=== PATIENT | female | born 1940 | race Caucasian/White ===

== ENCOUNTER 2020-03-26 11:13 | Inpatient (IN) | payer MEDICARE, OTHER, SELFPAY ==
[2020-03-26] VITALS (18 sets, daily range): BP systolic 107–151; BP diastolic 54–101; PULSE 67–175; RESP 14–22; TEMP 36.6–37.1; O2SAT 95–100; BMI 34.5; BMI 32.8; BMI 32.9
--- NOTE | 2020-03-26 11:20 | EKG12_ITS ---
Test Reason : Blood Pressure : / mmHG Vent. Rate : 074 BPM Atrial Rate : 074 BPM P-R Int : 140 ms QRS Dur : 088 ms QT Int : 374 ms P-R-T Axes : 056 021 059 degrees QTc Int : 415 ms Normal sinus rhythm Nonspecific ST and T wave abnormality Abnormal ECG When compared with ECG of 26-MAR-2020 11:29, MANUAL COMPARISON REQUIRED, DATA IS UNCONFIRMED Confirmed by PETRA CHENG, ALLI ([id number]), fashion editor MIRIAM VUONG ([id number]) on 03/27/2020 11:10:26 AM Referred By: HENRI Confirmed By:ALLI LAMBERT MD
--- NOTE | 2020-03-26 11:21 | ED.DCSUM_ITS ---
History of Present Illness Chief Complaint: Chest Pain Informant: Patient, EMS Onset: Today - 1 hr ago or so Timing: Intermittent, Lasts - 10-15 min Quality: Pressure, Tightness Location: Substernal Current Severity: Gone Maximum Severity: Moderate Worsened By: Nothing. Not Worsened By: Breathing Relieved By: Nothing Associated Symptoms: Diaphoresis, Dyspnea, Lightheadedness - now, but not w/ CP. Negative for: Nausea, Vomiting, Cough, Fever, Palpitations Narrative: Patient was at a grocery store and fell. She has no idea why she fell, she does not recall feeling near syncopal, weak, and does not recall tripping on anything. EMS was called for the fall. Upon evaluating her, they determined that she had an episode of chest pressure prior to getting to the store, and she was tachycardic. They obtained an EKG which shows rapid A. fib which the patient does not have a known history of, she did not feel tachycardic/palpitations. Right now she feels better just a little lightheaded. Patient did not injure herself with the fall. Past Medical History - Allergies and Home Meds Allergies/Adverse Reactions: Allergies No Known Allergies Allergy (Verified 03/26/20 11:14) Primary Care Physician: Jn Robertson MD [Primary Care Provider] - Smoking Status: Never smoker Review of Systems General: Reports: Malaise, Sweats. Denies: Chills, Fever Eyes: Denies: Visual changes - bilaterally, Diplopia ENT: Denies: Rhinorrhea, Sore throat Cardiovascular: Reports: Chest pain. Denies: Palpitations, Heart racing Respiratory: Reports: Dyspnea - Mild, resolved. Denies: Cough, Dyspnea on exertion Gastrointestinal: Denies: Abdominal pain, Nausea, Vomiting, Diarrhea, Melena, Hematochezia Genitourinary: Denies: Dysuria, Hematuria, Frequency Musculoskeletal: Denies: Myalgias, Back pain, Extremity Pain Skin: Denies: Rash, Wounds Neurological: Denies: Headache, Weakness, Numbness Physical Exam Inital Vital Signs reviewed: Yes General: Well nourished, Well developed, No Acute Distress Head: Normocephalic, Atraumatic Eyes: Perrl, EOMI ENT: Moist mucous membranes, No rhinorrhea Neck: Supple, Nontender, No JVD Cardiovascular: No murmurs, Normal S1, Normal S2, Irregular. Negative for: Tachycardia Respiratory: No distress, CTA bilaterally, Chest nontender Abdomen: Soft, Nontender, Nondistended, Normal bowel sounds Back: Nontender, Normal Inspection Extremities: Nontender, Edema - Trace bilateral lower extremity pretibial nonpitting. Negative for: Calf Tenderness Skin: Normal color, No rash, No Trauma Neurological: Alert, Oriented x3, Cranial nerves II-XII grossly intact, Normal Strength, Normal Sensation Psychological: Normal affect, Normal Mood Diagnostic/Tx/Re-eval Chest X-Ray - ED: 1 View, Read by ED Physician, No Acute Disease Laboratory Tests 03/26/20 03/26/20 03/26/20 Range/Units 11:30 11:30 11:30 WBC 10.3 (4.4-11.0) K/mm3 RBC 4.33 (4.2-5.4) M/mm3 Hgb 12.5 (12.0-15.0) g/dL Hct 40.3 (37-47) % MCV 93.1 (81-99) fL MCH 28.9 (27.0-32.0) pg MCHC 31.0 L (32-36) g/dL RDW Std Deviation 48.0 H (35.1-43.9) fl RDW Coeff of Tiffani 14.1 (11.6-14.6) % Plt Count 247 (150-450) K/mm3 MPV 11.0 (6.2-12.0) fl Immature Gran % (Auto) 0.400 (0.0-0.9) % Neut % (Auto) 66.6 (47-70) % Lymph % (Auto) 23.5 (19-41) % [place] % (Auto) 6.2 (0-10) % Eos % (Auto) 2.7 (0-5) % Baso % (Auto) 0.6 (0-1) % Absolute Neuts (auto) 6.9 (2.0-7.7) X10^3/uL Absolute Lymphs (auto) 2.43 (0.83-4.51) X10^3/uL Nucleated RBC % 0 (0-5) % APTT 28.3 (24.1-36.2) Seconds Sodium 142 (136-145) mmol/L Potassium 4.5 (3.5-5.1) mmol/L Chloride 110 H (98-107) mmol/L Carbon Dioxide 23.0 (21.0-32.0) mmol/L Anion Gap 9 (5-15) BUN 34 H (7-18) mg/dL Creatinine 0.94 (0.55-1.02) mg/dL Estim Creat Clear Calc 37.75 ml/min Est GFR (MDRD) Af Amer 74 (>60) mL/min Est GFR (MDRD) Non-Af 61 (>60) mL/min BUN/Creatinine Ratio 36.2 H (10-20) RATIO Glucose 137 H (74-106) mg/dL Calcium 9.1 (8.5-10.1) mg/dL Troponin I < 0.015 (<0.045) ng/mL - Rhythm Strip Rhythm Strip: A-fib Rate: 190 Ectopy: None - EKG Initial EKG Interpretation: No Acute Injury Pattern, Atrial Fibrillation, S-T Depression - diffusely, withouty ST elevation/recip chgs - Medical Decision Making After Cardizem, the patient is asymptomatic however electrically, she is tachy cardic in the 160s with occasional ventricular ectopy. Therefore plan is to start her on a Cardizem drip. Her blood pressure currently is 108 systolic, and will will admit her to the hospital for further treatment, evaluation, and monitoring. Critical care time (excluding procedures): 30-74 minutes - 35 minutes including time spent discussing with patient, child development consultant, range of motion, performing direct patient care to bedside reevaluation's, documentation. ED Disposition - Plan for ED Patient: Disposition: Acute Care Hospital [facility] Diagnosis: Chest pain, Atrial fibrillation with rapid ventricular response Referrals: Jn Robertson MD [Primary Care Provider] -
--- NOTE | 2020-03-26 11:32 | RAD_ITS ---
STUDY: X-RAY CHEST REASON FOR EXAM: Female, 79 years old. PT WITH CHEST PAIN, DIAPHORETIC PRIOR TO GOING INTO GROCERY STORE. PT FELL BACKWARDS ONTO BUTTOCKS. REPORTS DIZZINESS. TECHNIQUE: Single AP portable view of the chest. COMPARISON: None. FINDINGS: EKG electrodes are seen. The lungs are clear and expanded. There is no demonstrated pleural abnormality. Normal size heart. Normal mediastinum and dimas. Normal visualized pulmonary arteries. There is atherosclerotic tortuosity of the aortic arch and descending thoracic aorta. There are diffuse degenerative changes of the visualized thoracic spine. There is degenerative osteoarthritis of the bilateral shoulders. There is no demonstrated abnormality of the visualized soft tissue structures of the upper abdomen. RAD/Chest 1 View (Portable) IMPRESSION: No acute abnormality is seen. Degenerative changes of both shoulder joints. Electronically Signed: Salvador Trevino, at 12:22 EST , Service support ,
[2020-03-26] MEDS: 0.9% Normal Saline 1,000 ML 150 ML IV (11:35)
[2020-03-26] MEDS: Aspirin 81 MG TAB.CHEW 324 MG PO (11:35)
[2020-03-26 11:39] LABS: Absolute Lymphocyte Count 2.43 X10^3/uL (0.83-4.51); Absolute Neutrophil Count 6.9 X10^3/uL (2.0-7.7); Basophil# 0.06 X10^3/uL; Basophil% 0.6 % (0-1); Eosinophil# 0.28 X10^3/uL; Eosinophils% 2.7 % (0-5); Hematocrit 40.3 % (37-47); Hemoglobin 12.5 g/dL (12.0-15.0); Lymphocyte # 2.43 X10^3/ul (4.0); Lymphocyte % 23.5 % (19-41); Mean Corpuscular Hgb 28.9 pg (27.0-32.0); Mean Corpuscular Volume 93.1 fL (81-99); Monocyte# 0.64 X10^3/uL; Monocyte% 6.2 % (0-10); NRBC Flagged by Analyzer 0 % (0-5); Neutrophil # 6.89 X10^3/uL (2.7-7.7); Neutrophil % 66.6 % (47-70); Platelet Count 247 K/mm3 (150-450); RBC Distribution Width CV 14.1 % (11.6-14.6); Red Blood Count 4.33 M/mm3 (4.2-5.4); White Blood Count 10.3 K/mm3 (4.4-11.0)
[2020-03-26] MEDS: dilTIAZem 25 MG/5 ML Vial 20 MG IV BOLUS (11:39)
[2020-03-26 11:48] LABS: Partial Thromboplast Time 28.3 Seconds (24.1-36.2)
[2020-03-26 11:56] LABS: Anion Gap 9 (5-15); BUN 34 mg/dL (7-18); BUN/Creat Ratio 36.2 RATIO (10-20); Calcium,Total 9.1 mg/dL (8.5-10.1); Chloride 110 mmol/L (98-107); Creatinine, Serum 0.94 mg/dL (0.55-1.02); EST Glomerular Filtration Rate 61 mL/min (>60); Est Glom Filt Rate - Afr Amer 74 mL/min (>60); Estimated Creatinine Clearance 37.75 ml/min; Glucose 137 mg/dL (74-106); Potassium 4.5 mmol/L (3.5-5.1); Sodium Level 142 mmol/L (136-145)
[2020-03-26] MEDS: dilTIAZem 25 MG/5 ML Vial 15 MG IV BOLUS (13:29)
--- NOTE | 2020-03-26 14:56 | PCM.HP.STD ---
Problem List (1) Chest pain Status: Acute (2) Atrial fibrillation with rapid ventricular response Status: Acute History of Present Illness Date of Admission: 03/26/20 Chief Complaint: Chest pressure, shortness of breath. The patient is a 79 year old F who presents the emergency room due to chest pressure and shortness of breath. Patient states she was running errands today and felt like she could not catch her breath. She thought this may be related to wearing her mask. While driving to an additional errand, she developed chest pressure and states she did not feel right. She denies pain radiation. Denies nausea, diaphoresis. She has a history of hypertension. Otherwise denies cardiac history. She has a past medical history of hypertension, asthma, arthritis, GERD, gout. Past Medical History Allergies No Known Allergies Allergy (Verified 03/26/20 11:14) Home Medications: Ambulatory Orders Medication Instructions Recorded Acetaminophen [Tylenol Extra 500 mg PO Q6H PRN PRN 03/26/20 Strength] Albuterol Inhaler [Ventolin Hfa 1 - 2 puff INHALATION Q6H PRN PRN 03/26/20 (SP)] Allopurinol [Zyloprim] 100 mg PO DAILYCM 03/26/20 Antiarthritic Combination No.2 900 mg PO BID 03/26/20 [Glucosamine-Chondroitin] Celecoxib [Celebrex] 200 mg PO BID 03/26/20 Fluticasone 0.05% [Flonase Nasal 1 spray NASAL PRN PRN 03/26/20 [place]] Fluticasone/Salmeterol [Advair 1 ea IH BID 03/26/20 250-50 Diskus] Ketotifen Fumarate [Zaditor] 1 drop EACH EYE PRN PRN 03/26/20 Lisinopril [Zestril] 10 mg PO DAILY 03/26/20 Loratadine [Claritin] 10 mg PO DAILY PRN 03/26/20 Multivit-Min/Iron/Folic/Lutein 1 ea PO QODAY 03/26/20 [Multivitamin Women 50 Plus Tab] Omeprazole [Prilosec] 20 mg PO QODAY 03/26/20 Surgical History: no surgical history Psychiatric History: No pertinent psych hx NET SOFTWARE ARCHITECT History: No pertinent NET SOFTWARE ARCHITECT history Lives: Spouse/ Significant Other Smoking Status: Never smoker Tobacco Use: Non-smoker Alcohol: None Drugs: None - *Family History Maternal History Items: - - Mini strokes. Denies maternal cardiac history. Paternal History Items: - - Rheumatoid arthritis. Denies paternal cardiac history. Review of Systems Constitutional: Denies: Chills, Fever, Weight Change HEENT: Denies: Head Aches, Sinus Congestion, Sinus Drainage Cardiovascular: Reports: Chest Pressure. Denies: Edema, Light Headedness, Palpitations, Syncope Respiratory: Reports: Shortness of Breath. Denies: Cough, Shortness of breath at rest, Sputum production Gastrointestinal: Denies: Abdominal Pain, Nausea, Vomiting Genitourinary: Denies: Dysuria Musculoskeletal: Denies: Joint Pain, Joint Tenderness Skin: Denies: Rash, Wounds Neurological: Denies: Numbness, Tingling, Focal weakness Psychiatric: Denies: Anxiety, Depression, Homicidal Ideations, Suicidal Ideations Hematologic/ Lymphatic: Denies: Easy Bruising, Easy Bleeding VTE Information - Inpt Only VTE Present on Admission: No VTE Mechan Device Prophylaxis: None VTE Pharm Prophylaxis ordered?: Yes Patient Problems: Active and Suspected Problems Chest pain (Acute) Atrial fibrillation with rapid ventricular response (Acute) - Physical Exam Vitals/I&O's: Vital Signs Temp Pulse Resp BP Pulse Ox 98.0 F 74 16 150/83 H 100 03/26/20 14:45 03/26/20 14:45 03/26/20 14:45 03/26/20 14:45 03/26/20 14:45 Oxygen Flow Rate (L/min) 2 Oxygen Delivery Method Room Air Weight: 179 lb 14.355 oz Body Mass Index (BMI) 32.8 Intake and Output for Last 24 Hours 03/24/20 03/25/20 03/26/20 23:59 23:59 23:59 Intake Total 1012.58 / 1012.58 Balance 1012.58 / 1012.58 General: Alert, Oriented x3, Cooperative HEENT: Atraumatic, PERRLA, EOMI, Normocephalic Neck: Supple, No JVD, Negative Carotid Bruits Lungs: Clear to auscultation, Normal air movement Cardiovascular: Regular rate, No murmurs, - - Previously atrial fibrillation, converted to sinus rhythm Abdomen: Bowel Sounds Present, Soft, Non Tender Extremities: No clubbing, No cyanosis, No edema, Capillary Refill Less than 3 Seconds Skin: No rashes, No breakdown Musculoskeletal: No Tenderness to Palpation of Joints or Extremities Neurological: Cranial nerves II-XII grossly intact, Neuro grossly intact Psych/Mental Status: Normal Affect, Appropriate Laboratory Results 03/26/20 11:30: WBC 10.3, RBC 4.33, Hgb 12.5, Hct 40.3, MCV 93.1, MCH 28.9, MCHC 31.0 L, RDW Std Deviation 48.0 H, RDW Coeff of Tiffani 14.1, Plt Count 247, MPV 11.0, Immature Gran % (Auto) 0.400, Neut % (Auto) 66.6, Lymph % (Auto) 23.5, [place] % (Auto) 6.2, Eos % (Auto) 2.7, Baso % (Auto) 0.6, Absolute Neuts (auto) 6.9, Absolute Lymphs (auto) 2.43, Nucleated RBC % 0 03/26/20 11:30: APTT 28.3 03/26/20 11:30: Sodium 142, Potassium 4.5, Chloride 110 H, Carbon Dioxide 23.0, Anion Gap 9, BUN 34 H, Creatinine 0.94, Estim Creat Clear Calc 37.75, Est GFR (MDRD) Af Amer 74, Est GFR (MDRD) Non-Af 61, BUN/Creatinine Ratio 36.2 H, Glucose 137 H, Calcium 9.1, Troponin I < 0.015 Current Medications Acetaminophen (Acetaminophen 325 Mg Tablet) 650 mg PO Q6H PRN PRN PRN Reason: Pain Score 1-10/Temp > 100.7 F Enoxaparin Sodium (Enoxaparin 40 Mg/0.4 Ml Syringe) 40 mg SC DAILY REYNA Diltiazem HCl 125 mg/ Dextrose 125 mls @ 5 mls/hr IV .Q25H REYNA; Protocol Last Titration: 03/26/20 14:45 Dose: 5 mg/hr, 5 mls/hr Documented by: Lisinopril (Lisinopril 10 Mg Tablet) 10 mg PO DAILY REYNA Morphine Sulfate (Morphine 2 Mg/Ml Syringe) 2 mg IV Q3H PRN PRN PRN Reason: Pain Score 6-10 Ondansetron HCl (Ondansetron 4 Mg/2 Ml Vial) 4 mg IV Q8H PRN PRN PRN Reason: NAUSEA/VOMITING Pantoprazole Sodium (Pantoprazole Sodium 20 Mg Tablet) 20 mg PO DAILY REYNA Sodium Chloride (0.9% Saline Lock 10 Ml Syringe) 10 - 40 ml IV UD PRN PRN Reason: SALINE FLUSH Assessment/Plan All Active Problems Chest pain (Acute) Atrial fibrillation with rapid ventricular response (Acute) 1. New onset atrial fibrillation-IV Cardizem initiated in ER. Converted to sinus rhythm. Plan for transition to oral Cardizem. Trend enzymes. Check TSH, mag. Obtain echocardiogram. Monitor telemetry overnight. 2. Chest pressure-suspect related to #1. Symptoms resolved with conversion to sinus rhythm. Trend enzymes. 3. Hypertension-stable, continue lisinopril regimen. 4. GERD-continue Prilosec. 5. Gout-on allopurinol. DVT prophylaxis-Lovenox subcu This patient was seen by VERA Holcomb under the supervision of Dr. Aleman.
--- NOTE | 2020-03-26 15:47 | EKG12_ITS ---
Test Reason : CP Blood Pressure : / mmHG Vent. Rate : 189 BPM Atrial Rate : 182 BPM P-R Int : 000 ms QRS Dur : 080 ms QT Int : 244 ms P-R-T Axes : 000 032 221 degrees QTc Int : 432 ms Atrial fibrillation with rapid ventricular response Nonspecific ST abnormality Abnormal ECG Confirmed by RAF CHENG, CHESTER ([id number]), editorial writer MIRIAM VUONG ([id number]) on 03/28/2020 8:55:56 AM Referred By: DESIREE Confirmed By:CHESTER CARBONE MD
--- NOTE | 2020-03-26 15:48 | CON.PCM_ITS ---
Reason for Consult Date of Consultation: 03/26/20 Reason for Consultation: Palpitations and chest discomfort History of Present Illness: The patient is a 79 year old F with a previous medical history significant for hypertension who presented to the emergency room today after experiencing palpitations and chest discomfort which occurred while she was participating in activities of daily living. She said that it recurred and was persistent and therefore she got concerned and presented to the emergency room. In the emergency room an EKG was done on arrival which demonstrated atrial fibrillation with a rapid ventricular response rate of 189 bpm. She was given intravenous diltiazem and transferred to the telemetry unit. Cardiology was called for further evaluation and management. Shortly after she arrived on the telemetry floor the chest discomfort dissipated and she appeared to have converted back to sinus rhythm. She denies any prior chest discomfort no shortness of breath no paroxysmal nocturnal dyspnea or pedal edema no neck arm or jaw discomfort to suggest angina previously. She has not had any Covid contacts no long travel and no leg or calf discomfort. She has previously been compliant with her medications. [] Past Medical History Allergies/Adverse Reactions: Allergies No Known Allergies Allergy (Verified 03/26/20 11:14) Home Medications: Ambulatory Orders Medication Instructions Recorded Acetaminophen [Tylenol Extra 500 mg PO Q6H PRN PRN 03/26/20 Strength] Albuterol Inhaler [Ventolin Hfa 1 - 2 puff INHALATION Q6H PRN PRN 03/26/20 (SP)] Allopurinol [Zyloprim] 100 mg PO DAILYCM 03/26/20 Antiarthritic Combination No.2 900 mg PO BID 03/26/20 [Glucosamine-Chondroitin] Celecoxib [Celebrex] 200 mg PO BID 03/26/20 Fluticasone 0.05% [Flonase Nasal 1 spray NASAL PRN PRN 03/26/20 [place]] Fluticasone/Salmeterol [Advair 1 ea IH BID 03/26/20 250-50 Diskus] Ketotifen Fumarate [Zaditor] 1 drop EACH EYE PRN PRN 03/26/20 Lisinopril [Zestril] 10 mg PO DAILY 03/26/20 Loratadine [Claritin] 10 mg PO DAILY PRN 03/26/20 Multivit-Min/Iron/Folic/Lutein 1 ea PO QODAY 03/26/20 [Multivitamin Women 50 Plus Tab] Omeprazole [Prilosec] 20 mg PO QODAY 03/26/20 Surgical History: no surgical history Psychiatric History: No pertinent psych hx SENIOR PROGRAMMER History: No pertinent 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 Denies maternal cardiac history. Paternal History Items: - - Rheumatoid arthritis. Denies paternal cardiac history. Lives: Spouse/ Significant Other Smoking Status: Never smoker Tobacco Use: Non-smoker Alcohol: None Drugs: None Review of Systems - Review of Systems General: Denies: Fever, Night Sweats, Fatigue HEENT: Denies: Vision Change Cardiovascular: Reports: Chest Discomfort, Palpitations. Denies: Shortness of Breath, Orthopnea, PND, Peripheral Edema, Lightheadedness, Dizziness, Near Syncope, Syncope Respiratory: Denies: Cough, Sputum Production, Hemoptysis Gastrointestinal: Denies: Hematemesis, Hematochezia, Melena Genitourinary: Denies: Dysuria, Hematuria Skin: Denies: Rash Neurological: Denies: Dizziness Psychiatric: Denies: Anxiety Endocrine: Denies: Heat Intolerance Subjectve: Pleasant lady in no distress Objective: Vital Signs Temp Pulse Resp BP Pulse Ox 98.1 F 78 14 141/88 H 99 03/26/20 15:00 03/26/20 15:00 03/26/20 15:00 03/26/20 15:00 03/26/20 15:00 Oxygen Flow Rate (L/min) 2 Oxygen Delivery Method Room Air Weight: 179 lb 14.355 oz Body Mass Index (BMI) 32.8 Intake and Output for Last 24 Hours 03/24/20 03/25/20 03/26/20 23:59 23:59 23:59 Intake Total 1012.58 / 1012.58 Balance 1012.58 / 1012.58 General: Awake, Alert, Oriented x 3 HEENT: PERRL, EOMI, Sclera Non Icteric Neck: Supple, Good ROM, No Lymph Node Enlargement Lungs: Clear to auscultation Cardiovascular: Regular Rhythm, Normal S1, Normal S2, No Murmurs, No Rubs, No Gallops Vascular: No Carotid Bruits, Normal Femoral Pulses, Normal Radial Pulses, Normal Dorsalis Pedal Pulse, Normal Posterior Tibial Pulses Abdomen: Bowel Sounds Present, Soft, Non Tender, No HSM, No Organomegaly Extremities: No Cyanosis, No Clubbing, No edema Musculoskeletal: No Erythema Skin: No Rashes Lymphatic: No Lymph Node Enlargement Neurological: No Focal Motor or Sensory Deficit Psych/Mental Status: Appropriate 03/26/20 11:30: WBC 10.3, RBC 4.33, Hgb 12.5, Hct 40.3, MCV 93.1, MCH 28.9, MCHC 31.0 L, Plt Count 247, MPV 11.0, Immature Gran % (Auto) 0.400, Neut % (Auto) 66.6, Lymph % (Auto) 23.5, [place] % (Auto) 6.2, Eos % (Auto) 2.7, Baso % (Auto) 0.6, Absolute Neuts (auto) 6.9, Nucleated RBC % 0 03/26/20 11:30: APTT 28.3 03/26/20 11:30: Sodium 142, Potassium 4.5, Chloride 110 H, Carbon Dioxide 23.0, Anion Gap 9, BUN 34 H, Creatinine 0.94, Est GFR (MDRD) Af Amer 74, Est GFR (MDRD) Non-Af 61, BUN/Creatinine Ratio 36.2 H, Glucose 137 H, Calcium 9.1, Troponin I < 0.015 Rhythm: EKG: Initial EKG demonstrated atrial fibrillation with rapid ventricular response rate of [address] and T wave changes noted inferolaterally.; Follow-up EKG after conversion to sinus rhythm demonstrates normal sinus rhythm with no acute changes ECHO: Pending Stress Test: Cardiac Cath: PCI: CT Surgery: Holter monitor: EPS: PPM: CXR: Chest CT Scan: Assessment/Plan 1. Atrial fibrillation with rapid ventricular response rate * It appears that this is the first episode of atrial fibrillation. She has spontaneously converted to sinus rhythm. Her echocardiogram performed today demonstrated borderline ejection fraction estimated to be approximately 50%. No segmental wall motion abnormalities noted and no significant valvular abnormalities present. * Will recommend at this time starting a beta-mulu with metoprolol 25 mg twice a day * Discontinue intravenous diltiazem * Obtain a D-dimer level to exclude pulmonary embolism * Continue troponin cycling * Will observe till a.m. and if patient is maintaining sinus rhythm then will discharge for outpatient follow-up. * With this 1 episode of atrial fibrillation I do not think that I would necessarily committed to anticoagulation. * 2. Hypertension * The above is suboptimally controlled. We will continue the lisinopril * Add the beta-mulu * * 3. Abnormal cardiac enzymes. * She does have evidence of abnormal cardiac enzymes as well as EKG changes when she was tachycardic. The above may all be demand ischemia. However if there is what appears to be a rise and fall then I may suggest that we evaluate her coronary anatomy to exclude coronary ischemia or obstructive coronary disease especially at her age. * Thank you for allowing me to participate in the care of your patient. Please don't hesitate to call if any issues arise.
[2020-03-26 16:27] LABS: Magnesium 2.2 mg/dL (1.6-2.6); Thyroid Stim Hormone (TSH) 2.49 uIU/mL (0.358-3.74)
[2020-03-26] MEDS: 0.9% Saline Lock 10 ML Syringe IV ×2 (17:06→19:56)
[2020-03-26] MEDS: Metoprolol Tartrate 25 MG Tablet PO (17:12)
[2020-03-26] MEDS: Enoxaparin 40 MG/0.4 ML Syringe SC (17:13)
--- NOTE | 2020-03-26 17:44 | CT_ITS ---
STUDY: CTA CHEST REASON FOR EXAM: Female, 79 years old. Chest pain. Question PE. RADIATION DOSAGE (If Supplied By Facility): CTDIvol = ( 14.83 ) mGy, DLP = ( 525.30 ) mGycm TECHNIQUE: The examination was performed with the intravenous administration of IV 75mL Isovue-370. Post-processing of the angiographic images was performed, with multiplanar reformation and 3D reconstruction. Individualized dose optimization techniques were used for this CT. COMPARISON: Contrast, 03/26/2020. FINDINGS: Normal enhancement of the main pulmonary artery and right and left pulmonary arteries. Normal enhancement of the bilateral peripheral pulmonary arteries. There is no demonstrated pulmonary embolism. Normal thoracic aorta and visualized great vessels. There is no demonstrated aortic dissection. Normal heart and pericardium. Normal mediastinum. Normal hilar regions. Normal visualized trachea and bronchi. The lungs are well expanded. Normal pulmonary parenchyma. Normal pleura. Normal chest wall structures. There are marked degenerative changes of the bilateral shoulders. There are degenerative changes of thoracic spine. Normal visualized upper abdomen. CT/CTA Chest W/WO Contrast IMPRESSION: 1. Normal CTA chest examination, without a demonstrated pulmonary embolism or arterial dissection. 2. Degenerative changes of the thoracic spine and bilateral shoulders. Electronically Signed: Nick Roach DO at 19:31 EST Tel [phone], Service support ,
[2020-03-26] MEDS: Acetaminophen 325 MG Tablet 650 MG PO (19:56)
[2020-03-26] MEDS: 0.9% Normal Saline 1,000 ML 75 ML IV (22:05)
[2020-03-27] VITALS (12 sets, daily range): BP systolic 140–155; BP diastolic 68–80; PULSE 54–80; RESP 14–18; TEMP 36.6–37.2; O2SAT 94–98
--- NOTE | 2020-03-27 05:00 | EKG12_ITS ---
Test Reason : AM EKG Blood Pressure : / mmHG Vent. Rate : 060 BPM Atrial Rate : 060 BPM P-R Int : 140 ms QRS Dur : 092 ms QT Int : 404 ms P-R-T Axes : 048 020 049 degrees QTc Int : 404 ms Normal sinus rhythm Normal ECG Confirmed by RAF CHENG, CHESTER ([id number]), book or script editor MIRIAM VUONG ([id number]) on 03/28/2020 9:04:45 AM Referred By: DR ÁLVAREZ Confirmed By:CHESTER CARBONE MD
[2020-03-27] MEDS: Pantoprazole Sodium 20 MG Tablet PO (05:47)
[2020-03-27] MEDS: Lisinopril 10 MG Tablet PO (05:47)
[2020-03-27] MEDS: Aspirin 81 MG TAB.CHEW PO (05:47)
[2020-03-27] MEDS: Metoprolol Tartrate 25 MG Tablet PO (05:47)
[2020-03-27] MEDS: 0.9% Saline Lock 10 ML Syringe IV (05:48)
[2020-03-27] MEDS: 0.9% Normal Saline 1,000 ML 75 ML IV (07:02)
--- NOTE | 2020-03-27 08:21 | PN.CARD_ITS ---
Subjectve: Patient seen and evaluated. Underwent cardiac catheterization today Objective: Vital Signs Temp Pulse Resp BP Pulse Ox 97.8 F 62 18 141/75 H 96 03/27/20 05:46 03/27/20 07:17 03/27/20 05:46 03/27/20 05:46 03/27/20 05:46 Oxygen Flow Rate (L/min) 2 Oxygen Delivery Method Room Air Weight: 179 lb 14.355 oz Body Mass Index (BMI) 32.8 Intake and Output for Last 24 Hours 03/25/20 03/26/20 03/27/20 23:59 23:59 23:59 Intake Total 1012.58 / 1012.58 671.25 / 671.25 Balance 1012.58 / 1012.58 671.25 / 671.25 General: Awake, Alert, Oriented x 3 HEENT: PERRL, EOMI, Sclera Non Icteric Neck: Supple, Good ROM, No Lymph Node Enlargement Lungs: Clear to auscultation Cardiovascular: Regular Rhythm, Normal S1, Normal S2, No Murmurs, No Rubs, No Gallops 03/26/20 11:30: WBC 10.3, RBC 4.33, Hgb 12.5, Hct 40.3, MCV 93.1, MCH 28.9, MCHC 31.0 L, Plt Count 247, MPV 11.0, Immature Gran % (Auto) 0.400, Neut % (Auto) 66.6, Lymph % (Auto) 23.5, [place] % (Auto) 6.2, Eos % (Auto) 2.7, Baso % (Auto) 0.6, Absolute Neuts (auto) 6.9, Nucleated RBC % 0 03/26/20 11:30: APTT 28.3 03/26/20 11:30: Sodium 142, Potassium 4.5, Chloride 110 H, Carbon Dioxide 23.0, Anion Gap 9, BUN 34 H, Creatinine 0.94, Est GFR (MDRD) Af Amer 74, Est GFR (MDRD) Non-Af 61, BUN/Creatinine Ratio 36.2 H, Glucose 137 H, Calcium 9.1, Troponin I < 0.015 03/26/20 11:30: D-Dimer Quant (PE/DVT) 1.80 H* 03/26/20 15:10: Troponin I 0.331 H 03/26/20 15:10: Magnesium 2.2 03/26/20 18:00: Troponin I 0.644 H* Rhythm: EKG: ECHO: Stress Test: Cardiac Cath: PCI: CT Surgery: Holter monitor: EPS: PPM: CXR: Chest CT Scan: Medical Necessity - Tobacco Use Smoking Status: Never smoker Tobacco Use: Non-smoker Assessment/Plan 1. Atrial fibrillation with rapid ventricular response rate * It appears that this is the first episode of atrial fibrillation. She has spontaneously converted to sinus rhythm. Her echocardiogram performed today demonstrated borderline ejection fraction estimated to be approximately 50%. No segmental wall motion abnormalities noted and no significant valvular abnormalities present. * Will recommend at this time starting a beta-mulu with metoprolol 25 mg twice a day * * With this 1 episode of atrial fibrillation I do not think that I would necessarily committed to anticoagulation. * 2. Hypertension * The above is suboptimally controlled. We will continue the lisinopril * Add the beta-mulu * * 3. Abnormal cardiac enzymes. * She did have abnormal cardiac enzymes and underwent a cardiac catheterization today which demonstrated no obstructive coronary disease. There was mild disease noted in the circumflex artery only. We will continue with medical therapy. Patient can be discharged for outpatient follow-up. * Thank you for allowing me to participate in the care of your patient. Please don't hesitate to call if any issues arise.
--- NOTE | 2020-03-27 08:30 | CL.D_ITS ---
Patient Name: HONEY FERNANDES Study Date: 03/27/2020 Performing: Rodrick Stanford MD Ht: 61.81 inches 157 cm : 1940 Wt: 180.78 lbs 82 kg Age: 79 Gender: female BSA: 1.83 PROCEDURE(S) PERFORMED KB76-ALS/COR/LV CLINICAL PROFILE AND INDICATIONS Indications: Suspected CAD Heart Failure: None Stress/Imaging Stress/Image Study Performed: No CAD Presentations: Non-STEMI. Symptom onset Date/Time: 03/26/2020 Time Not Available CONCLUSIONS Mild to minimal coronary artery disease and mild left ventricular systolic dysfunction. RECOMMENDATIONS Medical therapy DESCRIPTION OF PROCEDURE The patient arrived to the procedure lab. The risks and benefits of the procedure as well as a full d escription of our services here and current unavailability of surgical backup were fully explained to the patient and/or their significant other prior to the catheterization. The Timeout was completed, verifying the correct patient and procedure. The patient's procedural site was prepped and draped in the usual fashion. Local anesthetic was given subcutaneously to right radial region with Lidocaine 2% . Using a modified Seldinger technique, arterial access was obtained via the right radial artery, a 6 Fr sheath was inserted. Left Coronary Artery selective angiography was performed in multiple views u sing a 5 Fr. 4.0 [place] catheter. Right Coronary Artery selective angiography was then performed in mu ltiple views using a 5 Fr. 4.0 [place] catheter. Left Ventriculography was performed in CAMPOS projection using a 5 Fr. [place] catheter. LV to AO pullback pressures were then recorded.The arterial sheath was pulled and a TR Band was applied for hemostasis CORONARY ANGIOGRAPHY DOMINANCE: Co- Dominant LEFT HEART ASSESSMENT Left Ventricular Ejection Fraction: by LV Gram 50 % Normal LV wall motion Normal Left Ventricular systolic function LEFT MAIN: Angiographically normal LEFT ANTERIOR DESCENDING ARTERY: No significant disease noted CIRCUMFLEX ARTERY: MID CIRC: Mild luminal irregularities less than 30% RAMUS: No significant disease noted RIGHT CORONARY ARTERY: No significant disease noted COMPLICATIONS No Complications PROCEDURE MEDICATIONS Versed 1 mg IV Fentanyl 50 mcg IV Oxygen: 2 L/min via nasal cannula Heparin diluted in 23cc Heparinized saline. Patient given 10cc IA of this solution. 03/27/2020 08:09 :19 Verapamil 2.5mg, Ntg 100mcgs, 2000 units of Heparin diluted in 23cc Heparinized saline. Patient give n 10cc IA of this solution. 03/27/2020 08:09:19 SUMMARY OF HEMODYNAMIC DATA Time AIR REST ECG 07:59:18 AO 112/53 (77) SA 08:11:14 LV 130/12, 14 08:17:11 LV 131/12, 14 08:17:18 LV 126/15, 16 08:17:58 LV 122/14, 16 08:18:04 LVp 124/12, 22 08:18:09 AOp 133/61 (91) 08:18:14 Signed By Rodrick Stanford MD On 03/27/2020 8:29:29 AM Rodrick Stanford MD
--- NOTE | 2020-03-27 11:20 | PCM.DC ---
- Discharge Diagnoses Current Active Problems: Current Active and Chronic Problems (Last Updated 03/26/20 @ 18:01 by Usha Fabian) Chest pain (Acute) Atrial fibrillation with rapid ventricular response (Acute 03/26/20) You will use the following diet at home:: Cardiac Discharge Activity: Return to Normal Activity Call your doctor if you observe: Shortness of breath, Dizziness, Fainting spells, Chest pain, Increased palpitations (irregular heartbeat) Allergies/Adverse Reactions: Allergies No Known Allergies Allergy (Verified 03/26/20 11:14) Medications to take at Discharge Acetaminophen [Tylenol] 500 mg PO Q6H PRN PRN 03/26/20 Albuterol Inhaler [Ventolin Hfa] 1 - 2 puff INHALATION Q6H PRN PRN 03/26/20 Allopurinol [Zyloprim] 100 mg PO DAILYCM 03/26/20 Antiarthritic Combination No.2 [Glucosamine-Chondroitin] 900 mg PO BID 03/26/20 Celecoxib [Celebrex] 200 mg PO BID 03/26/20 Fluticasone 0.05% [Flonase Nasal [place]] 1 spray NASAL PRN PRN 03/26/20 Fluticasone/Salmeterol [Advair 250-50 Diskus] 1 ea IH BID 03/26/20 Ketotifen Fumarate [Zaditor] 1 drop EACH EYE PRN PRN 03/26/20 Lisinopril [Zestril] 10 mg PO DAILY 03/26/20 Loratadine [Claritin] 10 mg PO DAILY PRN 03/26/20 Multivit-Min/Iron/Folic/Lutein [Multivitamin Women 50 Plus Tab] 1 ea PO QODAY 03/26/20 Omeprazole [Prilosec] 20 mg PO QODAY 03/26/20 Aspirin [Aspirin, Baby] 81 mg PO DAILY@0800 #60 tab.chew 03/27/20 Metoprolol Tartrate [Lopressor (beta mulu)] 25 mg PO BID #120 tab 03/27/20 The following prescriptions were given: Aspirin [Aspirin, Baby] 81 mg PO DAILY@0800 #60 tab.chew Transmission Status: Pending to [facility] Metoprolol Tartrate [Lopressor (beta mulu)] 25 mg PO BID #120 tab Transmission Status: Pending to [facility] Primary Care Physician: Jn Robertson MD [Primary Care Provider] - Please follow up with your Primary Care Physician in: 1 Week Test Results: Test results from this visit will be discussed in further detail at your follow-up appointment, if applicable. Please Follow Up With: Rodrick Stanford MD When: Follow up with MILITARY TECHNOLOGY MANAGER or PA in 2-4 Weeks Proposed Discharge Date: 03/27/20
--- NOTE | 2020-03-27 11:24 | DS.PCM_ITS ---
Discharge Date and Diagnosis - Problem List Patient Problems: Active and Suspected Problems (Last Updated 03/26/20 @ 18:01 by Usha Fabian) Chest pain (Acute) Atrial fibrillation with rapid ventricular response (Acute 03/26/20) Date of Admission: 03/26/20 Date of Discharge: 03/27/20 - Primary Discharge Diagnosis Acute Problems: Active Problems (Last Updated 03/26/20 @ 18:01 by Usha Fabian) 1. New onset atrial fibrillation 2. Abnormal cardiac enzymes 3. Hypertension 4. GERD 5. Gout Hospital Course and Treatment Imaging Results: Diagnostic Data Chest X-Ray 03/26/20 11:32 IMPRESSION: No acute abnormality is seen. Degenerative changes of both shoulder joints. Electronically Signed: Salvador Trevino, at 12:22 EST , Service support , Chest CTA 03/26/20 17:44 IMPRESSION: 1. Normal CTA chest examination, without a demonstrated pulmonary embolism or arterial dissection. 2. Degenerative changes of the thoracic spine and bilateral shoulders. Electronically Signed: Nick Roach DO at 19:31 EST Tel [phone], Service support , Dr. Stanford- Cardiology Operations: None Procedures: 2-D Echocardiogram, Cardiac catheterization Summary of Care Provided: The patient is a 79 year old F admitted 03/26/2020 due to chest pressure and shortness of breath. 1. New onset atrial fibrillation-IV Cardizem initiated in ER. Converted to sinus rhythm. TSH, mag normal. Continue metoprolol 25 mg twice daily. Patient has remained in sinus rhythm. Cardiology consulted. Given single episode of A. fib, no anticoagulation at this time. Follow-up with cardiology in 2 to 4 weeks. 2. Abnormal cardiac enzymes-demand ischemia related to #1. Patient underwent heart cath which demonstrated mild to minimal CAD. Echocardiogram demonstrates an EF of 50%, mild mitral valve insufficiency, pulmonary artery systolic pressure 34 mmHg. Continue aspirin, metoprolol at discharge. 3. Hypertension-stable, continue lisinopril regimen. 4. GERD-continue Prilosec. 5. Gout-on allopurinol. General: Alert, Oriented x3, Cooperative HEENT: Atraumatic, PERRLA, EOMI, Normocephalic Neck: Supple, No JVD, Negative Carotid Bruits Lungs: Clear to auscultation, Normal air movement Cardiovascular: Regular rate, No murmurs, - - Previously atrial fibrillation, converted to sinus rhythm Abdomen: Bowel Sounds Present, Soft, Non Tender Extremities: No clubbing, No cyanosis, No edema, Capillary Refill Less than 3 Seconds Skin: No rashes, No breakdown Musculoskeletal: No Tenderness to Palpation of Joints or Extremities Neurological: Cranial nerves II-XII grossly intact, Neuro grossly intact Psych/Mental Status: Normal Affect, Appropriate Patient seen and examined prior to discharge. Physical assessment as noted above. Patient is stable for discharge with follow up recommendations as noted above. This patient was seen by VERA Holcomb under the supervision of Dr. Aleman. Patient Problems: Active and Suspected Problems (Last Updated 03/26/20 @ 18:01 by Usha Fabian) Chest pain (Acute) Atrial fibrillation with rapid ventricular response (Acute 03/26/20) - Physical Exam Vitals/I&O's: Vital Signs Temp Pulse Resp BP Pulse Ox 98.9 F 61 17 145/70 H 94 03/27/20 10:45 03/27/20 10:45 03/27/20 10:45 03/27/20 10:45 03/27/20 10:45 Oxygen Flow Rate (L/min) 95 Oxygen Delivery Method Room Air Weight: 179 lb 14.355 oz Body Mass Index (BMI) 32.8 Intake and Output for Last 24 Hours 03/25/20 03/26/20 03/27/20 23:59 23:59 23:59 Intake Total 1012.58 / 1012.58 671.25 / 671.25 Balance 1012.58 / 1012.58 671.25 / 671.25 Laboratory Results 03/26/20 11:30: WBC 10.3, RBC 4.33, Hgb 12.5, Hct 40.3, MCV 93.1, MCH 28.9, MCHC 31.0 L, RDW Std Deviation 48.0 H, RDW Coeff of [place] 14.1, Plt Count 247, MPV 11.0, Immature Gran % (Auto) 0.400, Neut % (Auto) 66.6, Lymph % (Auto) 23.5, [place] % (Auto) 6.2, Eos % (Auto) 2.7, Baso % (Auto) 0.6, Absolute Neuts (auto) 6.9, Absolute Lymphs (auto) 2.43, Nucleated RBC % 0 03/26/20 11:30: APTT 28.3 03/26/20 11:30: Sodium 142, Potassium 4.5, Chloride 110 H, Carbon Dioxide 23.0, Anion Gap 9, BUN 34 H, Creatinine 0.94, Estim Creat Clear Calc 37.75, Est GFR (MDRD) Af Amer 74, Est GFR (MDRD) Non-Af 61, BUN/Creatinine Ratio 36.2 H, Glucose 137 H, Calcium 9.1, Troponin I < 0.015 03/26/20 11:30: D-Dimer Quant (PE/DVT) 1.80 H* 03/26/20 15:10: Troponin I 0.331 H 03/26/20 15:10: Magnesium 2.2, TSH 2.49 03/26/20 18:00: Troponin I 0.644 H* Current Medications Acetaminophen (Acetaminophen 325 Mg Tablet) 650 mg PO Q6H PRN PRN PRN Reason: Pain Score 1-10/Temp > 100.7 F Last Admin: 03/26/20 19:56 Dose: 650 mg Documented by: Aspirin (Aspirin 81 Mg Tab.Chew) 81 mg PO DAILY@0800 [facility] Last Admin: 03/27/20 05:47 Dose: 81 mg Documented by: Enoxaparin Sodium (Enoxaparin 40 Mg/0.4 Ml Syringe) 40 mg SC DAILY [facility] Last Admin: 03/27/20 00:03 Dose: Not Given Documented by: Sodium Chloride () 1,000 mls @ 75 mls/hr IV .[id number] [facility] Last Admin: 03/27/20 07:02 Dose: 75 mls/hr Documented by: Sodium Chloride () 1,000 mls @ 0 mls/hr IV .Q0M [facility] Lisinopril (Lisinopril 10 Mg Tablet) 10 mg PO DAILY [facility] Last Admin: 03/27/20 05:47 Dose: 10 mg Documented by: Metoprolol Tartrate (Metoprolol Tartrate 25 Mg Tablet) 25 mg PO BID [facility] Last Admin: 03/27/20 05:47 Dose: 25 mg Documented by: Morphine Sulfate (Morphine 2 Mg/Ml Syringe) 2 mg IV Q3H PRN PRN PRN Reason: Pain Score 6-10 Ondansetron HCl (Ondansetron 4 Mg/2 Ml Vial) 4 mg IV Q8H PRN PRN PRN Reason: NAUSEA/VOMITING Pantoprazole Sodium (Pantoprazole Sodium 20 Mg Tablet) 20 mg PO DAILY [facility] Last Admin: 03/27/20 05:47 Dose: 20 mg Documented by: Sodium Chloride (0.9% Saline Lock 10 Ml Syringe) 10 - 40 ml IV UD PRN PRN Reason: SALINE FLUSH Last Admin: 03/27/20 05:48 Dose: 10 ml Documented by: Discharge Diet: Low fat/ Low Cholesterol Discharge Activity: Return to Normal Activity Call your doctor if you observe: Shortness of breath, Dizziness, Fainting spells, Chest pain, Increased palpitations (irregular heartbeat) Home Medications: Medications to take at Discharge Acetaminophen [Tylenol] 500 mg PO Q6H PRN PRN 03/26/20 Albuterol Inhaler [Ventolin Hfa] 1 - 2 puff INHALATION Q6H PRN PRN 03/26/20 Allopurinol [Zyloprim] 100 mg PO DAILYCM 03/26/20 Antiarthritic Combination No.2 [Glucosamine-Chondroitin] 900 mg PO BID 03/26/20 Celecoxib [Celebrex] 200 mg PO BID 03/26/20 Fluticasone 0.05% [Flonase Nasal [place]] 1 spray NASAL PRN PRN 03/26/20 Fluticasone/Salmeterol [Advair 250-50 Diskus] 1 ea IH BID 03/26/20 Ketotifen Fumarate [Zaditor] 1 drop EACH EYE PRN PRN 03/26/20 Lisinopril [Zestril] 10 mg PO DAILY 03/26/20 Loratadine [Claritin] 10 mg PO DAILY PRN 03/26/20 Multivit-Min/Iron/Folic/Lutein [Multivitamin Women 50 Plus Tab] 1 ea PO QODAY 03/26/20 Omeprazole [Prilosec] 20 mg PO QODAY 03/26/20 Aspirin [Aspirin, Baby] 81 mg PO DAILY@0800 #60 tab.chew 03/27/20 Metoprolol Tartrate [Lopressor (beta mulu)] 25 mg PO BID #120 tab 03/27/20 Following Prescriptions Were Given to Patient: Aspirin [Aspirin, Baby] 81 mg PO DAILY@0800 #60 tab.chew Transmission Status: Pending to [facility] Metoprolol Tartrate [Lopressor (beta mulu)] 25 mg PO BID #120 tab Transmission Status: Pending to [facility] Primary Care Physician: Jn Robertson MD [Primary Care Provider] - Please follow up with your Primary Care Physician in: 1 Week Please Follow Up With: Rodrick Stanford MD When: Follow up with CHEMICAL OPERATOR or PA in 2-4 Weeks Disposition: Home Minutes spent on discharge:: 35 Patient Condition:: Stable Medical Necessity - Tobacco Use Smoking Status: Never smoker Tobacco Use: Non-smoker Meaningful Use Info Meaningful Use Diagnoses (Choose all that apply): None applicable
--- NOTE | 2020-03-27 12:14 | PHA.DC.MC ---
Pharmacy Service has performed discharge medication reconciliation and counseling for this patient. The patient was counseled on the following discharge medications and changes in medications for homegoing were reviewed. 1. METOPROLOL 2. ASPIRIN The Reason for Use, instructions for use, and potential side effects were reviewed for all new medications. The patient's questions regarding all of their medications were answered. The patient was able to verbally demonstrate an understanding of their discharge medications. Home Medications Acetaminophen [Tylenol] 500 mg PO Q6H PRN PRN 03/26/20 Albuterol Inhaler [Ventolin Hfa] 1 - 2 puff INHALATION Q6H PRN PRN 03/26/20 Allopurinol [Zyloprim] 100 mg PO DAILYCM 03/26/20 Antiarthritic Combination No.2 [Glucosamine-Chondroitin] 900 mg PO BID 03/26/20 Celecoxib [Celebrex] 200 mg PO BID 03/26/20 Fluticasone 0.05% [Flonase Nasal [place]] 1 spray NASAL PRN PRN 03/26/20 Fluticasone/Salmeterol [Advair 250-50 Diskus] 1 ea IH BID 03/26/20 Ketotifen Fumarate [Zaditor] 1 drop EACH EYE PRN PRN 03/26/20 Lisinopril [Zestril] 10 mg PO DAILY 03/26/20 Loratadine [Claritin] 10 mg PO DAILY PRN 03/26/20 Multivit-Min/Iron/Folic/Lutein [Multivitamin Women 50 Plus Tab] 1 ea PO QODAY 03/26/20 Omeprazole [Prilosec] 20 mg PO QODAY 03/26/20 Aspirin [Aspirin, Baby] 81 mg PO DAILY@0800 #60 tab.chew 03/27/20 Metoprolol Tartrate [Lopressor (beta mulu)] 25 mg PO BID #120 tab 03/27/20 The patient's discharge medication list was reviewed for discrepancies and discrepancies were resolved.
--- NOTE | 2020-03-27 12:15 | CASEMGMT ---
MARTIN JACKMAN assessment: Face to Face with patient for initial transition planning/care coordination assessment. MARTIN JACKMAN introduced self and role at [facility], pt voices understanding and consents to assessment at this time. Pt is sitting up in chair in no distress at this time. Pt is A/Ox4 at this time and answers all questions appropriately at this time. Care providers, pharmacy, and demographics verified at this time. Presentation: Pt w/ CP, diaphoretic prior to going into grocery store. Pt fell backwards onto buttocks, reports dizziness Admitting dx: CP, Afib RVR PCP: Marcelo Specialists: GODWIN Weaver Preferred Pharmacy: [facility] Insurance: MCR A/B, [employer] Prescription Benefit: [facility] Living Will/HPOA: Pt states has LW/HPOA and is aware that they are not on file at [facility] at this time. Pt states her , Amilcar Galeana, is HPOA. LNOK: Amilcar Galeana, Living Arrangements: Pt states lives with on main level of 2 story home and states no concerns at home at this time. Pt states is independent with ADL's. Transportation: Pt states drives self and states no transportation concerns at this time. DME/HHC: Pt states has ramp, stairlift to basement, higher toilet, grab bars, and shower chair. Pt states no need for any further DME at this time. Pt states no hx of HHC or SNF in the past. Pt states no concerns with going home at time of discharge. Pt states is retired. Pt states does not smoke cigarettes or drink ETOH. Pt states no further concerns/needs at this time. CM to follow for any further discharge planning/needs. Advised pt to ask for CM if any further questions/concerns/needs arise, voices understanding. Pt Goal: Home Plan[place] MARTIN JACKMAN
== END 2020-03-27 14:51 | disposition home or self-care (01) | DRG 287 ==
LOC: ED 12:15 → PCU 15:54
PROVIDERS: Internal Medicine Cardiovascular Disease; Nurse Practitioner Family; Admitting Provider Internal Medicine; Emergency Provider Emergency Medicine; PCP Family Medicine; Visit Provider Internal Medicine
DX: I48.91 Unspecified atrial fibrillation (principal); I24.8 Other forms of acute ischemic heart disease; I25.10 Atherosclerotic heart disease of native coronary artery without angina pectoris; I11.9 Hypertensive heart disease without heart failure; J45.909 Unspecified asthma, uncomplicated; K21.9 Gastro-esophageal reflux disease without esophagitis; M19.90 Unspecified osteoarthritis, unspecified site; M10.9 Gout, unspecified; Z79.1 Long term (current) use of non-steroidal anti-inflammatories (NSAID); Z79.899 Other long term (current) drug therapy; Z82.3 Family history of stroke
CPT/HCPCS: 36415; 71045; 71275; 80048; 83735; 84443; 84484; 85025; 85379; 85730; 93005; 93306; 93458; 99152; 99285; J7030; Q9967; A4216; C1769; C1894

== ENCOUNTER 2020-05-30 15:54 | Inpatient (IN) | payer MEDICARE, OTHER, SELFPAY ==
[2020-04-11 10:46] VITALS: BMI 33.6
[2020-05-30] VITALS (7 sets, daily range): BP systolic 143–165; BP diastolic 69–82; PULSE 79–92; RESP 16–18; TEMP 36.6–37.1; O2SAT 86–97; BMI 36.8; BMI 36.9; BMI 34.6
--- NOTE | 2020-05-30 16:20 | ED.DCSUM_ITS ---
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 She fell onto her left hip mainly. She also sustained a laceration to her left elbow. She has chronic bilateral shoulder pain and states that it is not worse than usual, and can use her arms to do what she usually is able to with them. She states she is having pain in her left groin since the injury while weightbearing, although she is able to only with the assistance of a walker, which she does not always need. She takes a baby aspirin no anticoagulants. She denies injuring anything else including her head. She has had no recent illnesses. - Past Medical History (1) Atrial fibrillation with rapid ventricular response Status: Suspected (2) Essential (primary) hypertension Status: Chronic Past Medical History - Allergies and Home Meds Allergies/Adverse Reactions: Allergies No Known Allergies Allergy (Verified 05/30/20 15:57) Surgical History: no surgical history Lives: Spouse/ Significant Other Smoking Status: Never smoker - Family History Maternal Family History: Family History (Last Updated 03/30/20 @ 17:31 by Usha Fabian) Mother TIA (transient ischemic attack) Family History: Reports: - - Mini strokes. Denies maternal cardiac history. Paternal Family History: Family History (Last Updated 03/30/20 @ 17:31 by Usha Fabian) Mother TIA (transient ischemic attack) Family History: Reports: - - Rheumatoid arthritis. Denies paternal cardiac history. Review of Systems General: Denies: Chills, Fever, Sweats Eyes: Denies: Visual changes - bilaterally, Diplopia ENT: Denies: Rhinorrhea, Sore throat Cardiovascular: Denies: Chest pain, Palpitations Respiratory: Denies: Dyspnea, Cough, Dyspnea on exertion Gastrointestinal: Denies: Abdominal pain, Nausea, Vomiting, Diarrhea, Melena, Hematochezia Genitourinary: Denies: Dysuria, Hematuria, Frequency Musculoskeletal: Reports: Extremity Pain. Denies: Neck pain, Back pain Skin: Denies: Rash, Wounds Neurological: Denies: Headache, Weakness, Numbness Physical Exam Vital Signs/Narrative: Vital Signs Temp Pulse Resp BP Pulse Ox 05/30/20 15:55 98.3 F 82 18 165/82 H 94 Inital Vital Signs reviewed: Yes General: Well nourished, Well developed, - - well-appearing, NAD Head: Normocephalic, Atraumatic Eyes: Perrl, EOMI ENT: No trauma. Negative for: Otorrhea, Nasal trauma Neck: Nontender, Full ROM Cardiovascular: Regular rate, Regular rhythm, No murmurs Respiratory: No distress, CTA bilaterally, Chest nontender Abdomen: Soft, Nontender, Nondistended, Normal bowel sounds Back: Nontender Extremeties: Limited range of motion only with the left hip. With logroll and abduction, she has no significant pain. There is no gross length discrepancy. With trying to flex her thigh forward, she has significant groin pain. There is no tenderness at the pelvis/ASIS or the lateral trochanter. There is no bony tenderness throughout the rest of all 4 extremities otherwise, including the left shoulder proximal humerus, clavicle, AC joint. Able to abduct her shoulder past 90 degrees with a little pain. No deformities. No bony left elbow tenderness. Skin: Normal color, No rash, Trauma - Small skin tear left olecranon, along with underlying 1 cm laceration subcutaneous that appears clean and irregular. No active bleeding. Neurological: Alert, Oriented x3, Cranial nerves II-XII grossly intact, Normal Strength, Normal Sensation Psychological: Normal affect, Normal Mood Diagnostic/Tx/Re-eval Clinical Impression(s) from Imaging Studies Hip/Pelvis X-Ray 05/30/20 16:30 IMPRESSION: Acute impacted left femoral neck fracture with varus angulation of fracture fragments. Electronically Signed: Ector Arevalo MD at 17:06 EST , Service support , Chest X-Ray 05/30/20 16:41 IMPRESSION: ASHD. No acute disease Electronically Signed: Ector Arevalo MD at 17:08 EST , Service support , Laboratory Tests 05/30/20 05/30/20 Range/Units 17:15 17:15 WBC 14.8 H (4.4-11.0) K/mm3 RBC 4.66 (4.2-5.4) M/mm3 Hgb 13.4 (12.0-15.0) g/dL Hct 42.8 (37-47) % MCV 91.8 (81-99) fL MCH 28.8 (27.0-32.0) pg MCHC 31.3 L (32-36) g/dL RDW Std Deviation 46.4 H (35.1-43.9) fl RDW Coeff of Tiffani 13.6 (11.6-14.6) % Plt Count 184 (150-450) K/mm3 MPV 10.7 (6.2-12.0) fl Immature Gran % (Auto) 0.500 (0.0-0.9) % Neut % (Auto) 86.4 H (47-70) % Lymph % (Auto) 7.4 L (19-41) % [place] % (Auto) 5.3 (0-10) % Eos % (Auto) 0.3 (0-5) % Baso % (Auto) 0.1 (0-1) % Absolute Neuts (auto) 12.8 H (2.0-7.7) X10^3/uL Absolute Lymphs (auto) 1.10 (0.83-4.51) X10^3/uL Nucleated RBC % 0 (0-5) % Sodium 142 (136-145) mmol/L Potassium 3.8 (3.5-5.1) mmol/L Chloride 109 H (98-107) mmol/L Carbon Dioxide 27.0 (21.0-32.0) mmol/L Anion Gap 6 (5-15) BUN 33 H (7-18) mg/dL Creatinine 0.79 (0.55-1.02) mg/dL Estim Creat Clear Calc 33.86 ml/min Est GFR (MDRD) Af Amer 90 (>60) mL/min Est GFR (MDRD) Non-Af 74 (>60) mL/min BUN/Creatinine Ratio 41.7 H (10-20) RATIO Glucose 111 H (74-106) mg/dL Calcium 9.1 (8.5-10.1) mg/dL - Rhythm Strip Rhythm Strip: Sinus Rhythm Rate: 73 Ectopy: PVC(s) - EKG Initial EKG Interpretation: Sinus Rhythm, No Acute Injury Pattern - Medical Decision Making Suspected left hip fracture, x-rays confirmed that it is impacted. Preoperative chest x-ray and EKG obtained, along with basic labs, she was given morphine for pain, her laceration was repaired, and I discussed with orthopedics and hospitalist for admission. She is stable. Procedures - Lacerations left elbow Length: 1 cm Depth: Sub Q Shape: Linear Prep: Sterile Conditions, Chlorhexadine Laceration Repair: Lidocaine with epi - 2%, 2cc Irrigated (ml): 30 Number of Sutures/[place]: 2 Suture Information: Ethilon, Simple, Horizontal, Mattress, 4-0 ED Disposition - Plan for ED Patient: Disposition: Acute Care Hospital [facility] Diagnosis: Closed left hip fracture, Laceration of left elbow, Accidental fall
--- NOTE | 2020-05-30 16:30 | RAD_ITS ---
STUDY: X-RAY - PELVIS AND LEFT HIP REASON FOR EXAM: Female, 79 years old. fall, left hip pain TECHNIQUE: 3 views of the pelvis and hip. COMPARISON: None. FINDINGS: There is a non-specific bowel gas pattern. Normal visualized soft tissue structures. Normal bilateral iliac wings, sacroiliac joints and visualized sacrum. Normal bilateral superior and inferior pubic rami. Normal pubic symphysis. Normal bilateral ischial tuberosities. There are degenerative changes of both hip joints. There is an acute impacted fracture of left femoral neck with overlapping and mild varus angulation of fracture fragments. RAD/HIP, UNI W/ Pelvis 2-3 Views IMPRESSION: Acute impacted left femoral neck fracture with varus angulation of fracture fragments. Electronically Signed: Ector Arevalo MD at 17:06 EST , Service support ,
--- NOTE | 2020-05-30 16:41 | RAD_ITS ---
STUDY: X-RAY CHEST REASON FOR EXAM: Female, 79 years old. fall, pain TECHNIQUE: AP portable COMPARISON: 03/26/2020 FINDINGS: The lungs are clear and expanded. There is no demonstrated pleural abnormality. Heart is enlarged. Normal mediastinum and dimas. Normal visualized pulmonary arteries. Tortuous aortic arch and descending thoracic aorta. Dorsal spine and shoulders demonstrate degenerative change. Normal visualized ribs, clavicles. There is no demonstrated abnormality of the visualized soft tissue structures of the upper abdomen. No significant change since prior exam RAD/Chest 1 View (Portable) IMPRESSION: ASHD. No acute disease Electronically Signed: Ector Arevalo MD at 17:08 EST , Service support ,
--- NOTE | 2020-05-30 16:41 | EKG12_ITS ---
Test Reason : FALL Blood Pressure : / mmHG Vent. Rate : 073 BPM Atrial Rate : 073 BPM P-R Int : 136 ms QRS Dur : 086 ms QT Int : 386 ms P-R-T Axes : 047 015 044 degrees QTc Int : 425 ms Sinus rhythm with Premature supraventricular complexes and with occasional Premature ventricular comp lexes Nonspecific ST and T wave abnormality Abnormal ECG Confirmed by SHANTE CHENG, DALIA ([id number]), scientific publications editor YAIR LOZANO ([id number]) on 06/04/2020 11:03:18 AM Referred By: APRIL Confirmed By:KOLE FREY MD
[2020-05-30 17:24] LABS: Absolute Neutrophil Count 12.8 X10^3/uL (2.0-7.7); Basophil# 0.02 X10^3/uL; Basophil% 0.1 % (0-1); Eosinophil# 0.05 X10^3/uL; Eosinophils% 0.3 % (0-5); Hematocrit 42.8 % (37-47); Hemoglobin 13.4 g/dL (12.0-15.0); Lymphocyte % 7.4 % (19-41); Mean Corp Hgb Conc 31.3 g/dL (32-36); Mean Corpuscular Hgb 28.8 pg (27.0-32.0); Mean Corpuscular Volume 91.8 fL (81-99); Mean Platelet Vol. 10.7 fl (6.2-12.0); Monocyte# 0.79 X10^3/uL; Monocyte% 5.3 % (0-10); NRBC Flagged by Analyzer 0 % (0-5); Neutrophil # 12.75 X10^3/uL (2.7-7.7); Neutrophil % 86.4 % (47-70); Platelet Count 184 K/mm3 (150-450); RBC Distribution Width CV 13.6 % (11.6-14.6); RBC Distribution Width SD 46.4 fl (35.1-43.9); Red Blood Count 4.66 M/mm3 (4.2-5.4); White Blood Count 14.8 K/mm3 (4.4-11.0)
--- NOTE | 2020-05-30 17:31 | PCM.HP.STD ---
Problem List (1) Closed left hip fracture Status: Acute Qualifiers: Encounter type: initial encounter Qualified Code(s): S72.002A - Fracture of unspecified part of neck of left femur, initial encounter for closed fracture (2) Laceration of left elbow Status: Acute Qualifiers: Encounter type: initial encounter Qualified Code(s): S51.012A - Laceration without foreign body of left elbow, initial encounter (3) Accidental fall Status: Acute Qualifiers: Encounter type: initial encounter Qualified Code(s): W19.XXXA - Unspecified fall, initial encounter (4) PAF (paroxysmal atrial fibrillation) Status: Chronic (5) Allergic rhinitis Status: Chronic Qualifiers: Allergic rhinitis trigger: unspecified Allergic rhinitis seasonality: unspecified Qualified Code(s): J30.9 - Allergic rhinitis, unspecified (6) Gout Status: Chronic Qualifiers: Gout site: unspecified site Gout etiology: unspecified cause Chronicity: unspecified Qualified Code(s): M10.9 - Gout, unspecified (7) Chronic asthma Status: Chronic Qualifiers: Asthma severity: unspecified severity Asthma persistence: unspecified Asthma complication type: unspecified Qualified Code(s): J45.909 - Unspecified asthma, uncomplicated (8) CKD (chronic kidney disease), stage III Status: Chronic Qualifiers: Chronic kidney disease stage 3 subtype: unspecified whether 3a or 3b Qualified Code(s): N18.30 - Chronic kidney disease, stage 3 unspecified (9) Essential (primary) hypertension Status: Chronic History of Present Illness Date of Admission: 05/30/20 Chief Complaint: Mechanical fall, L hip pain The patient is a 79 y/o F w/ PMHx: Obesity, PAF not anticoagulated, Allergic rhinitis, Gout, GERD, Asthma, CKD stage III who presents to the [facility] ED on 05/30/20 from home with mechanical fall, attempting to turn a recliner onto its feet after attempting make adjustments, unfortunately falling and landed on her left hip, cutting her left elbow in the process with immediate debility, pain noted to be severe 10 out of 10 and external rotation as well as bleeding from the left elbow. Work-up in the ED included T 98.3, heart rate 82, BP 165/82, respiratory rate 18, 94% on room air, CBC with WC 14.8, hemoglobin 13.4, platelet 184 with left shift, BMP with chloride 109, BUN/creatinine 33/0.79, glucose 111, SARS rapid Covid antigen negative, chest x-ray with no acute cardiopulmonary findings, plain film of the left hip and pelvis with an acutely impacted left femoral neck fracture with varus angulation of fracture fragments, EKG with sinus rhythm with PVC with no acute evidence of ischemia. In the ED patient's left elbow laceration was sutured. ED physician did discuss case with orthopedic surgery. Past Medical History Past Medical History (Chronic Problems): Chronic Problems (Last Updated 03/30/20 @ 17:33 by Usha Fabian) PAF (paroxysmal atrial fibrillation) (Chronic) Allergic rhinitis (Chronic) Gout (Chronic) Chronic asthma (Chronic) CKD (chronic kidney disease), stage III (Chronic) Essential (primary) hypertension (Chronic) Medical History: Medical History (Last Updated 03/30/20 @ 17:33 by Usha Fabian) Atrial fibrillation with rapid ventricular response (Suspected) Onset Date: 03/26/20 I48.91 Essential (primary) hypertension (Chronic) I10 Elevated troponin (Resolved) Onset Date: 03/26/20 R77.8 Obesity E66.9 Allergies No Known Allergies Allergy (Verified 05/30/20 15:57) Home Medications: Ambulatory Orders Medication Instructions Recorded Acetaminophen [Tylenol] 500 mg PO Q6H PRN PRN 03/26/20 Albuterol Inhaler [Ventolin Hfa] 1 - 2 puff INHALATION Q6H PRN PRN 03/26/20 Allopurinol [Zyloprim] 100 mg PO DAILYCM 03/26/20 Antiarthritic Combination No.2 900 mg PO BID 03/26/20 [Glucosamine-Chondroitin] Celecoxib [Celebrex] 200 mg PO BID 03/26/20 Fluticasone 0.05% [Flonase Nasal 1 spray NASAL PRN PRN 03/26/20 [place]] Fluticasone/Salmeterol [Advair 1 ea IH BID 03/26/20 250-50 [place]] Ketotifen Fumarate [Zaditor] 1 drp EACH EYE PRN PRN 03/26/20 Lisinopril [Zestril] 10 mg PO DAILY 03/26/20 Loratadine [Claritin] 10 mg PO DAILY PRN 03/26/20 Multivit-Min/Iron/Folic/Lutein 1 ea PO QODAY 03/26/20 [Multivitamin Women 50 Plus Tab] Omeprazole [Prilosec] 20 mg PO QODAY 03/26/20 aspirin 81 mg chewable tablet 81 mg PO DAILY@0800 #90 tab 04/11/20 metoprolol tartrate 25 mg tablet 25 mg PO BID #180 tab 04/11/20 Surgical History: Surgical History (Last Updated 03/30/20 @ 17:30 by Usha Fabian) History of left heart catheterization Onset Date: 03/27/20 Z98.890 Surgical History: no surgical history Psychiatric History: No pertinent psych hx 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 Paternal Family History: Family History (Last Updated 03/30/20 @ 17:31 by Usha Fabian) Mother TIA (transient ischemic attack) History Items: - - Father with history of rheumatoid arthritis. Review of Systems Constitutional: Reports: Malaise, Weakness, Fatigue. Denies: Anorexia, Chills, Fever, Weight Change HEENT: Denies: Head Aches, Sinus Congestion, Sinus Drainage Cardiovascular: Denies: Chest Pain, Palpitations Respiratory: Denies: Cough, Shortness of breath at rest, Sputum production Gastrointestinal: Denies: Abdominal Pain, Nausea, Vomiting Genitourinary: Denies: Dysuria Musculoskeletal: Reports: Arm Pain, Joint Pain, Joint stiffness, Joint swelling, Joint Tenderness, Leg Pain Skin: Denies: Rash, Wounds Neurological: Denies: Numbness, Tingling, Focal weakness Psychiatric: Denies: Anxiety, Depression, Homicidal Ideations, Suicidal Ideations Hematologic/ Lymphatic: Reports: Easy Bruising, Easy Bleeding VTE Information - Inpt Only VTE Present on Admission: No VTE Mechan Device Prophylaxis: SCD's VTE Pharm Prophylaxis ordered?: No Reason prophylaxis not ordered:: Medical Contraindication - Planned am OR. Patient Problems: Active and Suspected Problems (Last Updated 03/30/20 @ 17:33 by Usha Fabian) Closed left hip fracture (Acute) Laceration of left elbow (Acute) Accidental fall (Acute) Atrial fibrillation with rapid ventricular response (Suspected 03/26/20) Subjective: Patient laying in the ED bed, fatigued appearing, no acute distress, pain improved with the ED regimen. Objective: Physical Examination: General: awake, alert, oriented x 3 and cooperative, laying in the ED bed, fatigued, pain improved with the ED regimen. Skin: normal color, turgor, no icterus, cyanosis. HEENT: AT/NC, EOMI, PERRLA, mildly dry MM, no carotid bruits or JVD noted. Lungs: Diminished breath sounds, greater bases, moderate effort, no rales, ronchi or wheezing. Heart: Regular rate and rhythm; no gallop, rub audible. Abdomen: soft, obese, NTTP, ND, normal BS, no HSM. Extremities: no cyanosis or clubbing, mild bilateral ankle edema, externally rotated left lower extremity, peripheral pulses intact. Neurological: patient awake, alert, oriented x 3; cognitive function intact; pupils equally reactive to light and accomodation; cranial nerves II-XII grossly normal, moving all 4 extremities but limiting given fall with left hip fracture, external rotation to left lower extremities noted, peripheral pulses intact, strength accordingly severely globally decreased. Psychiatric: affect appears fatigued otherwise normal, no acute evidence of depressive or anxiety feelings. - Physical Exam Vitals/I&O's: Vital Signs Temp Pulse Resp BP Pulse Ox 98.3 F 82 18 165/82 H 94 05/30/20 15:55 05/30/20 15:55 05/30/20 15:55 05/30/20 15:55 05/30/20 15:55 Oxygen Delivery Method Room Air Weight: 195 lb 5.273 oz Body Mass Index (BMI) 36.8 Laboratory Results 05/30/20 17:15: WBC 14.8 H, RBC 4.66, Hgb 13.4, Hct 42.8, MCV 91.8, MCH 28.8, MCHC 31.3 L, RDW Std Deviation 46.4 H, RDW Coeff of Tiffani 13.6, Plt Count 184, MPV 10.7, Immature Gran % (Auto) 0.500, Neut % (Auto) 86.4 H, Lymph % (Auto) 7.4 L, [place] % (Auto) 5.3, Eos % (Auto) 0.3, Baso % (Auto) 0.1, Absolute Neuts (auto) 12.8 H, Absolute Lymphs (auto) 1.10, Nucleated RBC % 0 05/30/20 17:15: Sodium Pending, Potassium Pending, Chloride Pending, Carbon Dioxide Pending, Anion Gap Pending, BUN Pending, Creatinine Pending, Est GFR (MDRD) Af Amer Pending, Est GFR (MDRD) Non-Af Pending, BUN/Creatinine Ratio Pending, Glucose Pending, Calcium Pending Assessment/Plan All Active Problems (Last Updated 03/30/20 @ 17:33 by Usha Fabian) Closed left hip fracture (Acute) Laceration of left elbow (Acute) Accidental fall (Acute) Chest pain (Acute) Elevated troponin (Resolved 03/26/20) The patient is a 79 y/o F w/ PMHx: Obesity, PAF not anticoagulated, Allergic rhinitis, Gout, GERD, Asthma, CKD stage III who presents to the [facility] ED on 05/30/20 from home with mechanical fall, attempting to turn a recliner onto its feet after attempting make adjustments, unfortunately falling and landed on her left hip, cutting her left elbow in the process with immediate debility, pain noted to be severe 10 out of 10 and external rotation as well as bleeding from the left elbow. 1. General debility, left hip pain s/p mechanical fall w/ left femoral neck fracture, impacted as well as left elbow laceration: Plain film noting impacted left femoral neck fracture with varus angulation of fracture fragments. Orthopedic surgery consulted from ED. Will admit to MS, maintain NPO after midnight, continue gentle IVFs, obtain TSH, Mag level, UA, UCx, witt placement, monitor I/Os, frequent positioning, fall precautions, Pain, anti-emetic regimen. PT/OT following operative intervention. CM consulted for discharge planning. Will need left elbow sutures out in 10 to 14 days and continued routine dressing and skin care. NSQIP scoring appropriate risk for patient age and debility. EKG with sinus rhythm with no acute evidence of ischemia, chest x-ray with no acute cardiopulmonary findings. Given patient active status, very functional and performs all of her own ADLs with current evaluation agree with progression to the OR which was relayed to orthopedic surgeon, Dr. Moy. 2. Hypertension: Continue home regimen including metoprolol, lisinopril with adjustments as needed given elevated BPs in the ED although given acute pain we will continue to closely monitor and only alter once appropriate, PRN hydralazine. 3. PAF: We will continue patient home metoprolol regimen, not anticoagulated. 4. Allergic rhinitis: We will continue patient loratadine and if necessary may have her as needed Flonase. 5. Gout: We will continue patient home allopurinol regimen. 6. Chronic asthma: We will continue patient home Advair regimen with as needed albuterol, encourage head of bed once appropriate, I-S. 7. Chronic Kidney Disease Stage III: Admission BUN/Cr 33/0.79, creatinine clearance 53.86, baseline renal function similar, repeat BMP in AM. 8. DVT prophylaxis: SCDs, defer chemoprophylaxis given planned a.m. OR. 9. CODE status: Patient HCPOA is her and her secondary is her daughter and living will is currently in place. Discussed CODE status at length including difference between FULL code, DNR-CCA and DNR-CC status. Following discussions about the differences in these status, requested Full Code status. Advanced Care Planning Face to Face Time: 16 minutes. Inpatient E&M: 86570 Init Hosp L3 Procedures: [id number] Advncd Care Plan 30 Min
[2020-05-30 17:39] LABS: Anion Gap 6 (5-15); BUN 33 mg/dL (7-18); BUN/Creat Ratio 41.7 RATIO (10-20); Calcium,Total 9.1 mg/dL (8.5-10.1); Chloride 109 mmol/L (98-107); Creatinine, Serum 0.79 mg/dL (0.55-1.02); EST Glomerular Filtration Rate 74 mL/min (>60); Est Glom Filt Rate - Afr Amer 90 mL/min (>60); Estimated Creatinine Clearance 33.86 ml/min; Glucose 111 mg/dL (74-106); Potassium 3.8 mmol/L (3.5-5.1); Sodium Level 142 mmol/L (136-145)
--- NOTE | 2020-05-30 17:45 | NURSING ---
MED SURG WHITE LEFT HIP FX, LEFT ELBOW LAC
[2020-05-30] MEDS: Morphine 2 MG/ML Syringe IV ×2 (17:59→23:35)
--- NOTE | 2020-05-30 18:02 | PCS.PANDOC ---
PANDEMIC DOCUMENTATION INITIATED: Date: 05/30/2020 Time: 1800
[2020-05-30] MEDS: Lidocaine 2% /Epi 1:100 (20ml) 20 ML VIAL INFILT (18:06)
[2020-05-30 19:07] LABS: Magnesium 1.8 mg/dL (1.6-2.6); Thyroid Stim Hormone (TSH) 2.38 uIU/mL (0.358-3.74)
[2020-05-30 19:50] LABS: Bacteria 0 SEEN /hpf (None Seen); Mucous, Urine 0 SEEN /hpf (<or=2+)
[2020-05-30 19:51] LABS: Color, Urine Yellow (Yellow); Glucose, Dipstick Normal (Normal); Ketone-Dipstick Negative (Negative); Leukocyte Esterase-Dipstick 100 /ul (Negative); Nitrite-Dipstick Negative (Negative); Occult Blood-Urine 25 /ul (Negative); Protein-Dipstick Negative (Negative); Urine Bilirubin Dipstick Negative (Negative); Urine Clarity Clear (Clear); Urine Urobilinogen Normal (Normal)
[2020-05-30] MEDS: Budesonide Respules 0.5 MG/2 ML AMPUL.NEB. INHALATION (19:53)
[2020-05-30] MEDS: Albuterol 2.5 MG/3 ML VIAL.NEB. INHALATION (19:53)
[2020-05-30 19:56] LABS: Red Blood Cells-Urine 0-5 SEEN /hpf (0-5); Squamous Epithelial Cells - UA 0-5 SEEN /hpf (5-10); White Blood Cells 0-5 SEEN /hpf (0-5)
[2020-05-30] MEDS: oxyCODONE 5 MG Tablet PO (20:35)
[2020-05-30] MEDS: Metoprolol Tartrate 25 MG Tablet PO (20:36)
[2020-05-30] MEDS: Celecoxib 200 MG Capsule PO (20:36)
[2020-05-30] MEDS: 0.9% Normal Saline 1,000 ML 100 ML IV (23:35)
[2020-05-31] VITALS (20 sets, daily range): BP systolic 123–167; BP diastolic 48–81; PULSE 70–88; RESP 16–20; TEMP 36.6–37.4; O2SAT 93–97; BMI 34.6; BMI 36.9
[2020-05-31] MEDS: Morphine 2 MG/ML Syringe IV ×2 (04:44→11:05)
[2020-05-31] MEDS: Albuterol 2.5 MG/3 ML VIAL.NEB. INHALATION ×2 (06:59→12:31)
[2020-05-31] MEDS: Budesonide Respules 0.5 MG/2 ML AMPUL.NEB. INHALATION (06:59)
[2020-05-31 07:25] LABS: Absolute Lymphocyte Count 0.93 X10^3/uL (0.83-4.51); Absolute Neutrophil Count 9.5 X10^3/uL (2.0-7.7); Basophil# 0.04 X10^3/uL; Basophil% 0.3 % (0-1); Eosinophil# 0.26 X10^3/uL; Eosinophils% 2.3 % (0-5); Hematocrit 38.3 % (37-47); Hemoglobin 11.8 g/dL (12.0-15.0); Lymphocyte # 0.93 X10^3/ul (4.0); Lymphocyte % 8.1 % (19-41); Mean Corp Hgb Conc 30.8 g/dL (32-36); Mean Corpuscular Hgb 28.2 pg (27.0-32.0); Mean Corpuscular Volume 91.4 fL (81-99); Mean Platelet Vol. 10.8 fl (6.2-12.0); Monocyte# 0.64 X10^3/uL; Monocyte% 5.6 % (0-10); NRBC Flagged by Analyzer 0 % (0-5); Neutrophil # 9.51 X10^3/uL (2.7-7.7); Neutrophil % 83.2 % (47-70); Platelet Count 169 K/mm3 (150-450); RBC Distribution Width CV 13.8 % (11.6-14.6); RBC Distribution Width SD 46.5 fl (35.1-43.9); Red Blood Count 4.19 M/mm3 (4.2-5.4); White Blood Count 11.4 K/mm3 (4.4-11.0)
[2020-05-31 07:42] LABS: International Normalized Ratio 1.1; Prothrombin Time (Protime)PT. 14.1 SECONDS (11.7-14.9)
[2020-05-31 07:43] LABS: Partial Thromboplast Time 32.5 Seconds (24.1-36.2)
--- NOTE | 2020-05-31 08:13 | PCM.PN.HOSP ---
Patient Problems: Active and Suspected Problems (Last Updated 03/30/20 @ 17:33 by Usha Fabian) Closed left hip fracture (Acute) Laceration of left elbow (Acute) Accidental fall (Acute) Atrial fibrillation with rapid ventricular response (Suspected 03/26/20) Vitals/I&O's: Vital Signs Temp Pulse Resp BP Pulse Ox 98.2 F 71 17 134/48 H 94 05/31/20 02:50 05/31/20 06:59 05/31/20 06:59 05/31/20 02:50 05/31/20 06:59 Oxygen Flow Rate (L/min) 3 Oxygen Delivery Method Nasal Cannula Weight: 183 lb 6.793 oz Body Mass Index (BMI) 34.6 Intake and Output for Last 24 Hours 05/29/20 05/30/20 05/31/20 23:59 23:59 23:59 Intake Total 300 / 300 Output Total 500 / 500 Balance -200 / -200 Microbiology Past 72 Hours 05/30/20 18:00 Mucosa - Nose SARS-CoV-2 Antigen (Rapid) - Final Laboratory Results 05/30/20 17:15: WBC 14.8 H, RBC 4.66, Hgb 13.4, Hct 42.8, MCV 91.8, MCH 28.8, MCHC 31.3 L, RDW Std Deviation 46.4 H, RDW Coeff of Tiffani 13.6, Plt Count 184, MPV 10.7, Immature Gran % (Auto) 0.500, Neut % (Auto) 86.4 H, Lymph % (Auto) 7.4 L, Steele % (Auto) 5.3, Eos % (Auto) 0.3, Baso % (Auto) 0.1, Absolute Neuts (auto) 12.8 H, Absolute Lymphs (auto) 1.10, Nucleated RBC % 0 05/30/20 17:15: Sodium 142, Potassium 3.8, Chloride 109 H, Carbon Dioxide 27.0, Anion Gap 6, BUN 33 H, Creatinine 0.79, Estim Creat Clear Calc 33.86, Est GFR (MDRD) Af Amer 90, Est GFR (MDRD) Non-Af 74, BUN/Creatinine Ratio 41.7 H, Glucose 111 H, Calcium 9.1 05/30/20 17:15: Magnesium 1.8, TSH 2.38 05/30/20 18:50: Urine Color Yellow, Urine Clarity Clear, Urine pH 6.0, Ur Specific Solon 1.010, Urine Protein Negative, Urine Glucose (UA) Normal, Urine Ketones Negative, Urine Occult Blood 25 H, Urine Nitrite Negative, Urine Bilirubin Negative, Urine Urobilinogen Normal, Ur Leukocyte Esterase 100 H, Urine RBC 0-5 SEEN, Urine WBC 0-5 SEEN, Ur Squamous Epith Cells 0-5 SEEN, Urine Bacteria 0 SEEN, Urine Mucus 0 SEEN 05/31/20 06:19: WBC 11.4 H, RBC 4.19 L, Hgb 11.8 L, Hct 38.3, MCV 91.4, MCH 28.2, MCHC 30.8 L, RDW Std Deviation 46.5 H, RDW Coeff of Tiffani 13.8, Plt Count 169, MPV 10.8, Immature Gran % (Auto) 0.500, Neut % (Auto) 83.2 H, Lymph % (Auto) 8.1 L, Steele % (Auto) 5.6, Eos % (Auto) 2.3, Baso % (Auto) 0.3, Absolute Neuts (auto) 9.5 H, Absolute Lymphs (auto) 0.93, Nucleated RBC % 0 05/31/20 06:19: PT 14.1, INR 1.1, APTT 32.5 05/31/20 06:19: Sodium Pending, Potassium Pending, Chloride Pending, Carbon Dioxide Pending, Anion Gap Pending, BUN Pending, Creatinine Pending, Est GFR (MDRD) Af Amer Pending, Est GFR (MDRD) Non-Af Pending, BUN/Creatinine Ratio Pending, Glucose Pending, Calcium Pending, Total Bilirubin Pending, AST Pending, ALT Pending, Alkaline Phosphatase Pending, Total Protein Pending, Albumin Pending 05/31/20 06:19: Blood Type Pending, Antibody Screen Pending Current Medications Acetaminophen (Acetaminophen 325 Mg Tablet) 650 mg PO Q6H PRN PRN PRN Reason: Pain Score 1-10/Temp > 100.7 F Al Hydroxide/Mg Hydroxide (Mag Hydrox/Al Hydrox/Simeth 30 Ml Udc) 30 ml PO Q6H PRN PRN PRN Reason: Gastric Burning Albuterol Sulfate (Albuterol 2.5 Mg/3 Ml Vial.Neb.) 2.5 mg INHALATION Q2H PRN PRN PRN Reason: Dyspnea, wheezing Albuterol Sulfate (Albuterol 2.5 Mg/3 Ml Vial.Neb.) 2.5 mg INHALATION Q6HWA.[facility] Last Admin: 05/31/20 06:59 Dose: 2.5 mg Documented by: Allopurinol (Allopurinol 100 Mg Tablet) 100 mg PO DAILYCM [facility] Aspirin (Aspirin 81 Mg Tab.Chew) 81 mg PO DAILY@0800 [facility] Budesonide (Budesonide Respules 0.5 Mg/2 Ml Ampul.Neb.) 0.5 mg INHALATION Q12H.[facility] Last Admin: 05/31/20 06:59 Dose: 0.5 mg Documented by: Celecoxib (Celecoxib 200 Mg Capsule) 200 mg PO BID [facility] Last Admin: 05/30/20 20:36 Dose: 200 mg Documented by: Famotidine (Famotidine 20 Mg Tablet) 20 mg PO DAILY [facility] Guaifenesin (Guaifenesin 10 Ml Udc (200mg/10ml)) 20 ml PO Q4H PRN PRN PRN Reason: COUGH Hydralazine HCl (Hydralazine 20 Mg/Ml Vial) 10 mg IV Q4H PRN PRN PRN Reason: SBP > 160 Sodium Chloride () 1,000 mls @ 100 mls/hr IV .Q10H [facility] Last Admin: 05/30/20 23:35 Dose: 100 mls/hr Documented by: Lisinopril (Lisinopril 10 Mg Tablet) 10 mg PO DAILY [facility] Loratadine (Loratadine 10 Mg Tablet) 10 mg PO DAILY PRN PRN Reason: ALLERGIES Magnesium Hydroxide (Magnesium Hydroxide 30 Ml Udc) 30 ml PO DAILY PRN PRN PRN Reason: Constipation Melatonin (Melatonin 3 Mg Tablet) 3 mg PO QHS PRN PRN PRN Reason: INSOMNIA Metoprolol Tartrate (Metoprolol Tartrate 25 Mg Tablet) 25 mg PO BID [facility] Last Admin: 05/30/20 20:36 Dose: 25 mg Documented by: Morphine Sulfate (Morphine 2 Mg/Ml Syringe) 2 mg IV Q3H PRN PRN PRN Reason: Pain Score 6-10 Last Admin: 05/31/20 04:44 Dose: 2 mg Documented by: Nitroglycerin (Nitroglycerin (Inpatient Use) 0.4 Mg Tab.Subl) 0.4 mg SUBLINGUAL Q5M PRN PRN Reason: CARDIAC/CHEST PAIN Ondansetron HCl (Ondansetron 4 Mg/2 Ml Vial) 4 mg IV Q8H PRN PRN PRN Reason: NAUSEA/VOMITING Oxycodone HCl (Oxycodone 5 Mg Tablet) 5 mg PO Q4H PRN PRN PRN Reason: Pain Score 4-5 Last Admin: 05/30/20 20:35 Dose: 5 mg Documented by: Prochlorperazine Edisylate (Prochlorperazine 10 Mg/2 Ml Vial) 5 mg IV Q4H PRN PRN PRN Reason: Breakthrough nausea/vomiting Psyllium Hydrophilic Mucilloid (Psyllium 1 Packet) 1 packet PO DAILY PRN PRN PRN Reason: Constipation Senna/Docusate Sodium (Senna/Docusate Sodium 1 Tablet) 2 tablet PO BID PRN PRN PRN Reason: Constipation Sodium Chloride (0.9% Saline Lock 10 Ml Syringe) 10 - 40 ml IV UD PRN PRN Reason: SALINE FLUSH Throat Lozenges (Benzocaine/Menthol 1 Lozenge) 1 lozenge MUCOUS MEM Q2H PRN PRN PRN Reason: SORE THROAT STROKE Vital Signs/Narrative: Vital Signs Pulse Resp Pulse Ox 05/31/20 06:59 71 17 94 Medical Necessity - Tobacco Use Smoking Status: Never smoker Tobacco Use: Non-smoker Assessment/Plan All Active Problems (Last Updated 03/30/20 @ 17:33 by Usha Fabian) Closed left hip fracture (Acute) Laceration of left elbow (Acute) Accidental fall (Acute) Chest pain (Acute) Elevated troponin (Resolved 03/26/20) The patient is a 79 y/o F with history of obesity, PAF not anticoagulated, Allergic rhinitis, Gout, GERD, Asthma, CKD stage III was admitted on 05/30/20 after a fall on left side while trying to lift a heavy chair. She also had laceration on the left elbow. Chronic bilateral shoulder pain. 1. Left femoral neck fracture with varus angulation: Patient had a painful Ed x-ray which showed acute impacted left femoral neck fracture with varus angulation. Orthopedic surgery has been consulted. Ad[facility] floor. Electrolytes in a suitable limit. TSH 2.38. Blood pressure and heart rate in normal range. NSQIP perioperative risk is appropriate for age and other comorbidities. EKG normal sinus rhythm with no acute evidence of ischemia. Chest x-ray no acute cardiopulmonary findings. 2. Hypertension: Continue home regimen including metoprolol, lisinopril with adjustments as needed given elevated BPs in the ED although given acute pain we will continue to closely monitor and only alter once appropriate, PRN hydralazine. 3. PAF: We will continue patient home metoprolol regimen, not anticoagulated. 4. Allergic rhinitis: We will continue patient loratadine and if necessary may have her as needed Flonase. 5. Gout: We will continue patient home allopurinol regimen. 6. Chronic asthma: We will continue patient home Advair regimen with as needed albuterol, encourage head of bed once appropriate, I-S. 7. Chronic Kidney Disease Stage III: Admission BUN/Cr 33/0.79, creatinine clearance 53.86, baseline renal function similar, repeat BMP in AM. 8. DVT prophylaxis: SCDs, defer chemoprophylaxis given planned a.m. OR. 9. CODE status: Full code Clinical Impression(s) from Imaging Studies Hip/Pelvis X-Ray 05/30/20 16:30 IMPRESSION: Acute impacted left femoral neck fracture with varus angulation of fracture fragments. Chest X-Ray 05/30/20 16:41 IMPRESSION: ASHD. No acute disease Electronically Signed: Ector Arevalo MD at 17:08 EST , Service support ,
[2020-05-31 08:18] LABS: ALB/GLOB Ratio 0.9 RATIO (0.9-2.4); AST(SGOT) 18 U/L (15-37); Alanine Aminotransfer ALT/SGPT 30 U/L (13-56); Albumin, Serum 2.9 g/dL (3.2-5.0); Alkaline Phosphatase 96 U/L (45-117); Anion Gap 5 (5-15); BUN 25 mg/dL (7-18); BUN/Creat Ratio 36.9 RATIO (10-20); Calcium,Total 8.4 mg/dL (8.5-10.1); Chloride 111 mmol/L (98-107); Creatinine, Serum 0.68 mg/dL (0.55-1.02); EST Glomerular Filtration Rate 89 mL/min (>60); Est Glom Filt Rate - Afr Amer 107 mL/min (>60); Estimated Creatinine Clearance 33.86 ml/min; Globulin 3.2 g/dL (2.2-4.2); Glucose 107 mg/dL (74-106); Protein, Total 6.1 g/dL (6.4-8.2); Sodium Level 142 mmol/L (136-145)
[2020-05-31] MEDS: 0.9% Normal Saline 1,000 ML 100 ML IV ×2 (08:37→18:45)
--- NOTE | 2020-05-31 09:10 | PN_ITS ---
<Lissett Lees PRESS MANAGER - Last Filed: 05/31/20 09:28> Patient Problems: Active and Suspected Problems (Last Updated 03/30/20 @ 17:33 by Usha Fabian) Closed left hip fracture (Acute) Laceration of left elbow (Acute) Accidental fall (Acute) Atrial fibrillation with rapid ventricular response (Suspected 03/26/20) Subjective: Patient seen and examined. Pain currently controlled at rest, reports increased pain with movement. Plan for OR today. Denies other symptoms or complaints. Denies chest pain, palpitations, shortness of breath. - Physical Exam Vitals/I&O's: Vital Signs Temp Pulse Resp BP Pulse Ox 99.2 F H 84 16 147/57 H 96 05/31/20 08:24 05/31/20 08:24 05/31/20 08:24 05/31/20 08:24 05/31/20 08:24 Oxygen Flow Rate (L/min) 2 Oxygen Delivery Method Nasal Cannula Weight: 183 lb 6.793 oz Body Mass Index (BMI) 34.6 Intake and Output for Last 24 Hours 05/29/20 05/30/20 05/31/20 23:59 23:59 23:59 Intake Total 1203.33 / 1203.33 Output Total 500 / 500 Balance 703.33 / 703.33 General: Alert, Oriented x3, Cooperative HEENT: Atraumatic, PERRLA, EOMI, Normocephalic Neck: Supple, No JVD, Negative Carotid Bruits Lungs: Clear to auscultation, Normal air movement Cardiovascular: Regular rate, No murmurs Abdomen: Bowel Sounds Present, Soft, Non Tender, Non-Distended Extremities: No clubbing, No cyanosis, No edema, Capillary Refill Less than 3 Seconds Skin: No rashes, No breakdown Musculoskeletal: Tenderness - Left hip Neurological: Cranial nerves II-XII grossly intact, Neuro grossly intact Psych/Mental Status: Normal Affect, Appropriate Microbiology Past 72 Hours 05/30/20 18:00 Mucosa - Nose SARS-CoV-2 Antigen (Rapid) - Final Laboratory Results 05/30/20 17:15: WBC 14.8 H, RBC 4.66, Hgb 13.4, Hct 42.8, MCV 91.8, MCH 28.8, MCHC 31.3 L, RDW Std Deviation 46.4 H, RDW Coeff of Tiffani 13.6, Plt Count 184, MPV 10.7, Immature Gran % (Auto) 0.500, Neut % (Auto) 86.4 H, Lymph % (Auto) 7.4 L, Otoe % (Auto) 5.3, Eos % (Auto) 0.3, Baso % (Auto) 0.1, Absolute Neuts (auto) 12.8 H, Absolute Lymphs (auto) 1.10, Nucleated RBC % 0 05/30/20 17:15: Sodium 142, Potassium 3.8, Chloride 109 H, Carbon Dioxide 27.0, Anion Gap 6, BUN 33 H, Creatinine 0.79, Estim Creat Clear Calc 33.86, Est GFR (MDRD) Af Amer 90, Est GFR (MDRD) Non-Af 74, BUN/Creatinine Ratio 41.7 H, Glucose 111 H, Calcium 9.1 05/30/20 17:15: Magnesium 1.8, TSH 2.38 05/30/20 18:50: Urine Color Yellow, Urine Clarity Clear, Urine pH 6.0, Ur Specific [place] 1.010, Urine Protein Negative, Urine Glucose (UA) Normal, Urine Ketones Negative, Urine Occult Blood 25 H, Urine Nitrite Negative, Urine Bilirubin Negative, Urine Urobilinogen Normal, Ur Leukocyte Esterase 100 H, Urine RBC 0-5 SEEN, Urine WBC 0-5 SEEN, Ur Squamous Epith Cells 0-5 SEEN, Urine Bacteria 0 SEEN, Urine Mucus 0 SEEN 05/31/20 06:19: WBC 11.4 H, RBC 4.19 L, Hgb 11.8 L, Hct 38.3, MCV 91.4, MCH 28.2, MCHC 30.8 L, RDW Std Deviation 46.5 H, RDW Coeff of Tiffani 13.8, Plt Count 169, MPV 10.8, Immature Gran % (Auto) 0.500, Neut % (Auto) 83.2 H, Lymph % (Auto) 8.1 L, Otoe % (Auto) 5.6, Eos % (Auto) 2.3, Baso % (Auto) 0.3, Absolute Neuts (auto) 9.5 H, Absolute Lymphs (auto) 0.93, Nucleated RBC % 0 05/31/20 06:19: PT 14.1, INR 1.1, APTT 32.5 05/31/20 06:19: Sodium 142, Potassium 4.0, Chloride 111 H, Carbon Dioxide 26.0, Anion Gap 5, BUN 25 H, Creatinine 0.68, Estim Creat Clear Calc 33.86, Est GFR (MDRD) Af Amer 107, Est GFR (MDRD) Non-Af 89, BUN/Creatinine Ratio 36.9 H, Glucose 107 H, Calcium 8.4 L, Total Bilirubin 0.90, AST 18, ALT 30, Alkaline Phosphatase 96, Total Protein 6.1 L, Albumin 2.9 L, Globulin 3.2, Albumin/Globulin Ratio 0.9 05/31/20 06:19: Blood Type O POSITIVE, Antibody Screen NEGATIVE Current Medications Acetaminophen (Acetaminophen 325 Mg Tablet) 650 mg PO Q6H PRN PRN PRN Reason: Pain Score 1-10/Temp > 100.7 F Al Hydroxide/Mg Hydroxide (Mag Hydrox/Al Hydrox/Simeth 30 Ml Udc) 30 ml PO Q6H PRN PRN PRN Reason: Gastric Burning Albuterol Sulfate (Albuterol 2.5 Mg/3 Ml Vial.Neb.) 2.5 mg INHALATION Q2H PRN PRN PRN Reason: Dyspnea, wheezing Albuterol Sulfate (Albuterol 2.5 Mg/3 Ml Vial.Neb.) 2.5 mg INHALATION Q6HWA.RT [facility] Last Admin: 05/31/20 06:59 Dose: 2.5 mg Documented by: Allopurinol (Allopurinol 100 Mg Tablet) 100 mg PO DAILYCM [facility] Aspirin (Aspirin 81 Mg Tab.Chew) 81 mg PO DAILY@0800 [facility] Budesonide (Budesonide Respules 0.5 Mg/2 Ml Ampul.Neb.) 0.5 mg INHALATION Q12H.RT [facility] Last Admin: 05/31/20 06:59 Dose: 0.5 mg Documented by: Celecoxib (Celecoxib 200 Mg Capsule) 200 mg PO BID [facility] Last Admin: 05/30/20 20:36 Dose: 200 mg Documented by: Famotidine (Famotidine 20 Mg Tablet) 20 mg PO DAILY [facility] Guaifenesin (Guaifenesin 10 Ml Udc (200mg/10ml)) 20 ml PO Q4H PRN PRN PRN Reason: COUGH Hydralazine HCl (Hydralazine 20 Mg/Ml Vial) 10 mg IV Q4H PRN PRN PRN Reason: SBP > 160 Sodium Chloride () 1,000 mls @ 100 mls/hr IV .Q10H [facility] Last Admin: 05/31/20 08:37 Dose: 100 mls/hr Documented by: Lisinopril (Lisinopril 10 Mg Tablet) 10 mg PO DAILY [facility] Loratadine (Loratadine 10 Mg Tablet) 10 mg PO DAILY PRN PRN Reason: ALLERGIES Magnesium Hydroxide (Magnesium Hydroxide 30 Ml Udc) 30 ml PO DAILY PRN PRN PRN Reason: Constipation Melatonin (Melatonin 3 Mg Tablet) 3 mg PO QHS PRN PRN PRN Reason: INSOMNIA Metoprolol Tartrate (Metoprolol Tartrate 25 Mg Tablet) 25 mg PO BID [facility] Last Admin: 05/30/20 20:36 Dose: 25 mg Documented by: Morphine Sulfate (Morphine 2 Mg/Ml Syringe) 2 mg IV Q3H PRN PRN PRN Reason: Pain Score 6-10 Last Admin: 05/31/20 04:44 Dose: 2 mg Documented by: Nitroglycerin (Nitroglycerin (Inpatient Use) 0.4 Mg Tab.Subl) 0.4 mg SUBLINGUAL Q5M PRN PRN Reason: CARDIAC/CHEST PAIN Ondansetron HCl (Ondansetron 4 Mg/2 Ml Vial) 4 mg IV Q8H PRN PRN PRN Reason: NAUSEA/VOMITING Oxycodone HCl (Oxycodone 5 Mg Tablet) 5 mg PO Q4H PRN PRN PRN Reason: Pain Score 4-5 Last Admin: 05/30/20 20:35 Dose: 5 mg Documented by: Prochlorperazine Edisylate (Prochlorperazine 10 Mg/2 Ml Vial) 5 mg IV Q4H PRN PRN PRN Reason: Breakthrough nausea/vomiting Psyllium Hydrophilic Mucilloid (Psyllium 1 Packet) 1 packet PO DAILY PRN PRN PRN Reason: Constipation Senna/Docusate Sodium (Senna/Docusate Sodium 1 Tablet) 2 tablet PO BID PRN PRN PRN Reason: Constipation Sodium Chloride (0.9% Saline Lock 10 Ml Syringe) 10 - 40 ml IV UD PRN PRN Reason: SALINE FLUSH Throat Lozenges (Benzocaine/Menthol 1 Lozenge) 1 lozenge MUCOUS MEM Q2H PRN PRN PRN Reason: SORE THROAT Medical Necessity - Tobacco Use Smoking Status: Never smoker Tobacco Use: Non-smoker Assessment/Plan All Active Problems (Last Updated 03/30/20 @ 17:33 by Usha Fabian) Closed left hip fracture (Acute) Laceration of left elbow (Acute) Accidental fall (Acute) Chest pain (Acute) Elevated troponin (Resolved 03/26/20) 1. Acute traumatic left femoral neck fracture secondary to mechanical fall prior to admission, associated debility-orthopedic surgery on consult. As needed pain regimen. PT/OT. Case management consult for discharge planning. 2. Left elbow laceration status post sutures-keep area covered with clean dressing. Remove left elbow sutures in 10 to 14 days. 3. Paroxysmal atrial fibrillation-currently sinus rhythm. Continue metoprolol. 4. Mild CAD-recent heart cath 03/27/2020 demonstrated mild to minimal nonobstructive CAD. On aspirin, metoprolol. 5. Hypertension-stable, continue lisinopril, metoprolol. 6. 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 7. Chronic asthma/allergic rhinitis-continue home inhaler regimen, loratadine. 8. GERD-continue PPI. 9. Gout-on allopurinol. DVT prophylaxis-SCDs, pharmacologic prophylaxis per surgery following OR This patient was seen by VERA Holcomb under the supervision of Dr. Lzoano. <Bruno Lozano - Last Filed: 05/31/20 14:21> Subjective: Seen and examined. Patient complain of pain over left groin with radiation to left knee. She also had a cough. The left elbow when she fell down.Denies head injury or LOC. 1 cm lacerated wound on left elbow was sutured in the ED. No chest pain or shortness of breath. Physical exam. General: Alert, Oriented x3, Cooperative HEENT: Atraumatic, PERRLA, EOMI, Normocephalic Oral: No Gingival or Mucosal Lesions/ Ulcerations Neck: Supple, No JVD, Negative Carotid Bruits Lungs: Air entry diminished in bilateral lung bases. No crepitation/rhonchi Cardiovascular: Regular rate, Regular Rhythm, Normal S1, Normal S2, No murmurs Abdomen: Bowel Sounds Present, Soft, Non Tender, Non-Distended : No renal angle tenderness. No suprapubic tenderness. Extremities: No edema, Capillary Refill Less than 3 Seconds Skin: No rashes, No breakdown Musculoskeletal: Tenderness over left hip joint, chronic edema. No Tenderness to other joints or Extremities Neurological: Cranial nerves II-XII grossly intact, Deep Tendon Reflexes 2+/4 and Symmetrical, Neuro grossly intact Psych/Mental Status: Normal Affect, Appropriate. - Physical Exam Vitals/I&O's: Vital Signs Temp Pulse Resp BP Pulse Ox 99.4 F H 80 16 143/62 H 94 05/31/20 13:14 05/31/20 13:14 05/31/20 13:14 05/31/20 13:14 05/31/20 13:14 Oxygen Flow Rate (L/min) 2 Oxygen Delivery Method Nasal Cannula Weight: 183 lb 6.793 oz Body Mass Index (BMI) 34.6 Intake and Output for Last 24 Hours 05/29/20 05/30/20 05/31/20 23:59 23:59 23:59 Intake Total 1203.33 / 1203.33 Output Total 800 / 800 Balance 403.33 / 403.33 Microbiology Past 72 Hours 05/30/20 18:50 Urine Catheter - Mccall Urine Culture - Preliminary Culture exhibits no growth. 05/30/20 18:00 Mucosa - Nose SARS-CoV-2 Antigen (Rapid) - Final Laboratory Results 05/30/20 17:15: WBC 14.8 H, RBC 4.66, Hgb 13.4, Hct 42.8, MCV 91.8, MCH 28.8, MCHC 31.3 L, RDW Std Deviation 46.4 H, RDW Coeff of Tiffani 13.6, Plt Count 184, MPV 10.7, Immature Gran % (Auto) 0.500, Neut % (Auto) 86.4 H, Lymph % (Auto) 7.4 L, Otoe % (Auto) 5.3, Eos % (Auto) 0.3, Baso % (Auto) 0.1, Absolute Neuts (auto) 12.8 H, Absolute Lymphs (auto) 1.10, Nucleated RBC % 0 05/30/20 17:15: Sodium 142, Potassium 3.8, Chloride 109 H, Carbon Dioxide 27.0, Anion Gap 6, BUN 33 H, Creatinine 0.79, Estim Creat Clear Calc 33.86, Est GFR (MDRD) Af Amer 90, Est GFR (MDRD) Non-Af 74, BUN/Creatinine Ratio 41.7 H, Glucose 111 H, Calcium 9.1 05/30/20 17:15: Magnesium 1.8, TSH 2.38 05/30/20 18:50: Urine Color Yellow, Urine Clarity Clear, Urine pH 6.0, Ur Specific [place] 1.010, Urine Protein Negative, Urine Glucose (UA) Normal, Urine Ketones Negative, Urine Occult Blood 25 H, Urine Nitrite Negative, Urine Bilirubin Negative, Urine Urobilinogen Normal, Ur Leukocyte Esterase 100 H, Urine RBC 0-5 SEEN, Urine WBC 0-5 SEEN, Ur Squamous Epith Cells 0-5 SEEN, Urine Bacteria 0 SEEN, Urine Mucus 0 SEEN 05/31/20 06:19: WBC 11.4 H, RBC 4.19 L, Hgb 11.8 L, Hct 38.3, MCV 91.4, MCH 28.2, MCHC 30.8 L, RDW Std Deviation 46.5 H, RDW Coeff of Tiffani 13.8, Plt Count 169, MPV 10.8, Immature Gran % (Auto) 0.500, Neut % (Auto) 83.2 H, Lymph % (Auto) 8.1 L, [place] % (Auto) 5.6, Eos % (Auto) 2.3, Baso % (Auto) 0.3, Absolute Neuts (auto) 9.5 H, Absolute Lymphs (auto) 0.93, Nucleated RBC % 0 05/31/20 06:19: PT 14.1, INR 1.1, APTT 32.5 05/31/20 06:19: Sodium 142, Potassium 4.0, Chloride 111 H, Carbon Dioxide 26.0, Anion Gap 5, BUN 25 H, Creatinine 0.68, Estim Creat Clear Calc 33.86, Est GFR (MDRD) Af Amer 107, Est GFR (MDRD) Non-Af 89, BUN/Creatinine Ratio 36.9 H, Glucose 107 H, Calcium 8.4 L, Total Bilirubin 0.90, AST 18, ALT 30, Alkaline Phosphatase 96, Total Protein 6.1 L, Albumin 2.9 L, Globulin 3.2, Albumin/Globulin Ratio 0.9 05/31/20 06:19: Blood Type O POSITIVE, Antibody Screen NEGATIVE Current Medications Acetaminophen (Acetaminophen 325 Mg Tablet) 650 mg PO Q6H PRN PRN PRN Reason: Pain Score 1-10/Temp > 100.7 F Al Hydroxide/Mg Hydroxide (Mag Hydrox/Al Hydrox/Simeth 30 Ml Udc) 30 ml PO Q6H PRN PRN PRN Reason: Gastric Burning Albuterol Sulfate (Albuterol 2.5 Mg/3 Ml Vial.Neb.) 2.5 mg INHALATION Q2H PRN PRN PRN Reason: Dyspnea, wheezing Albuterol Sulfate (Albuterol 2.5 Mg/3 Ml Vial.Neb.) 2.5 mg INHALATION Q6HWA.RT [facility] Last Admin: 05/31/20 12:31 Dose: 2.5 mg Documented by: Allopurinol (Allopurinol 100 Mg Tablet) 100 mg PO DAILYCM [facility] Last Admin: 05/31/20 09:46 Dose: Not Given Documented by: Aspirin (Aspirin 81 Mg Tab.Chew) 81 mg PO DAILY@0800 [facility] Last Admin: 05/31/20 09:46 Dose: Not Given Documented by: Budesonide (Budesonide Respules 0.5 Mg/2 Ml Ampul.Neb.) 0.5 mg INHALATION Q12H.RT [facility] Last Admin: 05/31/20 06:59 Dose: 0.5 mg Documented by: Celecoxib (Celecoxib 200 Mg Capsule) 200 mg PO BID [facility] Last Admin: 05/31/20 09:46 Dose: Not Given Documented by: Famotidine (Famotidine 20 Mg Tablet) 20 mg PO DAILY [facility] Last Admin: 05/31/20 09:47 Dose: Not Given Documented by: Guaifenesin (Guaifenesin 10 Ml Udc (200mg/10ml)) 20 ml PO Q4H PRN PRN PRN Reason: COUGH Hydralazine HCl (Hydralazine 20 Mg/Ml Vial) 10 mg IV Q4H PRN PRN PRN Reason: SBP > 160 Sodium Chloride () 1,000 mls @ 100 mls/hr IV .Q10H [facility] Last Admin: 05/31/20 08:37 Dose: 100 mls/hr Documented by: Cefazolin Sodium 2 gm/ Sodium (Chloride) 120 mls @ 240 mls/hr IV SEND TO OR W/PATIENT ONE Stop: 05/31/20 14:29 Lisinopril (Lisinopril 10 Mg Tablet) 10 mg PO DAILY [facility] Last Admin: 05/31/20 09:47 Dose: Not Given Documented by: Loratadine (Loratadine 10 Mg Tablet) 10 mg PO DAILY PRN PRN Reason: ALLERGIES Magnesium Hydroxide (Magnesium Hydroxide 30 Ml Udc) 30 ml PO DAILY PRN PRN PRN Reason: Constipation Melatonin (Melatonin 3 Mg Tablet) 3 mg PO QHS PRN PRN PRN Reason: INSOMNIA Metoprolol Tartrate (Metoprolol Tartrate 25 Mg Tablet) 25 mg PO BID [facility] Last Admin: 05/31/20 09:47 Dose: 25 mg Documented by: Morphine Sulfate (Morphine 2 Mg/Ml Syringe) 2 mg IV Q3H PRN PRN PRN Reason: Pain Score 6-10 Last Admin: 05/31/20 11:05 Dose: 2 mg Documented by: Nitroglycerin (Nitroglycerin (Inpatient Use) 0.4 Mg Tab.Subl) 0.4 mg SUBLINGUAL Q5M PRN PRN Reason: CARDIAC/CHEST PAIN Ondansetron HCl (Ondansetron 4 Mg/2 Ml Vial) 4 mg IV Q8H PRN PRN PRN Reason: NAUSEA/VOMITING Oxycodone HCl (Oxycodone 5 Mg Tablet) 5 mg PO Q4H PRN PRN PRN Reason: Pain Score 4-5 Last Admin: 05/30/20 20:35 Dose: 5 mg Documented by: Prochlorperazine Edisylate (Prochlorperazine 10 Mg/2 Ml Vial) 5 mg IV Q4H PRN PRN PRN Reason: Breakthrough nausea/vomiting Psyllium Hydrophilic Mucilloid (Psyllium 1 Packet) 1 packet PO DAILY PRN PRN PRN Reason: Constipation Senna/Docusate Sodium (Senna/Docusate Sodium 1 Tablet) 2 tablet PO BID PRN PRN PRN Reason: Constipation Sodium Chloride (0.9% Saline Lock 10 Ml Syringe) 10 - 40 ml IV UD PRN PRN Reason: SALINE FLUSH Throat Lozenges (Benzocaine/Menthol 1 Lozenge) 1 lozenge MUCOUS MEM Q2H PRN PRN PRN Reason: SORE THROAT Assessment/Plan This patient was seen in conjunction with PRESS MANAGERLissett. I have independently interviewed and examined the patient and reviewed pertinent history, examination findings, laboratory and plan of management. I have reviewed the note and agree with the documented findings with the few additional points. In brief, patient is admitted for fall with resultant acute traumatic left femoral neck fracture with varus angulation and left elbow lacerated wound which was repaired in ED. Orthopedic surgery is consulted. I have discussed my assessment with PRESS MANAGERLissett and orders have been reviewed. The patient is a 79 y/o F with history of obesity, PAF not anticoagulated, Allergic rhinitis, Gout, GERD, Asthma, CKD stage III was admitted on 05/30/20 after a fall on left side while trying to lift a heavy chair. She also had laceration on the left elbow. Admitted to [facility] floor. Electrolytes in acceptable limit. TSH 2.38. Blood pressure and heart rate in normal range. NSQIP perioperative risk is appropriate for age and other comorbidities. EKG normal sinus rhythm with no acute evidence of ischemia. Chest x-ray no acute cardiopulmonary findings. Mild chronic bilateral shoulder pain Coronary artery disease. Had recent cardiac cath March 2020 showed mild nonobstructive coronary artery disease. On aspirin metoprolol CKD stage III: BUN slightly elevated but improving. Creatinine normal. other comorbidities including proximal A. fib, hypertension, allergic rhinitis, gout, chronic stable asthma Clinical Impression(s) from Imaging Studies Hip/Pelvis X-Ray 05/30/20 16:30 IMPRESSION: Acute impacted left femoral neck fracture with varus angulation of fracture fragments. Chest X-Ray 05/30/20 16:41 IMPRESSION: ASHD. No acute disease Inpatient E&M: 53260 Subs Hosp L2
[2020-05-31] MEDS: Metoprolol Tartrate 25 MG Tablet PO (09:47)
--- NOTE | 2020-05-31 09:50 | CASEMGMT ---
Social Work Assessment Referral Date: 05/31/2020 Date of Assessment: 05/31/2020 Reason for consult: Hip Fracture Informant: SW Personal Status: SW met with pt to complete initial assessment. SW introduced self and role at [facility]. Pt is alert and orientated x3, answers questions appropriately. Living Arrangements: Pt states she lives with her in a two story home with first floor set up. Pt states she has a ramp to enter her home. DME: Cane, Walker, Walk in shower, grab bars, stair lift for basement. Pt currently on oxygen, states normally doesn't wear oxygen at home. ADLS: Pt states she was previously independent, states she still drives. Pt states she did recently hire a housekeeper home. Pt states she does still her own laundry and cooks meals. PCP: Dr. Robertson [facility]acy: [facility] for mail order Advanced Directives: Pt confirms she has both. Substance Abuse Hx: Pt denied Mental Health: Pt denied HHC: Pt denied SNF: Pt denied SW spoke with pt regarding discharge plans. Pt states she prefers to return home at discharge. SW explained that it depends on how pt does with PT/OT and what they recommend. Pt states if it was recommended for SNF she would be agreeable but again states she prefers to return home. SW did provide pt with list of SNF that accept pt's insurance, did educate pt on [facility] and TCU at [facility]. Plan: TBD pending pt's surgery and PT/OT. Pt prefers to return home. Annabella Joy RESEARCH AND DEVELOPMENT MANAGER, BAKERY DECORATOR
--- NOTE | 2020-05-31 15:00 | FEM_PTH ---
PATIENT: HONEY FERNANDES LOC: MS3 U#:[id number] AGE/SX: 79/F ROOM: [facility] [place] RE05/30/[address]: Dr. Bruno Lozano MD : [id number] BED: 1 DIS: 06/03/2020 SPEC #: [id number] RECD: 06/01/20 08:41 STATUS: AMARA REQ #: [id number] JERMAINE: 05/31/20 15:[address]: Luis Moy DEPT: SURGICAL PATHOLOGY RECD BY: Dolly Keith ENTERED: 06/01/20 09:12 SP TYPE: FEM HEAD OTHR DR: MD Dr. Jn Saunders MD Dr. Michael Knapic, DO Dr. Prakash Chand, MD Tissues: Femoral region, NOS Procedures: Decalcification bone/plaque Surgery Specimen Level IV Comments: @ Ordering doctor for DEC edited from to DR.MKNAPI Shelby by MICHOACANO at 06/01/20 0950 @ Ordering doctor for SUV edited from to DR.MKNAPI Shelby by MICHOACANO at 06/01/20 0950 @ Submitting doctor edited from to DR.MKNAPI Shelby by MICHOACANO at 06/01/20 0950 HEADER OPERATION: Left hip hemiarthroplasty, cemented PRE-OP DIAGNOSIS: Closed left hip fracture TISSUE SUBMITTED: Femoral head MICROSCOPIC DIAGNOSIS Femoral head, hemiarthroplasty: Femoral head with focal area of hemorrhage, clinically closed left hip fracture. CARMEILTA:fred 06/06/2020 MICROSCOPIC DESCRIPTION Slides are reviewed. GROSS DESCRIPTION Received is one container designated femoral head. The specimen consists of a femoral head measuring 4.5 x 4.5 x 4 cm. The articular surface shows focal are of erosion. The resection margin is irregular and hemorrhagic. No soft tissue is identified. Network Control Operators Supervisor sections are submitted in two cassettes after decalcification. / CARMELITA:fred 06/01/20 TC:5 CPT: 69994, 93619
[2020-05-31] MEDS: Cefazolin 2 GM in 0.9% Normal Saline 100 ML IV (16:01)
--- NOTE | 2020-05-31 19:15 | RAD_ITS ---
STUDY: X-RAY - PELVIS AND LEFT HIP REASON FOR EXAM: Female, 79 years old. post op left hip TECHNIQUE: 3 views of the pelvis and hip. COMPARISON: Left hip x-ray dated May 30, 2020 at 4:36 PM FINDINGS: Status post surgical resection of the left femoral head and neck. Status post newly placed left acetabular and proximal femoral shaft prosthetic components demonstrating good bony contact and alignment. Expected postoperative gas and swelling seen in the overlying soft tissues. The remaining visualized pelvic bony structures are unremarkable. Severe axial narrowing of the right hip joint noted. RAD/Hip Min 2 Views (Portable) IMPRESSION: Status post total left hip arthroplasty Electronically Signed: Jacob Aguirre MD at 20:23 EST , Service support ,
[2020-06-01] VITALS (14 sets, daily range): BP systolic 98–131; BP diastolic 44–68; PULSE 64–79; RESP 16–18; TEMP 36.2–36.9; O2SAT 88–100; BMI 36.9
[2020-06-01] MEDS: Cefazolin 1 GM/50 ML BAG IV ×2 (00:35→08:45)
[2020-06-01] MEDS: Acetaminophen 500 MG Tablet 1000 MG PO ×3 (06:12→22:30)
[2020-06-01] MEDS: Enoxaparin 40 MG/0.4 ML Syringe SC (06:12)
[2020-06-01 06:43] LABS: Hematocrit 30.9 % (37-47); Hemoglobin 9.5 g/dL (12.0-15.0); Mean Corp Hgb Conc 30.7 g/dL (32-36); Mean Corpuscular Hgb 28.5 pg (27.0-32.0); Mean Corpuscular Volume 92.8 fL (81-99); Mean Platelet Vol. 11.2 fl (6.2-12.0); Platelet Count 140 K/mm3 (150-450); RBC Distribution Width CV 13.7 % (11.6-14.6); RBC Distribution Width SD 46.4 fl (35.1-43.9); Red Blood Count 3.33 M/mm3 (4.2-5.4); White Blood Count 10.5 K/mm3 (4.4-11.0)
[2020-06-01 07:02] LABS: Anion Gap 3 (5-15); BUN 24 mg/dL (7-18); BUN/Creat Ratio 34.3 RATIO (10-20); Chloride 111 mmol/L (98-107); EST Glomerular Filtration Rate 85 mL/min (>60); Est Glom Filt Rate - Afr Amer 103 mL/min (>60); Estimated Creatinine Clearance 33.86 ml/min; Glucose 127 mg/dL (74-106); Potassium 4.5 mmol/L (3.5-5.1); Sodium Level 140 mmol/L (136-145)
[2020-06-01] MEDS: Budesonide Respules 0.5 MG/2 ML AMPUL.NEB. INHALATION ×2 (07:08→20:21)
[2020-06-01] MEDS: Albuterol 2.5 MG/3 ML VIAL.NEB. INHALATION (07:08)
[2020-06-01] MEDS: Allopurinol 100 MG Tablet PO (08:47)
[2020-06-01] MEDS: Aspirin 81 MG TAB.CHEW PO ×2 (08:47→16:13)
[2020-06-01] MEDS: Metoprolol Tartrate 25 MG Tablet PO ×2 (08:48→22:30)
[2020-06-01] MEDS: Famotidine 20 MG Tablet PO (08:48)
[2020-06-01] MEDS: Celecoxib 200 MG Capsule PO (08:48)
[2020-06-01] MEDS: Lisinopril 10 MG Tablet PO (08:50)
[2020-06-01] MEDS: Senna/Docusate Sodium 1 Tablet 2 TABLET PO ×2 (08:52→22:30)
--- NOTE | 2020-06-01 09:49 | CASEMGMT ---
Addendum entered by Annabella Joy 06/01/20 10:23: SHANNEN received call from Malia in [facility] stating [facility] is able pt today. Pt has to be over to [facility] before 11:00am. SW in to speak with pt. Pt confirms she is agreeable to [facility]. Pt's daughter Bettie called and pt gave phone to this worker to update Bettie. SW updated Bettie that pt is going to discharge to [facility] today. Bettie states understanding. Bettie asked for medical update, RN updated. SW spoke with PT/OT requested eval be completed before 11:00am. Plan: [facility] today Original Note: Social WorK Note SW updated that pt is agreeable to [facility] at discharge. Physician states pt is medically ready for discharge today. SW placed a call to Malia with [facility] and provided referral. [facility] to review referral. Plan: [facility] pending acceptance Annabella Joy COSTUME SHOP MANAGER, PHYSICIAN GENERAL PRACTICE
--- NOTE | 2020-06-01 10:29 | DCINST_ITS ---
- Discharge Diagnoses Current Active Problems: Current Active and Chronic Problems (Last Updated 03/30/20 @ 17:33 by Usha Fabian) Closed left hip fracture (Acute) Laceration of left elbow (Acute) Accidental fall (Acute) PAF (paroxysmal atrial fibrillation) (Chronic) Allergic rhinitis (Chronic) Gout (Chronic) Chronic asthma (Chronic) CKD (chronic kidney disease), stage III (Chronic) Essential (primary) hypertension (Chronic) You will use the following diet at home:: Cardiac Discharge Activity: Return to Normal Activity Call your doctor if you observe: Shortness of breath, Dizziness, Fainting spells, Chest pain Additional Instructions: Left elbow sutures will need removed in 10 days. Allergies/Adverse Reactions: Allergies No Known Allergies Allergy (Verified 05/30/20 15:57) Medications to take at Discharge Acetaminophen [Tylenol] 500 mg PO Q6H PRN PRN 03/26/20 Albuterol Inhaler [Ventolin Hfa] 1 - 2 puff INHALATION Q6H PRN PRN 03/26/20 Allopurinol [Zyloprim] 100 mg PO DAILYCM 03/26/20 Antiarthritic Combination No.2 [Glucosamine-Chondroitin] 900 mg PO BID 03/26/20 Celecoxib [Celebrex] 200 mg PO BID 03/26/20 Fluticasone 0.05% [Flonase Nasal [place]] 1 spray NASAL PRN PRN 03/26/20 Fluticasone/Salmeterol [Advair 250-50 Diskus] 1 ea IH BID 03/26/20 Ketotifen Fumarate [Zaditor] 1 drp EACH EYE PRN PRN 03/26/20 Lisinopril [Zestril] 10 mg PO DAILY 03/26/20 Loratadine [Claritin] 10 mg PO DAILY PRN 03/26/20 Multivit-Min/Iron/Folic/Lutein [Multivitamin Women 50 Plus Tab] 1 ea PO QODAY 03/26/20 Omeprazole [Prilosec] 20 mg PO QODAY 03/26/20 aspirin 81 mg chewable tablet 81 mg PO DAILY@0800 #90 tab 04/11/20 metoprolol tartrate 25 mg tablet 25 mg PO BID #180 tab 04/11/20 Enoxaparin [Lovenox] 40 mg SC DAILY@0600 syringe 01/15/21 Oxycodone [Oxyir] 5 mg PO Q4H PRN PRN 7 Days tablet 06/01/20 Primary Care Physician: Jn Robertson MD [Primary Care Provider] - Please follow up with your Primary Care Physician in: 1 Week Test Results: Test results from this visit will be discussed in further detail at your follow- up appointment, if applicable. Please Follow Up With: Luis Moy DO When: 1-2 Weeks Proposed Discharge Date: 06/01/20
--- NOTE | 2020-06-01 10:40 | CASEMGMT ---
Social Work Note Physician updated this worker that ortho hasn't seen pt yet, pt will discharge to [facility] Thursday. SHANNEN placed a call to Malia in [facility] and updated her. Malia states understanding. SW placed a call to pt's daughter Bettie ([phone]) and updated her that plan is now Thursday. Bettie states understanding. RN states she will update pt. Green sheet on chart. Plan: Thursday Annabella Joy [employer], [employer]
[2020-06-01] MEDS: oxyCODONE 5 MG Tablet PO ×2 (10:53→20:34)
--- NOTE | 2020-06-01 11:37 | PN.ORTHO_ITS ---
Patient Problems: Active and Suspected Problems (Last Updated 03/30/20 @ 17:33 by Usha Fabian) Closed left hip fracture (Acute) Laceration of left elbow (Acute) Accidental fall (Acute) Atrial fibrillation with rapid ventricular response (Suspected 03/26/20) Subjective: Patient sitting at bedside with her at her side. Patient states her pain is been very well managed. Patient states her only complaint is she is having difficult time hearing, there has been a problem with her hearing aids. Patient denies chest pain, shortness of breath, calf pain, nausea vomiting. Patient has no other complaints at this time. Objective: Dressing is clean dry intact. Vital signs labs reviewed noted medical record. Negative signs or symptoms of DVT. Patient has good plantar flexion dorsiflexion of the left foot. Patient is in no respiratory distress, speaking in full sentences. Neurovascular patient was otherwise intact. - Physical Exam Vitals/I&O's: Vital Signs Temp Pulse Resp BP Pulse Ox 98.1 F 64 16 115/44 L 97 06/01/20 08:53 06/01/20 08:53 06/01/20 08:53 06/01/20 08:53 06/01/20 10:35 Oxygen Flow Rate (L/min) 2 Oxygen Delivery Method Room Air Weight: 83.2 kg Body Mass Index (BMI) 34.6 Intake and Output for Last 24 Hours 05/30/20 05/31/20 06/01/20 23:59 23:59 23:59 Intake Total 2323.33 / 2323.33 1500 / 1500 Output Total 1050 / 1350 650 / 650 Balance 1273.33 / 973.33 850 / 850 General: Alert, Oriented x3, Cooperative HEENT: PERRLA Oral: Moist Mucosa Neurological: Cranial nerves II-XII grossly intact Psych/Mental Status: Normal Affect, Alert and oriented to time, place, person, mood and affect Microbiology Past 72 Hours 05/30/20 18:50 Urine Catheter - Mccall Urine Culture - Preliminary Culture exhibits no growth. 05/30/20 18:00 Mucosa - Nose SARS-CoV-2 Antigen (Rapid) - Final Laboratory Results 06/01/20 06:13: WBC 10.5, RBC 3.33 L, Hgb 9.5 L, Hct 30.9 L, MCV 92.8, MCH 28.5, MCHC 30.7 L, RDW Std Deviation 46.4 H, RDW Coeff of Tiffani 13.7, Plt Count 140 L, MPV 11.2 06/01/20 06:13: Sodium 140, Potassium 4.5, Chloride 111 H, Carbon Dioxide 26.0, Anion Gap 3 L, BUN 24 H, Creatinine 0.70, Estim Creat Clear Calc 33.86, Est GFR (MDRD) Af Amer 103, Est GFR (MDRD) Non-Af 85, BUN/Creatinine Ratio 34.3 H, Glucose 127 H, Calcium 8.0 L Current Medications Acetaminophen (Acetaminophen 325 Mg Tablet) 650 mg PO Q6H PRN PRN PRN Reason: Pain Score 1-10/Temp > 100.7 F Acetaminophen (Acetaminophen 500 Mg Tablet) 1,000 mg PO Q8 [facility] Last Admin: 06/01/20 06:12 Dose: 1,000 mg Documented by: Al Hydroxide/Mg Hydroxide (Mag Hydrox/Al Hydrox/Simeth 30 Ml Udc) 30 ml PO Q6H PRN PRN PRN Reason: Gastric Burning Albuterol Sulfate (Albuterol 2.5 Mg/3 Ml Vial.Neb.) 2.5 mg INHALATION Q2H PRN PRN PRN Reason: Dyspnea, wheezing Albuterol Sulfate (Albuterol 2.5 Mg/3 Ml Vial.Neb.) 2.5 mg INHALATION Q6HWA.RT [facility] Last Admin: 06/01/20 07:08 Dose: 2.5 mg Documented by: Allopurinol (Allopurinol 100 Mg Tablet) 100 mg PO DAILYCM [facility] Last Admin: 06/01/20 08:47 Dose: 100 mg Documented by: Aspirin (Aspirin 81 Mg Tab.Chew) 81 mg PO DAILY@0800 [facility] Last Admin: 06/01/20 08:47 Dose: 81 mg Documented by: Budesonide (Budesonide Respules 0.5 Mg/2 Ml Ampul.Neb.) 0.5 mg INHALATION Q12H.RT [facility] Last Admin: 06/01/20 07:08 Dose: 0.5 mg Documented by: Celecoxib (Celecoxib 200 Mg Capsule) 200 mg PO BID [facility] Last Admin: 06/01/20 08:48 Dose: 200 mg Documented by: Enoxaparin Sodium (Enoxaparin 40 Mg/0.4 Ml Syringe) 40 mg SC DAILY@0600 [facility] Last Admin: 06/01/20 06:12 Dose: 40 mg Documented by: Famotidine (Famotidine 20 Mg Tablet) 20 mg PO DAILY [facility] Last Admin: 06/01/20 08:48 Dose: 20 mg Documented by: Guaifenesin (Guaifenesin 10 Ml Udc (200mg/10ml)) 20 ml PO Q4H PRN PRN PRN Reason: COUGH Hydralazine HCl (Hydralazine 20 Mg/Ml Vial) 10 mg IV Q4H PRN PRN PRN Reason: SBP > 160 Lisinopril (Lisinopril 10 Mg Tablet) 10 mg PO DAILY [facility] Last Admin: 06/01/20 08:50 Dose: 10 mg Documented by: Loratadine (Loratadine 10 Mg Tablet) 10 mg PO DAILY PRN PRN Reason: ALLERGIES Magnesium Hydroxide (Magnesium Hydroxide 30 Ml Udc) 30 ml PO DAILY PRN PRN PRN Reason: Constipation Melatonin (Melatonin 3 Mg Tablet) 3 mg PO QHS PRN PRN PRN Reason: INSOMNIA Metoprolol Tartrate (Metoprolol Tartrate 25 Mg Tablet) 25 mg PO BID [facility] Last Admin: 06/01/20 08:48 Dose: 25 mg Documented by: Morphine Sulfate (Morphine 2 Mg/Ml Syringe) 2 mg IV Q3H PRN PRN PRN Reason: Pain Score 6-10 Last Admin: 05/31/20 11:05 Dose: 2 mg Documented by: Nitroglycerin (Nitroglycerin (Inpatient Use) 0.4 Mg Tab.Subl) 0.4 mg SUBLINGUAL Q5M PRN PRN Reason: CARDIAC/CHEST PAIN Ondansetron HCl (Ondansetron 4 Mg/2 Ml Vial) 4 mg IV Q8H PRN PRN PRN Reason: NAUSEA Oxycodone HCl (Oxycodone 5 Mg Tablet) 5 mg PO Q4H PRN PRN PRN Reason: Pain Score 4-5 Last Admin: 06/01/20 10:53 Dose: 5 mg Documented by: Prochlorperazine Edisylate (Prochlorperazine 10 Mg/2 Ml Vial) 5 mg IV Q4H PRN PRN PRN Reason: Breakthrough nausea/vomiting Promethazine HCl (Promethazine 25 Mg/Ml Syringe) 12.5 mg IM Q6H PRN PRN; Protocol PRN Reason: NAUSEA/VOMITING Psyllium Hydrophilic Mucilloid (Psyllium 1 Packet) 1 packet PO DAILY PRN PRN PRN Reason: Constipation Senna/Docusate Sodium (Senna/Docusate Sodium 1 Tablet) 2 tablet PO BID PRN PRN PRN Reason: Constipation Senna/Docusate Sodium (Senna/Docusate Sodium 1 Tablet) 2 tablet PO BID [facility] Last Admin: 06/01/20 08:52 Dose: 2 tablet Documented by: Sodium Chloride (0.9% Saline Lock 10 Ml Syringe) 10 - 40 ml IV UD PRN PRN Reason: SALINE FLUSH Throat Lozenges (Benzocaine/Menthol 1 Lozenge) 1 lozenge MUCOUS MEM Q2H PRN PRN PRN Reason: SORE THROAT Medical Necessity - Tobacco Use Smoking Status: Never smoker Tobacco Use: Non-smoker Assessment/Plan All Active Problems (Last Updated 03/30/20 @ 17:33 by Usha Fabian) Closed left hip fracture (Acute) Laceration of left elbow (Acute) Accidental fall (Acute) Chest pain (Acute) Elevated troponin (Resolved 03/26/20) Status post left hip hemiarthroplasty status post fracture. Plan 1. Continue all pain medications as prescribed 2. Continue physical therapy, weight-bear as tolerated with walker. 3. Continue anticoagulation as prescribed by medicine. If not contraindicated patient can be converted to aspirin 81 mg 1 p.o. every 12 hours x30 days for postop DVT prophylaxis 4. Encourage incentive spirometry 5. Discharge to [facility] for floor rehab when cleared by medicine 6. Patient can shower on 06/04/2020. 7. Remove and replace AG dressing on day of discharge to rehab. 8. Dressing is to remain in place until staple removal on 06/13/2020 9. Patient to follow-up with Dr. Moy in 2 weeks, call for appointment.
--- NOTE | 2020-06-01 11:45 | PCM.DC.THR ---
Discharge Diet: No Restrictions Discharge Activity: May Not Drive, May Shower, Use Walker May shower in (days): 3 - only if incision is dry and without drainage. Do NOT soak/submerge in tub/pool/arango/stream/hot tub. May resume sexual activity in: No Restrictions Ice area for (Minutes): 20 - every hour while awake Weight Bearing Status: Weight bearing as tolerated Lifting Restrictions: 20 pounds Elevate: Operative Extremity Call your doctor if your incision/area has: Continuous Slow Oozing, Sudden Increased Bleeding, Increased Pain/ Swelling, Increased Redness, Foul Smelling Discharge Call your doctor if you observe: Fever of 101 or Higher, Inability to urinate, Inability to have a bowel movement, Shortness of breath, Fainting spells, Chest pain, Increased palpitations (irregular heartbeat), Calf discomfort, Uncontrolled pain Change Dressing in (Days):: 0 - Change daily and as needed. Remove Dressing in (days):: 9 Cleanse incision/area with: Soap & Water Allergies/Adverse Reactions: Allergies No Known Allergies Allergy (Verified 05/30/20 15:57) Medications to take at Discharge Acetaminophen [Tylenol] 500 mg PO Q6H PRN PRN 03/26/20 Albuterol Inhaler [Ventolin Hfa] 1 - 2 puff INHALATION Q6H PRN PRN 03/26/20 Allopurinol [Zyloprim] 100 mg PO DAILYCM 03/26/20 Antiarthritic Combination No.2 [Glucosamine-Chondroitin] 900 mg PO BID 03/26/20 Celecoxib [Celebrex] 200 mg PO BID 03/26/20 Fluticasone 0.05% [Flonase Nasal [place]] 1 spray NASAL PRN PRN 03/26/20 Fluticasone/Salmeterol [Advair 250-50 Diskus] 1 ea IH BID 03/26/20 Ketotifen Fumarate [Zaditor] 1 drp EACH EYE PRN PRN 03/26/20 Lisinopril [Zestril] 10 mg PO DAILY 03/26/20 Loratadine [Claritin] 10 mg PO DAILY PRN 03/26/20 Multivit-Min/Iron/Folic/Lutein [Multivitamin Women 50 Plus Tab] 1 ea PO QODAY 03/26/20 Omeprazole [Prilosec] 20 mg PO QODAY 03/26/20 aspirin 81 mg chewable tablet 81 mg PO DAILY@0800 #90 tab 04/11/20 metoprolol tartrate 25 mg tablet 25 mg PO BID #180 tab 04/11/20 Enoxaparin [Lovenox] 40 mg SC DAILY@0600 syringe 06/01/20 Oxycodone [Oxyir] 5 mg PO Q4H PRN PRN 7 Days tab 06/01/20 Primary Care Physician: Jn Robertson MD [Primary Care Provider] - Test Results: Test results from this visit will be discussed in further detail at your follow-up appointment, if applicable. Please Follow Up With: Charlie Kemp PASinghC When: 2 weeks, call for appt [phone]
--- NOTE | 2020-06-01 12:29 | PN_ITS ---
<Lissett Lees CONTRACT WRITER - Last Filed: 06/01/20 12:35> Patient Problems: Active and Suspected Problems (Last Updated 03/30/20 @ 17:33 by Usha Fabian) Closed left hip fracture (Acute) Laceration of left elbow (Acute) Accidental fall (Acute) Atrial fibrillation with rapid ventricular response (Suspected 03/26/20) Subjective: Patient seen and examined. Denies significant pain. States she is moving slow. Agreeable to rehab unit at discharge. - Physical Exam Vitals/I&O's: Vital Signs Temp Pulse Resp BP Pulse Ox 98.1 F 79 16 99/51 L 93 06/01/20 12:24 06/01/20 12:24 06/01/20 12:24 06/01/20 12:24 06/01/20 12:24 Oxygen Flow Rate (L/min) 2 Oxygen Delivery Method Room Air Weight: 183 lb 6.793 oz Body Mass Index (BMI) 34.6 Intake and Output for Last 24 Hours 05/30/20 05/31/20 06/01/20 23:59 23:59 23:59 Intake Total 2323.33 / 2323.33 2250 / 2250 Output Total 1050 / 1350 750 / 750 Balance 1273.33 / 973.33 1500 / 1500 General: Alert, Oriented x3, Cooperative HEENT: Atraumatic, PERRLA, EOMI, Normocephalic Neck: Supple, No JVD, Negative Carotid Bruits Lungs: Clear to auscultation, Normal air movement Cardiovascular: Regular rate, No murmurs Abdomen: Bowel Sounds Present, Soft, Non Tender, Non-Distended Extremities: No clubbing, No cyanosis, No edema, Capillary Refill Less than 3 Seconds Skin: No rashes, No breakdown, - - Postop dressing intact Musculoskeletal: No Tenderness to Palpation of Joints or Extremities Neurological: Cranial nerves II-XII grossly intact, Neuro grossly intact Psych/Mental Status: Normal Affect, Appropriate Microbiology Past 72 Hours 05/30/20 18:50 Urine Catheter - Cmcall Urine Culture - Preliminary Culture exhibits no growth. 05/30/20 18:00 Mucosa - Nose SARS-CoV-2 Antigen (Rapid) - Final Laboratory Results 06/01/20 06:13: WBC 10.5, RBC 3.33 L, Hgb 9.5 L, Hct 30.9 L, MCV 92.8, MCH 28.5, MCHC 30.7 L, RDW Std Deviation 46.4 H, RDW Coeff of Tiffani 13.7, Plt Count 140 L, MPV 11.2 06/01/20 06:13: Sodium 140, Potassium 4.5, Chloride 111 H, Carbon Dioxide 26.0, Anion Gap 3 L, BUN 24 H, Creatinine 0.70, Estim Creat Clear Calc 33.86, Est GFR (MDRD) Af Amer 103, Est GFR (MDRD) Non-Af 85, BUN/Creatinine Ratio 34.3 H, Glucose 127 H, Calcium 8.0 L Current Medications Acetaminophen (Acetaminophen 325 Mg Tablet) 650 mg PO Q6H PRN PRN PRN Reason: Pain Score 1-10/Temp > 100.7 F Acetaminophen (Acetaminophen 500 Mg Tablet) 1,000 mg PO Q8 [facility] Last Admin: 06/01/20 06:12 Dose: 1,000 mg Documented by: Al Hydroxide/Mg Hydroxide (Mag Hydrox/Al Hydrox/Simeth 30 Ml Udc) 30 ml PO Q6H PRN PRN PRN Reason: Gastric Burning Albuterol Sulfate (Albuterol 2.5 Mg/3 Ml Vial.Neb.) 2.5 mg INHALATION Q2H PRN PRN PRN Reason: Dyspnea, wheezing Albuterol Sulfate (Albuterol 2.5 Mg/3 Ml Vial.Neb.) 2.5 mg INHALATION Q6HWA.RT [facility] Last Admin: 06/01/20 07:08 Dose: 2.5 mg Documented by: Allopurinol (Allopurinol 100 Mg Tablet) 100 mg PO DAILYCM [facility] Last Admin: 06/01/20 08:47 Dose: 100 mg Documented by: Aspirin (Aspirin 81 Mg Tab.Chew) 81 mg PO DAILY@0800 [facility] Last Admin: 06/01/20 08:47 Dose: 81 mg Documented by: Budesonide (Budesonide Respules 0.5 Mg/2 Ml Ampul.Neb.) 0.5 mg INHALATION Q12H.RT [facility] Last Admin: 06/01/20 07:08 Dose: 0.5 mg Documented by: Celecoxib (Celecoxib 200 Mg Capsule) 200 mg PO BID [facility] Last Admin: 06/01/20 08:48 Dose: 200 mg Documented by: Enoxaparin Sodium (Enoxaparin 40 Mg/0.4 Ml Syringe) 40 mg SC DAILY@0600 [facility] Last Admin: 06/01/20 06:12 Dose: 40 mg Documented by: Famotidine (Famotidine 20 Mg Tablet) 20 mg PO DAILY [facility] Last Admin: 06/01/20 08:48 Dose: 20 mg Documented by: Guaifenesin (Guaifenesin 10 Ml Udc (200mg/10ml)) 20 ml PO Q4H PRN PRN PRN Reason: COUGH Hydralazine HCl (Hydralazine 20 Mg/Ml Vial) 10 mg IV Q4H PRN PRN PRN Reason: SBP > 160 Lisinopril (Lisinopril 10 Mg Tablet) 10 mg PO DAILY [facility] Last Admin: 06/01/20 08:50 Dose: 10 mg Documented by: Loratadine (Loratadine 10 Mg Tablet) 10 mg PO DAILY PRN PRN Reason: ALLERGIES Magnesium Hydroxide (Magnesium Hydroxide 30 Ml Udc) 30 ml PO DAILY PRN PRN PRN Reason: Constipation Melatonin (Melatonin 3 Mg Tablet) 3 mg PO QHS PRN PRN PRN Reason: INSOMNIA Metoprolol Tartrate (Metoprolol Tartrate 25 Mg Tablet) 25 mg PO BID [facility] Last Admin: 06/01/20 08:48 Dose: 25 mg Documented by: Morphine Sulfate (Morphine 2 Mg/Ml Syringe) 2 mg IV Q3H PRN PRN PRN Reason: Pain Score 6-10 Last Admin: 05/31/20 11:05 Dose: 2 mg Documented by: Nitroglycerin (Nitroglycerin (Inpatient Use) 0.4 Mg Tab.Subl) 0.4 mg SUBLINGUAL Q5M PRN PRN Reason: CARDIAC/CHEST PAIN Ondansetron HCl (Ondansetron 4 Mg/2 Ml Vial) 4 mg IV Q8H PRN PRN PRN Reason: NAUSEA Oxycodone HCl (Oxycodone 5 Mg Tablet) 5 mg PO Q4H PRN PRN PRN Reason: Pain Score 4-5 Last Admin: 06/01/20 10:53 Dose: 5 mg Documented by: Prochlorperazine Edisylate (Prochlorperazine 10 Mg/2 Ml Vial) 5 mg IV Q4H PRN PRN PRN Reason: Breakthrough nausea/vomiting Promethazine HCl (Promethazine 25 Mg/Ml Syringe) 12.5 mg IM Q6H PRN PRN; Protocol PRN Reason: NAUSEA/VOMITING Psyllium Hydrophilic Mucilloid (Psyllium 1 Packet) 1 packet PO DAILY PRN PRN PRN Reason: Constipation Senna/Docusate Sodium (Senna/Docusate Sodium 1 Tablet) 2 tablet PO BID PRN PRN PRN Reason: Constipation Senna/Docusate Sodium (Senna/Docusate Sodium 1 Tablet) 2 tablet PO BID [facility] Last Admin: 06/01/20 08:52 Dose: 2 tablet Documented by: Sodium Chloride (0.9% Saline Lock 10 Ml Syringe) 10 - 40 ml IV UD PRN PRN Reason: SALINE FLUSH Throat Lozenges (Benzocaine/Menthol 1 Lozenge) 1 lozenge MUCOUS MEM Q2H PRN PRN PRN Reason: SORE THROAT Medical Necessity - Tobacco Use Smoking Status: Never smoker Tobacco Use: Non-smoker Assessment/Plan All Active Problems (Last Updated 03/30/20 @ 17:33 by Usha Fabian) Closed left hip fracture (Acute) Laceration of left elbow (Acute) Accidental fall (Acute) Chest pain (Acute) Elevated troponin (Resolved 03/26/20) 1. Acute traumatic left femoral neck fracture secondary to mechanical fall prior to admission, associated debility-orthopedic surgery on consult. As needed pain regimen. PT/OT. Patient underwent left hip hemiarthroplasty 05/31/2020. Plan for rehab unit discharge on Thursday. Aspirin 81 mg twice daily for DVT prophylaxis per surgery recommendations. 2. Left elbow laceration status post sutures-keep area covered with clean dressing. Remove left elbow sutures in 10 to 14 days. 3. Paroxysmal atrial fibrillation-currently sinus rhythm. Continue metoprolol. 4. Mild CAD-recent heart cath 03/27/2020 demonstrated mild to minimal nonobstructive CAD. On aspirin, metoprolol. 5. Hypertension-stable, continue lisinopril, metoprolol. 6. 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 7. Chronic asthma/allergic rhinitis-continue home inhaler regimen, loratadine. 8. GERD-continue PPI. 9. Gout-on allopurinol. DVT prophylaxis-SCDs, aspirin twice daily This patient was seen by VERA Holcomb under the supervision of Dr. Lozano. Bruno Hawkins - Last Filed: 06/01/20 15:08> Subjective: Patient blood pressure was low in afternoon. BP 98/45, heart rate 68/min. Patient had 100 cc dark urine in the Mccall catheter. Features consistent with hypotension due to hypovolemia. 1 L Ringer lactate bolus ordered and then 100 mL/h. Discussed with RN. Physical exam General: Alert, Oriented x3, Cooperative HEENT: Atraumatic, PERRLA, EOMI, Normocephalic Oral: Oral mucosa is dry. No Gingival or Mucosal Lesions/ Ulcerations Neck: Supple, No JVD, Negative Carotid Bruits Lungs: Air entry diminished in bilateral lung bases. No crepitation/rhonchi Cardiovascular: Regular rate, Regular Rhythm, Normal S1, Normal S2, No murmurs Abdomen: Bowel Sounds Present, Soft, Non Tender, Non-Distended : Urine output 750 mill since midnight, 100 mL in last 1 hour. Mccall catheter. No renal angle tenderness. No suprapubic tenderness. Extremities: No edema, Capillary Refill Less than 3 Seconds Skin: No rashes, No breakdown Musculoskeletal: Left hip surgical dressing is dry. No hematoma, swelling or bleeding or bruise. Neurological: Cranial nerves II-XII grossly intact, Deep Tendon Reflexes 2+/4 and Symmetrical, Neuro grossly intact Psych/Mental Status: Normal Affect, Appropriate. - Physical Exam Vitals/I&O's: Vital Signs Temp Pulse Resp BP Pulse Ox 98.1 F 68 16 98/45 L 88 06/01/20 14:39 06/01/20 14:39 06/01/20 14:39 06/01/20 14:39 06/01/20 14:42 Oxygen Flow Rate (L/min) 2 Oxygen Delivery Method Room Air Weight: 183 lb 6.793 oz Body Mass Index (BMI) 34.6 Intake and Output for Last 24 Hours 05/30/20 05/31/20 06/01/20 23:59 23:59 23:59 Intake Total 2323.33 / 2323.33 2250 / 2250 Output Total 1050 / 1350 750 / 750 Balance 1273.33 / 973.33 1500 / 1500 Microbiology Past 72 Hours 05/30/20 18:50 Urine Catheter - Mccall Urine Culture - Preliminary Culture exhibits no growth. 05/30/20 18:00 Mucosa - Nose SARS-CoV-2 Antigen (Rapid) - Final Laboratory Results 06/01/20 06:13: WBC 10.5, RBC 3.33 L, Hgb 9.5 L, Hct 30.9 L, MCV 92.8, MCH 28.5, MCHC 30.7 L, RDW Std Deviation 46.4 H, RDW Coeff of Tiffani 13.7, Plt Count 140 L, MPV 11.2 06/01/20 06:13: Sodium 140, Potassium 4.5, Chloride 111 H, Carbon Dioxide 26.0, Anion Gap 3 L, BUN 24 H, Creatinine 0.70, Estim Creat Clear Calc 33.86, Est GFR (MDRD) Af Amer 103, Est GFR (MDRD) Non-Af 85, BUN/Creatinine Ratio 34.3 H, Glucose 127 H, Calcium 8.0 L Current Medications Acetaminophen (Acetaminophen 500 Mg Tablet) 1,000 mg PO Q8 [facility] Last Admin: 06/01/20 14:24 Dose: 1,000 mg Documented by: Albuterol Sulfate (Albuterol 2.5 Mg/3 Ml Vial.Neb.) 2.5 mg INHALATION Q2H PRN PRN PRN Reason: Dyspnea, wheezing Allopurinol ([facility] 100 Mg Tablet) [facility] Last Admin: 06/01/20 08:47 Dose: 100 mg Documented by: Aspirin (Aspirin 81 Mg Tab.Chew) [facility] Budesonide (Budesonide Respules 0.5 Mg/2 Ml Ampul.Neb.) 0.5 mg INHALATION Q12H.RT [facility] Last Admin: 06/01/20 07:08 Dose: 0.5 mg Documented by: Famotidine (Famotidine 20 Mg Tablet) 20 mg PO DAILY [facility] Last Admin: 06/01/20 08:48 Dose: 20 mg Documented by: Guaifenesin (Guaifenesin 10 Ml Udc (200mg/10ml)) 20 ml PO Q4H PRN PRN PRN Reason: COUGH Hydralazine HCl (Hydralazine 20 Mg/Ml Vial) 10 mg IV Q4H PRN PRN PRN Reason: SBP > 160 Lactated Ringer's () 1,000 mls @ 999 mls/hr IV .Q1H1M [facility] Stop: 06/01/20 16:00 Lisinopril (Lisinopril 10 Mg Tablet) 10 mg PO DAILY [facility] Last Admin: 06/01/20 08:50 Dose: 10 mg Documented by: Loratadine (Loratadine 10 Mg Tablet) 10 mg PO DAILY PRN PRN Reason: ALLERGIES Magnesium Hydroxide (Magnesium Hydroxide 30 Ml Udc) 30 ml PO DAILY PRN PRN PRN Reason: Constipation Melatonin (Melatonin 3 Mg Tablet) 3 mg PO QHS PRN PRN PRN Reason: INSOMNIA Metoprolol Tartrate (Metoprolol Tartrate 25 Mg Tablet) 25 mg PO BID [facility] Last Admin: 06/01/20 08:48 Dose: 25 mg Documented by: Morphine Sulfate (Morphine 2 Mg/Ml Syringe) 2 mg IV Q3H PRN PRN PRN Reason: Pain Score 6-10 Last Admin: 05/31/20 11:05 Dose: 2 mg Documented by: Nitroglycerin (Nitroglycerin (Inpatient Use) 0.4 Mg Tab.Subl) 0.4 mg SUBLINGUAL Q5M PRN PRN Reason: CARDIAC/CHEST PAIN Ondansetron HCl (Ondansetron 4 Mg/2 Ml Vial) 4 mg IV Q8H PRN PRN PRN Reason: NAUSEA Oxycodone HCl (Oxycodone 5 Mg Tablet) 5 mg PO Q4H PRN PRN PRN Reason: Pain Score 4-5 Last Admin: 06/01/20 10:53 Dose: 5 mg Documented by: Prochlorperazine Edisylate (Prochlorperazine 10 Mg/2 Ml Vial) 5 mg IV Q4H PRN PRN PRN Reason: Breakthrough nausea/vomiting Promethazine HCl (Promethazine 25 Mg/Ml Syringe) 12.5 mg IM Q6H PRN PRN; Protocol PRN Reason: NAUSEA/VOMITING Psyllium Hydrophilic Mucilloid (Psyllium 1 Packet) 1 packet PO DAILY PRN PRN PRN Reason: Constipation Senna/Docusate Sodium (Senna/Docusate Sodium 1 Tablet) 2 tablet PO BID [facility] Last Admin: 06/01/20 08:52 Dose: 2 tablet Documented by: Sodium Chloride (0.9% Saline Lock 10 Ml Syringe) 10 - 40 ml IV UD PRN PRN Reason: SALINE FLUSH Throat Lozenges (Benzocaine/Menthol 1 Lozenge) 1 lozenge MUCOUS MEM Q2H PRN PRN PRN Reason: SORE THROAT Assessment/Plan This patient was seen in conjunction with Lissett CROSS. I have independently interviewed and examined the patient and reviewed pertinent history, examination findings, laboratory and plan of management. I have reviewed the note and agree with the documented findings with the few additional points. In brief, patient is 79-year-old female admitted for fall with resultant acute traumatic left femoral neck fracture with varus angulation and left elbow lacerated wound which was repaired in ED. Orthopedic surgery is consulted. TSH 2.38. NSQIP perioperative risk is appropriate for age and other comorbidities. EKG normal sinus rhythm with no acute evidence of ischemia. Chest x-ray no acute cardiopulmonary findings. Mild chronic bilateral shoulder pain 06/01: Hypotension with hypovolemia secondary to surgical fluid and blood loss: Patient has mild acute blood loss anemia secondary to surgery. Hemoglobin dropped from 11.8 to 9.5 g%. 100 mL urine output dark in last 1 hour. 1 L Ringer lactate bolus in 1 hour and then 100 mL/h to continue. Monitor intake and output, blood pressure and titrate the fluid accordingly. Antihypertensive medications with holding parameters. Monitor H&H at 8 PM tonight. Coronary artery disease. Had recent cardiac cath March 2020 showed mild nonobstructive coronary artery disease. On aspirin metoprolol CKD stage III: BUN slightly elevated but improving. Creatinine normal. 06/01: BUN/creatinine is stable. Sodium 140. BUN 24. other comorbidities including proximal A. fib, hypertension, allergic rhinitis, gout, chronic stable asthma I have discussed my assessment with Lissett CROSS and orders have been reviewed. Clinical Impression(s) from Imaging Studies Hip/Pelvis X-Ray 05/30/20 16:30 IMPRESSION: Acute impacted left femoral neck fracture with varus angulation of fracture fragments. Chest X-Ray 05/30/20 16:41 IMPRESSION: ASHD. No acute disease Inpatient E&M: 27292 Subs Hosp L2
[2020-06-01] MEDS: Lactated Ringers 1,000 ML 999 ML IV (15:09)
--- NOTE | 2020-06-01 15:50 | PCM.CONS.GEN ---
Reason for Consult Date of Consultation: 05/31/20 Reason for Consultation: left hip pain History of Present Illness: The patient is a 79 year old F [who was in her usual state of health, fell at home on her left hip last night. She was brought to the ED by squad where she was found to have a subcapital fracture of the left hip. She was admitted to [facility] by the hospitalist and orthopedic consultation was sought. At the time of my evaluation, she was complaining of only left hip pain, She denied N/T/P, LOC and pain in other areas of the axial or appendicular skeleton. PMHx, PSHX, Family Hx, ROS, Allergies and Medications reviewed per the intake H & P.] Past Medical History Past Medical History (Chronic Problems): Chronic Problems (Last Updated 03/30/20 @ 17:33 by Usha Fabian) PAF (paroxysmal atrial fibrillation) (Chronic) Allergic rhinitis (Chronic) Gout (Chronic) Chronic asthma (Chronic) CKD (chronic kidney disease), stage III (Chronic) Essential (primary) hypertension (Chronic) Medical History: Medical History (Last Updated 03/30/20 @ 17:33 by Usha Fabian) Atrial fibrillation with rapid ventricular response (Suspected) Onset Date: 03/26/20 I48.91 Essential (primary) hypertension (Chronic) I10 Elevated troponin (Resolved) Onset Date: 03/26/20 R77.8 Obesity E66.9 Allergies No Known Allergies Allergy (Verified 05/30/20 15:57) Home Medications: Ambulatory Orders Medication Instructions Recorded Acetaminophen [Tylenol] 500 mg PO Q6H PRN PRN 03/26/20 Albuterol Inhaler [Ventolin Hfa] 1 - 2 puff INHALATION Q6H PRN PRN 03/26/20 Allopurinol [Zyloprim] 100 mg PO DAILYCM 03/26/20 Antiarthritic Combination No.2 900 mg PO BID 03/26/20 [Glucosamine-Chondroitin] Celecoxib [Celebrex] 200 mg PO BID 03/26/20 Fluticasone 0.05% [Flonase Nasal 1 spray NASAL PRN PRN 03/26/20 Foster] Fluticasone/Salmeterol [Advair 1 ea IH BID 03/26/20 250-50 Diskus] Ketotifen Fumarate [Zaditor] 1 drp EACH EYE PRN PRN 03/26/20 Lisinopril [Zestril] 10 mg PO DAILY 03/26/20 Loratadine [Claritin] 10 mg PO DAILY PRN 03/26/20 Multivit-Min/Iron/Folic/Lutein 1 ea PO QODAY 03/26/20 [Multivitamin Women 50 Plus Tab] Omeprazole [Prilosec] 20 mg PO QODAY 03/26/20 aspirin 81 mg chewable tablet 81 mg PO DAILY@0800 #90 tab 04/11/20 metoprolol tartrate 25 mg tablet 25 mg PO BID #180 tab 04/11/20 Enoxaparin [Lovenox] 40 mg SC DAILY@0600 syringe 06/01/20 Oxycodone [Oxyir] 5 mg PO Q4H PRN PRN 7 Days tab 06/01/20 Surgical History: Surgical History (Last Updated 03/30/20 @ 17:30 by Usha Fabian) History of left heart catheterization Onset Date: 03/27/20 Z98.890 Surgical History: no surgical history Psychiatric History: No pertinent psych hx 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 Paternal Family History: Family History (Last Updated 03/30/20 @ 17:31 by Usha Fabian) Mother TIA (transient ischemic attack) History Items: - - Father with history of rheumatoid arthritis. Patient Problems: Active and Suspected Problems (Last Updated 03/30/20 @ 17:33 by Usha Fabian) Closed left hip fracture (Acute) Laceration of left elbow (Acute) Accidental fall (Acute) Atrial fibrillation with rapid ventricular response (Suspected 03/26/20) - Physical Exam Vitals/I&O's: Vital Signs Temp Pulse Resp BP Pulse Ox 98.1 F 68 16 98/45 L 88 06/01/20 14:39 06/01/20 14:39 06/01/20 14:39 06/01/20 14:39 06/01/20 14:42 Oxygen Flow Rate (L/min) 2 Oxygen Delivery Method Room Air Weight: 183 lb 6.793 oz Body Mass Index (BMI) 34.6 Intake and Output for Last 24 Hours 05/30/20 05/31/20 06/01/20 23:59 23:59 23:59 Intake Total 2323.33 / 2323.33 2250 / 2250 Output Total 1050 / 1350 750 / 750 Balance 1273.33 / 973.33 1500 / 1500 General: Alert, Oriented x3, No apparent distress Extremities: No clubbing, No cyanosis, No edema, Capillary Refill Less than 3 Seconds, No Calf Tenderness, Tenderness - About left hip. LLE shortened and externally rotated. ROM not assessed due to known fracture, Neurological: Neuro grossly intact Microbiology Past 72 Hours 05/30/20 18:50 Urine Catheter - Mccall Urine Culture - Preliminary Culture exhibits no growth. 05/30/20 18:00 Mucosa - Nose SARS-CoV-2 Antigen (Rapid) - Final Laboratory Results 06/01/20 06:13: WBC 10.5, RBC 3.33 L, Hgb 9.5 L, Hct 30.9 L, MCV 92.8, MCH 28.5, MCHC 30.7 L, RDW Std Deviation 46.4 H, RDW Coeff of Tiffani 13.7, Plt Count 140 L, MPV 11.2 06/01/20 06:13: Sodium 140, Potassium 4.5, Chloride 111 H, Carbon Dioxide 26.0, Anion Gap 3 L, BUN 24 H, Creatinine 0.70, Estim Creat Clear Calc 33.86, Est GFR (MDRD) Af Amer 103, Est GFR (MDRD) Non-Af 85, BUN/Creatinine Ratio 34.3 H, Glucose 127 H, Calcium 8.0 L Current Medications Acetaminophen (Acetaminophen 500 Mg Tablet) 1,000 mg PO Q8 [facility] Last Admin: 06/01/20 14:24 Dose: 1,000 mg Documented by: Albuterol Sulfate (Albuterol 2.5 Mg/3 Ml Vial.Neb.) 2.5 mg INHALATION Q2H PRN PRN PRN Reason: Dyspnea, wheezing Allopurinol ([facility] 100 Mg Tablet) [facility] Last Admin: 06/01/20 08:47 Dose: 100 mg Documented by: Aspirin (Aspirin 81 Mg Tab.Chew) [facility] Budesonide (Budesonide Respules 0.5 Mg/2 Ml Ampul.Neb.) 0.5 mg INHALATION Q12H.RT [facility] Last Admin: 06/01/20 07:08 Dose: 0.5 mg Documented by: Famotidine (Famotidine 20 Mg Tablet) 20 mg PO DAILY [facility] Last Admin: 06/01/20 08:48 Dose: 20 mg Documented by: Guaifenesin (Guaifenesin 10 Ml Udc (200mg/10ml)) 20 ml PO Q4H PRN PRN PRN Reason: COUGH Hydralazine HCl (Hydralazine 20 Mg/Ml Vial) 10 mg IV Q4H PRN PRN PRN Reason: SBP > 190 Lactated Ringer's () 1,000 mls @ 999 mls/hr IV .Q1H1M [facility] Stop: 06/01/20 16:00 Last Admin: 06/01/20 15:09 Dose: 999 mls/hr Documented by: Lactated Ringer's () 1,000 mls @ 100 mls/hr IV .Q10H [facility] Lisinopril (Lisinopril 10 Mg Tablet) 10 mg PO DAILY [facility] Last Admin: 06/01/20 08:50 Dose: 10 mg Documented by: Loratadine (Loratadine 10 Mg Tablet) 10 mg PO DAILY PRN PRN Reason: ALLERGIES Melatonin (Melatonin 3 Mg Tablet) 3 mg PO QHS PRN PRN PRN Reason: INSOMNIA Metoprolol Tartrate (Metoprolol Tartrate 25 Mg Tablet) 25 mg PO BID [facility] Last Admin: 06/01/20 08:48 Dose: 25 mg Documented by: Morphine Sulfate (Morphine 2 Mg/Ml Syringe) 2 mg IV Q3H PRN PRN PRN Reason: Pain Score 6-10 Last Admin: 05/31/20 11:05 Dose: 2 mg Documented by: Nitroglycerin (Nitroglycerin (Inpatient Use) 0.4 Mg Tab.Subl) 0.4 mg SUBLINGUAL Q5M PRN PRN Reason: CARDIAC/CHEST PAIN Oxycodone HCl (Oxycodone 5 Mg Tablet) 5 mg PO Q4H PRN PRN PRN Reason: Pain Score 4-5 Last Admin: 06/01/20 10:53 Dose: 5 mg Documented by: Prochlorperazine Edisylate (Prochlorperazine 10 Mg/2 Ml Vial) 5 mg IV Q4H PRN PRN PRN Reason: Breakthrough nausea/vomiting Promethazine HCl (Promethazine 25 Mg/Ml Syringe) 12.5 mg IM Q6H PRN PRN; Protocol PRN Reason: NAUSEA/VOMITING Psyllium Hydrophilic Mucilloid (Psyllium 1 Packet) 1 packet PO DAILY PRN PRN PRN Reason: Constipation Senna/Docusate Sodium (Senna/Docusate Sodium 1 Tablet) 2 tablet PO BID [facility] Last Admin: 06/01/20 08:52 Dose: 2 tablet Documented by: Sodium Chloride (0.9% Saline Lock 10 Ml Syringe) 10 - 40 ml IV UD PRN PRN Reason: SALINE FLUSH Throat Lozenges (Benzocaine/Menthol 1 Lozenge) 1 lozenge MUCOUS MEM Q2H PRN PRN PRN Reason: SORE THROAT Assessment/Plan All Active Problems (Last Updated 03/30/20 @ 17:33 by Usha Fabian) Closed left hip fracture (Acute) Laceration of left elbow (Acute) Accidental fall (Acute) Chest pain (Acute) Elevated troponin (Resolved 03/26/20) Displaced subcapital facture left hip At this time, I have recommended a hemiarthroplasty of the hip to treat this fracture. Potential risks, benefits and complications of surgery reviewed. Operative and non-operative treatment options reviewed. Signed consent was obtained.
--- NOTE | 2020-06-01 16:02 | PCM.OPRPT ---
Report of Operation Date of Procedure: 05/31/20 Pre-Operative Diagnosis: Displaced subcapital fracture left hip Post-Operative Diagnosis: same Surgery/Procedure Performed:: Cemented hemiarthroplasty left hip Description of Surgical Findings:: Primary Surgeon/Physician: Luis Moy computer systems information director: Abbie Stokes NP computer systems information director: Pre-Operative Diagnosis: Displace subcapital fracture left hip Post-Operative Diagnosis: same Surgery/Procedure Performed: Cemented hemiarthroplasty left hip Estimated Blood Loss: 150 cc Specimen's Removed: femoral head Type of Anesthesia: general ASA Class: 3 Implants: [Tonya Accolade C size 4 stem, 47 mm, -3 bipolar femoral head ] Surgical Indications: Patient has fracture of the [left ] hip. Patient was cleared from a medical standpoint. The risks of the surgery was discussed with the patient and family at length. Procedure Description: The patient was greeted in the preoperative area. The [left ] hip was marked with surgical marker and preoperative antibiotics administered. The patient was then taken to OR suite in stable condition. Once the patient was placed in the supine position on the operating room table and once adequate anesthesia was obtained the patient was then placed in the lateral decubitus position with the surgical hip facing the field. All bony prominences were well-padded. A commercial hip position was utilized. The appropriate extremity was then prepped and draped in usual sterile fashion. Ioban was placed on the skin. Surgical timeout was performed and surgery was commenced. Standard posterolateral approach to the hip was then performed incision was planned and carried out with a #10 blade. Dissection was then carried length of the incision to the IT band which was split proximally and distally. A Charnley retractor was then placed for soft tissue retraction exposing the gluteus medius. The hip was then approached through a transgluteal approach and dislocated through a posterior capsulectomy. The incarcerated femoral head was removed and measured on the back table. Findings are consistent with a femoral neck fracture. A femoral osteotomy was then created approximately 1 fingerbreadth above the lesser trochanter. No significant abnormality of the acetabulum is identified. Any remaining tissue or bone was removed from the acetabulum Attention was then turned to the femoral preparation. The hip was placed in the 90/90 position and a lateralizing box osteotome was utilized. Femoral starting awl was used followed by sequential broaching to the appropriate size. Excellent purchase was obtained with the stem no stem subsidence and excellent rotational stability was confirmed. A calcar reamer was then used in the trial head neck was placed on the broach. The hip was then located and taken through full range of motion flexion internal and external rotation as well as extension. Excellent stability was noted no impingement was identified of the components and leg lengths appear to be appropriate. The hip was at this point dislocated and the trial femoral components were removed. A cement restrictor was placed. The femoral canal was irrigated and dried thoroughly while cement was mixed under third generation techniques. Cement was then placed in the femoral canal and pressurized. The final femoral stem was then implanted and impacted to the appropriate depth. Again excellent purchase was obtained no stem subsidence or rotational instability was noted. The hip was once again trialed and confirmation of leg length and stability was performed. Soft tissue tension also appeared to be appropriate. At this point the hip was redislocated and the trunnion was cleaned and dried meticulously in the appropriate size femoral head was placed on the clean dry trunnion using a 12/14 Adams taper. The hip was once again relocated and again taken through full range of motion. Copious irrigation was performed. Anatomic closure of the gluteus medius and minimus was performed with #1 Vicryl [id number] type fashion followed by closure of the IT band with #1 Vicryl 0 Vicryl was utilized in subcutaneous tissue and surgical bita were placed in the skin. A well-padded nonadherent dressing was applied. Patient was taken to PACU in stable condition. No complications were identified. Will follow standard postop protocol for hemiarthroplasty. Patient must use assistive device for ambulation for approximately 6 weeks of the gluteal musculature heals. My critical care physician assistant, Ms. Stokes, provided a vital role in this procedure. She retracted soft tissue and maneuvered the leg to provide optimal visualization during the procedure. She then closed the operative wound and applied the sterile post-op dressing. computer systems information director: Abbie Stokes NP Type of Anesthesia:: General Anesthesiologist: Raoul Holder Specimen's removed: femoral head Estimated Blood Loss (mL): 150 cc - Admit VTE Documentation VTE Present on Admission: No VTE Mechan Device Prophylaxis: SCD's VTE Pharm Prophylaxis ordered?: Yes
[2020-06-01] MEDS: Lactated Ringers 1,000 ML 100 ML IV (16:13)
[2020-06-01 20:58] LABS: Hematocrit 26.7 % (37-47); Hemoglobin 8.3 g/dL (12.0-15.0)
[2020-06-02] VITALS (10 sets, daily range): BP systolic 120–150; BP diastolic 47–68; PULSE 60–72; RESP 16–24; TEMP 36.7–36.8; O2SAT 94–100
[2020-06-02] MEDS: Lactated Ringers 1,000 ML 100 ML IV (02:19)
[2020-06-02] MEDS: Acetaminophen 500 MG Tablet 1000 MG PO ×3 (06:01→21:26)
[2020-06-02] MEDS: Budesonide Respules 0.5 MG/2 ML AMPUL.NEB. INHALATION ×2 (06:55→19:36)
[2020-06-02 07:07] LABS: Hematocrit 27.1 % (37-47); Hemoglobin 8.4 g/dL (12.0-15.0); Mean Corpuscular Hgb 28.6 pg (27.0-32.0); Mean Corpuscular Volume 92.2 fL (81-99); Mean Platelet Vol. 11.6 fl (6.2-12.0); Platelet Count 132 K/mm3 (150-450); RBC Distribution Width CV 13.6 % (11.6-14.6); RBC Distribution Width SD 46.4 fl (35.1-43.9); Red Blood Count 2.94 M/mm3 (4.2-5.4); White Blood Count 8.5 K/mm3 (4.4-11.0)
--- NOTE | 2020-06-02 09:35 | PN_ITS ---
<Lissett Lees GLOBAL MOBILITY SPECIALIST - Last Filed: 06/02/20 09:41> Patient Problems: Active and Suspected Problems (Last Updated 03/30/20 @ 17:33 by Usha Fabian) Closed left hip fracture (Acute) Laceration of left elbow (Acute) Accidental fall (Acute) Atrial fibrillation with rapid ventricular response (Suspected 03/26/20) Subjective: Patient seen and examined. Resting in chair. Denies significant pain. Reports fatigue. Denies shortness of breath. - Physical Exam Vitals/I&O's: Vital Signs Temp Pulse Resp BP Pulse Ox 98.0 F 66 24 H 120/56 L 96 06/02/20 04:00 06/02/20 06:58 06/02/20 06:58 06/02/20 04:00 06/02/20 08:10 Oxygen Flow Rate (L/min) 1 Oxygen Delivery Method Nasal Cannula Weight: 183 lb 6.793 oz Body Mass Index (BMI) 34.6 Intake and Output for Last 24 Hours 05/31/20 06/01/20 06/02/20 23:59 23:59 23:59 Intake Total 2323.33 / 2323.33 3700 / 3700 1000 / 1000 Output Total 1050 / 1350 850 / 1150 1400 / 1400 Balance 1273.33 / 973.33 2850 / 2550 -400 / -400 General: Alert, Oriented x3, Cooperative HEENT: Atraumatic, PERRLA, EOMI, Normocephalic Neck: Supple, No JVD, Negative Carotid Bruits Lungs: Clear to auscultation, Normal air movement Cardiovascular: Regular rate, No murmurs Abdomen: Bowel Sounds Present, Soft, Non Tender, Non-Distended Extremities: No clubbing, No cyanosis, No edema, Capillary Refill Less than 3 Seconds Skin: No rashes, No breakdown, - - Left hip dressing intact Musculoskeletal: No Tenderness to Palpation of Joints or Extremities Neurological: Cranial nerves II-XII grossly intact, Neuro grossly intact Psych/Mental Status: Normal Affect, Appropriate Microbiology Past 72 Hours 05/30/20 18:50 Urine Catheter - Mccall Urine Culture - Final Culture exhibits no growth. 05/30/20 18:00 Mucosa - Nose SARS-CoV-2 Antigen (Rapid) - Final Laboratory Results 06/01/20 20:04: Hgb 8.3 L, Hct 26.7 L 06/02/20 06:26: WBC 8.5, RBC 2.94 L, Hgb 8.4 L, Hct 27.1 L, MCV 92.2, MCH 28.6, MCHC 31.0 L, RDW Std Deviation 46.4 H, RDW Coeff of Tiffani 13.6, Plt Count 132 L, MPV 11.6 Current Medications Acetaminophen (Acetaminophen 500 Mg Tablet) 1,000 mg PO Q8 [facility] Last Admin: 06/02/20 06:01 Dose: 1,000 mg Documented by: Albuterol Sulfate (Albuterol 2.5 Mg/3 Ml Vial.Neb.) 2.5 mg INHALATION Q2H PRN PRN PRN Reason: Dyspnea, wheezing Allopurinol (Allopurinol 100 Mg Tablet) 100 mg PO DAILYCM [facility] Last Admin: 06/01/20 08:47 Dose: 100 mg Documented by: Aspirin (Aspirin 81 Mg Tab.Chew) 81 mg PO BIDCM [facility] Last Admin: 06/01/20 16:13 Dose: 81 mg Documented by: Budesonide (Budesonide Respules 0.5 Mg/2 Ml Ampul.Neb.) 0.5 mg INHALATION Q12H.RT [facility] Last Admin: 06/02/20 06:55 Dose: 0.5 mg Documented by: Famotidine (Famotidine 20 Mg Tablet) 20 mg PO DAILY [facility] Last Admin: 06/01/20 08:48 Dose: 20 mg Documented by: Guaifenesin (Guaifenesin 10 Ml Udc (200mg/10ml)) 20 ml PO Q4H PRN PRN PRN Reason: COUGH Hydralazine HCl (Hydralazine 20 Mg/Ml Vial) 10 mg IV Q4H PRN PRN PRN Reason: SBP > 190 Lactated Ringer's () 1,000 mls @ 100 mls/hr IV .Q10H [facility] Last Admin: 06/02/20 02:19 Dose: 100 mls/hr Documented by: Ferric Sodium Gluconate Complex 250 mg/ Sodium Chloride 270 mls @ 135 mls/hr IV X1 ONE Stop: 06/02/20 11:59 Lisinopril (Lisinopril 10 Mg Tablet) 10 mg PO DAILY [facility] Last Admin: 06/01/20 08:50 Dose: 10 mg Documented by: Loratadine (Loratadine 10 Mg Tablet) 10 mg PO DAILY PRN PRN Reason: ALLERGIES Melatonin (Melatonin 3 Mg Tablet) 3 mg PO QHS PRN PRN PRN Reason: INSOMNIA Metoprolol Tartrate (Metoprolol Tartrate 25 Mg Tablet) 25 mg PO BID [facility] Last Admin: 06/01/20 22:30 Dose: 25 mg Documented by: Morphine Sulfate (Morphine 2 Mg/Ml Syringe) 2 mg IV Q3H PRN PRN PRN Reason: Pain Score 6-10 Last Admin: 05/31/20 11:05 Dose: 2 mg Documented by: Nitroglycerin (Nitroglycerin (Inpatient Use) 0.4 Mg Tab.Subl) 0.4 mg SUBLINGUAL Q5M PRN PRN Reason: CARDIAC/CHEST PAIN Oxycodone HCl (Oxycodone 5 Mg Tablet) 5 mg PO Q4H PRN PRN PRN Reason: Pain Score 4-5 Last Admin: 06/01/20 20:34 Dose: 5 mg Documented by: Prochlorperazine Edisylate (Prochlorperazine 10 Mg/2 Ml Vial) 5 mg IV Q4H PRN PRN PRN Reason: Breakthrough nausea/vomiting Promethazine HCl (Promethazine 25 Mg/Ml Syringe) 12.5 mg IM Q6H PRN PRN; Protocol PRN Reason: NAUSEA/VOMITING Psyllium Hydrophilic Mucilloid (Psyllium 1 Packet) 1 packet PO DAILY PRN PRN PRN Reason: Constipation Senna/Docusate Sodium (Senna/Docusate Sodium 1 Tablet) 2 tablet PO BID [facility] Last Admin: 06/01/20 22:30 Dose: 2 tablet Documented by: Sodium Chloride (0.9% Saline Lock 10 Ml Syringe) 10 - 40 ml IV UD PRN PRN Reason: SALINE FLUSH Throat Lozenges (Benzocaine/Menthol 1 Lozenge) 1 lozenge MUCOUS MEM Q2H PRN PRN PRN Reason: SORE THROAT Medical Necessity - Tobacco Use Smoking Status: Never smoker Tobacco Use: Non-smoker Assessment/Plan All Active Problems (Last Updated 03/30/20 @ 17:33 by Usha Fabian) Closed left hip fracture (Acute) Laceration of left elbow (Acute) Accidental fall (Acute) Chest pain (Acute) Elevated troponin (Resolved 11/09/20) 1. Acute traumatic left femoral neck fracture secondary to mechanical fall prior to admission, associated debility-orthopedic surgery on consult. As needed pain regimen. PT/OT. Patient underwent left hip hemiarthroplasty 05/31/2020. Plan for rehab unit discharge on Thursday. Aspirin 81 mg twice daily for DVT prophylaxis per surgery recommendations. 2. Left elbow laceration status post sutures-keep area covered with clean dressing. Remove left elbow sutures in 10 to 14 days. 3. Paroxysmal atrial fibrillation-currently sinus rhythm. Continue metoprolol. 4. Mild CAD-recent heart cath 03/27/2020 demonstrated mild to minimal nonobstructive CAD. On aspirin, metoprolol. 5. Hypertension-stable, continue lisinopril, metoprolol. 6. 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 7. Chronic asthma/allergic rhinitis-continue home inhaler regimen, loratadine. 8. GERD-continue PPI. 9. Gout-on allopurinol. DVT prophylaxis-SCDs, aspirin twice daily This patient was seen by VERA Holcomb under the supervision of Dr. Lozano. <Bruno Lozano - Last Filed: 06/02/20 14:42> Subjective: Seen and examined Patient heart rate and blood pressure is controlled. Her hemoglobin dropped but not to the range that she requires PRBC transfusion. Denies shortness of breath or fatigue. Physical exam General: Alert, Oriented x3, Cooperative HEENT: Atraumatic, PERRLA, EOMI, Normocephalic Oral: No Gingival or Mucosal Lesions/ Ulcerations Neck: Supple, No JVD, Negative Carotid Bruits Lungs: Air entry diminished in bilateral lung bases. No crepitation/rhonchi Cardiovascular: Regular rate, Regular Rhythm, Normal S1, Normal S2, No murmurs Abdomen: Bowel Sounds Present, Soft, Non Tender, Non-Distended : No renal angle tenderness. No suprapubic tenderness. Extremities: No edema, Capillary Refill Less than 3 Seconds Skin: No rashes, No breakdown Musculoskeletal: Mild staining of blood on the surgical dressing of left hip joint. No hematoma or excessive swelling palpable. Neurological: Cranial nerves II-XII grossly intact, Deep Tendon Reflexes 2+/4 and Symmetrical, Neuro grossly intact Psych/Mental Status: Normal Affect, Appropriate. - Physical Exam Vitals/I&O's: Vital Signs Temp Pulse Resp BP Pulse Ox 98.2 F 65 18 131/55 H 97 06/02/20 09:40 06/02/20 09:45 06/02/20 09:40 06/02/20 09:40 06/02/20 09:40 Oxygen Flow Rate (L/min) 1 Oxygen Delivery Method Room Air Weight: 183 lb 6.793 oz Body Mass Index (BMI) 34.6 Intake and Output for Last 24 Hours 05/31/20 06/01/20 06/02/20 23:59 23:59 23:59 Intake Total 2323.33 / 2323.33 3700 / 3700 2403.33 / 2403.33 Output Total 1050 / 1350 850 / 1150 1999 / 1999 Balance 1273.33 / 973.33 2850 / 2550 403.33 / 403.33 Microbiology Past 72 Hours 05/30/20 18:50 Urine Catheter - Mccall Urine Culture - Final Culture exhibits no growth. 05/30/20 18:00 Mucosa - Nose SARS-CoV-2 Antigen (Rapid) - Final Laboratory Results 06/01/20 20:04: Hgb 8.3 L, Hct 26.7 L 06/02/20 06:26: WBC 8.5, RBC 2.94 L, Hgb 8.4 L, Hct 27.1 L, MCV 92.2, MCH 28.6, MCHC 31.0 L, RDW Std Deviation 46.4 H, RDW Coeff of Tiffani 13.6, Plt Count 132 L, MPV 11.6 Current Medications Acetaminophen (Acetaminophen 500 Mg Tablet) 1,000 mg PO Q8 [facility] Last Admin: 06/02/20 13:29 Dose: 1,000 mg Documented by: Albuterol Sulfate (Albuterol 2.5 Mg/3 Ml Vial.Neb.) 2.5 mg INHALATION Q2H PRN PRN PRN Reason: Dyspnea, wheezing Allopurinol (Allopurinol 100 Mg Tablet) 100 mg PO DAILYCM [facility] Last Admin: 06/02/20 09:37 Dose: 100 mg Documented by: Aspirin (Aspirin 81 Mg Tab.Chew) 81 mg PO BIDCM [facility] Last Admin: 06/02/20 09:37 Dose: 81 mg Documented by: Budesonide (Budesonide Respules 0.5 Mg/2 Ml Ampul.Neb.) 0.5 mg INHALATION Q12H.RT [facility] Last Admin: 06/02/20 06:55 Dose: 0.5 mg Documented by: Guaifenesin (Guaifenesin 10 Ml Udc (200mg/10ml)) 20 ml PO Q4H PRN PRN PRN Reason: COUGH Hydralazine HCl (Hydralazine 20 Mg/Ml Vial) 10 mg IV Q4H PRN PRN PRN Reason: SBP > 190 Lactated Ringer's () 1,000 mls @ 100 mls/hr IV .Q10H [facility] Last Infusion: 06/02/20 11:21 Dose: 0 mls/hr Documented by: Lisinopril (Lisinopril 10 Mg Tablet) 10 mg PO DAILY [facility] Last Admin: 06/02/20 09:45 Dose: 10 mg Documented by: Loratadine (Loratadine 10 Mg Tablet) 10 mg PO DAILY PRN PRN Reason: ALLERGIES Melatonin (Melatonin 3 Mg Tablet) 3 mg PO QHS PRN PRN PRN Reason: INSOMNIA Metoprolol Tartrate (Metoprolol Tartrate 25 Mg Tablet) 25 mg PO BID [facility] Last Admin: 06/02/20 09:45 Dose: 25 mg Documented by: Morphine Sulfate (Morphine 2 Mg/Ml Syringe) 2 mg IV Q3H PRN PRN PRN Reason: Pain Score 6-10 Last Admin: 05/31/20 11:05 Dose: 2 mg Documented by: Nitroglycerin (Nitroglycerin (Inpatient Use) 0.4 Mg Tab.Subl) 0.4 mg SUBLINGUAL Q5M PRN PRN Reason: CARDIAC/CHEST PAIN Oxycodone HCl (Oxycodone 5 Mg Tablet) 5 mg PO Q4H PRN PRN PRN Reason: Pain Score 4-5 Last Admin: 06/02/20 11:36 Dose: 5 mg Documented by: Pantoprazole Sodium (Pantoprazole Sodium 40 Mg Tablet) 40 mg PO DAILY [facility] Last Admin: 06/02/20 11:36 Dose: 40 mg Documented by: Prochlorperazine Edisylate (Prochlorperazine 10 Mg/2 Ml Vial) 5 mg IV Q4H PRN PRN PRN Reason: Breakthrough nausea/vomiting Promethazine HCl (Promethazine 25 Mg/Ml Syringe) 12.5 mg IM Q6H PRN PRN; Protocol PRN Reason: NAUSEA/VOMITING Psyllium Hydrophilic Mucilloid (Psyllium 1 Packet) 1 packet PO DAILY PRN PRN PRN Reason: Constipation Senna/Docusate Sodium (Senna/Docusate Sodium 1 Tablet) 2 tablet PO BID [facility] Last Admin: 06/02/20 09:37 Dose: 2 tablet Documented by: Sodium Chloride (0.9% Saline Lock 10 Ml Syringe) 10 - 40 ml IV UD PRN PRN Reason: SALINE FLUSH Throat Lozenges (Benzocaine/Menthol 1 Lozenge) 1 lozenge MUCOUS MEM Q2H PRN PRN PRN Reason: SORE THROAT Assessment/Plan This patient was seen in conjunction with Lissett CROSS. I have independently interviewed and examined the patient and reviewed pertinent history, examination findings, laboratory and plan of management. I have reviewed the note and agree with the documented findings with the few additional points. In brief, patient is 79-year-old female admitted for fall with resultant acute traumatic left femoral neck fracture with varus angulation and left elbow lacerated wound which was repaired in ED. Orthopedic surgery is consulted. TSH 2.38. NSQIP perioperative risk is appropriate for age and other com orbidities. EKG normal sinus rhythm with no acute evidence of ischemia. Chest x-ray no acute cardiopulmonary findings. Mild chronic bilateral shoulder pain 06/01: Hypotension with hypovolemia secondary to surgical fluid and blood loss: Patient has mild acute blood loss anemia secondary to surgery. Hemoglobin dropped from 11.8 to 9.5 g%. 100 mL urine output dark in last 1 hour. 1 L Ringer lactate bolus in 1 hour and then 100 mL/h to continue. Monitor intake and output, blood pressure and titrate the fluid accordingly. Antihypertensive medications with holding parameters. 06/02: Hemoglobin dropped to 8. 4/27.1 but is stable last 12 hours. 200 mg IV Venofer given. Continue PT and OT. Coronary artery disease. Had recent cardiac cath March 2020 showed mild nonobstructive coronary artery disease. On aspirin metoprolol CKD stage III: BUN slightly elevated but improving. Creatinine normal. 06/01: BUN/creatinine is stable. Sodium 140. BUN 24. other comorbidities including proximal A. fib, hypertension, allergic rhinitis, gout, chronic stable asthma On aspirin 81 mg twice daily for DVT prophylaxis I have discussed my assessment with Lissett CROSS and orders have been reviewed. Microbiology Past 72 Hours 05/30/20 18:50 Urine Catheter - Mccall Urine Culture - Final Culture exhibits no growth. 05/30/20 18:00 Mucosa - Nose SARS-CoV-2 Antigen (Rapid) - Final Laboratory Results 06/01/20 20:04: Hgb 8.3 L, Hct 26.7 L 06/02/20 06:26: WBC 8.5, RBC 2.94 L, Hgb 8.4 L, Hct 27.1 L, MCV 92.2, MCH 28.6, MCHC 31.0 L, RDW Std Deviation 46.4 H, RDW Coeff of Tiffani 13.6, Plt Count 132 L, MPV 11.6 Clinical Impression(s) from Imaging Studies Hip/Pelvis X-Ray 05/30/20 16:30 IMPRESSION: Acute impacted left femoral neck fracture with varus angulation of fracture fragments. Chest X-Ray 05/30/20 16:41 IMPRESSION: ASHD. No acute disease Inpatient E&M: 36318 Subs Hosp L2
[2020-06-02] MEDS: Allopurinol 100 MG Tablet PO (09:37)
[2020-06-02] MEDS: Aspirin 81 MG TAB.CHEW PO ×2 (09:37→18:01)
[2020-06-02] MEDS: Senna/Docusate Sodium 1 Tablet 2 TABLET PO ×2 (09:37→21:26)
[2020-06-02] MEDS: Metoprolol Tartrate 25 MG Tablet PO ×2 (09:45→21:26)
[2020-06-02] MEDS: Famotidine 20 MG Tablet PO (09:45)
[2020-06-02] MEDS: Lisinopril 10 MG Tablet PO (09:45)
[2020-06-02] MEDS: Sodium Ferric Gluconat 250 MG in 0.9% Normal Saline 250 ML 135 MG IV (11:21)
[2020-06-02] MEDS: oxyCODONE 5 MG Tablet PO ×2 (11:36→18:01)
[2020-06-02] MEDS: Pantoprazole Sodium 40 MG Tablet PO (11:36)
--- NOTE | 2020-06-02 14:00 | PN.ORTHO_ITS ---
Patient Problems: Active and Suspected Problems (Last Updated 03/30/20 @ 17:33 by Usha Fabian) Closed left hip fracture (Acute) Laceration of left elbow (Acute) Accidental fall (Acute) Atrial fibrillation with rapid ventricular response (Suspected 03/26/20) Subjective: Pt. sitting up in bed eating lunch. Denies significant pain. is at bedside/ - Physical Exam Vitals/I&O's: Vital Signs Temp Pulse Resp BP Pulse Ox 98.2 F 65 18 131/55 H 97 06/02/20 09:40 06/02/20 09:45 06/02/20 09:40 06/02/20 09:40 06/02/20 09:40 Oxygen Flow Rate (L/min) 1 Oxygen Delivery Method Room Air Weight: 183 lb 6.793 oz Body Mass Index (BMI) 34.6 Intake and Output for Last 24 Hours 05/31/20 06/01/20 06/02/20 23:59 23:59 23:59 Intake Total 2323.33 / 2323.33 3700 / 3700 2403.33 / 2403.33 Output Total 1050 / 1350 850 / 1150 1999 / 1999 Balance 1273.33 / 973.33 2850 / 2550 403.33 / 403.33 General: Alert, Oriented x3, Cooperative, No apparent distress Extremities: No clubbing, No cyanosis, No edema, Capillary Refill Less than 3 Seconds, No Calf Tenderness Skin: Incision - stable Microbiology Past 72 Hours 05/30/20 18:50 Urine Catheter - Mccall Urine Culture - Final Culture exhibits no growth. 05/30/20 18:00 Mucosa - Nose SARS-CoV-2 Antigen (Rapid) - Final Laboratory Results 06/01/20 20:04: Hgb 8.3 L, Hct 26.7 L 06/02/20 06:26: WBC 8.5, RBC 2.94 L, Hgb 8.4 L, Hct 27.1 L, MCV 92.2, MCH 28.6, MCHC 31.0 L, RDW Std Deviation 46.4 H, RDW Coeff of Tiffani 13.6, Plt Count 132 L, MPV 11.6 Current Medications Acetaminophen (Acetaminophen 500 Mg Tablet) 1,000 mg PO Q8 [facility] Last Admin: 06/02/20 13:29 Dose: 1,000 mg Documented by: Albuterol Sulfate (Albuterol 2.5 Mg/3 Ml Vial.Neb.) 2.5 mg INHALATION Q2H PRN PRN PRN Reason: Dyspnea, wheezing Allopurinol (Allopurinol 100 Mg Tablet) 100 mg PO DAILYCM [facility] Last Admin: 06/02/20 09:37 Dose: 100 mg Documented by: Aspirin (Aspirin 81 Mg Tab.Chew) 81 mg PO BIDCM [facility] Last Admin: 06/02/20 09:37 Dose: 81 mg Documented by: Budesonide (Budesonide Respules 0.5 Mg/2 Ml Ampul.Neb.) 0.5 mg INHALATION Q12H.RT [facility] Last Admin: 06/02/20 06:55 Dose: 0.5 mg Documented by: Guaifenesin (Guaifenesin 10 Ml Udc (200mg/10ml)) 20 ml PO Q4H PRN PRN PRN Reason: COUGH Hydralazine HCl (Hydralazine 20 Mg/Ml Vial) 10 mg IV Q4H PRN PRN PRN Reason: SBP > 190 Lactated Ringer's () 1,000 mls @ 100 mls/hr IV .Q10H [facility] Last Infusion: 06/02/20 11:21 Dose: 0 mls/hr Documented by: Lisinopril (Lisinopril 10 Mg Tablet) 10 mg PO DAILY [facility] Last Admin: 06/02/20 09:45 Dose: 10 mg Documented by: Loratadine (Loratadine 10 Mg Tablet) 10 mg PO DAILY PRN PRN Reason: ALLERGIES Melatonin (Melatonin 3 Mg Tablet) 3 mg PO QHS PRN PRN PRN Reason: INSOMNIA Metoprolol Tartrate (Metoprolol Tartrate 25 Mg Tablet) 25 mg PO BID [facility] Last Admin: 06/02/20 09:45 Dose: 25 mg Documented by: Morphine Sulfate (Morphine 2 Mg/Ml Syringe) 2 mg IV Q3H PRN PRN PRN Reason: Pain Score 6-10 Last Admin: 05/31/20 11:05 Dose: 2 mg Documented by: Nitroglycerin (Nitroglycerin (Inpatient Use) 0.4 Mg Tab.Subl) 0.4 mg SUBLINGUAL Q5M PRN PRN Reason: CARDIAC/CHEST PAIN Oxycodone HCl (Oxycodone 5 Mg Tablet) 5 mg PO Q4H PRN PRN PRN Reason: Pain Score 4-5 Last Admin: 06/02/20 11:36 Dose: 5 mg Documented by: Pantoprazole Sodium (Pantoprazole Sodium 40 Mg Tablet) 40 mg PO DAILY [facility] Last Admin: 06/02/20 11:36 Dose: 40 mg Documented by: Prochlorperazine Edisylate (Prochlorperazine 10 Mg/2 Ml Vial) 5 mg IV Q4H PRN PRN PRN Reason: Breakthrough nausea/vomiting Promethazine HCl (Promethazine 25 Mg/Ml Syringe) 12.5 mg IM Q6H PRN PRN; Protocol PRN Reason: NAUSEA/VOMITING Psyllium Hydrophilic Mucilloid (Psyllium 1 Packet) 1 packet PO DAILY PRN PRN PRN Reason: Constipation Senna/Docusate Sodium (Senna/Docusate Sodium 1 Tablet) 2 tablet PO BID [facility] Last Admin: 06/02/20 09:37 Dose: 2 tablet Documented by: Sodium Chloride (0.9% Saline Lock 10 Ml Syringe) 10 - 40 ml IV UD PRN PRN Reason: SALINE FLUSH Throat Lozenges (Benzocaine/Menthol 1 Lozenge) 1 lozenge MUCOUS MEM Q2H PRN PRN PRN Reason: SORE THROAT Medical Necessity - Tobacco Use Smoking Status: Never smoker Tobacco Use: Non-smoker Assessment/Plan All Active Problems (Last Updated 03/30/20 @ 17:33 by Usha Fabian) Closed left hip fracture (Acute) Laceration of left elbow (Acute) Accidental fall (Acute) Chest pain (Acute) Elevated troponin (Resolved 03/26/20) s/p Hemiarthroplasty left hip Continue DVT prophylaxis WBAT Follow up with Dr. Moy 2 weeks post discharge Ortho off case for now, will re-evaluate at your request
[2020-06-03 03:35] VITALS: BP 138/61; PULSE 66; RESP 18; TEMP 36.7; O2SAT 94
[2020-06-03] MEDS: Acetaminophen 500 MG Tablet 1000 MG PO (06:00)
[2020-06-03] MEDS: 0.9% Saline Lock 10 ML Syringe IV (06:01)
[2020-06-03 06:09] LABS: Hematocrit 27.9 % (37-47); Hemoglobin 8.6 g/dL (12.0-15.0); Mean Corp Hgb Conc 30.8 g/dL (32-36); Mean Corpuscular Hgb 28.5 pg (27.0-32.0); Mean Corpuscular Volume 92.4 fL (81-99); Mean Platelet Vol. 11.6 fl (6.2-12.0); Platelet Count 169 K/mm3 (150-450); RBC Distribution Width CV 13.7 % (11.6-14.6); RBC Distribution Width SD 46.3 fl (35.1-43.9); Red Blood Count 3.02 M/mm3 (4.2-5.4); White Blood Count 9.1 K/mm3 (4.4-11.0)
[2020-06-03 07:17] VITALS: PULSE 64; RESP 18; O2SAT 95
[2020-06-03] MEDS: Budesonide Respules 0.5 MG/2 ML AMPUL.NEB. INHALATION (07:17)
[2020-06-03 07:48] VITALS: BP 133/48; PULSE 62; RESP 16; TEMP 36.8; O2SAT 98
[2020-06-03 09:09] VITALS: PULSE 65
[2020-06-03] MEDS: Metoprolol Tartrate 25 MG Tablet PO (09:09)
[2020-06-03] MEDS: oxyCODONE 5 MG Tablet PO ×2 (09:09)
[2020-06-03] MEDS: Pantoprazole Sodium 40 MG Tablet PO (09:09)
[2020-06-03] MEDS: Allopurinol 100 MG Tablet PO (09:09)
[2020-06-03] MEDS: Lisinopril 10 MG Tablet PO (09:10)
[2020-06-03] MEDS: Aspirin 81 MG TAB.CHEW PO (09:10)
--- NOTE | 2020-06-03 09:12 | PCM.DC ---
- Discharge Diagnoses Current Active Problems: Current Active and Chronic Problems (Last Updated 03/30/20 @ 17:33 by Usha Fabian) Closed left hip fracture (Acute) Laceration of left elbow (Acute) Accidental fall (Acute) PAF (paroxysmal atrial fibrillation) (Chronic) Allergic rhinitis (Chronic) Gout (Chronic) Chronic asthma (Chronic) CKD (chronic kidney disease), stage III (Chronic) Essential (primary) hypertension (Chronic) Discharge Activity: May Not Drive, May Shower, Use Walker May shower in (days): 3 - only if incision is dry and without drainage. Do NOT soak/submerge in tub/pool/arango/stream/hot tub. May resume sexual activity in: No Restrictions Ice area for (Minutes): 20 - every hour while awake Weight Bearing Status: Weight bearing as tolerated Keep extremity elevated above heart level: Operative Extremity Call your doctor if your incision/area has: Continuous Slow Oozing, Sudden Increased Bleeding, Increased Pain/ Swelling, Increased Redness, Foul Smelling Discharge Call your doctor if you observe: Fever of 101 or Higher, Inability to urinate, Inability to have a bowel movement, Shortness of breath, Fainting spells, Chest pain, Increased palpitations (irregular heartbeat), Calf discomfort, Uncontrolled pain Change Dressing in (Days):: 0 - Change daily and as needed. Remove Dressing in (days):: 9 Cleanse incision/area with: Soap & Water Additional Instructions: -Patient may shower 06/04/2020. -Dressing to remain in place until staple removal 06/13/2020. -Aspirin 81 mg p.o. every 12 hours for 30 days, then resume home daily regimen. -Continue incentive spirometry. -Left elbow sutures may be removed 06/08/2020. Allergies/Adverse Reactions: Allergies No Known Allergies Allergy (Verified 05/30/20 15:57) Medications to take at Discharge Acetaminophen [Tylenol] 500 mg PO Q6H PRN PRN 03/26/20 Albuterol Inhaler [Ventolin Hfa] 1 - 2 puff INHALATION Q6H PRN PRN 03/26/20 Allopurinol [Zyloprim] 100 mg PO DAILYCM 03/26/20 Antiarthritic Combination No.2 [Glucosamine-Chondroitin] 900 mg PO BID 03/26/20 Fluticasone 0.05% [Flonase Nasal [place]] 1 spray NASAL PRN PRN 03/26/20 Fluticasone/Salmeterol [Advair 250-50 Diskus] 1 ea IH BID 03/26/20 Ketotifen Fumarate [Zaditor] 1 drp EACH EYE PRN PRN 03/26/20 Lisinopril [Zestril] 10 mg PO DAILY 03/26/20 Loratadine [Claritin] 10 mg PO DAILY PRN 03/26/20 Multivit-Min/Iron/Folic/Lutein [Multivitamin Women 50 Plus Tab] 1 ea PO QODAY 03/26/20 metoprolol tartrate 25 mg tablet 25 mg PO BID #180 tab 04/11/20 Oxycodone [Oxyir] 5 mg PO Q4H PRN PRN 7 Days tab 06/01/20 Aspirin [Aspirin, Baby] 81 mg PO BIDCM tab.chew 06/03/20 Pantoprazole Sodium [Protonix] 40 mg PO DAILY tablet 06/03/20 Primary Care Physician: Jn Robertson MD [Primary Care Provider] - Please follow up with your Primary Care Physician in: 1 Week Test Results: Test results from this visit will be discussed in further detail at your follow-up appointment, if applicable. Please Follow Up With: Charlie Kemp PA-C When: 2 weeks, call for appt [phone] Proposed Discharge Date: 06/03/20
--- NOTE | 2020-06-03 09:20 | PCM.DC.SUM ---
<NabeelLissett MASONRY INSPECTOR - Last Filed: 06/03/20 09:27> Discharge Date and Diagnosis - Problem List Patient Problems: Active and Suspected Problems (Last Updated 03/30/20 @ 17:33 by Usha Fabian) Closed left hip fracture (Acute) Laceration of left elbow (Acute) Accidental fall (Acute) Atrial fibrillation with rapid ventricular response (Suspected 03/26/20) Date of Admission: 05/30/20 Date of Discharge: 06/03/20 - Primary Discharge Diagnosis Acute Problems: Active Problems (Last Updated 03/30/20 @ 17:33 by Usha Fabian) 1. Acute traumatic left femoral neck fracture secondary to mechanical fall prior to admission, associated debility 2. Left elbow laceration status post sutures 3. Paroxysmal atrial fibrillation 4. Mild CAD 5. Hypertension 6. Chronic kidney disease stage II 7. Chronic asthma/allergic rhinitis 8. GERD 9. Gout Suspected Problems: Suspected Problems (Last Updated 03/30/20 @ 17:33 by Usha Fabian) Atrial fibrillation with rapid ventricular response (Suspected 03/26/20) - Secondary Discharge Diagnosis Chronic Problems: Chronic Problems (Last Updated 03/30/20 @ 17:33 by Usha Fabian) PAF (paroxysmal atrial fibrillation) (Chronic) Allergic rhinitis (Chronic) Gout (Chronic) Chronic asthma (Chronic) CKD (chronic kidney disease), stage III (Chronic) Essential (primary) hypertension (Chronic) Hospital Course and Treatment Imaging Results: Diagnostic Data Hip/Pelvis X-Ray 05/30/20 16:30 IMPRESSION: Acute impacted left femoral neck fracture with varus angulation of fracture fragments. Electronically Signed: Ector Arevalo MD at 17:06 EST , Service support , Chest X-Ray 05/30/20 16:41 IMPRESSION: ASHD. No acute disease Electronically Signed: Ector Arevalo MD at 17:08 EST , Service support , Hip X-Ray 05/31/20 19:15 IMPRESSION: Status post total left hip arthroplasty Electronically Signed: Jacob Aguirre MD at 20:23 EST , Service support , Dr. Moy- orthopedic surgery Operations: - - Left hip hemiarthroplasty 05/31/2020 Procedures: None Summary of Care Provided: The patient is a 79 year old F admitted 05/30/2020 due to mechanical fall with left hip pain. 1. Acute traumatic left femoral neck fracture secondary to mechanical fall prior to admission, associated debility-orthopedic surgery consulted during admission. Patient underwent left hip hemiarthroplasty 05/31/2020. As needed pain regimen. PT/OT. -Patient may shower 06/04/2020. -Dressing to remain in place until staple removal 06/13/2020. -Aspirin 81 mg p.o. every 12 hours for 30 days, then resume home daily regimen. -Continue incentive spirometry. Rehab unit at discharge for further therapy. Follow-up with orthopedic medicine in 2 weeks. 2. Left elbow laceration status post sutures-keep area covered with clean dressing. Left elbow sutures may be removed 06/08/2020. 3. Paroxysmal atrial fibrillation-currently sinus rhythm. Continue metoprolol. 4. Mild CAD-recent heart cath 03/27/2020 demonstrated mild to minimal nonobstructive CAD. On aspirin, metoprolol. 5. Hypertension-stable, continue lisinopril, metoprolol. 6. 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 7. Chronic asthma/allergic rhinitis-continue home inhaler regimen, loratadine. 8. GERD-continue PPI. 9. Gout-on allopurinol. 10. Acute blood loss anemia, expected outcome related to #1-patient received IV iron x1. CBC has remained stable however remains below baseline. Stool for occult blood ordered to rule out other blood loss etiology however unable to be collected. Recommend further CBC trend at rehab. She has not had previous iron studies however baseline hemoglobin is normal. Patient is on omeprazole 20 mg every other day at home. Placed on Protonix 40 mg daily while on increased aspirin regimen. General: Alert, Oriented x3, Cooperative HEENT: Atraumatic, PERRLA, EOMI, Normocephalic Neck: Supple, No JVD, Negative Carotid Bruits Lungs: Clear to auscultation, Normal air movement Cardiovascular: Regular rate, No murmurs Abdomen: Bowel Sounds Present, Soft, Non Tender, Non-Distended Extremities: No clubbing, No cyanosis, No edema, Capillary Refill Less than 3 Seconds Skin: No rashes, No breakdown, - - Left hip dressing intact Musculoskeletal: No Tenderness to Palpation of Joints or Extremities Neurological: Cranial nerves II-XII grossly intact, Neuro grossly intact Psych/Mental Status: Normal Affect, Appropriate Patient seen and examined prior to discharge. Physical assessment as noted above. Patient is stable for discharge with follow up recommendations as noted above. This patient was seen by VERA Holcomb under the supervision of Dr. Lozano. Patient Problems: Active and Suspected Problems (Last Updated 03/30/20 @ 17:33 by Usha Fabian) Closed left hip fracture (Acute) Laceration of left elbow (Acute) Accidental fall (Acute) Atrial fibrillation with rapid ventricular response (Suspected 03/26/20) - Physical Exam Vitals/I&O's: Vital Signs Temp Pulse Resp BP Pulse Ox 98.3 F 65 16 133/48 H 98 06/03/20 07:48 06/03/20 09:09 06/03/20 07:48 06/03/20 07:48 06/03/20 07:48 Oxygen Flow Rate (L/min) 1 Oxygen Delivery Method Room Air Weight: 183 lb 6.793 oz Body Mass Index (BMI) 34.6 Intake and Output for Last 24 Hours 06/01/20 06/02/20 06/03/20 23:59 23:59 23:59 Intake Total 3700 / 3700 3173.33 / 3573.33 500 / 500 Output Total 850 / 1150 2000 / 2500 1100 / 1100 Balance 2850 / 2550 1173.33 / 1073.33 -600 / -600 Microbiology Past 72 Hours 06/03/20 07:45 Mucosa - Nose SARS-CoV-2 Antigen (Rapid) - Final 05/30/20 18:50 Urine Catheter - Mccall Urine Culture - Final Culture exhibits no growth. Laboratory Results 06/03/20 05:02: WBC 9.1, RBC 3.02 L, Hgb 8.6 L, Hct 27.9 L, MCV 92.4, MCH 28.5, MCHC 30.8 L, RDW Std Deviation 46.3 H, RDW Coeff of Tiffani 13.7, Plt Count 169, MPV 11.6 Current Medications Acetaminophen (Acetaminophen 500 Mg Tablet) 1,000 mg PO Q8 [facility] Last Admin: 06/03/20 06:00 Dose: 1,000 mg Documented by: Albuterol Sulfate (Albuterol 2.5 Mg/3 Ml Vial.Neb.) 2.5 mg INHALATION Q2H PRN PRN PRN Reason: Dyspnea, wheezing Allopurinol (Allopurinol 100 Mg Tablet) 100 mg PO DAILYCM [facility] Last Admin: 06/03/20 09:09 Dose: 100 mg Documented by: Aspirin (Aspirin 81 Mg Tab.Chew) 81 mg PO BIDCM [facility] Last Admin: 06/03/20 09:10 Dose: 81 mg Documented by: Budesonide (Budesonide Respules 0.5 Mg/2 Ml Ampul.Neb.) 0.5 mg INHALATION Q12H.RT [facility] Last Admin: 06/03/20 07:17 Dose: 0.5 mg Documented by: Guaifenesin (Guaifenesin 10 Ml Udc (200mg/10ml)) 20 ml PO Q4H PRN PRN PRN Reason: COUGH Hydralazine HCl (Hydralazine 20 Mg/Ml Vial) 10 mg IV Q4H PRN PRN PRN Reason: SBP > 190 Lisinopril (Lisinopril 10 Mg Tablet) 10 mg PO DAILY [facility] Last Admin: 06/03/20 09:10 Dose: 10 mg Documented by: Loratadine (Loratadine 10 Mg Tablet) 10 mg PO DAILY PRN PRN Reason: ALLERGIES Melatonin (Melatonin 3 Mg Tablet) 3 mg PO QHS PRN PRN PRN Reason: INSOMNIA Metoprolol Tartrate (Metoprolol Tartrate 25 Mg Tablet) 25 mg PO BID [facility] Last Admin: 06/03/20 09:09 Dose: 25 mg Documented by: Morphine Sulfate (Morphine 2 Mg/Ml Syringe) 2 mg IV Q3H PRN PRN PRN Reason: Pain Score 6-10 Last Admin: 05/31/20 11:05 Dose: 2 mg Documented by: Nitroglycerin (Nitroglycerin (Inpatient Use) 0.4 Mg Tab.Subl) 0.4 mg SUBLINGUAL Q5M PRN PRN Reason: CARDIAC/CHEST PAIN Oxycodone HCl (Oxycodone 5 Mg Tablet) 5 mg PO Q4H PRN PRN PRN Reason: Pain Score 4-5 Last Admin: 06/03/20 09:09 Dose: 5 mg Documented by: Pantoprazole Sodium (Pantoprazole Sodium 40 Mg Tablet) 40 mg PO DAILY [facility] Last Admin: 06/03/20 09:09 Dose: 40 mg Documented by: Prochlorperazine Edisylate (Prochlorperazine 10 Mg/2 Ml Vial) 5 mg IV Q4H PRN PRN PRN Reason: Breakthrough nausea/vomiting Promethazine HCl (Promethazine 25 Mg/Ml Syringe) 12.5 mg IM Q6H PRN PRN; Protocol PRN Reason: NAUSEA/VOMITING Psyllium Hydrophilic Mucilloid (Psyllium 1 Packet) 1 packet PO DAILY PRN PRN PRN Reason: Constipation Senna/Docusate Sodium (Senna/Docusate Sodium 1 Tablet) 2 tablet PO BID [facility] Last Admin: 06/03/20 09:15 Dose: Not Given Documented by: Sodium Chloride (0.9% Saline Lock 10 Ml Syringe) 10 - 40 ml IV UD PRN PRN Reason: SALINE FLUSH Last Admin: 06/03/20 06:01 Dose: 10 ml Documented by: Throat Lozenges (Benzocaine/Menthol 1 Lozenge) 1 lozenge MUCOUS MEM Q2H PRN PRN PRN Reason: SORE THROAT Discharge Diet: No Restrictions Discharge Activity: May Not Drive, May Shower, Use Walker May shower in (days): 3 - only if incision is dry and without drainage. Do NOT soak/submerge in tub/pool/arango/stream/hot tub. May resume sexual activity in: No Restrictions Ice area for (Minutes): 20 - every hour while awake Weight Bearing Status: Weight bearing as tolerated Keep extremity elevated above heart level: Operative Extremity Call your doctor if your incision/area has: Continuous Slow Oozing, Sudden Increased Bleeding, Increased Pain/ Swelling, Increased Redness, Foul Smelling Discharge Call your doctor if you observe: Fever of 101 or Higher, Inability to urinate, Inability to have a bowel movement, Shortness of breath, Fainting spells, Chest pain, Increased palpitations (irregular heartbeat), Calf discomfort, Uncontrolled pain Change Dressing in (Days):: 0 - Change daily and as needed. Remove Dressing in (days):: 9 Cleanse incision/area with: Soap & Water Home Medications: Medications to take at Discharge Acetaminophen [Tylenol] 500 mg PO Q6H PRN PRN 03/26/20 Albuterol Inhaler [Ventolin Hfa] 1 - 2 puff INHALATION Q6H PRN PRN 03/26/20 Allopurinol [Zyloprim] 100 mg PO DAILYCM 03/26/20 Antiarthritic Combination No.2 [Glucosamine-Chondroitin] 900 mg PO BID 03/26/20 Fluticasone 0.05% [Flonase Nasal [place]] 1 spray NASAL PRN PRN 03/26/20 Fluticasone/Salmeterol [Advair 250-50 Diskus] 1 ea IH BID 03/26/20 Ketotifen Fumarate [Zaditor] 1 drp EACH EYE PRN PRN 03/26/20 Lisinopril [Zestril] 10 mg PO DAILY 03/26/20 Loratadine [Claritin] 10 mg PO DAILY PRN 03/26/20 Multivit-Min/Iron/Folic/Lutein [Multivitamin Women 50 Plus Tab] 1 ea PO QODAY 03/26/20 metoprolol tartrate 25 mg tablet 25 mg PO BID #180 tab 04/11/20 Oxycodone [Oxyir] 5 mg PO Q4H PRN PRN 7 Days tab 06/01/20 Aspirin [Aspirin, Baby] 81 mg PO BIDCM tab.chew 06/03/20 Ferrous Sulfate 325 mg PO LUNCH #30 tab 06/03/20 Pantoprazole Sodium [Protonix] 40 mg PO DAILY tab 06/03/20 Following Prescriptions Were Given to Patient: Ferrous Sulfate 325 mg PO LUNCH #30 tab Transmission Status: Pending to [facility] [facility] Primary Care Physician: Jn Robertson MD [Primary Care Provider] - Please follow up with your Primary Care Physician in: 1 Week Please Follow Up With: Charlie Kemp PAWilma When: 2 weeks, call for appt [phone] Disposition: Inpt Rehab Unit/Facility Minutes spent on discharge:: 35 Patient Condition:: Stable Medical Necessity - Tobacco Use Smoking Status: Never smoker Tobacco Use: Non-smoker Meaningful Use Info Meaningful Use Diagnoses (Choose all that apply): None applicable <Bruno Lozano - Last Filed: 06/03/20 12:56> Discharge Date and Diagnosis - Primary Discharge Diagnosis Acute Problems: Active Problems (Last Updated 03/30/20 @ 17:33 by Usha Fabian) Closed left hip fracture (Acute) Laceration of left elbow (Acute) Accidental fall (Acute) Suspected Problems: Suspected Problems (Last Updated 03/30/20 @ 17:33 by Usha Fabian) Atrial fibrillation with rapid ventricular response (Suspected 03/26/20) - Secondary Discharge Diagnosis Chronic Problems: Chronic Problems (Last Updated 03/30/20 @ 17:33 by Usha Fabian) PAF (paroxysmal atrial fibrillation) (Chronic) Allergic rhinitis (Chronic) Gout (Chronic) Chronic asthma (Chronic) CKD (chronic kidney disease), stage III (Chronic) Essential (primary) hypertension (Chronic) Hospital Course and Treatment Summary of Care Provided: This patient was seen in conjunction with MASONRY INSPECTOR, Lissett. I have independently interviewed and examined the patient and reviewed pertinent history, examination findings, laboratory and plan of management. I have reviewed the note and agree with the documented findings with the few additional points. In brief, patient is 79-year-old female admitted for fall with resultant acute traumatic left femoral neck fracture with varus angulation and left elbow lacerated wound which was repaired in ED. Orthopedic surgery is consulted. TSH 2.38. NSQIP perioperative risk is appropriate for age and other comorbidities. EKG normal sinus rhythm with no acute evidence of ischemia. Chest x-ray no acute cardiopulmonary findings. Mild chronic bilateral shoulder pain Patient had hypotension with hypovolemia secondary to surgical fluid and blood loss: Patient has mild acute blood loss anemia secondary to surgery. Hemoglobin dropped from 11.8 to 9.5 g%. 100 mL urine output dark in last 1 hour. 1 L Ringer lactate bolus in 1 hour and then 100 mL/h for 1 L given. Patient has +4.5 L fluid balance. Antihypertensive medications with holding parameters. Hemoglobin dropped to 8. 4/27.1 but is stable last 48 hours. 200 mg IV Venofer given. Continue PT and OT. Charge on ferrous sulfate 325 mg daily. Coronary artery disease. Had recent cardiac cath March 2020 showed mild nonobstructive coronary artery disease. On aspirin metoprolol CKD stage III: BUN slightly elevated but improving. Creatinine normal. BUN/creatinine is stable. Sodium 140. BUN 24. other comorbidities including proximal A. fib, hypertension, allergic rhinitis, gout, chronic stable asthma On aspirin 81 mg twice daily for DVT prophylaxis Discharge medication reconciliation done. Discharge follow-up instructions completed. Discharge process discussed with the patient and all questions were answered to patient's satisfaction. Discharged to acute rehab. Total time spent, exact 35 minutes on discharge meds reconciliation, examination, coordination of care with nurses and ancillary staff, review of imaging and blood test and discussion with the patient on follow-up instructions I have discussed my assessment with MASONRY INSPECTORLissett and orders have been reviewed.[] Objective: Seen and examined. Denies any pain over left hip joint. There is mild skin bruise around the left hip surgical area. Dressing was changed yesterday on 06/02. Mild dry bloody stain. Physical exam General: Alert, Oriented x3, Cooperative HEENT: Atraumatic, PERRLA, EOMI, Normocephalic Oral: No Gingival or Mucosal Lesions/ Ulcerations Neck: Supple, No JVD, Negative Carotid Bruits Lungs: Air entry diminished in bilateral lung bases. No crepitation/rhonchi Cardiovascular: Regular rate, Regular Rhythm, Normal S1, Normal S2, No murmurs Abdomen: Bowel Sounds Present, Soft, Non Tender, Non-Distended : No renal angle tenderness. No suprapubic tenderness. Extremities: No edema, Capillary Refill Less than 3 Seconds Skin: No rashes, No breakdown Musculoskeletal: Mild staining of blood on the surgical dressing of left hip joint. Mild skin/subcutaneous bruise but no hematoma or excessive swelling palpable. Neurological: Cranial nerves II-XII grossly intact, Deep Tendon Reflexes 2+/4 and Symmetrical, Neuro grossly intact Psych/Mental Status: Normal Affect, Appropriate. - Physical Exam Vitals/I&O's: Vital Signs Temp Pulse Resp BP Pulse Ox 98.3 F 65 16 133/48 H 98 06/03/20 07:48 06/03/20 09:09 06/03/20 07:48 06/03/20 07:48 06/03/20 07:48 Oxygen Flow Rate (L/min) 1 Oxygen Delivery Method Room Air Weight: 183 lb 6.793 oz Body Mass Index (BMI) 34.6 Intake and Output for Last 24 Hours 06/01/20 06/02/20 06/03/20 23:59 23:59 23:59 Intake Total 3700 / 3700 3173.33 / 3573.33 850 / 850 Output Total 850 / 1150 2000 / 2500 1500 / 1500 Balance 2850 / 2550 1173.33 / 1073.33 -650 / -650 Microbiology Past 72 Hours 06/03/20 07:45 Mucosa - Nose SARS-CoV-2 Antigen (Rapid) - Final 05/30/20 18:50 Urine Catheter - Mccall Urine Culture - Final Culture exhibits no growth. Laboratory Results 06/03/20 05:02: WBC 9.1, RBC 3.02 L, Hgb 8.6 L, Hct 27.9 L, MCV 92.4, MCH 28.5, MCHC 30.8 L, RDW Std Deviation 46.3 H, RDW Coeff of Tiffani 13.7, Plt Count 169, MPV 11.6 Current Medications Acetaminophen (Acetaminophen 500 Mg Tablet) 1,000 mg PO Q8 [facility] Last Admin: 06/03/20 06:00 Dose: 1,000 mg Documented by: Albuterol Sulfate (Albuterol 2.5 Mg/3 Ml Vial.Neb.) 2.5 mg INHALATION Q2H PRN PRN PRN Reason: Dyspnea, wheezing Allopurinol (Allopurinol 100 Mg Tablet) 100 mg PO DAILYCM [facility] Last Admin: 06/03/20 09:09 Dose: 100 mg Documented by: Aspirin (Aspirin 81 Mg Tab.Chew) 81 mg PO BIDCM [facility] Last Admin: 06/03/20 09:10 Dose: 81 mg Documented by: Budesonide (Budesonide Respules 0.5 Mg/2 Ml Ampul.Neb.) 0.5 mg INHALATION Q12H.RT [facility] Last Admin: 06/03/20 07:17 Dose: 0.5 mg Documented by: Guaifenesin (Guaifenesin 10 Ml Udc (200mg/10ml)) 20 ml PO Q4H PRN PRN PRN Reason: COUGH Hydralazine HCl (Hydralazine 20 Mg/Ml Vial) 10 mg IV Q4H PRN PRN PRN Reason: SBP > 190 Lisinopril (Lisinopril 10 Mg Tablet) 10 mg PO DAILY [facility] Last Admin: 06/03/20 09:10 Dose: 10 mg Documented by: Loratadine (Loratadine 10 Mg Tablet) 10 mg PO DAILY PRN PRN Reason: ALLERGIES Melatonin (Melatonin 3 Mg Tablet) 3 mg PO QHS PRN PRN PRN Reason: INSOMNIA Metoprolol Tartrate (Metoprolol Tartrate 25 Mg Tablet) 25 mg PO BID [facility] Last Admin: 06/03/20 09:09 Dose: 25 mg Documented by: Morphine Sulfate (Morphine 2 Mg/Ml Syringe) 2 mg IV Q3H PRN PRN PRN Reason: Pain Score 6-10 Last Admin: 05/31/20 11:05 Dose: 2 mg Documented by: Nitroglycerin (Nitroglycerin (Inpatient Use) 0.4 Mg Tab.Subl) 0.4 mg SUBLINGUAL Q5M PRN PRN Reason: CARDIAC/CHEST PAIN Oxycodone HCl (Oxycodone 5 Mg Tablet) 5 mg PO Q4H PRN PRN PRN Reason: Pain Score 4-5 Last Admin: 06/03/20 09:09 Dose: 5 mg Documented by: Pantoprazole Sodium (Pantoprazole Sodium 40 Mg Tablet) 40 mg PO DAILY [facility] Last Admin: 06/03/20 09:09 Dose: 40 mg Documented by: Prochlorperazine Edisylate (Prochlorperazine 10 Mg/2 Ml Vial) 5 mg IV Q4H PRN PRN PRN Reason: Breakthrough nausea/vomiting Promethazine HCl (Promethazine 25 Mg/Ml Syringe) 12.5 mg IM Q6H PRN PRN; Protocol PRN Reason: NAUSEA/VOMITING Psyllium Hydrophilic Mucilloid (Psyllium 1 Packet) 1 packet PO DAILY PRN PRN PRN Reason: Constipation Senna/Docusate Sodium (Senna/Docusate Sodium 1 Tablet) 2 tablet PO BID [facility] Last Admin: 06/03/20 09:15 Dose: Not Given Documented by: Sodium Chloride (0.9% Saline Lock 10 Ml Syringe) 10 - 40 ml IV UD PRN PRN Reason: SALINE FLUSH Last Admin: 06/03/20 06:01 Dose: 10 ml Documented by: Throat Lozenges (Benzocaine/Menthol 1 Lozenge) 1 lozenge MUCOUS MEM Q2H PRN PRN PRN Reason: SORE THROAT Inpatient E&M: [id number] [facility]
--- NOTE | 2020-06-03 10:18 | NURSING ---
report called to Missy in Rehab unit, informed that as of this time does not allow visitors. will update family members.
[2020-06-03 13:10] VITALS: BP 152/64; PULSE 59; RESP 16; TEMP 36.9; O2SAT 98
== END 2020-06-03 13:24 | DRG 522 ==
LOC: ED 17:32 → MS3 17:47
PROVIDERS: Nurse Practitioner Family; Orthopaedic Surgery; Admitting Provider Family Medicine; Emergency Provider Emergency Medicine; PCP Family Medicine; Visit Provider Internal Medicine
PROC: 0SRS019 Replacement of Left Hip Joint, Femoral Surface with Metal Synthetic Substitute, Cemented, Open Approach (ICD-10-PCS; CPT 27125; principal; 2020-05-31 14:40)
DX: S72.012A Unspecified intracapsular fracture of left femur, initial encounter for closed fracture (principal); D62 Acute posthemorrhagic anemia; S51.012A Laceration without foreign body of left elbow, initial encounter; W01.0XXA Fall on same level from slipping, tripping and stumbling without subsequent striking against object, initial encounter; Y92.009 Unspecified place in unspecified non-institutional (private) residence as the place of occurrence of the external cause; Y93.89 Activity, other specified; I95.81 Postprocedural hypotension; E86.1 Hypovolemia; I48.0 Paroxysmal atrial fibrillation; I25.10 Atherosclerotic heart disease of native coronary artery without angina pectoris; I12.9 Hypertensive chronic kidney disease with stage 1 through stage 4 chronic kidney disease, or unspecified chronic kidney disease; N18.30 Chronic kidney disease, stage 3 unspecified; J45.909 Unspecified asthma, uncomplicated; K21.9 Gastro-esophageal reflux disease without esophagitis; M1A.9XX0 Chronic gout, unspecified, without tophus (tophi); R53.81 Other malaise; Z79.1 Long term (current) use of non-steroidal anti-inflammatories (NSAID); Z79.82 Long term (current) use of aspirin; Z79.899 Other long term (current) drug therapy
CPT/HCPCS: 36415; 71045; 73502; 80048; 80053; 81001; 83735; 84443; 85014; 85018; 85025; 85027; 85610; 85730; 86850; 86900; 86901; 87086; 87426; 88305; 88307; 88311; 93005; 94640; 94762; 97110; 97116; 97162; 97166; 97530; 97535; 99251; 99285; C1776; J7030; J7050; J7120; A4216; G0463; J2405; J2916

== ENCOUNTER 2020-06-03 14:00 | Inpatient (IN) | payer MEDICARE, OTHER, SELFPAY ==
[2020-05-31 13:14] VITALS: BMI 34.6
[2020-06-03 14:32] VITALS: BP 132/88; PULSE 76; RESP 18; TEMP 36.4; O2SAT 96; BMI 34.6; BMI 34.7
[2020-06-03] MEDS: oxyCODONE 5 MG Tablet PO ×2 (16:16→22:56)
[2020-06-03] MEDS: Aspirin 81 MG TAB.CHEW PO (17:38)
[2020-06-03 20:22] VITALS: PULSE 77
[2020-06-03] MEDS: Metoprolol Tartrate 25 MG Tablet PO (20:22)
[2020-06-03] MEDS: Fluticasone/Salmeterol 232-14 Inhaler 1 PUFF IH (20:22)
[2020-06-03] MEDS: Senna/Docusate Sodium 1 Tablet 2 TABLET PO (20:23)
[2020-06-03] MEDS: Acetaminophen 500 MG Tablet 1000 MG PO (20:23)
[2020-06-03 21:12] VITALS: BP 135/79; PULSE 77; RESP 16; TEMP 37.1; O2SAT 96
[2020-06-04] VITALS (7 sets, daily range): BP systolic 120–135; BP diastolic 58–59; PULSE 64–83; RESP 16–18; TEMP 36.4–36.6; O2SAT 95–98
[2020-06-04] MEDS: Acetaminophen 500 MG Tablet 1000 MG PO ×3 (04:46→21:04)
[2020-06-04] MEDS: Senna/Docusate Sodium 1 Tablet 2 TABLET PO ×2 (08:22→21:04)
[2020-06-04] MEDS: Aspirin 81 MG TAB.CHEW PO ×2 (08:22→16:50)
[2020-06-04] MEDS: Pantoprazole Sodium 40 MG Tablet PO (08:23)
[2020-06-04] MEDS: Metoprolol Tartrate 25 MG Tablet PO ×2 (08:23→21:03)
[2020-06-04] MEDS: Multivitamins,Therapeutic Tablet 1 TABLET PO (08:23)
[2020-06-04] MEDS: Fluticasone/Salmeterol 232-14 Inhaler 1 PUFF IH ×2 (08:23→22:56)
[2020-06-04] MEDS: Lisinopril 10 MG Tablet PO (08:23)
[2020-06-04] MEDS: Allopurinol 100 MG Tablet PO (08:23)
[2020-06-04] MEDS: oxyCODONE 5 MG Tablet PO ×3 (08:27→22:53)
--- NOTE | 2020-06-04 08:46 | HP.PCM_ITS ---
Problem List (1) Acute blood loss anemia Status: Acute (2) Closed left hip fracture Status: Acute Qualifiers: Encounter type: initial encounter Qualified Code(s): S72.002A - Fracture of unspecified part of neck of left femur, initial encounter for closed fracture (3) Laceration of left elbow Status: Acute Qualifiers: Encounter type: initial encounter Qualified Code(s): S51.012A - Laceration without foreign body of left elbow, initial encounter (4) Accidental fall Status: Acute Qualifiers: Encounter type: initial encounter Qualified Code(s): W19.XXXA - Unspecified fall, initial encounter (5) PAF (paroxysmal atrial fibrillation) Status: Chronic (6) Allergic rhinitis Status: Chronic Qualifiers: Allergic rhinitis trigger: unspecified Allergic rhinitis seasonality: unspecified Qualified Code(s): J30.9 - Allergic rhinitis, unspecified (7) Gout Status: Chronic Qualifiers: Gout site: unspecified site Gout etiology: unspecified cause Chronicity: unspecified Qualified Code(s): M10.9 - Gout, unspecified (8) Chronic asthma Status: Chronic Qualifiers: Asthma severity: unspecified severity Asthma persistence: unspecified Asthma complication type: unspecified Qualified Code(s): J45.909 - Unspecified asthma, uncomplicated (9) CKD (chronic kidney disease), stage III Status: Chronic Qualifiers: Chronic kidney disease stage 3 subtype: unspecified whether 3a or 3b Qualified Code(s): N18.30 - Chronic kidney disease, stage 3 unspecified (10) Chest pain Status: Acute (11) Atrial fibrillation with rapid ventricular response Status: Suspected (12) Essential (primary) hypertension Status: Chronic (13) Elevated troponin Status: Resolved (14) Missing teeth, acquired Status: Chronic History of Present Illness Date of Admission: 06/03/20 Chief Complaint: debiity due to recent subcapital L hip fx (05/30/20) with cemented hemiarthroplasty on 05/31/2020 Jenniffer Galeana is an 79 YO F with a PMH of obesity, paroxysmal atrial fibrillation (not anticoagulated), allergic rhinitis, gout, GERD, osteoarthritis, asthma and HTN who presented to the Ed at [facility] on 05/30/20 c/o Left hip pain after a fall. The fall occurred while she was moving a piece of furniture causing her to lose her balance and fall on her left side. She also had Left elbow pain. X-ray of the left hip showed an acute impacted left femoral neck fracture with varus angulation of the fracture segments. she had no fracture of the LUE but she did sustain a laceration requiring sutures in the ED. She was seen in consultation by Dr. Moy and on 05/31/20 she had a cemented hemiarthroplasty of the left hip. Post operative course was unremarkable and she was transferred to the inpatient acute rehab unit on 06/03/20 for > 3 hours of therapy daily to restore her at or near her prior level of function/independence. She lives with her significant other in a 3 story home and has 2-6 entry steps depending on which entrance she goes in. She has a stair lift at home to get to the lower level of the house where the laundry is. She has a wheeled walker and straight cane at home and also a comfort height commode, shower chair and grab bars in the tub/shower. Cardiac cath in March of 2020 showed single vessel disease in the circ and the stenosis was < 30%. ECHO with a 50% EF and no wall motion abnormalities Past Medical History Past Medical History (Chronic Problems): Chronic Problems (Last Reviewed 06/04/20 @ 13:[address] Ilene Lorenzana DO) PAF (paroxysmal atrial fibrillation) (Chronic) Allergic rhinitis (Chronic) Gout (Chronic) Chronic asthma (Chronic) CKD (chronic kidney disease), stage III (Chronic) Missing teeth, acquired (Chronic) Essential (primary) hypertension (Chronic) Medical History: Medical History (Last Reviewed 06/04/20 @ 17:[address] Ilene Lorenzana DO) Atrial fibrillation with rapid ventricular response (Suspected) Onset Date: 03/26/20 I48.91 Essential (primary) hypertension (Chronic) I10 Elevated troponin (Resolved) Onset Date: 03/26/20 R77.8 Obesity E66.9 Allergies No Known Allergies Allergy (Verified 05/30/20 15:57) Home Medications: Ambulatory Orders Medication Instructions Recorded Acetaminophen [Tylenol] 500 mg PO Q6H PRN PRN 03/26/20 Albuterol Inhaler [Ventolin Hfa] 1 - 2 puff INHALATION Q6H PRN PRN 03/26/20 Allopurinol [Zyloprim] 100 mg PO DAILYCM 03/26/20 Antiarthritic Combination No.2 900 mg PO BID 03/26/20 [Glucosamine-Chondroitin] Fluticasone 0.05% [Flonase Nasal 1 spray NASAL PRN PRN 03/26/20 Guston] Fluticasone/Salmeterol [Advair 1 ea IH BID 03/26/20 250-50 Diskus] Ketotifen Fumarate [Zaditor] 1 drp EACH EYE PRN PRN 03/26/20 Lisinopril [Zestril] 10 mg PO DAILY 03/26/20 Loratadine [Claritin] 10 mg PO DAILY PRN 03/26/20 Multivit-Min/Iron/Folic/Lutein 1 ea PO QODAY 03/26/20 [Multivitamin Women 50 Plus Tab] Oxycodone [Oxyir] 5 mg PO Q4H PRN PRN 7 Days tab 06/01/20 Aspirin [Aspirin, Baby] 81 mg PO BIDCM 06/03/20 Ferrous Sulfate 325 mg PO LUNCH 06/03/20 Metoprolol Tartrate 25 mg PO BID 06/03/20 Pantoprazole Sodium [Protonix] 40 mg PO DAILY 06/03/20 Surgical History: Surgical History (Last Reviewed 06/04/20 @ 13:[address] Ilene Lorenzana DO) History of left heart catheterization Onset Date: 03/27/20 Z98.890 Surgical History: no surgical history, - - Cemented left hip hemiarthroplasty on 05/31/[address] Luis Moy Psychiatric History: No pertinent psych hx ORNAMENT STITCHER History: No pertinent ORNAMENT STITCHER history Lives: Spouse/ Significant Other Smoking Status: Never smoker Tobacco Use: Non-smoker Alcohol: Rare Drugs: None - *Family History Maternal Family History: Family History (Last Reviewed 06/04/20 @ 13:[address] Ilene Lorenzana DO) Mother TIA (transient ischemic attack) History Items: - - Mother with a history of TIAs. Paternal Family History: Family History (Last Reviewed 06/04/20 @ 13:[address] Ilene Lorenzana DO) Mother TIA (transient ischemic attack) History Items: - - Father with history of rheumatoid arthritis. Review of Systems Constitutional: Denies: Chills, Fever, Weight Change Eyes: Denies: Vision Change HEENT: Denies: Difficulty Swallowing, Head Aches, Nasal Congestion, Sinus Congestion, Sinus Drainage, Sore Throat Cardiovascular: Denies: Chest Pain, Claudication, Chest Tightness, Edema, Light Headedness, Palpitations, Syncope Respiratory: Reports: Shortness of breath upon exertion. Denies: Cough, Shortness of breath at rest, Sputum production Gastrointestinal: Denies: Abdominal Pain, Constipation, Diarrhea, Dyspepsia, Nausea, Vomiting Genitourinary: Reports: Frequency - she gets up at night a few times to urinate on a regular basis at home. She denies dysuria, Nocturia. Denies: Dysuria, Hematuria, Hesitancy, Incontinence, Retention Musculoskeletal: Reports: Joint Pain - many joints due to OA. Denies: Joint Tenderness Skin: Denies: Rash, Wounds Neurological: Denies: Numbness, Tingling, Focal weakness Psychiatric: Denies: Anxiety, Depression, Homicidal Ideations, Suicidal Ideations Endocrine: Denies: Change in Body Habitus Hematologic/ Lymphatic: Denies: Easy Bruising, Easy Bleeding, Hx of blood clot VTE Information - Inpt Only VTE Present on Admission: No - DVT prophylaxis per ortho VTE Mechan Device Prophylaxis: Knee High MARY ANN Hose VTE Pharm Prophylaxis ordered?: Yes Patient Problems: Active and Suspected Problems (Last Reviewed 06/04/20 @ 13:[address] Ilene Lorenzana, DO) Closed left hip fracture (Acute) Laceration of left elbow (Acute) Accidental fall (Acute) Acute blood loss anemia (Acute) Chest pain (Acute) Atrial fibrillation with rapid ventricular response (Suspected 03/26/20) - Physical Exam Vitals/I&O's: Vital Signs Temp Pulse Resp BP Pulse Ox 97.6 F L 64 18 134/59 H 95 06/04/20 08:15 06/04/20 08:23 06/04/20 08:15 06/04/20 08:23 06/04/20 08:15 Oxygen Delivery Method Room Air Weight: 183 lb 6.793 oz Body Mass Index (BMI) 34.6 Intake and Output for Last 24 Hours 06/02/20 06/03/20 06/04/20 23:59 23:59 23:59 Intake Total 600 / 600 120 / 120 Output Total 500 / 500 Balance 100 / 100 120 / 120 General: Alert, Oriented x3, Cooperative, No apparent distress, Well developed, Well nourished, - - she is sitting in the chair at the bedside HEENT: Atraumatic, PERRLA, EOMI, Normocephalic Oral: No Gingival or Mucosal Lesions/ Ulcerations, Dry Mucosa, - - many missing teeth Neck: Supple, No JVD, Negative Carotid Bruits, No Nodes, No Nuchal Rigidity Lungs: Clear to auscultation, Diminished Cardiovascular: Regular rate, Regular Rhythm, Normal S1, Normal S2, No murmurs, No Ectopic Activity, No rub noted, No Gallop Abdomen: Bowel Sounds Present, Soft, Non Tender, Non-Distended Extremities: No clubbing, No cyanosis, No edema, Capillary Refill Less than 3 Seconds, No Calf Tenderness Skin: No rashes, No breakdown, Incision - intact with no purulent DC Musculoskeletal: Arthritic Changes Neurological: Cranial nerves II-XII grossly intact, Neuro grossly intact Psych/Mental Status: Normal Affect, Appropriate Current Medications Acetaminophen (Acetaminophen 500 Mg Tablet) 1,000 mg PO Q8 [facility] Last Admin: 06/04/20 04:46 Dose: 1,000 mg Documented by: Albuterol Sulfate (Albuterol Sulfate 8 Gm Inhaler (60 Puffs)) 1 - 2 puff INHALATION Q6H PRN PRN PRN Reason: SOB &/OR WHEEZING All[facility] ([facility] Mg [facility]) [facility] Admin: 06/04/20 08:23 Dose: 100 mg Documented by: Aspirin (Aspirin 81 Mg Tab.Chew) [facility] Last Admin: 06/04/20 08:22 Dose: 81 mg Documented by: Bisacodyl (Bisacodyl 10 Mg Suppository) 10 mg RECTAL .PRN X 1 PRN PRN Reason: Constipation Fluticasone Propionate (Fluticasone 0.05% 1 Guston Nasal.Sry) 1 spray NASAL DAILY PRN PRN PRN Reason: ALLERGIES Lisinopril (Lisinopril 10 Mg Tablet) 10 mg PO DAILY [facility] Last Admin: 06/04/20 08:23 Dose: 10 mg Documented by: Magnesium Hydroxide (Magnesium Hydroxide 30 Ml Udc) 30 ml PO .PRN X 1 PRN PRN Reason: Constipation Metoprolol Tartrate (Metoprolol Tartrate 25 Mg Tablet) 25 mg PO BID [facility] Last Admin: 06/04/20 08:23 Dose: 25 mg Documented by: Multivitamins (Multivitamins,Therapeutic Tablet) [facility] Last Admin: 06/04/20 08:23 Dose: 1 tablet Documented by: Non-Formulary Medication (Ketotifen Fumarate [Zaditor]) 1 drp EACH EYE PRN PRN PRN Reason: DRY EYES Oxycodone HCl (Oxycodone 5 Mg Tablet) 5 mg PO Q6H PRN PRN PRN Reason: Pain Score 1-10 Last Admin: 06/04/20 08:27 Dose: 5 mg Documented by: Pantoprazole Sodium (Pantoprazole Sodium 40 Mg Tablet) 40 mg PO DAILY [facility] Last Admin: 06/04/20 08:23 Dose: 40 mg Documented by: Fluticasone/Salmeterol (Fluticasone/Salmeterol 232-14 Inhaler) 1 puff IH BID [facility] Last Admin: 06/04/20 08:23 Dose: 1 puff Documented by: Senna/Docusate Sodium (Senna/Docusate Sodium 1 Tablet) 2 tablet PO BID [facility] Last Admin: 06/04/20 08:22 Dose: 2 tablet Documented by: Assessment/Plan All Active Problems (Last Reviewed 06/04/20 @ 13:[address] Ilene Lorenzana DO) Closed left hip fracture (Acute) Laceration of left elbow (Acute) Accidental fall (Acute) Acute blood loss anemia (Acute) Chest pain (Acute) Elevated troponin (Resolved 03/26/20) Impressions 1. Physical debility secondary to recent mechanical fall resulting in a left subcapital hip fracture 2. cemented L hip hemiarthroplasty 3. laceration of the Left elbow due to a fall - required 2 stitches in the ED. 4. Acute blood loss anemia 5. Suspected paroxysmal atrial fibrillation - not on anticoagulation. Had an unremarkable heart cath and ECHO and saw Dr. Stanford and was placed on ASA and Metoprolol 6. Allergic rhinitis 7. Gout 8. History of asthma 9. The prior H&P lists CRF stage 3 however the GFR has never been less than 60 and this is not consistent with stage 3 CRF. It is the creatinine clearance that is low and in the low 30's 10. elevated fasting glucose. HTN PLAN PT for gait stability OT for ADL's ST for evaluation Analgesics as needed Bowel protocol Fall precautions Assess for Anxiety/Depression GI prophylaxis not necessary......asymptomatic with no hx of PUD DVT prophylaxis with aspirin 81 mg twice daily. this is prescribed by orthopedics. Will also add Mary Ann echeverria and SCD's. Follow up with Dr. Moy, Dr. Stanford and Dr. Robertson following DC from [facility] AM lab including HH, BMP, phos and HGBA1C Inpatient E&M: 72166 Init Hosp L2
--- NOTE | 2020-06-04 08:46 | PCM.RU.PYE ---
Admission Information Primary Diagnosis:: debility due to recent hip fracture with ORIF Status Changes from Prescreening?: No changes Identified Actual Problem List:: Falls, Skin Intergrity, Pain, ALteration in Cmfrt, Alteration in Sleep, Mobility Impaired, Self Care Deficit, BP, Hypertension, Alteration-Leisure Activ. Potential Problem List:: DVT, Bleeding, Infection, UTI, Aspiration, Falls, Skin Integrity, Depression Risk of Complications DVT: MARY ANN Hose, Sequential Compression Device, - - ASA 81 mg BID prescribed by orthopedics Bleeding: Monitor Lab Values, Nursing to Teach Precautions for anti-coagulation therapy., Wound, if applicable, to be assessed every shift., Stroke patients assessed for lethargy or change in status. Infection: Clinical Staff to Monitor for S/S of infection:, S/S of infection include fever, redness, warmth, etc. Urinary Tract Infection: Monitor for frequency, burning, discomfort, or incontinence., Nursing will obtain urine sample for urinalysis and C&S when ordered. Aspiration: Clinical staff will monitor for coughing, drooling, congestion., Speech will evaluate swallowing and dsyphasia., Nursing will monitor patient swallowing during meals. Falls: Patient will be evaluated for Fall Precautions, Patient will be placed on Fall Precautions as indicated per protocol. Skin Breakdown: Nursing will assess skin daily using assessment tool., Nursing will place on Skin Breakdown Precautions as indicated. Pain: Clinical staff will assess patient's pain level per protocol., Medications will be given, if needed, and the pain level reassessed., Other methods: Massage, distraction, decrease stimulus, etc. used PRN. Plan of Care Patient requires physician specializing in physical medicine and rehab oversight to provide close medical supervision of rehab issues including: Pain Management, Sleep Problems, Bowel and Bladder, Medical and co-morbidity Management, DVT prophylaxis, Rehabilitation Leadership, Coordination of treatment team Patient needs Physical Therapy: For a minimum of 1 hour, At least 5 out of 7 days Patient needs Physical Therapy to improve:: Mobility, Mobility, Mobility, Strengthening, Transfers, Stretching, ROM, Endurance, Stairs, Gait, Balance Patient needs Occupational Therapy: For a minimum of 1 hour, At least 5 out of 7 days Patient needs Occupational Therapy to improve ADL's incl.: Eating, Grooming, Bathing, Dressing, Toileting, Toilet transfers, Community Reintegration, Higher functioning activities, Household tasks, Adaptive Equipment, Splinting, Other activities as determined Patient requires 24/7 Rehabilitation Nursing for: Pain Issues, Identifying and preventing risk factors, Monitoring and reporting current medical conditions, Assisting with ambulation, transfer, and all ADL's, Teaching patients about disease process and medications, Family teaching, Providing safe environment, Bowel and Bladder Issues, Skin integrity, Medication Management Patient needs Asphalt Spreader/ Case Management for: Discharge Planning, Arranging Home Equipment or Services, Family Interventions Patient needs Dietary and Nutrition Services for: Adequate Nutrition, Nutritional Supplements, Nutritional Education Goals Patient will remain: free from falls, or injury at time of discharge. Patient will perform bed mobility at: MOD I level of assist. Patient will complete transfers from bed to chair at: MOD I level of assist. Patient will ambulate: with MOD I assist, with LRD, - - 300 ft Patient will propel wheelchair: - - NA Patient will complete upper body dressing at: MOD I level of assist. Patient will complete lower body dressing at: MOD I level of assist. - with AE Patient will complete toileting at: MOD I level of assist. Patient will perform bathing at: - - supervision/set up Patient will complete grooming at: MOD I level of assist. Patient will complete home management skills at: MOD I level of assist. Patient will achieve: at MOD I assist, - - curb step Patient will have pain level of: of 3 or less Patient's skin will: remain intact, free from infection. Patient will receive: adequate nutrition. Discharge Planning Pt Prognosis for Sig. Practical Improv. w/in Reasonable Time: Good Estimated Length of stay (days): 28 Anticipated D/C Destination: Home with Home Health Was Preadmission Assessment Accurate?: Yes
[2020-06-04] MEDS: MELATONIN 3 MG TABLET PO (21:13)
[2020-06-05 05:30] LABS: Hematocrit 26.9 % (37-47); Hemoglobin 8.2 g/dL (12.0-15.0)
[2020-06-05 05:48] LABS: Anion Gap 4 (5-15); BUN 15 mg/dL (7-18); BUN/Creat Ratio 21.1 RATIO (10-20); Chloride 109 mmol/L (98-107); Creatinine, Serum 0.71 mg/dL (0.55-1.02); EST Glomerular Filtration Rate 84 mL/min (>60); Est Glom Filt Rate - Afr Amer 102 mL/min (>60); Estimated Creatinine Clearance 33.86 ml/min; Glucose 105 mg/dL (74-106); Magnesium 1.6 mg/dL (1.6-2.6); Phosphorus 3.1 mg/dL (2.5-4.9); Potassium 3.7 mmol/L (3.5-5.1); Sodium Level 141 mmol/L (136-145)
[2020-06-05] MEDS: Acetaminophen 500 MG Tablet 1000 MG PO ×3 (06:20→20:14)
[2020-06-05 06:46] VITALS: O2SAT 97
[2020-06-05 07:54] LABS: Hemoglobin A1c 5.6 % (3.8-5.6)
[2020-06-05] MEDS: Aspirin 81 MG TAB.CHEW PO ×2 (08:11→17:24)
[2020-06-05] MEDS: Pantoprazole Sodium 40 MG Tablet PO (08:11)
[2020-06-05] MEDS: Senna/Docusate Sodium 1 Tablet 2 TABLET PO (08:11)
[2020-06-05] MEDS: Allopurinol 100 MG Tablet PO (08:11)
[2020-06-05] MEDS: Multivitamins,Therapeutic Tablet 1 TABLET PO (08:11)
[2020-06-05] MEDS: Lisinopril 10 MG Tablet PO (08:11)
[2020-06-05 08:12] VITALS: PULSE 66
[2020-06-05] MEDS: Metoprolol Tartrate 25 MG Tablet PO ×2 (08:12→20:02)
[2020-06-05] MEDS: Fluticasone/Salmeterol 232-14 Inhaler 1 PUFF IH ×2 (08:25→20:01)
[2020-06-05 09:33] VITALS: BP 142/73; PULSE 66; RESP 16; TEMP 36.6; O2SAT 97
--- NOTE | 2020-06-05 11:25 | PN_ITS ---
Progress Note Afebrile VSS Maintaining appropriate oxygen saturation on RA Oral intake is poor She had a bowel movement yesterday and also today. Constipation has resolved with stool softeners. Discussed with nursing - no problems that need addressed Reviewed the PT/OT notes. She was able to ambulate 65 feet yesterday. She seems to fatigue easily and gets SOB and has to sit down in the WC. She required moderate assistance with bathing today but was able to do her upper body dressing with supervision and minimal assistance with lower body dressing. She was contact-guard assist with tub/shower transfer. She is not always remembering her hip restrictions but she can recite them. Medication list reviewed. She had 3 doses of oxycodone 5 mg yesterday. She sometimes takes the Oxy when she thinks an activity will cause her pain. The BUN/creatinine ratio today is elevated at 21.1. Hemoglobin is 8.2..... It was 13.4 at admission to the hospital but she was dehydrated and following hydration the hemoglobin was 11.8. It has been decreasing since surgery. Calcium corrected for hypoalbuminemia is low normal. Magnesium is borderline low at 1.6 and the phosphorus is normal at 3.1. Potassium is 3.7 and the sodium is 141. Pain is adequately controlled. She denies chest pain, calf pain, cough, sore throat. She does complain of dry mouth and her intake is poor. She would like her toe naild cut while she is here - she usually does it herself but, due to the hip precautions for the next 3-6 months she is unable to do this. Alert, flat affect, appears in NAD. She is sitting in the WC in the [place].....she needed to rest due to fatigue and not to pain MM are moist Lungs - CTA but diminished HRRR abd - soft and non-tender The left elbow has 2 stitches that are embedded in a eschar. the wound is dry and there is no daysi-wound erythema and no purulent DC. Left hip incision is clean and dry with no redness and no dehiscence Negative Isidro and negative Homans signs no rashes abrasions are healing. Impressions 1. debility due to recent fall on 05/30/20 resulting in a Left hip fx and Left elbow laceration 2. acute blood loss anemia - HGB continues to fall. She is on Celebrex BID. 3. borderline low mag and K - with hx of AF will keep the K at > 3.9 and the Mag at >1.9. 4. poor exercise tolerance Potassium 20 MEQ now and then 10 MEQ daily - in light of hx of AF keep the K around 4 and the Mag around 2. Mag 128 mg daily she is not on a calcium or a vitamin D supplement. She has ever had a DEXA at this institution. Will obtain med list and results of BMD at [facility] from Dr. Robertson. Check a vitamin D 25 hydroxy level Hemoccult stool STROKE Vital Signs/Narrative: Vital Signs Temp Pulse Resp BP Pulse Ox 06/05/20 09:33 97.9 F 66 16 142/73 H 97 06/05/20 08:12 66 Inpatient E&M: [id number] Subs Hosp L2
[2020-06-05 12:33] LABS: Vitamin D,25 Hydroxy 24.1 ng/mL
[2020-06-05] MEDS: oxyCODONE 5 MG Tablet PO ×2 (12:53→20:19)
[2020-06-05 19:57] VITALS: BP 117/70; PULSE 77; RESP 16; TEMP 36.9; O2SAT 97
[2020-06-05 20:02] VITALS: PULSE 75
[2020-06-05] MEDS: MELATONIN 3 MG TABLET PO (20:02)
[2020-06-05 22:00] VITALS: PULSE 77; RESP 16; O2SAT 97
[2020-06-06] MEDS: oxyCODONE 5 MG Tablet PO ×3 (02:25→19:58)
--- NOTE | 2020-06-06 02:29 | NURSING ---
Pt provided Oxyir 5mg PRN at 02:25 for general back pain that pt attributes to being in bed. Pt toileted and repositioned. Will continue to monitor.
--- NOTE | 2020-06-06 03:35 | NURSING ---
Pt repositioned to recliner for comfort.
[2020-06-06] MEDS: Acetaminophen 500 MG Tablet 1000 MG PO ×3 (05:42→19:54)
[2020-06-06 08:47] VITALS: BP 143/71; PULSE 63; RESP 17; TEMP 36.5; O2SAT 95
[2020-06-06] MEDS: Multivitamins,Therapeutic Tablet 1 TABLET PO (09:10)
[2020-06-06] MEDS: Allopurinol 100 MG Tablet PO (09:10)
[2020-06-06] MEDS: Aspirin 81 MG TAB.CHEW PO ×2 (09:10→18:27)
[2020-06-06 09:11] VITALS: PULSE 70
[2020-06-06] MEDS: Metoprolol Tartrate 25 MG Tablet PO ×2 (09:11→19:54)
[2020-06-06] MEDS: Magnesium Chloride 64 MG Delay Rel.Tablet 128 MG PO (09:12)
[2020-06-06] MEDS: Pantoprazole Sodium 40 MG Tablet PO (09:13)
[2020-06-06] MEDS: Lisinopril 10 MG Tablet PO (09:13)
[2020-06-06] MEDS: Fluticasone/Salmeterol 232-14 Inhaler 1 PUFF IH ×2 (09:14→19:55)
--- NOTE | 2020-06-06 09:35 | PCM.CONS.GEN ---
Problem List (1) Pain in toe of left foot Status: Acute (2) Pain in toe of right foot Status: Acute (3) Nail dystrophy Status: Acute (4) Closed left hip fracture Status: Acute Qualifiers: Encounter type: initial encounter Qualified Code(s): S72.002A - Fracture of unspecified part of neck of left femur, initial encounter for closed fracture (5) Accidental fall Status: Acute Qualifiers: Encounter type: initial encounter Qualified Code(s): W19.XXXA - Unspecified fall, initial encounter (6) CKD (chronic kidney disease), stage III Status: Chronic Qualifiers: Chronic kidney disease stage 3 subtype: unspecified whether 3a or 3b Qualified Code(s): N18.30 - Chronic kidney disease, stage 3 unspecified Reason for Consult Date of Consultation: 06/06/20 Reason for Consultation: painful elongated toenails History of Present Illness: The patient is a 79 year old F who presents for recovery after left hip fracture and surgery after a fall. Patient relates that due to her hip she is unable to reach her toes anymore. She can't get to her toes to trim her nails and they have since gotten long and painful. She denies any other pedal complaints[] Past Medical History Past Medical History (Chronic Problems): Chronic Problems (Last Reviewed 06/04/20 @ 17:[address] Ilene Lorenzana DO) PAF (paroxysmal atrial fibrillation) (Chronic) Allergic rhinitis (Chronic) Gout (Chronic) Chronic asthma (Chronic) CKD (chronic kidney disease), stage III (Chronic) Missing teeth, acquired (Chronic) Essential (primary) hypertension (Chronic) Medical History: Medical History (Last Reviewed 06/04/20 @ 17:[address] Ilene Lorenzana DO) Atrial fibrillation with rapid ventricular response (Suspected) Onset Date: 03/26/20 I48.91 Essential (primary) hypertension (Chronic) I10 Elevated troponin (Resolved) Onset Date: 03/26/20 R77.8 Obesity E66.9 Allergies No Known Allergies Allergy (Verified 05/30/20 15:57) Home Medications: Ambulatory Orders Medication Instructions Recorded Acetaminophen [Tylenol] 500 mg PO Q6H PRN PRN 03/26/20 Albuterol Inhaler [Ventolin Hfa] 1 - 2 puff INHALATION Q6H PRN PRN 03/26/20 Allopurinol [Zyloprim] 100 mg PO DAILYCM 03/26/20 Antiarthritic Combination No.2 900 mg PO BID 03/26/20 [Glucosamine-Chondroitin] Fluticasone 0.05% [Flonase Nasal 1 spray NASAL PRN PRN 03/26/20 [place]] Fluticasone/Salmeterol [Advair 1 ea IH BID 03/26/20 250-50 Diskus] Ketotifen Fumarate [Zaditor] 1 drp EACH EYE PRN PRN 03/26/20 Lisinopril [Zestril] 10 mg PO DAILY 03/26/20 Loratadine [Claritin] 10 mg PO DAILY PRN 03/26/20 Multivit-Min/Iron/Folic/Lutein 1 ea PO QODAY 03/26/20 [Multivitamin Women 50 Plus Tab] Oxycodone [Oxyir] 5 mg PO Q4H PRN PRN 7 Days tab 06/01/20 Aspirin [Aspirin, Baby] 81 mg PO BIDCM 06/03/20 Ferrous Sulfate 325 mg PO LUNCH 06/03/20 Metoprolol Tartrate 25 mg PO BID 06/03/20 Pantoprazole Sodium [Protonix] 40 mg PO DAILY 06/03/20 Surgical History: Surgical History (Last Reviewed 06/04/20 @ 13:[address] Ilene Lorenzana DO) History of left heart catheterization Onset Date: 03/27/20 Z98.890 Surgical History: no surgical history, - - Cemented left hip hemiarthroplasty on 05/31/[address] Luis Moy Psychiatric History: No pertinent psych hx PENCILLER History: No pertinent PENCILLER history Lives: Spouse/ Significant Other Smoking Status: Never smoker Tobacco Use: Non-smoker Alcohol: Rare Drugs: None - *Family History Maternal Family History: Family History (Last Reviewed 06/04/20 @ 13:[address] Ilene Lorenzana DO) Mother TIA (transient ischemic attack) History Items: - - Mother with a history of TIAs. Paternal Family History: Family History (Last Reviewed 06/04/20 @ 13:[address] Ilene Lorenzana DO) Mother TIA (transient ischemic attack) History Items: - - Father with history of rheumatoid arthritis. Review of Systems Constitutional: Denies: Chills, Fever HEENT: Denies: Hard of Hearing Cardiovascular: Denies: Chest Pain Respiratory: Denies: Cough, Shortness of Breath Gastrointestinal: Denies: Nausea, Vomiting Musculoskeletal: Reports: Foot Pain - toes Skin: Denies: Rash, Wounds Neurological: Denies: Numbness, Tingling Patient Problems: Active and Suspected Problems (Last Reviewed 06/04/20 @ 17:[address] Ilene Lorenzana, DO) Closed left hip fracture (Acute) Laceration of left elbow (Acute) Accidental fall (Acute) Acute blood loss anemia (Acute) Chest pain (Acute) Atrial fibrillation with rapid ventricular response (Suspected 03/26/20) - Physical Exam Vitals/I&O's: Vital Signs Temp Pulse Resp BP Pulse Ox 97.7 F L 70 17 143/71 H 95 06/06/20 08:47 06/06/20 09:11 06/06/20 08:47 06/06/20 08:47 06/06/20 08:47 Oxygen Delivery Method Room Air Weight: 84 kg Body Mass Index (BMI) 34.6 Intake and Output for Last 24 Hours 06/04/20 06/05/20 06/06/20 23:59 23:59 23:59 Intake Total 320 / 320 1240 / 1240 400 / 400 Balance 320 / 320 1240 / 1240 400 / 400 General: Alert, Oriented x3 HEENT: Atraumatic Abdomen: Obese Extremities: No clubbing, No cyanosis, Capillary Refill Less than 3 Seconds, No Calf Tenderness, Edema - mild bilateral lower extremities, patient wearing compression socks, Peripheral Pulses Normal, Tenderness - toes Skin: - - thickened, dystrophic, elongated, painful toenails [id number] bilateral feet Musculoskeletal: Tenderness - toes Neurological: Sensory exam intact to light touch and pain Psych/Mental Status: Normal Affect, Appropriate Laboratory Results 06/05/20 11:55: Vitamin D 25-Hydroxy 24.1 Current Medications Acetaminophen (Acetaminophen 500 Mg Tablet) 1,000 mg PO Q8 [facility] Last Admin: 06/06/20 05:42 Dose: 1,000 mg Documented by: Albuterol Sulfate (Albuterol Sulfate 8 Gm Inhaler (60 Puffs)) 1 - 2 puff INHALATION Q6H PRN PRN PRN Reason: SOB &/OR WHEEZING Allopurinol (Allopurinol 100 Mg Tablet) 100 mg PO DAILYCM REYNA Last Admin: 06/06/20 09:10 Dose: 100 mg Documented by: Aspirin ([facility] 81 Mg Tab.Chew) [facility] Last Admin: 06/06/20 09:10 Dose: 81 mg Documented by: Bisacodyl (Bisacodyl 10 Mg Suppository) 10 mg RECTAL .PRN X 1 PRN PRN Reason: Constipation Fluticasone Propionate (Fluticasone 0.05% 1 [place] Nasal.Sry) 1 spray NASAL DAILY PRN PRN PRN Reason: ALLERGIES Lisinopril (Lisinopril 10 Mg Tablet) 10 mg PO DAILY [facility] Last Admin: 06/06/20 09:13 Dose: 10 mg Documented by: Magnesium Chloride (Magnesium Chloride 64 Mg Delay Rel.Tablet) 128 mg PO DAILY [facility] Last Admin: 06/06/20 09:12 Dose: 128 mg Documented by: Magnesium Hydroxide (Magnesium Hydroxide 30 Ml Udc) 30 ml PO .PRN X 1 PRN PRN Reason: Constipation Melatonin (Melatonin 3 Mg Tablet) 3 mg PO QHS [facility] Last Admin: 06/05/20 20:02 Dose: 3 mg Documented by: Metoprolol Tartrate (Metoprolol Tartrate 25 Mg Tablet) 25 mg PO BID [facility] Last Admin: 06/06/20 09:11 Dose: 25 mg Documented by: Multivitamins (Multivitamins,Therapeutic Tablet) [facility] Last Admin: 06/06/20 09:10 Dose: 1 tablet Documented by: Oxycodone HCl (Oxycodone 5 Mg Tablet) 5 mg PO Q6H PRN PRN PRN Reason: Pain Score 1-10 Last Admin: 06/06/20 09:14 Dose: 5 mg Documented by: Pantoprazole Sodium (Pantoprazole Sodium 40 Mg Tablet) 40 mg PO DAILY [facility] Last Admin: 06/06/20 09:13 Dose: 40 mg Documented by: Potassium Chloride (Potassium Chloride 10 Meq Tablet) [facility] meq [facility] Last Admin: 06/06/20 09:10 Dose: 10 meq Documented by: Fluticasone/Salmeterol (Fluticasone/Salmeterol 232-14 Inhaler) 1 puff IH BID [facility] Last Admin: 06/06/20 09:14 Dose: 1 puff Documented by: Senna/Docusate Sodium (Senna/Docusate Sodium 1 Tablet) 2 tablet PO BID REYNA Last Admin: 06/06/20 09:13 Dose: Not Given Documented by: Assessment/Plan All Active Problems (Last Reviewed 06/04/20 @ 17:[address] Ilene Lorenzana, DO) Closed left hip fracture (Acute) Laceration of left elbow (Acute) Accidental fall (Acute) Acute blood loss anemia (Acute) Pain in toe of left foot (Acute) Pain in toe of right foot (Acute) Nail dystrophy (Acute) Chest pain (Acute) Elevated troponin (Resolved 03/26/20) toenail dystrophy pain left and right toes left hip fracture Initial evaluation performed. Reviewed condition and treatment options. We will proceed with palliative care, as well as monitoring. Foot care and footgear has been discussed. Debrided/reduced bulk from 1-5 toenails bilateral, manually with a nail nipper and angled to reduce height. This was done without incident. Follow up as needed [facility] with Dr Duran Thank you for the consult Please contact if any questions or concerns.
--- NOTE | 2020-06-06 11:51 | PN_ITS ---
Progress Note Afebrile VSS Maintaining appropriate oxygen saturation on RA Oral intake is poor although she did manage to get 1240 in yesterday which is better Last bowel movement was 06/05/2020 Discussed with nursing - The nurses report that the wound dressing was removed yesterday because it was soaked through. It has not been replaced yet. Reviewed the PT/OT notes. Still needing reminders about the hip precautions. Medication list reviewed. All labs personally reviewed. The hemoglobin continues to decline and is 8.2 today, down from 11.8 on 05/31/2020. White blood cell count and platelets are within normal limits. Vitamin D level is 24.1 which is consistent with vitamin D insufficiency. I reviewed Dr. Duran's consult and appreciate her seeing the pt for nail debridement. Her only complaint is trouble sleeping at night and she attributes this to new surroundings. she does not like to take medication and is not asking for a sle eping Pill she denies CP, SOB, palpitations, calf pain. Lungs - CTA but diminished HRRR no calf tenderness The left elbow has 2 stitches which are embedded in a scab. No redness and no purulent DC. Impressions 1. debility due to recent fall causing a left hip fracture and laceration of the left elbow which required 2 stitches. 2. urinary frequency STROKE Vital Signs/Narrative: Vital Signs Temp Pulse Resp BP Pulse Ox 06/06/20 09:11 70 06/06/20 08:47 97.7 F L 63 17 143/71 H 95 Inpatient E&M: [id number] Subs Hosp L1
[2020-06-06 19:34] VITALS: BP 140/69; PULSE 76; RESP 18; TEMP 36.7; O2SAT 96
[2020-06-06 19:40] VITALS: PULSE 76; RESP 18; O2SAT 96
[2020-06-06 19:54] VITALS: BP 140/69; PULSE 76
[2020-06-06] MEDS: MELATONIN 3 MG TABLET PO (19:54)
[2020-06-06] MEDS: Senna/Docusate Sodium 1 Tablet 2 TABLET PO (19:55)
--- NOTE | 2020-06-06 22:32 | NURSING ---
pt states she can't get comfortable after repeated repositionings. Pt transferred to recliner with multiple pillows under bilat arms. Call light within reach and will continue to monitor. Staff has been repeatedly to provide comfort needs.
--- NOTE | 2020-06-07 01:17 | NURSING ---
pt up for toileting an hour ago and repositioned from recliner back to bed. Pt now repositioned back into recliner, per pt request.
--- NOTE | 2020-06-07 02:21 | NURSING ---
pt up and down several times this hs d/t pain and discomfort from the bed to the recliner. staff unable to get pt comfortable to get her to sleep pain medication given when able.
[2020-06-07] MEDS: oxyCODONE 5 MG Tablet PO ×2 (02:27→08:36)
--- NOTE | 2020-06-07 04:33 | NURSING ---
Reviewed and agree with FOOD SCIENCE PROFESSOR documentation and charting.
[2020-06-07] MEDS: Acetaminophen 500 MG Tablet 1000 MG PO ×3 (05:22→20:48)
[2020-06-07 08:37] VITALS: BP 134/64; PULSE 71
[2020-06-07] MEDS: Lisinopril 10 MG Tablet PO (08:37)
[2020-06-07] MEDS: Metoprolol Tartrate 25 MG Tablet PO ×2 (08:37→20:48)
[2020-06-07] MEDS: Pantoprazole Sodium 40 MG Tablet PO (08:37)
[2020-06-07] MEDS: Allopurinol 100 MG Tablet PO (08:37)
[2020-06-07] MEDS: Multivitamins,Therapeutic Tablet 1 TABLET PO (08:38)
[2020-06-07] MEDS: Senna/Docusate Sodium 1 Tablet 2 TABLET PO ×2 (08:38→20:48)
[2020-06-07] MEDS: Magnesium Chloride 64 MG Delay Rel.Tablet 128 MG PO (08:38)
[2020-06-07] MEDS: Fluticasone/Salmeterol 232-14 Inhaler 1 PUFF IH ×2 (08:38→20:48)
[2020-06-07] MEDS: Aspirin 81 MG TAB.CHEW PO ×2 (08:38→17:35)
[2020-06-07 10:00] VITALS: BP 134/64; PULSE 71; PULSE 72; RESP 17; TEMP 36.7; O2SAT 96
--- NOTE | 2020-06-07 10:20 | CASEMGMT ---
Addendum entered by Corrina Nieto 06/07/20 10:32: Spoke with to confirm entrances. Pt has a ramp to enter the main entrance to the home and 3 steps with 2HR another entrance to the home. Relayed to PT. Original Note: Social Work IDT met with patient for Team meeting. Dtr unavailable. Discussed patient's progress in therapy and nursing. See notes for details. Reminding patient to follow hip precautions, started sleeping med and adjusting pain medication. Explained Medicare approved 15 days with EDC 06/18. The goal is for pt to DC home with spouse. Pt has 3-6 steps to enter. Will ReTeam next week. SW to continue to follow. Corrina Nieto, JANETTE MEJÍAW
--- NOTE | 2020-06-07 10:39 | PCM.PN.BLA ---
Progress Note Jenniffer was seen on team rounds today. There was no family available to participate by phone. Afebrile VSS blood pressure is adequately controlled Maintaining appropriate oxygen saturation on RA Oral intake is improving. Oral intake on 06/06/2020 was 1320. Her weight has increased from 183 pounds and 6.8 ounces to 185 pounds and 3 ounces today. Discussed with nursing - She does not sleep well and is up numerous times at night to urinate. She does the same thing at home......about every 1-2 hours. She asks for Oxycodone every 6 hours because she does not want the pain to get bad........she asks for it if the pain is only a 3. Reviewed the PT/OT/ST notes Medication list reviewed. Hemoccult stool has not been collected because she has not had a BM since the order was put in on the . She is alert and sitting in the recliner in NAD. She participated in the conversation. She is c/o a dry mouth. She denies CP, SOB, palpitations, N/V/D. She is having some constipation and she is on stool softeners. No dysuria. She does get urgency. The UA from 05/30/20 had LE of 100 but no bacteria. She had a Mccall while she was in the hospital. H- RRR with no gallop and no rub L- diminished but CTA abd - soft and NT no calf pain No rashes Impressions 1. debility due to recent fall on 05/30/20 resulting in a Left hip fx and Left elbow laceration 2. acute blood loss anemia - HGB continues to fall. She is on Celebrex BID at home but it is on hold from the hospital - no sure why....if the HH is stable will restart 3. borderline low mag and K - with hx of AF will keep the K at > 3.9 and the Mag at >1.9. 4. poor exercise tolerance with REID requiring her to sit down 5. acute blood loss anemia Continue therapy STROKE Vital Signs/Narrative: Vital Signs Pulse BP 06/07/20 08:37 71 134/64 H Inpatient E&M: [id number] Subs Hosp L2
[2020-06-07] MEDS: Celecoxib 200 MG Capsule PO ×2 (11:24→20:49)
[2020-06-07 17:33] LABS: Bacteria 0 SEEN /hpf (None Seen); Mucous, Urine 0 SEEN /hpf (<or=2+); Red Blood Cells-Urine 0 SEEN /hpf (0-5)
[2020-06-07 18:06] LABS: Color, Urine Yellow (Yellow); Glucose, Dipstick Normal (Normal); Ketone-Dipstick 5 mg/dl (Negative); Leukocyte Esterase-Dipstick 100 /ul (Negative); Nitrite-Dipstick Negative (Negative); Occult Blood-Urine 10 /ul (Negative); Protein-Dipstick 15 mg/dl (Negative); Urine Clarity Clear (Clear); Urine Urobilinogen 4 mg/dl (Normal)
[2020-06-07 18:11] LABS: Urine Bilirubin Dipstick 1 mg/dL (Negative)
[2020-06-07 18:12] LABS: Squamous Epithelial Cells - UA 0-5 SEEN /hpf (5-10); White Blood Cells 0-5 SEEN /hpf (0-5)
[2020-06-07 19:38] VITALS: BP 132/68; PULSE 67; RESP 18; TEMP 36.7; O2SAT 98
[2020-06-07 20:48] VITALS: BP 132/68; PULSE 67
[2020-06-07] MEDS: MELATONIN 3 MG TABLET PO (20:48)
[2020-06-07] MEDS: Mirabegron 25 MG TAB.ER.24H PO (20:49)
[2020-06-08] MEDS: Acetaminophen 500 MG Tablet 1000 MG PO ×3 (06:22→20:36)
[2020-06-08 07:47] VITALS: BP 151/74; PULSE 63; RESP 14; TEMP 36.5; O2SAT 97
[2020-06-08] MEDS: Aspirin 81 MG TAB.CHEW PO ×2 (09:30→16:27)
[2020-06-08] MEDS: Fluticasone/Salmeterol 232-14 Inhaler 1 PUFF IH ×2 (09:31→20:42)
[2020-06-08] MEDS: Allopurinol 100 MG Tablet PO (09:31)
[2020-06-08] MEDS: Multivitamins,Therapeutic Tablet 1 TABLET PO (09:31)
[2020-06-08] MEDS: Celecoxib 200 MG Capsule PO ×2 (09:31→20:36)
[2020-06-08 09:33] VITALS: PULSE 63
[2020-06-08] MEDS: Senna/Docusate Sodium 1 Tablet 2 TABLET PO ×2 (09:33→20:37)
[2020-06-08] MEDS: Lisinopril 10 MG Tablet PO (09:33)
[2020-06-08] MEDS: Pantoprazole Sodium 40 MG Tablet PO (09:33)
[2020-06-08] MEDS: Metoprolol Tartrate 25 MG Tablet PO ×2 (09:33→20:42)
[2020-06-08] MEDS: Magnesium Chloride 64 MG Delay Rel.Tablet 128 MG PO (09:33)
--- NOTE | 2020-06-08 09:39 | PN_ITS ---
Progress Note Afebrile Vital signs are stable-systolic blood pressure is occasionally mildly elevated. Diastolic are always within normal limits. Maintaining appropriate oxygen saturation on room air. The UA yesterday had 0-5 WBCs and had positive leukocyte esterase. There were also ketones. There was no bacteria seen in the urine culture is pending. H GBA1C was 5.6 and the hyperglycemia is likely due to stress. She was started on Myrbetriq last night. she tells me that she did not sleep well last night and she got up to urinate 3-4 times. She does this at home as well. She does not feel anxious. She states that she goes the regular amount each time. She has never had a BMD test. Has not been taking a calcium or a Vitamin D supplement at home. she denies CP, cough, sore throat, dizziness, dysuria, N/V/abd pain. She is sitting in a chair at the bedside. NAD, pleasant and conversant Lungs - diminished throughout with no rales, wheezes or rhonchi HRRR with an occasional ectopic abd - soft and NT The left calf and ankle have some edema but, she denies any calf pain The R ankle has a trace of edema and she has no tenderness of the right calf no rashes and no skin breakdown.......other than the L elbow that has a scab on it from a laceration on the . Will be able to remove the 2 sutures next Thursday Impressions 1. debility due to a recent fall resulting in a left hip fracture and subsequent ORIF 2. Vitamin D insufficiency 3. Acute blood loss anemia 4. Hypomagnesemia-borderline 5. Shortness of breath with exertion-suspect secondary to deconditioning and poor exercise tolerance 6. Suspected PAF-not on anticoagulation but is on a beta-mulu 7. History of asthma 8. Laceration of the left elbow-has 2 sutures present 9. Urinary frequency 10. Insomnia -she does not like the way melatonin makes her feel and we will discontinue this. I told her I would order trazodone 50 mg p.o. nightly as needed for insomnia. Start calcium and vitamin D. Recheck a BMP, Mag and HH on Thursday. Await the result of the urine culture I recommended to her that she get a DEXA as an OP to assess her bone density Continue therapy STROKE Vital Signs/Narrative: Vital Signs Temp Pulse Resp BP Pulse Ox 06/08/20 09:33 63 06/08/20 07:47 97.7 F L 63 14 151/74 H 97 Inpatient E&M: [id number] Subs Hosp L2
--- NOTE | 2020-06-08 15:57 | NURSING ---
two intact sutures removed from left elbow, pt tolerated well, no complaints voiced.
[2020-06-08] MEDS: Calcium Carb/Vitamin D 1 TABLET Tablet PO (16:27)
[2020-06-08] MEDS: traZODone 50 MG Tablet PO (20:36)
[2020-06-08] MEDS: Mirabegron 25 MG TAB.ER.24H PO (20:37)
[2020-06-08 20:42] VITALS: BP 134/75; PULSE 71
[2020-06-08 21:55] VITALS: BP 134/75; PULSE 71; RESP 16; TEMP 36.6; O2SAT 95
[2020-06-08 22:00] VITALS: PULSE 71; RESP 16
[2020-06-09] MEDS: Acetaminophen 500 MG Tablet 1000 MG PO ×3 (05:19→20:11)
[2020-06-09 08:16] VITALS: BP 142/66; PULSE 66; RESP 16; TEMP 36.6; O2SAT 97
[2020-06-09] MEDS: Aspirin 81 MG TAB.CHEW PO ×2 (08:20→17:12)
[2020-06-09] MEDS: Calcium Carb/Vitamin D 1 TABLET Tablet PO ×2 (08:20→17:12)
[2020-06-09] MEDS: Multivitamins,Therapeutic Tablet 1 TABLET PO (08:20)
[2020-06-09 08:22] VITALS: BP 142/66; PULSE 66
[2020-06-09] MEDS: Celecoxib 200 MG Capsule PO ×2 (08:22→20:12)
[2020-06-09] MEDS: Metoprolol Tartrate 25 MG Tablet PO ×2 (08:22→20:11)
[2020-06-09] MEDS: Magnesium Chloride 64 MG Delay Rel.Tablet 128 MG PO (08:23)
[2020-06-09] MEDS: Lisinopril 10 MG Tablet PO (08:24)
[2020-06-09] MEDS: Fluticasone/Salmeterol 232-14 Inhaler 1 PUFF IH ×2 (08:24→20:12)
[2020-06-09] MEDS: Pantoprazole Sodium 40 MG Tablet PO (08:24)
[2020-06-09] MEDS: Allopurinol 100 MG Tablet PO (08:25)
[2020-06-09] MEDS: Senna/Docusate Sodium 1 Tablet 2 TABLET PO ×2 (08:26→20:11)
[2020-06-09] MEDS: Mirabegron 25 MG TAB.ER.24H PO (17:13)
[2020-06-09 19:37] VITALS: BP 124/64; PULSE 70; RESP 18; TEMP 36.9; O2SAT 99
[2020-06-09] MEDS: Magnesium Hydroxide 30 ML UDC PO (20:10)
[2020-06-09 20:11] VITALS: BP 124/64; PULSE 70
[2020-06-10] MEDS: Acetaminophen 500 MG Tablet 1000 MG PO ×3 (05:41→20:20)
[2020-06-10] MEDS: Bisacodyl 10 MG Suppository RECTAL (06:15)
[2020-06-10 07:28] VITALS: BP 134/65; PULSE 66; RESP 16; TEMP 36.7; O2SAT 95
[2020-06-10 07:30] VITALS: BP 134/65; PULSE 66
[2020-06-10] MEDS: Celecoxib 200 MG Capsule PO ×2 (07:30→20:21)
[2020-06-10] MEDS: Metoprolol Tartrate 25 MG Tablet PO ×2 (07:30→20:21)
[2020-06-10] MEDS: Aspirin 81 MG TAB.CHEW PO ×2 (07:30→17:08)
[2020-06-10] MEDS: Allopurinol 100 MG Tablet PO (07:30)
[2020-06-10] MEDS: Calcium Carb/Vitamin D 1 TABLET Tablet PO ×2 (07:31→17:08)
[2020-06-10] MEDS: Fluticasone/Salmeterol 232-14 Inhaler 1 PUFF IH ×2 (07:31→20:21)
[2020-06-10] MEDS: Multivitamins,Therapeutic Tablet 1 TABLET PO (07:31)
[2020-06-10] MEDS: Senna/Docusate Sodium 1 Tablet 2 TABLET PO ×2 (07:31→20:21)
[2020-06-10] MEDS: Lisinopril 10 MG Tablet PO (07:32)
[2020-06-10] MEDS: Magnesium Chloride 64 MG Delay Rel.Tablet 128 MG PO (07:32)
[2020-06-10] MEDS: Pantoprazole Sodium 40 MG Tablet PO (07:32)
--- NOTE | 2020-06-10 16:14 | NURSING ---
up and ambulated around halls with walker and standby assist. tolerated well.
[2020-06-10] MEDS: Mirabegron 25 MG TAB.ER.24H PO (18:05)
[2020-06-10 19:16] VITALS: BP 130/66; PULSE 71; RESP 16; TEMP 37.1; O2SAT 97
[2020-06-10 20:21] VITALS: BP 130/66; PULSE 71
[2020-06-11 06:09] LABS: Hematocrit 29.1 % (37-47); Hemoglobin 8.8 g/dL (12.0-15.0)
[2020-06-11] MEDS: Acetaminophen 500 MG Tablet 1000 MG PO ×3 (06:12→20:07)
[2020-06-11 06:25] LABS: Anion Gap 3 (5-15); BUN 24 mg/dL (7-18); BUN/Creat Ratio 31.5 RATIO (10-20); Calcium,Total 8.5 mg/dL (8.5-10.1); Chloride 109 mmol/L (98-107); Creatinine, Serum 0.76 mg/dL (0.55-1.02); EST Glomerular Filtration Rate 78 mL/min (>60); Est Glom Filt Rate - Afr Amer 94 mL/min (>60); Estimated Creatinine Clearance 33.86 ml/min; Glucose 95 mg/dL (74-106); Magnesium 2.3 mg/dL (1.6-2.6); Potassium 4.5 mmol/L (3.5-5.1); Sodium Level 140 mmol/L (136-145)
[2020-06-11 07:22] VITALS: BP 155/72; PULSE 68; RESP 18; TEMP 36.7; O2SAT 94
[2020-06-11] MEDS: Aspirin 81 MG TAB.CHEW PO ×2 (07:33→15:57)
[2020-06-11 07:34] VITALS: BP 155/72; PULSE 68
[2020-06-11] MEDS: Allopurinol 100 MG Tablet PO (07:34)
[2020-06-11] MEDS: Metoprolol Tartrate 25 MG Tablet PO ×2 (07:34→20:07)
[2020-06-11] MEDS: Celecoxib 200 MG Capsule PO ×2 (07:34→20:07)
[2020-06-11] MEDS: Multivitamins,Therapeutic Tablet 1 TABLET PO (07:34)
[2020-06-11] MEDS: Fluticasone/Salmeterol 232-14 Inhaler 1 PUFF IH ×2 (07:34→20:06)
[2020-06-11] MEDS: Calcium Carb/Vitamin D 1 TABLET Tablet PO ×2 (07:34→15:57)
[2020-06-11] MEDS: Pantoprazole Sodium 40 MG Tablet PO (07:35)
[2020-06-11] MEDS: Lisinopril 10 MG Tablet PO (07:35)
[2020-06-11] MEDS: Senna/Docusate Sodium 1 Tablet 2 TABLET PO ×2 (07:35→20:06)
[2020-06-11] MEDS: Magnesium Chloride 64 MG Delay Rel.Tablet 128 MG PO (07:35)
--- NOTE | 2020-06-11 10:29 | PN_ITS ---
Progress Note Afebrile since admission to rehab VSS-systolic blood pressure is occasionally above goal but the diastolic is consistently under goal for diastolic pressure. Maintaining appropriate oxygen saturation on RA Oral intake is poor for the past 2 days Last bowel movement was today. She also had a bowel movement on 06/10/2020. Discussed with nursing - no problems that need addressed Reviewed the PT/OT/ST notes. Therapy reports that she coughs when she drinks cold water and when she laughs. She has a hx of asthma. the cough is non- productive Medication list reviewed. She has taken 1 trazodone for sleep and that was on 06/08. She has been on Myrbetriq for 4 days now. All lab from today was personally reviewed. Hemoglobin is stable. Potassium is 4.5 today. BUN is up to 24 from 15 and the creatinine is 0.76, up from 0.71. Calcium is normal today at 8.5 and the magnesium is also normal at 2.3. Urine culture had no growth. She is getting up less at night to urinate. Denies CP, SOB, calf pain, N/V/D, no abd pain and no dysuria. Pain is well controlled on just Tylenol. Alert and in NAD sitting in the chair at the bedside Lungs - diminished but CTA HRRR abd - soft and NT No calf pain No rashes Ankle edema on the left is improving Impressions 1. post hip fracture debility 2. Hypomagnesemia 3. acute blood loss anemia 4. urinary urgency and frequency with nocturia 5. deconditioning with poor exercise tolerance due to inactivity at home 6. Vitamin D insufficiency 7. OA Continue therapy Continue the current medications STROKE Vital Signs/Narrative: Vital Signs Temp Pulse Resp BP Pulse Ox 06/11/20 07:34 68 155/72 H 06/11/20 07:22 98.1 F 68 18 155/72 H 94 Inpatient E&M: [id number] Subs Hosp L2
[2020-06-11 19:11] VITALS: BP 143/68; PULSE 76; RESP 18; TEMP 36.6; O2SAT 94
[2020-06-11 19:56] VITALS: PULSE 75; RESP 16; O2SAT 96
[2020-06-11 20:07] VITALS: BP 143/68; PULSE 75
[2020-06-11] MEDS: Mirabegron 25 MG TAB.ER.24H PO (20:07)
[2020-06-12] MEDS: Acetaminophen 500 MG Tablet 1000 MG PO ×3 (05:00→21:18)
[2020-06-12 07:30] VITALS: BP 100/64; PULSE 73; RESP 16; TEMP 36.8; O2SAT 97
[2020-06-12] MEDS: Lisinopril 10 MG Tablet PO (08:34)
[2020-06-12 08:35] VITALS: PULSE 73
[2020-06-12] MEDS: Allopurinol 100 MG Tablet PO (08:35)
[2020-06-12] MEDS: Pantoprazole Sodium 40 MG Tablet PO (08:35)
[2020-06-12] MEDS: Metoprolol Tartrate 25 MG Tablet PO ×2 (08:35→20:06)
[2020-06-12] MEDS: Celecoxib 200 MG Capsule PO ×2 (08:36→20:07)
[2020-06-12] MEDS: Fluticasone/Salmeterol 232-14 Inhaler 1 PUFF IH ×2 (08:36→20:07)
[2020-06-12] MEDS: Calcium Carb/Vitamin D 1 TABLET Tablet PO ×2 (08:37→17:15)
[2020-06-12] MEDS: Aspirin 81 MG TAB.CHEW PO ×2 (08:37→17:15)
[2020-06-12] MEDS: Multivitamins,Therapeutic Tablet 1 TABLET PO (08:37)
[2020-06-12] MEDS: Magnesium Chloride 64 MG Delay Rel.Tablet 128 MG PO (08:38)
--- NOTE | 2020-06-12 15:49 | NURSING ---
up and ambulated around halls with walker and standby assist
[2020-06-12] MEDS: Mirabegron 25 MG TAB.ER.24H PO (18:50)
[2020-06-12 19:17] VITALS: BP 114/62; PULSE 74; RESP 16; TEMP 36.6; O2SAT 98
[2020-06-12 20:06] VITALS: PULSE 73
[2020-06-12 20:17] VITALS: PULSE 77; RESP 16; O2SAT 95
[2020-06-13] MEDS: Acetaminophen 500 MG Tablet 1000 MG PO ×3 (05:00→21:08)
[2020-06-13] MEDS: Calcium Carb/Vitamin D 1 TABLET Tablet PO (09:02)
[2020-06-13] MEDS: Allopurinol 100 MG Tablet PO (09:02)
[2020-06-13] MEDS: Fluticasone/Salmeterol 232-14 Inhaler 1 PUFF IH ×2 (09:02→21:07)
[2020-06-13] MEDS: Multivitamins,Therapeutic Tablet 1 TABLET PO (09:02)
[2020-06-13] MEDS: Celecoxib 200 MG Capsule PO ×2 (09:02→21:07)
[2020-06-13] MEDS: Aspirin 81 MG TAB.CHEW PO ×2 (09:02→16:56)
[2020-06-13 09:03] VITALS: PULSE 72
[2020-06-13] MEDS: Magnesium Chloride 64 MG Delay Rel.Tablet 128 MG PO (09:03)
[2020-06-13] MEDS: Metoprolol Tartrate 25 MG Tablet PO ×2 (09:03→21:07)
[2020-06-13] MEDS: Pantoprazole Sodium 40 MG Tablet PO (09:04)
[2020-06-13] MEDS: Lisinopril 10 MG Tablet PO (09:04)
[2020-06-13] MEDS: Senna/Docusate Sodium 1 Tablet 2 TABLET PO ×2 (09:06→21:08)
[2020-06-13 09:53] VITALS: BP 154/75; PULSE 72; RESP 16; TEMP 36.6; O2SAT 97
--- NOTE | 2020-06-13 11:55 | PCM.PN.BLA ---
Progress Note Afebrile VSS - systolic BP is occasionally elevated.....I suspect because we are stressing her with having to do 3 hours of therapy daily......she does not exercise at home. Maintaining appropriate oxygen saturation on RA Oral intake is good Discussed with nursing - no problems that need addressed. Reviewed the PT/OT/ST notes - she was discharged from on 06/11. She is tolerating exercise better now and she is not requiring as many breaks. She is also not as SOB as she was initially. Medication list reviewed. Has not been taking any Oxy IR for pain. She tells me that she is sleeping better. She is only getting up 1-2 times at night since the Myrbetriq was started last week. Pain is adequately controlled. She denies dysuria, nausea/vomiting, diarrhea, chest pain, shortness of breath, calf pain. She had a little constipation over the weekend however nursing gave qa laxative and bowels are regular now. Alert and oriented X 3. NAD. Sitting in the recliner at the bedside. Lungs-diminished but clear to auscultation throughout. Not tachypneic, no conversational dyspnea, no accessory muscle use. I observed her ambulating in the [place] and she made 2 laps and was speaking with no conversational dyspnea to the therapist while ambulating. Heart-regular rate and rhythm, no ectopy, no gallop Abdomen-soft, nontender, nondistended, normal bowel sounds Edema in the left ankle has improved over the past few days No rashes and no skin breakdown Incision is intact with no purulent discharge and no redness around the incision No calf tenderness Impressions 1. debility due to a recent fall resulting in a left hip fracture and subsequent ORIF 2. Vitamin D insufficiency - She has Osteo Biflex now to take and it contains 2,000 IU of Vitamin D3 - will discontinue the vitamin D supplement 3. Acute blood loss anemia 4. Hypomagnesemia-borderline 5. Shortness of breath with exertion- secondary to deconditioning and poor exercise tolerance. this has improved since she was admitted to the rehab unit 6. Suspected PAF-not on anticoagulation but is on a beta-mulu 7. History of asthma 8. Laceration of the left elbow-has 2 sutures present 9. Urinary frequency - the nocturia has improved with Myrbetriq and she is now sleeping better. 10. Insomnia - better since the nocturia is in better control We talked about HHC vs OP. I think she would do better as OP and recommended she consider [facility] since her regularly goes to [facility] to work out. I also recommended to her that she consider starting an exercise program to maintain the improved exercise tolerance she has developed while in rehab. It will also help with osteoporosis. She should have q DEXA as an OP post DC to evaluate bone density. STROKE Vital Signs/Narrative: Vital Signs Temp Pulse Resp BP Pulse Ox 06/13/20 09:53 97.8 F 72 16 154/75 H 97 06/13/20 09:03 72 Inpatient E&M: [id number] Subs Hosp L2
[2020-06-13] MEDS: Mirabegron 25 MG TAB.ER.24H PO (18:32)
[2020-06-13 19:20] VITALS: BP 133/72; PULSE 79; RESP 16; TEMP 36.8; O2SAT 96
[2020-06-13 21:07] VITALS: PULSE 70
[2020-06-14] MEDS: Acetaminophen 500 MG Tablet 1000 MG PO (05:19)
[2020-06-14 07:36] VITALS: BP 127/75; PULSE 65; RESP 18; TEMP 36.7; O2SAT 96
[2020-06-14] MEDS: Pantoprazole Sodium 40 MG Tablet PO (07:38)
[2020-06-14] MEDS: Lisinopril 10 MG Tablet PO (07:38)
[2020-06-14 07:39] VITALS: PULSE 65
[2020-06-14] MEDS: Metoprolol Tartrate 25 MG Tablet PO ×2 (07:39→19:55)
[2020-06-14] MEDS: Magnesium Chloride 64 MG Delay Rel.Tablet 128 MG PO (07:39)
[2020-06-14] MEDS: Multivitamins,Therapeutic Tablet 1 TABLET PO (07:40)
[2020-06-14] MEDS: Celecoxib 200 MG Capsule PO ×2 (07:40→19:54)
[2020-06-14] MEDS: Allopurinol 100 MG Tablet PO (07:40)
[2020-06-14] MEDS: Aspirin 81 MG TAB.CHEW PO ×2 (07:40→17:37)
[2020-06-14] MEDS: Fluticasone/Salmeterol 232-14 Inhaler 1 PUFF IH ×2 (07:43→19:54)
[2020-06-14] MEDS: Senna/Docusate Sodium 1 Tablet 2 TABLET PO ×2 (07:45→19:54)
[2020-06-14] MEDS: Calcium Carbonate 500 MG Tablet PO ×2 (09:46→17:37)
--- NOTE | 2020-06-14 09:57 | CASEMGMT ---
Addendum entered by Corrina Nieto 06/14/20 10:02: [facility] does not carry half bed rails. Referred to [facility]. Original Note: Social Work IDT met with patient for Team meeting. Discussed patient's progress in therapy and nursing. See notes for details. Explained Medicare DC date 06/18. Pt and IDT agreeable. Pt to DC home with . IDT recommending outpatient therapy. Provided options to pt - pt prefers [facility]. Referral made for PT. Pt requesting [facility] and half-bed rail. Referral made to [facility]. can transport pt. Plan: DC home with 06/18, [facility] PT, [facility] - [facility], half bed rail JANETTE ZhaoW
--- NOTE | 2020-06-14 09:58 | PCM.PN.BLA ---
Progress Note Jenniffer was seen on team rounds today her daughter Bettie was not available to participate by phone. Afebrile VSS Maintaining appropriate oxygen saturation on RA Oral intake is erratic. Discussed with nursing - no problems that need addressed Reviewed the PT/OT notes. She is ambulating up to 165 ft now. Medication list reviewed. She has no complaints today. She denies dysuria, calf pain, CP, SOB, N/V/lightheadedness. Bowels are moving well. She is sleeping better at night since she is getting up less to urinate. Alert, NAD, sitting in the chair at the bedside. Lungs - diminished, no tachypnea or conversational HRRR no calf pain with negative Ирина's and negative Isidro no rashes, no skin breakdown. Impressions 1. debility due to fall resulting in a L hip fx. S/P cemented hemiarthroplasty on 05/31/20. 2. Vitamin D insufficiency 3. Acute blood loss anemia-stable 4. Hypomagnesemia-magnesium is within normal limits on a magnesium supplement. 5. Asthma 6. Laceration of the left elbow-sutures have been removed and the laceration is intact with no periwound erythema and no purulent discharge. 7. Urinary frequency/urgency with a negative urine culture. Had significant nocturia which is improved with Myrbetriq. 8. suspected osteoporosis 9. deconditioning at admission - she is doing much better now. I have encouraged her to continue exercise 3 times a week post DC to help with bone loss and maintaining good exercise tolerance and better mobility. Will give a requisition for a DEXA at discharge. Continue Myrbetriq at DC. If she continues to have problems with urgency she may benefit from addition of Estrogen Vaginal Cream twice a week and/or referral to Dr. Bond. STROKE Vital Signs/Narrative: Vital Signs Temp Pulse Resp BP Pulse Ox 06/14/20 07:39 65 06/14/20 07:36 98.1 F 65 18 127/75 H 96 Inpatient E&M: [id number] Subs Hosp L2
[2020-06-14] MEDS: Mirabegron 25 MG TAB.ER.24H PO (18:27)
[2020-06-14 19:28] VITALS: BP 137/72; PULSE 81; RESP 14; TEMP 36.6; O2SAT 99
[2020-06-14 19:55] VITALS: BP 141/67; PULSE 75
[2020-06-15 07:56] VITALS: BP 152/68; PULSE 67; RESP 16; TEMP 36.7; O2SAT 97
[2020-06-15] MEDS: Calcium Carbonate 500 MG Tablet PO ×2 (08:06→16:18)
[2020-06-15] MEDS: Multivitamins,Therapeutic Tablet 1 TABLET PO (08:06)
[2020-06-15] MEDS: Aspirin 81 MG TAB.CHEW PO ×2 (08:06→16:18)
[2020-06-15] MEDS: Fluticasone/Salmeterol 232-14 Inhaler 1 PUFF IH ×2 (08:06→20:13)
[2020-06-15] MEDS: Celecoxib 200 MG Capsule PO ×2 (08:06→20:13)
[2020-06-15] MEDS: Allopurinol 100 MG Tablet PO (08:06)
[2020-06-15 08:07] VITALS: PULSE 67
[2020-06-15] MEDS: Magnesium Chloride 64 MG Delay Rel.Tablet 128 MG PO (08:07)
[2020-06-15] MEDS: Pantoprazole Sodium 40 MG Tablet PO (08:07)
[2020-06-15] MEDS: Metoprolol Tartrate 25 MG Tablet PO ×2 (08:07→20:13)
[2020-06-15] MEDS: Lisinopril 10 MG Tablet PO (08:08)
[2020-06-15] MEDS: Acetaminophen 500 MG Tablet 1000 MG PO ×2 (08:08→22:47)
[2020-06-15] MEDS: Senna/Docusate Sodium 1 Tablet 2 TABLET PO ×2 (08:08→20:14)
[2020-06-15 11:03] VITALS: BP 145/69; PULSE 58
[2020-06-15 11:04] VITALS: BP 151/71; PULSE 60
[2020-06-15 20:05] VITALS: BP 140/70; PULSE 67; RESP 16; TEMP 36.4; O2SAT 95
[2020-06-15 20:13] VITALS: BP 140/70; PULSE 67
[2020-06-15] MEDS: Mirabegron 25 MG TAB.ER.24H PO (20:13)
[2020-06-16 05:01] LABS: Hematocrit 30.5 % (37-47); Hemoglobin 9.2 g/dL (12.0-15.0); Mean Corp Hgb Conc 30.2 g/dL (32-36); Mean Corpuscular Hgb 28.2 pg (27.0-32.0); Mean Corpuscular Volume 93.6 fL (81-99); Mean Platelet Vol. 9.9 fl (6.2-12.0); Platelet Count 335 K/mm3 (150-450); RBC Distribution Width CV 14.5 % (11.6-14.6); RBC Distribution Width SD 49.1 fl (35.1-43.9); Red Blood Count 3.26 M/mm3 (4.2-5.4); White Blood Count 7.4 K/mm3 (4.4-11.0)
[2020-06-16 05:15] LABS: Anion Gap 6 (5-15); BUN 20 mg/dL (7-18); BUN/Creat Ratio 24.2 RATIO (10-20); Calcium,Total 8.7 mg/dL (8.5-10.1); Chloride 109 mmol/L (98-107); Creatinine, Serum 0.83 mg/dL (0.55-1.02); EST Glomerular Filtration Rate 70 mL/min (>60); Est Glom Filt Rate - Afr Amer 85 mL/min (>60); Estimated Creatinine Clearance 40.79 ml/min; Glucose 99 mg/dL (74-106); Potassium 4.1 mmol/L (3.5-5.1); Sodium Level 141 mmol/L (136-145)
[2020-06-16] MEDS: Acetaminophen 500 MG Tablet 1000 MG PO ×2 (07:11→16:20)
[2020-06-16 07:17] VITALS: BP 127/67; PULSE 76; RESP 16; TEMP 36.5; O2SAT 95
[2020-06-16] MEDS: Lisinopril 10 MG Tablet PO (09:14)
[2020-06-16] MEDS: Magnesium Chloride 64 MG Delay Rel.Tablet 128 MG PO (09:14)
[2020-06-16] MEDS: Multivitamins,Therapeutic Tablet 1 TABLET PO (09:15)
[2020-06-16] MEDS: Allopurinol 100 MG Tablet PO (09:15)
[2020-06-16] MEDS: Celecoxib 200 MG Capsule PO ×2 (09:15→20:01)
[2020-06-16] MEDS: Calcium Carbonate 500 MG Tablet PO ×2 (09:15→16:02)
[2020-06-16 09:16] VITALS: PULSE 72
[2020-06-16] MEDS: Aspirin 81 MG TAB.CHEW PO ×2 (09:16→16:02)
[2020-06-16] MEDS: Metoprolol Tartrate 25 MG Tablet PO ×2 (09:16→20:02)
[2020-06-16] MEDS: Pantoprazole Sodium 40 MG Tablet PO (09:17)
[2020-06-16] MEDS: Fluticasone/Salmeterol 232-14 Inhaler 1 PUFF IH ×2 (09:17→20:01)
[2020-06-16] MEDS: Senna/Docusate Sodium 1 Tablet 2 TABLET PO ×2 (09:20→20:02)
[2020-06-16] MEDS: Mirabegron 25 MG TAB.ER.24H PO (19:01)
[2020-06-16 19:06] VITALS: BP 117/59; PULSE 69; RESP 16; TEMP 36.8; O2SAT 96
[2020-06-16 20:02] VITALS: PULSE 65
[2020-06-16 20:03] VITALS: PULSE 60; RESP 16; O2SAT 99
[2020-06-17] MEDS: Magnesium Chloride 64 MG Delay Rel.Tablet 128 MG PO (08:03)
[2020-06-17] MEDS: Aspirin 81 MG TAB.CHEW PO ×2 (08:03→17:38)
[2020-06-17] MEDS: Allopurinol 100 MG Tablet PO (08:03)
[2020-06-17] MEDS: Calcium Carbonate 500 MG Tablet PO ×2 (08:03→17:38)
[2020-06-17] MEDS: Multivitamins,Therapeutic Tablet 1 TABLET PO (08:03)
[2020-06-17] MEDS: Acetaminophen 500 MG Tablet 1000 MG PO ×2 (08:07→20:49)
[2020-06-17 08:08] VITALS: PULSE 70
[2020-06-17] MEDS: Fluticasone/Salmeterol 232-14 Inhaler 1 PUFF IH ×2 (08:08→20:50)
[2020-06-17] MEDS: Metoprolol Tartrate 25 MG Tablet PO ×2 (08:08→20:49)
[2020-06-17] MEDS: Celecoxib 200 MG Capsule PO ×2 (08:08→20:48)
[2020-06-17] MEDS: Senna/Docusate Sodium 1 Tablet 2 TABLET PO ×2 (08:09→20:48)
[2020-06-17] MEDS: Lisinopril 10 MG Tablet PO (08:09)
[2020-06-17] MEDS: Pantoprazole Sodium 40 MG Tablet PO (08:09)
[2020-06-17 09:00] VITALS: BP 150/68; PULSE 61; RESP 16; TEMP 36.7; O2SAT 97
[2020-06-17] MEDS: Mirabegron 25 MG TAB.ER.24H PO (18:06)
[2020-06-17 18:58] VITALS: BP 134/58; PULSE 71; RESP 16; TEMP 36.7; O2SAT 99
[2020-06-17 20:49] VITALS: BP 134/58; PULSE 71
[2020-06-17 20:59] VITALS: PULSE 71; O2SAT 99
[2020-06-18] MEDS: Lisinopril 10 MG Tablet PO (07:28)
[2020-06-18] MEDS: Senna/Docusate Sodium 1 Tablet 2 TABLET PO (07:28)
[2020-06-18] MEDS: Fluticasone/Salmeterol 232-14 Inhaler 1 PUFF IH (07:28)
[2020-06-18 07:29] VITALS: PULSE 68
[2020-06-18] MEDS: Multivitamins,Therapeutic Tablet 1 TABLET PO (07:29)
[2020-06-18] MEDS: Magnesium Chloride 64 MG Delay Rel.Tablet 128 MG PO (07:29)
[2020-06-18] MEDS: Pantoprazole Sodium 40 MG Tablet PO (07:29)
[2020-06-18] MEDS: Celecoxib 200 MG Capsule PO (07:29)
[2020-06-18] MEDS: Metoprolol Tartrate 25 MG Tablet PO (07:29)
[2020-06-18] MEDS: Calcium Carbonate 500 MG Tablet PO (07:29)
[2020-06-18] MEDS: Aspirin 81 MG TAB.CHEW PO (07:29)
[2020-06-18] MEDS: Allopurinol 100 MG Tablet PO (07:30)
[2020-06-18 07:42] VITALS: BP 128/68; PULSE 68; RESP 16; TEMP 36.8; O2SAT 96
[2020-06-18] MEDS: Acetaminophen 500 MG Tablet 1000 MG PO (08:05)
--- NOTE | 2020-06-18 11:53 | PCM.DC ---
- Discharge Diagnoses Current Active Problems: Current Active and Chronic Problems (Last Reviewed 06/04/20 @ 17:[address] Ilene Lorenzana DO) Closed left hip fracture (Acute) Laceration of left elbow (Acute) Accidental fall (Acute) PAF (paroxysmal atrial fibrillation) (Chronic) Allergic rhinitis (Chronic) Gout (Chronic) Chronic asthma (Chronic) CKD (chronic kidney disease), stage III (Chronic) Acute blood loss anemia (Acute) Missing teeth, acquired (Chronic) Pain in toe of left foot (Acute) Pain in toe of right foot (Acute) Nail dystrophy (Acute) Chest pain (Acute) Essential (primary) hypertension (Chronic) You will use the following diet at home:: Regular - no added salt, Other - Please try and drink at least 1500 cc's (50 ounces) of fluid a day. Your food should be the consistency of: Regular Your liquids should be the consistency of: Regular/Thin Discharge Activity: May Not Drive, May not drive while taking narcotic pain medications., May Shower, Use Walker Weight Bearing Status: Full weight bearing Keep extremity elevated above heart level: Left Leg Call your doctor if your incision/area has: Increased Pain/ Swelling, Increased Redness, Foul Smelling Discharge, Swelling at the incision site Call your doctor if you observe: Fever of 101 or Higher, Coldness, Increased Pain - left leg, Numbness or Tingling - of the left leg, Inability to urinate, Inability to have a bowel movement, Shortness of breath, Dizziness, Fainting spells, Chest pain, Increased palpitations (irregular heartbeat), Calf discomfort, Uncontrolled pain Suture Line Care: Avoid Pulling/Pushing, Avoid Pinching/Bending Cleanse incision/area with: Soap & Water Instructions: Hip Precautions Additional Instructions: 1. Your magnesium was low and your potassium was borderline low. Both potassium and magnesium are important in preventing atrial fibrillation. We like to keep the potassium above 4 and the Mag above 2. Your last potassium was 4.1 with the supplement I started you on and the last magnesium was 2.3 on the magnesium supplement. It was 1.4 before the supplement was started. 2. The medication we are using at night to cut down on the number of times you get up at night to urinate is Myrbetriq. I gave you a prescription for it. Caffeine increases bladder irritability so keep the coffee or tea down to one cup a day. If you continue to have problems with urination there is a urologist named Dr. Penelope Bond who treats only women. Her office is in the hospital. She is very good at her job and very nice. you would like her. 3. Orthopedics likes to use 1 baby aspirin twice a day for a month after hip surgery to help prevent blood clots. You can decrease back to 1 baby aspirin a day on 07/03/20. 4. You calcium is a tad low so I want you to take 1 500 mg TUMS twice a day with meals to help keep it up. Your vitamin D was also a tad low but, you had been off the Osteo-Biflex. This medication contains 2,000 mg of Vitamin D and this will be sufficient. I am giving you a requisition to have a DEXA done. this is a test that assesses bone density. If you have osteoporosis you will need to have a medication in addition to Vitamin D and calcium to help build the bone back up and prevent fractures. 5. You have done very well in therapy. you were very short of breath with exertion and required frequent breaks with exercise to rest. I think you have not been getting enough exercise at home. Weight bearing exercise in addition to keeping you in shape helps keep the bone healthy. I recommend that you start an exercise program.....walking is good exercise, after you leave the hospital. 6. It was a pleasure meeting gera Abad and I hope your experience in rehab was a good one. Take care of yourself and stay well. If you have any questions after you leave please call me at [phone] (cell) or [phone] (office). You could also call the rehab unit at [phone]. Allergies/Adverse Reactions: Allergies No Known Allergies Allergy (Verified 05/30/20 15:57) Medications to take at Discharge Albuterol Inhaler [Ventolin Hfa] 1 - 2 puff INHALATION Q6H PRN PRN 03/26/20 Allopurinol [Zyloprim] 100 mg PO DAILYCM 03/26/20 Antiarthritic Combination No.2 [Glucosamine-Chondroitin] 900 mg PO BID 03/26/20 Fluticasone 0.05% [Flonase Nasal [place]] 1 spray NASAL PRN PRN 03/26/20 Fluticasone/Salmeterol [Advair 250-50 Diskus] 1 ea IH BID 03/26/20 Ketotifen Fumarate [Zaditor] 1 drp EACH EYE PRN PRN 03/26/20 Lisinopril [Zestril] 10 mg PO DAILY 03/26/20 Loratadine [Claritin] 10 mg PO DAILY PRN 03/26/20 Multivit-Min/Iron/Folic/Lutein [Multivitamin Women 50 Plus Tab] 1 ea PO QODAY 03/26/20 Aspirin [Aspirin, Baby] 81 mg PO BIDCM 06/03/20 Ferrous Sulfate 325 mg PO LUNCH 06/03/20 Metoprolol Tartrate 25 mg PO BID 06/03/20 Pantoprazole Sodium [Protonix] 40 mg PO DAILY 06/03/20 Acetaminophen [Tylenol] 650 mg PO Q6H PRN PRN #0 06/18/20 Calcium Carbonate [Tums] 500 mg PO BIDCM tablet 06/18/20 Celecoxib [Celebrex] 200 mg PO BID capsule 06/18/20 Magnesium Chloride [Slow-Mag] 143 mg PO DAILY #60 tablet. 06/18/20 Mirabegron [Myrbetriq] 25 mg PO 1900 #30 tab.er.24h 06/18/20 Oxycodone [Oxyir] 5 mg PO Q6H PRN PRN 7 Days #20 tablet 06/18/20 Potassium Chloride [K-Dur] 10 meq PO DAILYCM #30 tab 06/18/20 Senna/Docusate Sodium [Senokot-S] 2 tab PO BID #120 tab 06/18/20 The following prescriptions were given: Potassium Chloride [K-Dur] 10 meq PO DAILYCM #30 tab Transmission Status: Pending to DARYN HERNANDEZ ENZO SILVERMAN Mirabegron [Myrbetriq] 25 mg PO 1900 #30 tab.er.24h Transmission Status: Pending to DARYN HERNANDEZ ENZO SILVERMAN Oxycodone [Oxyir] 5 mg PO Q6H PRN PRN 7 Days #20 tablet PRN Reason: pain 5-10 Transmission Status: Received by DARYN [id number] ENZO SILVERMAN Senna/Docusate Sodium [Senokot-S] 2 tab PO BID #120 tab Transmission Status: Pending to DARYN SIMENTAL1955 GIRALDO HERRERA Magnesium Chloride [Slow-Mag] 143 mg PO DAILY #60 tablet.dr Transmission Status: Pending to DARYN HERNANDEZ GIRALDO HERRERA Primary Care Physician: Jn Robertson MD [Primary Care Provider] - Test Results: Test results from this visit will be discussed in further detail at your follow-up appointment, if applicable. Please Follow Up With: Jn Robertson MD When: Thursday Please Follow Up With: Charlie Kemp PASinghC When: Thursday Proposed Discharge Date: 06/18/20
--- NOTE | 2020-06-18 11:57 | NURSING ---
$208 returned to patient that was locked up in security.
[2020-06-18 12:30] VITALS: BP 128/68; PULSE 68; RESP 16; TEMP 36.8; O2SAT 96
--- NOTE | 2020-06-18 12:31 | DS.PCM_ITS ---
Discharge Date and Diagnosis - Problem List Patient Problems: Active and Suspected Problems (Last Reviewed 06/04/20 @ 17:[address] Ilene Lorenzana DO) Closed left hip fracture (Acute) Laceration of left elbow (Acute) Accidental fall (Acute) Acute blood loss anemia (Acute) Pain in toe of left foot (Acute) Pain in toe of right foot (Acute) Nail dystrophy (Acute) Chest pain (Acute) Atrial fibrillation with rapid ventricular response (Suspected 03/26/20) Date of Admission: 06/03/20 Date of Discharge: 06/18/20 - Primary Discharge Diagnosis Acute Problems: Active Problems (Last Reviewed 06/04/20 @ 17:[address] Ilene Lorenzana DO) Physical debility secondary to a recent fall resulting in a left hip fracture which required open reduction and internal fixation Closed left hip fracture (Acute) due to a fall Laceration of left elbow (Acute) - closed with 2 sutures that have since been removed Accidental fall (Acute) Acute blood loss anemia (Acute) Hypomagnesemia Vitamin D insufficiency Suspected Problems: Suspected Problems (Last Reviewed 06/04/20 @ 17:[address] Ilene Lorenzana DO) Atrial fibrillation with rapid ventricular response (Suspected 03/26/20) Osteoporosis - Secondary Discharge Diagnosis Chronic Problems: Chronic Problems (Last Reviewed 06/04/20 @ 17:[address] Ilene Lorenzana DO) Physical deconditioning (Chronic) Urinary frequency (Chronic) PAF (paroxysmal atrial fibrillation) (Chronic) Allergic rhinitis (Chronic) Gout (Chronic) Chronic asthma (Chronic) Missing teeth, acquired (Chronic) Essential (primary) hypertension (Chronic) Vitamin D deficiency Hospital Course and Treatment Imaging Results: Laboratory Last Values WBC 7.4 K/mm3 (4.4-11.0) 06/16/20 04:50 RBC 3.26 M/mm3 (4.2-5.4) L 06/16/20 04:50 Hgb 9.2 g/dL (12.0-15.0) L 06/16/20 04:50 Hct 30.5 % (37-47) L 06/16/20 04:50 MCV 93.6 fL (81-99) 06/16/20 04:50 MCH 28.2 pg (27.0-32.0) 06/16/20 04:50 MCHC 30.2 g/dL (32-36) L 06/16/20 04:50 RDW Std Deviation 49.1 fl (35.1-43.9) H 06/16/20 04:50 RDW Coeff of T[place]ani 14.5 % (11.6-14.6) 06/16/20 04:50 Plt Count 335 K/mm3 (150-450) 06/16/20 04:50 MPV 9.9 fl (6.2-12.0) 06/16/20 04:50 Sodium 141 mmol/L (136-145) 06/16/20 04:50 Potassium 4.1 mmol/L (3.5-5.1) 06/16/20 04:50 Chloride 109 mmol/L (98-107) H 06/16/20 04:50 Carbon Dioxide 26.0 mmol/L (21.0-32.0) 06/16/20 04:50 Anion Gap 6 (5-15) 06/16/20 04:50 BUN 20 mg/dL (7-18) H 06/16/20 04:50 Creatinine 0.83 mg/dL (0.55-1.02) 06/16/20 04:50 Estim Creat Clear Calc 40.79 ml/min 06/16/20 04:50 Est GFR (MDRD) Af Amer 85 mL/min (>60) 06/16/20 04:50 Est GFR (MDRD) Non-Af 70 mL/min (>60) 06/16/20 04:50 BUN/Creatinine Ratio 24.2 RATIO (10-20) H 06/16/20 04:50 Glucose 99 mg/dL (74-106) 06/16/20 04:50 Hemoglobin A1c 5.6 % (3.8-5.6) 06/05/20 05:17 Calcium 8.7 mg/dL (8.5-10.1) 06/16/20 04:50 Phosphorus 3.1 mg/dL (2.5-4.9) 06/05/20 05:17 Magnesium 2.3 mg/dL (1.6-2.6) 06/11/20 05:54 Vitamin D 25-Hydroxy 24.1 ng/mL 06/05/20 11:55 Urine Color Yellow (Yellow) 06/07/20 16:45 Urine Clarity Clear (Clear) 06/07/20 16:45 Urine pH 5.0 (5.0 - 8.0) 06/07/20 16:45 Ur Specific [place] 1.010 (1.002-1.030) 06/07/20 16:45 Urine Protein 15 mg/dl (Negative) H 06/07/20 16:45 Urine Glucose (UA) Normal mg/dl (Normal) 06/07/20 16:45 Urine Ketones 5 mg/dl (Negative) H 06/07/20 16:45 Urine Occult Blood 10 /ul (Negative) H 06/07/20 16:45 Urine Nitrite Negative (Negative) 06/07/20 16:45 Urine Bilirubin 1 mg/dL (Negative) H 06/07/20 16:45 Urine Urobilinogen 4 mg/dl (Normal) H 06/07/20 16:45 Ur Leukocyte Esterase 100 /ul (Negative) H 06/07/20 16:45 Urine RBC 0 SEEN /hpf (0-5) 06/07/20 16:45 Urine WBC 0-5 SEEN /hpf (0-5) 06/07/20 16:45 Ur Squamous Epith Cells 0-5 SEEN /hpf (5-10) 06/07/20 16:45 Urine Bacteria 0 SEEN /hpf (None Seen) 06/07/20 16:45 Urine Mucus 0 SEEN /hpf (<or=2+) 06/07/20 16:45 Microbiology 06/07/20 16:45 Urine, Random Urine Culture - Final Culture exhibits no growth. 06/10/20 07:00 Stool Stool Occult Blood (LISETH) - Final negative none Operations: - - Left hip hemiarthroplasty 05/31/2020 Procedures: None Summary of Care Provided: Jenniffer Galeana is an 79 YO F with a PMH of obesity, paroxysmal atrial fibrillation (not anticoagulated), allergic rhinitis, gout, GERD, osteoarthritis, nonocclusive coronary artery disease, asthma and HTN who presented to the ED at [facility] on 05/30/20 c/o Left hip pain after a fall. The fall occurred while she was moving a piece of furniture causing her to lose her balance and fall on her left side. She also had Left elbow pain. X-ray of the left hip showed an acute impacted left femoral neck fracture with varus angulation of the fracture segments. She had no fracture of the LUE but she did sustain a laceration requiring 2 sutures in the ED. She was seen in consultation by Dr. Moy and on 05/31/20 she had a cemented hemiarthroplasty of the left hip. Post operative course was unremarkable and she was transferred to the inpatient acute rehab unit on 06/03/20 for > 3 hours of therapy daily to restore her at or near her prior level of function/independence. She lives with her significant other in a 3 story home and has 2-6 entry steps depending on which entrance she goes in. She has a stair lift at home to get to the lower level of the house where the laundry is. She has a wheeled walker and straight cane at home and also a comfort height commode, shower chair and grab bars in the tub/shower. Initially Jenniffer was quite weak and deconditioned. she does not routinely exercise. She was only able to ambulate short distances and she needed a WC follow. she needed frequent rest breaks. She had a lot of pain initially and she was using Oxycodone. She continued to have pain despite the addition of Tylenol 1,000 mg every 8 hours to her drug regimen. She was taken off Celebrex when she entered the hospital and also off Osteo-Biflex which she takes BID at home for OA. When we restarted Celebrex and Osteo-Biflex she no longer needed Oxycodone. Hemoglobin at admission to the hospital on 05/30/2020 was 13.4 and when she was admitted to rehab the hemoglobin was 8.2. HGB at DC was 9.2. A hemoccult stool was negative. Potassium was 3.7 at admission and the mag was low at 1.4. she was started on potassium 10 MEQ daily and Slo-mag 128 mg daily in light of the history of PAF. K prior to DC was 4.1 and the Mag was 2.3. GFR ranged from 70-84 during her time in rehab and this is not consistent with CRF stage 3. Vitamin D was low at 24.1 but, she had not been taking the osteo- Biflex for a few days prior to the Vitamin D being checked. The Osteo-Biflex contains 2,000 IU of Vitamin D. Calcium corrected for hypoalbuminemia was low normal and she was started on a calcium supplement. She has not had a BMD in several years and she was given a requisition to obtain one post DC. Jenniffer worked hard in therapy and her exercise tolerance gradually improved. Prior to discharge she was ambulating 120 to 165 feet using a wheeled walker at standby assist on various surfaces. She was able to a ascend and descend 5 steps then 1 curb step at standby assist. She was modified independent with grooming, upper body dressing, lower body dressing, toileting and toileting transfer. She was supervision/set up for tub/shower transfer and bathing. Vital signs at the time of discharge were temp 98.2, pulse rate 68, blood pressure 128/68, respiratory rate 16 and she was 96% saturated on room air. She has appointments to follow-up with Paul Hopson and Dr. Robertson on Thursday06/19/20. Alert, NAD, sitting in the chair at the bedside. Lungs - diminished, no tachypnea or conversational HRRR, no gallop, no ectopy abd - soft and NT with normal BS's no calf pain with negative Ирина's and negative Isidro no rashes, no skin breakdown. no focal neurologic deficits This note was generated with [employer] dictation software. It may contain incorrect words, spelling, and punctuation that were not noted in checking the note before signing. Patient Problems: Active and Suspected Problems (Last Reviewed 06/04/20 @ 17:[address] Ilene Lorenzana, DO) Closed left hip fracture (Acute) Laceration of left elbow (Acute) Accidental fall (Acute) Acute blood loss anemia (Acute) Pain in toe of left foot (Acute) Pain in toe of right foot (Acute) Nail dystrophy (Acute) Chest pain (Acute) Atrial fibrillation with rapid ventricular response (Suspected 03/26/20) - Physical Exam Vitals/I&O's: Vital Signs Temp Pulse Resp BP Pulse Ox 98.2 F 68 16 128/68 H 96 06/18/20 07:42 06/18/20 07:42 06/18/20 07:42 06/18/20 07:42 06/18/20 07:42 Oxygen Delivery Method Room Air Weight: 182 lb 15.739 oz Body Mass Index (BMI) 34.6 Intake and Output for Last 24 Hours 06/16/20 06/17/20 06/18/20 23:59 23:59 23:59 Intake Total 1580 / 1580 1180 / 1180 1080 / 1080 Output Total 200 / 200 Balance 1580 / 1580 1180 / 1180 880 / 880 Current Medications Acetaminophen (Acetaminophen 500 Mg Tablet) 1,000 mg PO Q6H PRN PRN PRN Reason: Pain 1-10 or Fever Last Admin: 06/18/20 08:05 Dose: 1,000 mg Documented by: Albuterol Sulfate (Albuterol Sulfate 8 Gm Inhaler (60 Puffs)) 1 - 2 puff INHALATION Q6H PRN PRN PRN Reason: SOB &/OR WHEEZING Allopurinol ([facility] 100 Mg Tablet) [facility] Last Admin: 06/18/20 07:30 Dose: 100 mg Documented by: Aspirin (Aspirin 81 Mg Tab.Chew) [facility] Last Admin: 06/18/20 07:29 Dose: 81 mg Documented by: Bisacodyl (Bisacodyl 10 Mg Suppository) 10 mg RECTAL .PRN X 1 PRN PRN Reason: Constipation Last Admin: 06/10/20 06:15 Dose: 10 mg Documented by: Calcium Carbonate (Calcium Carbonate 500 Mg Tablet) [facility] Last Admin: 06/18/20 07:29 Dose: 500 mg Documented by: Celecoxib (Celecoxib 200 Mg Capsule) 200 mg PO BID [facility] Last Admin: 06/18/20 07:29 Dose: 200 mg Documented by: Fluticasone Propionate (Fluticasone 0.05% 1 [place] Nasal.Sry) 1 spray NASAL DAILY PRN PRN PRN Reason: ALLERGIES Lisinopril (Lisinopril 10 Mg Tablet) 10 mg PO DAILY [facility] Last Admin: 06/18/20 07:28 Dose: 10 mg Documented by: Magnesium Chloride (Magnesium Chloride 64 Mg Delay Rel.Tablet) 128 mg PO DAILY [facility] Last Admin: 06/18/20 07:29 Dose: 128 mg Documented by: Magnesium Hydroxide (Magnesium Hydroxide 30 Ml Udc) 30 ml PO .PRN X 1 PRN PRN Reason: Constipation Last Admin: 06/09/20 20:10 Dose: 30 ml Documented by: Metoprolol Tartrate (Metoprolol Tartrate 25 Mg Tablet) 25 mg PO BID [facility] Last Admin: 06/18/20 07:29 Dose: 25 mg Documented by: Mirabegron (Mirabegron 25 Mg Tab.Er.24h) 25 mg PO 1900 [facility] Last Admin: 06/17/20 18:06 Dose: 25 mg Documented by: Multivitamins (Multivitamins,Therapeutic Tablet) 1 tablet PO DAILYCM [facility] Last Admin: 06/18/20 07:29 Dose: 1 tablet Documented by: Pantoprazole Sodium (Pantoprazole Sodium 40 Mg Tablet) 40 mg PO DAILY [facility] Last Admin: 06/18/20 07:29 Dose: 40 mg Documented by: Potassium Chloride (Potassium Chloride 10 Meq Tablet) 10 meq PO DAILYCM [facility] Last Admin: 06/18/20 07:29 Dose: 10 meq Documented by: Fluticasone/Salmeterol (Fluticasone/Salmeterol 232-14 Inhaler) 1 puff IH BID [facility] Last Admin: 06/18/20 07:28 Dose: 1 puff Documented by: Senna/Docusate Sodium (Senna/Docusate Sodium 1 Tablet) 2 tablet PO BID [facility] Last Admin: 06/18/20 07:28 Dose: 2 tablet Documented by: Trazodone HCl (Trazodone 50 Mg Tablet) 50 mg PO QHS PRN PRN PRN Reason: INSOMNIA Last Admin: 06/08/20 20:36 Dose: 50 mg Documented by: Discharge Activity: May Not Drive, May not drive while taking narcotic pain medications., May Shower, Use Walker Weight Bearing Status: Full weight bearing Keep extremity elevated above heart level: Left Leg Call your doctor if your incision/area has: Increased Pain/ Swelling, Increased Redness, Foul Smelling Discharge, Swelling at the incision site Call your doctor if you observe: Fever of 101 or Higher, Coldness, Increased Pain - left leg, Numbness or Tingling - of the left leg, Inability to urinate, Inability to have a bowel movement, Shortness of breath, Dizziness, Fainting spells, Chest pain, Increased palpitations (irregular heartbeat), Calf discomfort, Uncontrolled pain Suture Line Care: Avoid Pulling/Pushing, Avoid Pinching/Bending Cleanse incision/area with: Soap & Water Home Medications: Medications to take at Discharge Albuterol Inhaler [Ventolin Hfa] 1 - 2 puff INHALATION Q6H PRN PRN 11/09/20 Allopurinol [Zyloprim] 100 mg PO DAILYCM 03/26/20 Antiarthritic Combination No.2 [Glucosamine-Chondroitin] 900 mg PO BID 03/26/20 Fluticasone 0.05% [Flonase Nasal [place]] 1 spray NASAL PRN PRN 03/26/20 Fluticasone/Salmeterol [Advair 250-50 Diskus] 1 ea IH BID 03/26/20 Ketotifen Fumarate [Zaditor] 1 drp EACH EYE PRN PRN 03/26/20 Lisinopril [Zestril] 10 mg PO DAILY 03/26/20 Loratadine [Claritin] 10 mg PO DAILY PRN 03/26/20 Multivit-Min/Iron/Folic/Lutein [Multivitamin Women 50 Plus Tab] 1 ea PO QODAY 03/26/20 Aspirin [Aspirin, Baby] 81 mg PO BIDCM 06/03/20 Ferrous Sulfate 325 mg PO LUNCH 06/03/20 Metoprolol Tartrate 25 mg PO BID 06/03/20 Pantoprazole Sodium [Protonix] 40 mg PO DAILY 06/03/20 Acetaminophen [Tylenol] 650 mg PO Q6H PRN PRN #0 06/18/20 Calcium Carbonate [Tums] 500 mg PO BIDCM tab 06/18/20 Celecoxib [Celebrex] 200 mg PO BID cap 06/18/20 Magnesium Chloride [Slow-Mag] 143 mg PO DAILY #60 tablet. 06/18/20 Mirabegron [Myrbetriq] 25 mg PO 1900 #30 tab.er.24h 06/18/20 Oxycodone [Oxyir] 5 mg PO Q6H PRN PRN 7 Days #20 tab 06/18/20 Potassium Chloride [K-Dur] 10 meq PO DAILYCM #30 tab 06/18/20 Senna/Docusate Sodium [Senokot-S] 2 tab PO BID #120 tab 06/18/20 Following Prescriptions Were Given to Patient: Potassium Chloride [K-Dur] 10 meq PO DAILYCM #30 tab Transmission Status: Received by DARYN GIRALDO RD Mirabegron [Myrbetriq] 25 mg PO 1900 #30 tab.er.24h Transmission Status: Received by DARYN GIRALDO RD Oxycodone [Oxyir] 5 mg PO Q6H PRN PRN 7 Days #20 tab PRN Reason: pain 5-10 Transmission Status: Received by DARYN OREILLY ENZO SILVERMAN Senna/Docusate Sodium [Senokot-S] 2 tab PO BID #120 tab Transmission Status: Received by DARYN SIMENTAL1954 ENZO SILVERMAN Magnesium Chloride [Slow-Mag] 143 mg PO DAILY #60 tablet.dr Transmission Status: Received by DARYN SIMENTAL1954 ENZO SILVERMAN Other Amb Orders: Dexa Bone Density Study Facility: [facility], Location: [facility] Primary Care Physician: Jn Robertson MD [Primary Care Provider] - Please Follow Up With: Jn Robertson MD When: Thursday Please Follow Up With: Charlie Kemp PA-C When: Thursday Patient Instructions: Hip Precautions Disposition: Home Minutes spent on discharge:: 35 Patient Condition:: Good Medical Necessity - Tobacco Use Smoking Status: Never smoker Tobacco Use: Non-smoker Meaningful Use Info Meaningful Use Diagnoses (Choose all that apply): None applicable Inpatient E&M: 38523 Disch Hosp
== END 2020-06-18 13:00 | disposition home or self-care (01) | DRG 560 ==
LOC: RU 14:18
PROVIDERS: Admitting Provider Internal Medicine; PCP Family Medicine; Visit Provider Internal Medicine
DX: S72.012D Unspecified intracapsular fracture of left femur, subsequent encounter for closed fracture with routine healing (principal); D62 Acute posthemorrhagic anemia; W19.XXXD Unspecified fall, subsequent encounter; I48.0 Paroxysmal atrial fibrillation; E66.9 Obesity, unspecified; K21.9 Gastro-esophageal reflux disease without esophagitis; M19.90 Unspecified osteoarthritis, unspecified site; J45.909 Unspecified asthma, uncomplicated; M10.9 Gout, unspecified; S51.012D Laceration without foreign body of left elbow, subsequent encounter; N18.30 Chronic kidney disease, stage 3 unspecified; I12.9 Hypertensive chronic kidney disease with stage 1 through stage 4 chronic kidney disease, or unspecified chronic kidney disease; Z68.34 Body mass index [BMI] 34.0-34.9, adult; M79.675 Pain in left toe(s); M79.674 Pain in right toe(s); L60.3 Nail dystrophy; E55.9 Vitamin D deficiency, unspecified; I25.10 Atherosclerotic heart disease of native coronary artery without angina pectoris
CPT/HCPCS: 36415; 80048; 81001; 82274; 82306; 83036; 83735; 84100; 85014; 85018; 85027; 87086; 92507; 92523; 92610; 97110; 97116; 97162; 97166; 97530; 97535; 99251; G0463

== ENCOUNTER → 2020-11-15 11:51 | Outpatient (CLI) | payer MEDICARE, OTHER, SELFPAY ==
[2020-11-15 11:11] VITALS: BMI 32.5
[2020-11-15 13:11] LABS: BNP,B-Type NATRIURETIC PEPTIDE 272.5 pg/mL (0-100)
== END ==
PROVIDERS: PCP Family Medicine; Referring Provider Internal Medicine Cardiovascular Disease; Visit Provider Internal Medicine Cardiovascular Disease
DX: I10 Essential (primary) hypertension (principal)
CPT/HCPCS: 36415; 83880

== ENCOUNTER 2022-04-17 22:06 | Inpatient (IN) | payer MEDICARE, OTHER, SELFPAY ==
[2022-04-17 22:10] VITALS: BP 136/105; PULSE 66; RESP 16; TEMP 36.3; O2SAT 91; BMI 29.2
--- NOTE | 2022-04-17 22:48 | EX.ED.DYSGE1 ---
HPI History of Present Illness Chief Complaint: Lower Extremity Injury Narrative Narrative: 81-year-old female here with left hip pain. Patient states she fell approximately 3 weeks ago noted worsening pain today states she took an oxycodone prior to arrival. The patient also states she did not hit her head or lose consciousness. Pain is worse with movement and palpation. Pain is alleviated by rest. States she took oxycodone approxi-1 hour prior to arrival Old chart reviewed: Cemented hemiarthroplasty left hip by Dr. Moy [facility] Medical History Accidental fall Allergic rhinitis Atrial fibrillation with rapid ventricular response (03/26/20) Chronic asthma Closed left hip fracture Elevated troponin (03/26/20) Essential (primary) hypertension Gout Hypomagnesemia Laceration of left elbow Missing teeth, acquired Nail dystrophy Obesity Osteoporosis Pain in toe of left foot Pain in toe of right foot Physical deconditioning Urinary frequency Vitamin D insufficiency Home Medications albuterol sulfate 90 mcg/actuation aerosol inhaler 1 - 2 puff inhalation Q6H PRN PRN Sob &/Or Wheezing 03/26/20 [History Last Taken Unknown] allopurinol 100 mg tablet 100 mg PO DAILYCM gout 03/26/20 [History Last Taken 05/30/20] fluticasone 250 mcg-salmeterol 50 mcg/dose blistr powdr for inhalation 1 ea IH BID breathing 03/26/20 [History Last Taken 05/30/20] fluticasone propionate 50 mcg/actuation nasal spray,suspension 1 spray NASAL PRN PRN Allergies 03/26/20 [History Last Taken 1 Week Ago ~05/23/20] loratadine 10 mg tablet 10 mg PO DAILY PRN Allergies 03/26/20 [History Last Taken 03/19/20] multivit with nrrrywkp-vsft-JD-lutein 8 mg iron-400 mcg-300 mcg tablet 1 ea PO QODAY supplement 03/26/20 [History Last Taken 05/28/20] metoprolol tartrate 25 mg tablet 25 mg PO BID afib 06/03/20 [History Last Taken Unknown] celecoxib 200 mg capsule 200 mg PO BID 06/18/20 [Rx Last Taken Unknown] furosemide 40 mg tablet (Lasix) 40 mg PO DAILY #90 tabs 07/01/21 [Rx Last Taken Unknown] lisinopril 20 mg tablet 20 mg PO DAILY blood pressure #90 tabs 11/15/20 [Rx Last Taken Unknown] omeprazole 20 mg tablet,delayed release 20 mg PO DAILY PRN GERD 06/18/21 [History Last Taken Unknown] aspirin 81 mg chewable tablet 81 mg PO DAILY supplement 12/25/21 [History Last Taken Unknown] ketotifen fumarate 0.025 % (0.035 %) eye drops (Zaditor) 1 drp ophthalmic (eye) BID PRN EYES 12/25/21 [History Last Taken Unknown] prednisone 50 mg tablet 50 mg PO DAILY 5 days #5 tabs 04/18/22 [Rx Last Taken Unknown] Allergy/AdvReac Type Severity Reaction Status Date / Time No Known Allergies Allergy Verified 04/17/22 22:07 Family History Mother TIA (transient ischemic attack) Surgical History History of hemiarthroplasty of left hip (05/2020) History of left heart catheterization (03/27/20) Social History Smoking Status: Never smoker alcohol intake: never substance use type: does not use caffeine: Yes Type: coffee Number of servings: 1 and tea ROS ROS ED ROS Narrative Constitutional: Denies fever HEENT: Denies sore throat Neck: Denies neck pain Cardiovascular: Denies chest pain, syncope Respiratory: Denies shortness of breath GI: Denies nausea vomiting or abdominal pain : Denies changes in urinary habits Musculoskeletal: Endorses left hip pain Neurologic: Denies numbness weakness or loss of sensation Skin denies rash EXAM Physical Exam Narrative Exam Narrative: Primary Survey Airway: Intact Breathing: Bilateral breath sounds Circulation: Palpable bilateral femorals, Palpable bilateral radial, Palpable bilateral DP and Palpable bilateral PT Disability / Spine precautions GCS Score: Eye Openin Verbal Response: 5 Motor Response: 6 Secondary Survey Constitutional: Please see MDM Head: Atraumatic, Midface stable, NO jaw malocclusion, No Cephalohematoma, and No Lacerations noted Eye: Pupils equal round and reactive to light, Extraocular muscles intact and No periorbital ecchymosis or stepoff, no evidence of entrapment ENT: Oropharynx clear, no lacerations, no hemotympanum, no raccoon eyes or bragg sign Cervical spine / Neck: No cervical spine bony tenderness, crepitance, or stepoff deformity Trachea midline Lungs: Clear to auscultation, No asymmetric rise and No crepitus, no flail chest Cardiac: Regular rate and rhythm and No murmurs Abdomen: Soft, Nontender and No rebound Pelvis: Pelvis stable to compression : No evidence of genital injury Back: No midline bony tenderness to thoracic/lumbar/sacral spines Neuro: At baseline, intact strength and sensation in bilateral upper and lower extremities. 2+ patellar reflexes bilaterally. Intact sensation L1-S1 dermatomal distributions. Intact 5/5 strength in hip flexion (T12-L3). Knee extension (L2-L4). Ankle dorsiflexion (L4-L5) on the right, noted 4/5 strength on the left secondary to pain. Ankle plantar flexion (S1). Great toe extension (L5). 2+ patellar and Achilles DTRs. Extremities: NO gross Deformities Psych: Normal affect Nursing triage notes reviewed, Vital signs reviewed Const Vital Signs: 04/17/22 22:10 04/18/22 02:00 04/18/22 02:34 Temperature 97.4 F L 97.9 F Temperature Source Temporal Temporal Pulse Rate 66 73 73 Respiratory Rate 16 18 18 Blood Pressure 136/105 H 126/69 H 126/69 H Blood Pressure Mean 115 88 88 Pulse Ox 91 93 94 Oxygen Delivery Method Room Air Room Air Room Air MDM MDM MDM Narrative Medical decision making narrative: 81-year-old female here with left hip pain status post fall 3 weeks ago. Patient was hemodynamically stable, afebrile, nontoxic-appearing. Exam without obvious deformity however there was TTP over left hip. Obtained x-rays of the left hip and femur to rule out fracture dislocation or hardware failure. X-ray showed no evidence of acute fracture dislocation or hardware failure. \Patient was ambulated in ED but could not tolerate ambulation. Given this basic labs were ordered showed JONO and leukocytosis, mild anemia. Gave 1 L NS for fluids. Given the patient advanced age, left hip pain is intractable to oral pain medicines and her inability to ambulate will admit the patient for observation, pain control, PT OT and possible surgical consultation. Discussed with internal medicine physician Dr. Trujillo. Lab Data Labs: Laboratory Results - last 24 hr 04/18/22 04/18/22 01:55 01:55 WBC 15.5 H RBC 3.90 L Hgb 11.5 L Hct 37.8 MCV 96.9 MCH 29.5 MCHC 30.4 L RDW Std Deviation 51.7 H RDW Coeff of Tiffani 14.6 Plt Count 290 MPV 11.8 Immature Gran % (Auto) 0.600 Neut % (Auto) 71.6 H Lymph % (Auto) 17.8 L Bath % (Auto) 7.2 Eos % (Auto) 2.3 Baso % (Auto) 0.5 Absolute Neuts (auto) 11.1 H Absolute Lymphs (auto) 2.75 Nucleated RBC % 0 Sodium 142 Potassium 4.3 Chloride 109 H Carbon Dioxide 25.0 Anion Gap 8 BUN 76 H Creatinine 1.91 H Estim Creat Clear Calc 17.14 Est GFR (MDRD) Af Amer 32 L Est GFR (MDRD) Non-Af 27 L BUN/Creatinine Ratio 39.8 H Glucose 106 Calcium 9.6 Radiography Diagnostic Testing: Clinical Impression(s) from Imaging Studies Femur X-Ray 04/17/22 23:12 IMPRESSION: Severe degenerative changes of the left knee. No acute bony abnormality. Electronically Signed: Merlin Patterson MD at 23:56 EST , Treatment and Re-Evaluation Narrative: Patient is ambulatory and appropriate for discharge home. Discharge Plan Dx/Rx/DC Orders Clinical Impression: Acute pain of left hip, Status post hip replacement Disposition Disposition: Acute Care Hospital [facility]
--- NOTE | 2022-04-17 23:12 | RAD_ITS ---
INDICATION: Left hip pain EXAMINATION/TECHNIQUE: X-RAY - LEFT XR Femur Min 2 Views 2 VIEWS COMPARISON: 05/31/2020 FINDINGS: SOFT TISSUES: No soft tissue swelling or gas. Stable appearance and orientation left hip prosthesis. BONES/JOINTS: No acute fracture or pathologic lucency. Severe degenerative changes of the knee joint. No sclerotic or destructive changes observed. RAD/Femur Min 2 Views IMPRESSION: Severe degenerative changes of the left knee. No acute bony abnormality. Electronically Signed: Merlin Patterson MD at 23:56 EST ,
[2022-04-18] VITALS (11 sets, daily range): BP systolic 112–146; BP diastolic 45–96; PULSE 70–98; RESP 12–20; TEMP 36.6–36.9; O2SAT 93–100; BMI 26.9
[2022-04-18 02:02] LABS: Absolute Lymphocyte Count 2.75 X10^3/uL (0.83-4.51); Absolute Neutrophil Count 11.1 X10^3/uL (2.0-7.7); Basophil# 0.07 X10^3/uL; Basophil% 0.5 % (0-1); Eosinophil# 0.35 X10^3/uL; Eosinophils% 2.3 % (0-5); Hematocrit 37.8 % (37-47); Hemoglobin 11.5 g/dL (12.0-15.0); Lymphocyte # 2.75 X10^3/ul (0.83-4.51); Lymphocyte % 17.8 % (19-41); Mean Corp Hgb Conc 30.4 g/dL (32-36); Mean Corpuscular Hgb 29.5 pg (27.0-32.0); Mean Corpuscular Volume 96.9 fL (81-99); Mean Platelet Vol. 11.8 fl (6.2-12.0); Monocyte# 1.11 X10^3/uL; Monocyte% 7.2 % (0-10); NRBC Flagged by Analyzer 0 % (0-5); Neutrophil % 71.6 % (47-70); Platelet Count 290 K/mm3 (150-450); RBC Distribution Width CV 14.6 % (11.6-14.6); RBC Distribution Width SD 51.7 fl (35.1-43.9); White Blood Count 15.5 K/mm3 (4.4-11.0)
[2022-04-18 02:28] LABS: Anion Gap 8 (5-15); BUN 76 mg/dL (7-18); BUN/Creat Ratio 39.8 RATIO (10-20); Calcium,Total 9.6 mg/dL (8.5-10.1); Chloride 109 mmol/L (98-107); Creatinine, Serum 1.91 mg/dL (0.55-1.02); EST Glomerular Filtration Rate 27 mL/min (>60); Est Glom Filt Rate - Afr Amer 32 mL/min (>60); Estimated Creatinine Clearance 17.14 ml/min; Glucose 106 mg/dL (74-106); Potassium 4.3 mmol/L (3.5-5.1); Sodium Level 142 mmol/L (136-145)
--- NOTE | 2022-04-18 02:49 | HP.PCM.HOS_ITS ---
HPI - General General Date of Admission: 04/18/22 Date of Service: 04/18/22 Chief Complaint: left hip pain HPI Narrative HONEY FERNANDES, is a 81 F with a significant history of left hip replacement in May 2020; and who fell 3 to 4 weeks ago presenting to the emergency department with excruciating left hip pain that started about 24 hours prior to presentation. The pain worsens with movement and improves with rest. The pain radiates from the left groin to just above her left knee. Patient reports bilateral leg swelling. Patient was treated at the emergency department and the plan was to discharge her. However, patient's reported that patient could not walk. Therefore an attempt was made to ambulate the patient and indeed patient could not walk. Lab work for admission was ordered. Lab work revealed elevation in creatinine and elevation in white count. [facility] Medical History Accidental fall Allergic rhinitis Atrial fibrillation with rapid ventricular response (03/26/20) Chronic asthma Closed left hip fracture Elevated troponin (03/26/20) Essential (primary) hypertension Gout Hypomagnesemia Laceration of left elbow Missing teeth, acquired Nail dystrophy Obesity Osteoporosis Pain in toe of left foot Pain in toe of right foot Physical deconditioning Urinary frequency Vitamin D insufficiency Home Medications albuterol sulfate 90 mcg/actuation aerosol inhaler 1 - 2 puff inhalation Q6H PRN PRN Sob &/Or Wheezing 03/26/20 [History Last Taken Unknown] allopurinol 100 mg tablet 100 mg PO DAILYCM gout 03/26/20 [History Last Taken 05/30/20] fluticasone 250 mcg-salmeterol 50 mcg/dose blistr powdr for inhalation 1 ea IH BID breathing 03/26/20 [History Last Taken 05/30/20] fluticasone propionate 50 mcg/actuation nasal spray,suspension 1 spray NASAL PRN PRN Allergies 03/26/20 [History Last Taken 1 Week Ago ~05/23/20] loratadine 10 mg tablet 10 mg PO DAILY PRN Allergies 03/26/20 [History Last Taken 03/19/20] multivit with vpiemrbn-lymf-KR-lutein 8 mg iron-400 mcg-300 mcg tablet 1 ea PO QODAY supplement 03/26/20 [History Last Taken 05/28/20] metoprolol tartrate 25 mg tablet 25 mg PO BID afib 06/03/20 [History Last Taken Unknown] celecoxib 200 mg capsule 200 mg PO BID 06/18/20 [Rx Last Taken Unknown] furosemide 40 mg tablet (Lasix) 40 mg PO DAILY #90 tabs 11/15/20 [Rx Last Taken Unknown] lisinopril 20 mg tablet 20 mg PO DAILY blood pressure #90 tabs 11/15/20 [Rx Last Taken Unknown] omeprazole 20 mg tablet,delayed release 20 mg PO DAILY PRN GERD 06/18/21 [History Last Taken Unknown] aspirin 81 mg chewable tablet 81 mg PO DAILY supplement 12/25/21 [History Last Taken Unknown] ketotifen fumarate 0.025 % (0.035 %) eye drops (Zaditor) 1 drp ophthalmic (eye) BID PRN EYES 12/25/21 [History Last Taken Unknown] prednisone 50 mg tablet 50 mg PO DAILY 5 days #5 tabs 04/18/22 [Rx Last Taken Unknown] Allergy/AdvReac Type Severity Reaction Status Date / Time No Known Allergies Allergy Verified 04/17/22 22:07 Family History Mother TIA (transient ischemic attack) Surgical History History of hemiarthroplasty of left hip (05/2020) History of left heart catheterization (03/27/20) Social History Smoking Status: Never smoker alcohol intake: never substance use type: does not use caffeine: Yes Type: coffee Number of servings: 1 and tea ROS ROS Narrative Pertinent positives and pertinent negatives as noted in HPI. All other systems were reviewed and are negative Vital Signs Vital Signs Vital Signs: 04/17/22 22:10 04/18/22 02:00 Temperature 97.4 F L Temperature Source Temporal Pulse Rate 66 73 Respiratory Rate 16 18 Blood Pressure 136/105 H 126/69 H Blood Pressure Mean 115 88 Pulse Ox 91 93 Oxygen Delivery Method Room Air Room Air Weight Weight: 72 kg Body Mass Index (BMI) 29.2 Physical Exam Narrative Physical exam: General: Well-nourished, well-developed. Head: Normocephalic, atraumatic, no tenderness Eyes: Vision is grossly intact. EOMI ENT, no trauma, moist mucous membranes, no rhinorrhea Neck: Nontender, full range of motion. CVS: Regular rate and rhythm. S1-S2 present. No murmur, gallop or rub. Respiratory : clear to auscultation bilaterally, chest wall nontender, no wheezing Abdomen: Soft, nontender, nondistended, normal bowel sounds, no masses : Deferred Back: Nontender, no CVA tenderness, no midline spinal tenderness, deformities, step-offs Extremities: Tender left hip. Reduced range of motion of left lower extremity compared to right lower extremity. 2+ edema bilateral legs. Skin: Normal color, no trauma, abrasions Neuro: Alert, oriented, cranial nerves II through XII grossly intact. Psychiatry: Normal mood. Normal affect. Not depressed. Not anxious. Results Lab / Micro Data Result Diagrams: 04/18/22 01:55 04/18/22 01:55 Labs: Laboratory Results - last 24 hr 04/18/22 01:55: WBC 15.5 H, RBC 3.90 L, Hgb 11.5 L, Hct 37.8, MCV 96.9, MCH 29.5, MCHC 30.4 L, RDW Std Deviation 51.7 H, RDW Coeff of Tiffani 14.6, Plt Count 290, MPV 11.8, Immature Gran % (Auto) 0.600, Neut % (Auto) 71.6 H, Lymph % (Aut o) 17.8 L, Alfalfa % (Auto) 7.2, Eos % (Auto) 2.3, Baso % (Auto) 0.5, Absolute N euts (auto) 11.1 H, Absolute Lymphs (auto) 2.75, Nucleated RBC % 0 04/18/22 01:55: Sodium 142, Potassium 4.3, Chloride 109 H, Carbon Dioxide 25.0, Anion Gap 8, BUN 76 H, Creatinine 1.91 H, Estim Creat Clear Calc 17.14, Est GFR (MDRD) Af Amer 32 L, Est GFR (MDRD) Non-Af 27 L, BUN/Creatinine Ratio 39.8 H, Glucose 106, Calcium 9.6 Radiology Impression Femur X-Ray 04/17/22 23:12 IMPRESSION: Severe degenerative changes of the left knee. No acute bony abnormality. Electronically Signed: Merlin Patterson MD at 23:56 EST Reading Location ID and State: [facility] / [place] Tel , Service support , Assessment & Plan Assessment/Plan (1) Acute pain of left hip: (2) JONO (acute kidney injury): PLAN: Plan Acute pain of left hip Femur x-ray was visualized and independently interpreted. No acute bony abnormality seen. Prosthetic intact. I agree with radiologist interpretation. Received prednisone at the emergency department. As needed oxycodone ordered. Tylenol ordered. PT and OT to work with patient for strengthening and balance training. Case management consult for dispositi on. 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 Creatinine on admission was 1.91. Gentle IV fluid hydration ordered. Avoid nephrotoxins. Home lisinopril, furosemide, and Celebrex held. Will continue allopurinol. Leukocytosis CBC showed white count 15.5. Likely reactive. Trend. DVT prophylaxis: Subcu heparin ordered Charges/Coding Visit Charges Inpatient E&M: 14081 Init Hosp L3
[2022-04-18] MEDS: predniSONE 20 MG Tablet 50 MG PO (02:51)
[2022-04-18] MEDS: 0.9% Normal Saline 1,000 ML 999 ML IV (02:52)
[2022-04-18] MEDS: oxyCODONE 5 MG Tablet PO ×2 (02:52→14:51)
[2022-04-18] MEDS: 0.9% Normal Saline 1,000 ML 75 ML IV ×2 (04:03→16:28)
[2022-04-18] MEDS: Acetaminophen 325 MG Tablet 650 MG PO ×2 (04:03→20:24)
[2022-04-18 04:42] LABS: Absolute Lymphocyte Count 1.49 X10^3/uL (0.83-4.51); Basophil# 0.05 X10^3/uL; Basophil% 0.4 % (0-1); Eosinophil# 0.22 X10^3/uL; Eosinophils% 1.6 % (0-5); Hematocrit 33.7 % (37-47); Hemoglobin 10.4 g/dL (12.0-15.0); Lymphocyte # 1.49 X10^3/ul (0.83-4.51); Lymphocyte % 10.9 % (19-41); Mean Corp Hgb Conc 30.9 g/dL (32-36); Mean Corpuscular Hgb 29.9 pg (27.0-32.0); Mean Corpuscular Volume 96.8 fL (81-99); Mean Platelet Vol. 11.5 fl (6.2-12.0); Monocyte# 0.84 X10^3/uL; Monocyte% 6.2 % (0-10); NRBC Flagged by Analyzer 0 % (0-5); Neutrophil # 10.95 X10^3/uL (2.7-7.7); Neutrophil % 80.3 % (47-70); Platelet Count 244 K/mm3 (150-450); RBC Distribution Width CV 14.6 % (11.6-14.6); Red Blood Count 3.48 M/mm3 (4.2-5.4); White Blood Count 13.6 K/mm3 (4.4-11.0)
[2022-04-18 05:08] LABS: Anion Gap 10 (5-15); BUN 73 mg/dL (7-18); BUN/Creat Ratio 43.2 RATIO (10-20); Calcium,Total 8.7 mg/dL (8.5-10.1); Chloride 110 mmol/L (98-107); Creatinine, Serum 1.69 mg/dL (0.55-1.02); EST Glomerular Filtration Rate 31 mL/min (>60); Est Glom Filt Rate - Afr Amer 37 mL/min (>60); Glucose 110 mg/dL (74-106); Potassium 4.1 mmol/L (3.5-5.1); Sodium Level 139 mmol/L (136-145)
[2022-04-18] MEDS: Budesonide Respules 0.5 MG/2 ML AMPUL.NEB. INHALATION ×2 (07:40→19:40)
[2022-04-18] MEDS: Albuterol 2.5 MG/3 ML VIAL.NEB. INHALATION ×3 (07:40→19:41)
[2022-04-18] MEDS: Aspirin 81 MG TAB.CHEW PO (08:35)
[2022-04-18] MEDS: Metoprolol Tartrate 25 MG Tablet PO ×2 (08:36→22:37)
[2022-04-18] MEDS: Heparin Injection (Vial) 5,000 UNIT/ML VIAL 5000 UNIT SC ×2 (08:36→22:37)
[2022-04-18] MEDS: Allopurinol 100 MG Tablet PO (08:36)
[2022-04-18] MEDS: Multivitamins,Ther W-Minerals Tablet 1 TABLET PO (08:36)
--- NOTE | 2022-04-18 09:58 | CASEMGMT ---
MARTIN JACKMAN Assessment: Face to Face with pt for initial transition planning/care coordination assessment. RN GASPER introduced self and role at [facility], pt voices understanding and consents to assessment. Pt is A/O x4 and answers all questions appropriately at this time. Pt lying in bed in no distress. Care providers, pharmacy, and demographics verified/updated. Admitting Dx: JONO, debility PCP:Marcelo Specialists:Chinmay, ortho; Courtney, cardio; Walt, checker Preferred Pharmacy: [facility] Insurance: [facility] [employer] [place] Prescription Benefit: yes LNOK: Amilcar Galeana, ; Bettie Cristóbal, dtr Living Arrangements: Pt lives with in a two story house with a ramp to enter. Pt reports she normally uses the main floor only and goes upstairs when family is present. Pt states she was I in ADL's up until 04/17 when she began having thigh pain. Pt denies concerns at home. Transportation: Pt has not driven in the past year. Pt states her transports her to medical appts. DME/HHC/SNF: Pt has a stairlift to the basement, walk in shower with grab bars on 2 of the 3 sides and at the toilet, many canes and a FWW. Pt denies hx of HHC or SNF stays. Pt states she has not been oob since being at the hospital. Pt board states x2 with walker. She is not sure if she will be able to walk or not. Pt states she cannot make a decision regarding dc plan until she gets oob. Will form plan once therapy has eval'd pt. Pt states no further concerns/needs. CM to follow. Advised pt to ask CM if any further question/concerns/needs arise, voices understanding. Pt Goal: TBD Plan: TBD
--- NOTE | 2022-04-18 14:51 | CASEMGMT ---
Social Work Consult: half-way Referral source: MARTIN JACKMAN This psychiatric social worker supervisor met with patient and patient daughter, Bettie in room. Introduced self and psychiatric social worker supervisor role. Patient agreeable to speak with this psychiatric social worker supervisor and provided verbal permission for this psychiatric social worker supervisor to speak openly with Bettie present. This psychiatric social worker supervisor broached conversation about residential placement. Patient is agreeable to residential placement. This psychiatric social worker supervisor provided patient with list of in-network penitentiary facilities that are local to patient geographical region. Patient reports that first choice is [facility] and second choice is [facility]. Patient family unsure if they are able/willing to provide transportation or not. Telephone call to Discharge planning assistancePrachi. Prachi to make referral to [place]. PLAN: alf facility. Cathy SAVAGE, MARCO
--- NOTE | 2022-04-18 15:02 | CASEMGMT ---
Discharge It Architecture Consultant This expert medical writer sent a referral to [facility] via [facility]. Will need PT/OT sent when available. Florecita MUÑIZ Carbide Operator
--- NOTE | 2022-04-18 15:31 | PCM.HOSP.N ---
Hospitalist Note Patient was seen and examined briefly today, she came in due to left hip pain, x-rays did not show any abnormality in her prosthetic joint. Patient was given prednisone by the emergency room physician this morning when she was seen in the ER, I think that it is prudent to trial her on some IV Solu-Medrol to see if this helps her left hip pain. Patient's evidently told the emergency room he was not able to take care of her due to her inability to ambulate at home due to her hip pain.
--- NOTE | 2022-04-18 15:48 | CASEMGMT ---
Discharge Teradata Architect This typewriter mechanic sent PT/OT notes to [facility]
--- NOTE | 2022-04-18 16:37 | CASEMGMT ---
Discharge Clinical Research Assistant Patient has been accepted at [facility]. Florecita MUÑIZ Program Rep
--- NOTE | 2022-04-18 17:25 | CHAPLAIN ---
Type of Pastoral Visit _x__ Initial Visit ___ Follow-up Visit ___ On-call Visit ___ General Patient Visit ___ Spiritual Assessment ___ Family Conference ___ Bereavement ___ Rapid Response ___ Code Blue ___ Other (describe below) Pastoral Care Referral From _x__ Patient _x__ Family ___ Nurse ___ Physician ___ Assistant Director Of Public Works ___ Drainman ___ Other (describe below) Sacrament/Intervention _x__ Active listening ___ Anointing ___ Taoist ___ Bereavement ___ Communion _x__ Yuridia exploration ___ _x__ Life review _x__ Prayer ___ Reconciliation ___ Sacrament of Sick _x__ Supportive presence ___ Wedding ___ Other (describe below) Pastoral Comments listening ear, time given, yuridia consideration, processing of the aging body, and prayer offered and given; this patient has a family member that is known to this divinity teacher and that person is in the room to interact and give support as well
[2022-04-18] MEDS: 0.9% Saline Lock 10 ML Syringe IV (22:37)
[2022-04-19] VITALS (9 sets, daily range): BP systolic 96–135; BP diastolic 47–85; PULSE 74–109; RESP 16–20; TEMP 36.8–37.4; O2SAT 93–97
[2022-04-19] MEDS: oxyCODONE 5 MG Tablet PO ×3 (02:52→20:13)
[2022-04-19] MEDS: 0.9% Saline Lock 10 ML Syringe IV ×3 (05:51→21:54)
[2022-04-19] MEDS: 0.9% Normal Saline 1,000 ML 75 ML IV (05:51)
[2022-04-19] MEDS: Budesonide Respules 0.5 MG/2 ML AMPUL.NEB. INHALATION ×2 (07:13→19:28)
[2022-04-19] MEDS: Albuterol 2.5 MG/3 ML VIAL.NEB. INHALATION ×3 (07:13→19:27)
[2022-04-19] MEDS: Metoprolol Tartrate 25 MG Tablet PO ×2 (09:26→21:54)
[2022-04-19] MEDS: Heparin Injection (Vial) 5,000 UNIT/ML VIAL 5000 UNIT SC ×2 (09:27→21:54)
[2022-04-19] MEDS: Allopurinol 100 MG Tablet PO (09:27)
[2022-04-19] MEDS: Aspirin 81 MG TAB.CHEW PO (09:27)
[2022-04-19 10:01] LABS: Anion Gap 6 (5-15); BUN 52 mg/dL (7-18); BUN/Creat Ratio 44.1 RATIO (10-20); Calcium,Total 9.5 mg/dL (8.5-10.1); Chloride 114 mmol/L (98-107); Creatinine, Serum 1.18 mg/dL (0.55-1.02); EST Glomerular Filtration Rate 47 mL/min (>60); Est Glom Filt Rate - Afr Amer 56 mL/min (>60); Estimated Creatinine Clearance 29.07 ml/min; Glucose 149 mg/dL (74-106); Potassium 4.3 mmol/L (3.5-5.1); Sodium Level 143 mmol/L (136-145)
--- NOTE | 2022-04-19 10:11 | CASEMGMT ---
Social Work SW called [facility] as though pt is accepted by [facility], it is unclear if they can take pt today. As per the medical secretary receptionist answering the phone, pt is not listed as a potential email on the weekend. She is going to text the admissions person and let SHANNEN know. MARCO Cano
--- NOTE | 2022-04-19 10:39 | CT_ITS ---
CT of the left hip without contrast INDICATION: Hip pain. COMPARISON: X-ray 04/17/2022 TECHNIQUE: Multiple thin section axial CT images the left hip were obtained without the administration of intravenous contrast and filmed in soft tissue and bone windows. Furthermore, multiple sagittal and coronal reconstructions were performed. Dose limiting techniques were utilized. FINDINGS: No abnormal soft tissue mass, lymphadenopathy, fluid collection. Calcified degenerated uterine fibroid in the left side of the lower uterine segment. Status post left hip hemiarthroplasty. The prosthesis appears located. No ostial lysis to suggest loosening. No acute fracture or dislocation. No lytic or blastic lesions. No large joint effusion. CT/Extremity Lower without Contra IMPRESSION: Normal left hip after hemiarthroplasty. Electronically Signed: Cortez Cleveland MD at 12:41 EST ,
--- NOTE | 2022-04-19 11:29 | CASEMGMT ---
Addendum entered by Skye Dixon 04/19/22 11:53: Social Work SW completed PAS/RR, placed PAS/RR w/results on chart along w/green sheet for weekend staff to follow. MARCO Cano Original Note: Social Work SW received a call back from Melissa at [facility], they can take pt tomorrow. SW let pt's daughter Bettie know who is in the room, pt is out of the room for a test. Bettie states she will take pt over when pt is discharged. SW will complete PAS/RR and place green sheet on the chart. MARCO Cano
--- NOTE | 2022-04-19 14:00 | NM_ITS ---
CLINICAL: 81-year-old female with history of painful left hip arthroplasty. LIMITED 99m Tc MDP THREE PHASE BONE SCINTIGRAPHY COMPARISON: CT of the left lower extremity report 04/19/2022 FINDINGS: Following the intravenous administration of 26.3 mCi of 99m Tc MDP, three-phase bone acquisitions of the pelvis reveal: 1. The flow and immediate static blood pool acquisitions demonstrate symmetric arterial and venous phase distribution of the radiopharmaceutical. 2. Delayed images depict mild increased tracer uptake identified in the lesser and greater trochanteric and distal femoral components of the painful-symptomatic left hip arthroplasty. 3. The remaining limited skeletal structures are scintigraphically unremarkable. NM/Bone Scan Three Phase IMPRESSION: 1. The mild increased tracer concentration defined in the greater and lesser trochanteric and distal femoral components of the symptomatic left hip prosthesis may represent mild loosening. The specificity of this finding is facilitated in the setting of operative intervention > 2 years prior to the current presentation. If infection is a diagnostic consideration, correlation with labeled leukocyte imaging is recommended. 2. No other scintigraphic abnormalities are defined. Electronically Signed: Cortez Lee, at 16:28 EST ,
--- NOTE | 2022-04-19 14:05 | CON.PCM.OR_ITS ---
HPI Consult Data Date of Consult: 04/19/22 HPI Narrative Reason for Consultation: Left hip pain HPI Narrative: This is an 81-year-old female who sustained a ground-level fall approximately 5 weeks ago. Patient states EMS was called at that time and she was evaluated was not taken to emergency department. She states she had no significant pain and was back to her baseline status for the last several weeks. Approximately 2 days ago, patient began noting left anterior thigh pain worsened by weightbearing. Of note, patient had a left hip hemiarthroplasty performed by Dr. Moy in May 2020. Patient states she did well in the postoperative period and was prior to ambulating with a cane. She denies history of lumbar pathology or radicular symptoms. Denies fevers, chills, nausea or vomiting, chest pain or shortness of breath. Denies any new injury over the last 2 days to explain this acute pain. [facility] Medical History Accidental fall Allergic rhinitis Atrial fibrillation with rapid ventricular response (03/26/20) Chronic asthma Closed left hip fracture Elevated troponin (03/26/20) Essential (primary) hypertension Gout Hypomagnesemia Laceration of left elbow Missing teeth, acquired Nail dystrophy Obesity Osteoporosis Pain in toe of left foot Pain in toe of right foot Physical deconditioning Urinary frequency Vitamin D insufficiency Home Medications albuterol sulfate 90 mcg/actuation aerosol inhaler 1 - 2 puff inhalation Q6H PRN PRN Sob &/Or Wheezing 03/26/20 [History Last Taken Unknown] allopurinol 100 mg tablet 100 mg PO DAILYCM gout 03/26/20 [History Last Taken 05/30/20] fluticasone 250 mcg-salmeterol 50 mcg/dose blistr powdr for inhalation 1 ea IH BID breathing 03/26/20 [History Last Taken 05/30/20] fluticasone propionate 50 mcg/actuation nasal spray,suspension 1 spray NASAL PRN PRN Allergies 03/26/20 [History Last Taken 1 Week Ago ~05/23/20] loratadine 10 mg tablet 10 mg PO DAILY PRN Allergies 03/26/20 [History Last Taken 03/19/20] multivit with qflquwqq-[id number]-ZC-lutein 8 mg iron-400 mcg-300 mcg tablet 1 ea PO QODAY supplement 03/26/20 [History Last Taken 05/28/20] metoprolol tartrate 25 mg tablet 25 mg PO BID afib 06/03/20 [History Last Taken Unknown] celecoxib 200 mg capsule 200 mg PO BID 06/18/20 [Rx Last Taken Unknown] furosemide 40 mg tablet (Lasix) 40 mg PO DAILY #90 tabs 11/15/20 [Rx Last Taken Unknown] lisinopril 20 mg tablet 20 mg PO DAILY blood pressure #90 tabs 11/15/20 [Rx Last Taken Unknown] omeprazole 20 mg tablet,delayed release 20 mg PO DAILY PRN GERD 06/18/21 [History Last Taken Unknown] aspirin 81 mg chewable tablet 81 mg PO DAILY supplement 12/25/21 [History Last Taken Unknown] ketotifen fumarate 0.025 % (0.035 %) eye drops (Zaditor) 1 drp ophthalmic (eye) BID PRN EYES 12/25/21 [History Last Taken Unknown] prednisone 50 mg tablet 50 mg PO DAILY 5 days #5 tabs 04/18/22 [Rx Last Taken Unknown] Allergy/AdvReac Type Severity Reaction Status Date / Time No Known Allergies Allergy Verified 04/17/22 22:07 Family History Mother TIA (transient ischemic attack) Surgical History History of hemiarthroplasty of left hip (05/2020) History of left heart catheterization (03/27/20) Social History Smoking Status: Never smoker alcohol intake: never substance use type: does not use caffeine: Yes Type: coffee Number of servings: 1 and tea ROS ROS Narrative 12 point review of systems obtained, negative unless otherwise noted in HPI. Vital Signs Vital Signs Vital Signs: 04/18/22 14:30 04/18/22 15:00 04/18/22 19:40 Temperature 98.0 F Temperature Source Oral Pulse Rate 87 85 Pulse Strength Respiratory Rate 18 12 Respiratory Effort Normal Non-Labored Respiratory Depth Normal Respiratory Pattern Normal Normal Blood Pressure 146/45 H Blood Pressure Mean 78 Blood Pressure Source Monitor Blood Pressure Position Semi-Fowlers Blood Pressure Location Left Arm Pulse Ox 100 Oxygen Delivery Method Room Air Room Air 04/18/22 20:30 04/18/22 22:37 04/18/22 20:45 Temperature 98.5 F Temperature Source Oral Pulse Rate 89 89 Pulse Strength Respiratory Rate 16 Respiratory Effort Normal Non-Labored Respiratory Depth Normal Respiratory Pattern Normal Blood Pressure 125/60 H 125/60 H Blood Pressure Mean 81 Blood Pressure Source Monitor Blood Pressure Position Semi-Fowlers Blood Pressure Location Left Arm Pulse Ox 99 Oxygen Delivery Method Room Air Room Air 04/18/22 22:00 04/19/22 02:35 04/19/22 07:34 Temperature 98.2 F Temperature Source Temporal Pulse Rate 109 H Pulse Strength Normal (2+) Respiratory Rate 16 Respiratory Effort Respiratory Depth Respiratory Pattern Blood Pressure 135/85 H Blood Pressure Mean 101 Blood Pressure Source Monitor Blood Pressure Position Semi-Fowlers Blood Pressure Location Left Arm Pulse Ox 97 96 Oxygen Delivery Method Room Air Room Air 04/19/22 07:34 04/19/22 08:43 04/19/22 09:26 Temperature 98.3 F Temperature Source Oral Pulse Rate 82 74 74 Pulse Strength Respiratory Rate 20 H 16 Respiratory Effort Respiratory Depth Respiratory Pattern Normal Blood Pressure 117/47 L Blood Pressure Mean 70 Blood Pressure Source Monitor Blood Pressure Position Semi-Fowlers Blood Pressure Location Left Arm Pulse Ox 95 Oxygen Delivery Method Room Air 04/19/22 12:59 Temperature Temperature Source Pulse Rate 81 Pulse Strength Respiratory Rate 17 Respiratory Effort Respiratory Depth Respiratory Pattern Normal Blood Pressure Blood Pressure Mean Blood Pressure Source Blood Pressure Position Blood Pressure Location Pulse Ox Oxygen Delivery Method Weight Weight: 147 lb 3.207 oz Body Mass Index (BMI) 26.9 Physical Exam Narrative General -A&Ox3, NAD, appears stated age. Vital signs stable, afebrile. Respiratory -normal work of breathing, no intercostal retractions. CV -pulses regular, brisk capillary refill ?4 limbs. Abdomen-soft, nontender, nondistended. No guarding, rigidity, rebound tenderness. Musculoskeletal/neurologic -full range of motion nontender throughout bilateral upper extremities, right lower extremity with full sensation and strength in all dermatomes and myotomes. No midline cervical tenderness. Left lower extremity-no obvious deformity. No pain with logroll of the left lower extremity. Nontender throughout the left knee, tibial shaft and left foot/ankle. Brisk capillary refill. Sensation intact light touch L3-S1 dermatomes. DF, PF, EHL intact. DP, PT 2+. Pelvis is stable, nontender. Skin is intact without lacerations, abrasions. No ecchymosis noted. Well-healed posterior lateral skin incision without erythema. Patient has tenderness along her IT band in the mid femur. She is unable to perform a straight leg raise. She tolerates internal extra rotation in the flexed position of her left hip. Negative heel strike. Medical Records Data Medical Nutrition Assessment Dietitian: Malnutrition Criteria Met Start: 04/18/22 11:35 Freq: Status: Active Protocol: Document 04/18/22 11:35 AG (Rec: 04/18/22 11:35 [id number]) Nutrition Malnutrition Evidence of Malnutrition Exists Yes Malnutrition (severe): Chronic Evidenced By Suboptimal Energy Intake ( Severe),Weight Loss (Severe) Clinical Problem Chronic Disease or Condition Related Malnutrition Etiology severe, chronic malnutrition related to inadequate oral intake Signs/Symptoms as evidenced by pt reports of 52.8#/26% wt loss unintentional wt loss x 1 year , estimated PO intake meeting <75% of estimated energy needs x 1 year. Status Active Problem Recommendation Dietitian Recommendations/Changes will liberalize diet to regular, no added salt given evidence of malnutrition and pt refusal of oral nutrition supplements Lab / Micro Data Result Diagrams: 04/18/22 04:21 04/19/22 09:37 Labs: Laboratory Results - last 24 hr 04/19/22 09:37: Sodium 143, Potassium 4.3, Chloride 114 H, Carbon Dioxide 23.0, Anion Gap 6, BUN 52 H, Creatinine 1.18 H, Estim Creat Clear Calc 29.07, Est GFR (MDRD) Af Amer 56 L, Est GFR (MDRD) Non-Af 47 L, BUN/Creatinine Ratio 44.1 H, Glucose 149 H, Calcium 9.5 Radiology Imp[address] Lower Extrem[address] CT 04/19/22 10:39 IMPRESSION: Normal left hip after hemiarthroplasty. Electronically Signed: Cortez Cleveland MD at 12:41 EST , Assessment & Plan Assessment/Plan (1) Acute pain of left hip: (2) Status post hip replacement: PLAN: Patient seen and examined. X-rays and CT scans reviewed. There is a small osteolytic lesion noted at the tip of the left femoral prosthesis. There is no acute fracture identified on CT scan. Concern for possible prosthetic implant loosening. Recommended three-phase bone scan for further evaluation. Okay to mobilize with touchdown weightbearing left lower extremity. I will follow-up after bone scan for further recommendations.
[2022-04-19] MEDS: Acetaminophen 325 MG Tablet 650 MG PO (20:12)
[2022-04-20] VITALS (9 sets, daily range): BP systolic 107–134; BP diastolic 44–61; PULSE 62–80; RESP 16–18; TEMP 36.4–37.1; O2SAT 94–97
[2022-04-20] MEDS: 0.9% Saline Lock 10 ML Syringe IV (05:46)
[2022-04-20] MEDS: Budesonide Respules 0.5 MG/2 ML AMPUL.NEB. INHALATION ×2 (07:30→18:48)
[2022-04-20] MEDS: Albuterol 2.5 MG/3 ML VIAL.NEB. INHALATION ×3 (07:30→18:48)
[2022-04-20] MEDS: Allopurinol 100 MG Tablet PO (08:53)
[2022-04-20] MEDS: Aspirin 81 MG TAB.CHEW PO (08:53)
[2022-04-20] MEDS: Acetaminophen 325 MG Tablet 650 MG PO ×2 (08:57→16:50)
[2022-04-20] MEDS: oxyCODONE 5 MG Tablet PO ×3 (08:59→16:51)
[2022-04-20] MEDS: Pantoprazole Sodium 20 MG Tablet PO (08:59)
[2022-04-20] MEDS: Multivitamins,Ther W-Minerals Tablet 1 TABLET PO (09:00)
[2022-04-20] MEDS: Heparin Injection (Vial) 5,000 UNIT/ML VIAL 5000 UNIT SC ×2 (09:01→21:09)
[2022-04-20] MEDS: Metoprolol Tartrate 25 MG Tablet PO ×2 (09:02→21:09)
--- NOTE | 2022-04-20 12:23 | PN.HOSP_ITS ---
Subjective Subjective The date of this entry should be 04/19/2022: Patient was seen and examined today, she is still complaining of left hip discomfort, I talked with Dr. Brown by phone today, a CT was obtained of the left hip which did not show any obvious abnormality. Dr. Brown stated that the patient needs a nuclear scan to deter mine whether the prosthesis is loose in her left femur. This is not able to be done until 04/21/2022. I talked to her daughter who was in the room today during the time my examination, patient will stay in the hospital until the nuclear scan is done, she may require surgery if it is positive for loose prosthesis. Objective Data Objective Data Vital Signs: Vital Signs Temp Pulse Resp BP Pulse Ox O2 Del Method 98.2 F 78 16 134/54 H 96 Room Air 04/20/22 08:51 04/20/22 09:02 04/20/22 08:51 04/20/22 09:02 04/20/22 08:51 04/20/22 09:00 Oxygen Delivery Method Room Air Weight: 66.769 kg Body Mass Index (BMI) 26.9 Intake & Output: Intake and Output for Last 24 Hours 04/18/22 04/19/22 04/20/22 23:59 23:59 23:59 Intake Total 2281.25 / 2281.25 2505 / 2505 Output Total 600 / 700 550 / 800 250 / 250 Balance 1681.25 / 1581.25 1955 / 1705 -250 / -250 Medical Nutrition Assessment Dietitian: Malnutrition Criteria Met Start: 04/18/22 11:35 Freq: Status: Active Protocol: Document 04/18/22 11:35 (Rec: 04/18/22 11:35 [id number]) Nutrition Malnutrition Evidence of Malnutrition Exists Yes Malnutrition (severe): Chronic Evidenced By Suboptimal Energy Intake ( Severe),Weight Loss (Severe) Clinical Problem Chronic Disease or Condition Related Malnutrition Etiology severe, chronic malnutrition related to inadequate oral intake Signs/Symptoms as evidenced by pt reports of 52.8#/26% wt loss unintentional wt loss x 1 year , estimated PO intake meeting <75% of estimated energy needs x 1 year. Status Active Problem Recommendation Dietitian Recommendations/Changes will liberalize diet to regular, no added salt given evidence of malnutrition and pt refusal of oral nutrition supplements Lab / Micro Data Result Diagrams: 04/18/22 04:21 04/19/22 09:37 Radiography Diagnostic Testing: Radiology Impression Lower Extremity CT 04/19/22 10:39 IMPRESSION: Normal left hip after hemiarthroplasty. Electronically Signed: Cortez Cleveland MD at 12:41 EST , Physical Exam Const alert, oriented x3, no apparent distress and average body habitus General Appearance: cooperative, well kempt and well developed Orientation / Consciousness: awake, oriented to person, oriented to place and oriented to time HEENT normocephalic and moist oral mucous membranes Eyes PERRL, EOMs intact bilaterally and conjunctivae normal Neck supple, no JVD and thyroid normal General: trachea midline Resp normal respiratory effort, no retractions, no use of accessory muscles and clear to auscultation bilaterally Auscultation: Negative for rales, rhonchi or wheezes Cardio regular rate, regular rhythm, S1 normal heart sound, S2 normal heart sound, no murmurs, no rub and no gallops GI normal to inspection, nondistended, normoactive bowel sounds, soft to palpation, non-tender and non-distended Extremity no clubbing, cyanosis or edema Skin no rashes or lesions noted General Skin Exam: no breakdown Neuro oriented x3, CN's II-XII intact bilaterally, no focal motor deficits and no sensory deficits noted Sensorium / Orientation: awake and alert Speech: speech normal Psych affect normal Assessment & Plan Assessment/Plan (1) Acute pain of left hip: PLAN: Plan 1. Left hip pain-etiology unclear at this point, I have decided to continue her IV Solu-Medrol 1 more day to see if this makes any difference in her hip pain. Nuclear scan was ordered for the patient, again this will be done until Thursday. Patient is already been accepted at [facility], daughter states she would prefer to go to TCU, I am not sure of a bed will be available on Thursday or Thursday of this coming week for TCU. #2 acute kidney injury-patient's creatinine is improved today, labs will be repeated as needed #3 essential hypertension-patient will remain on her present medication-pat ient's Lasix and lisinopril has been held at this time, I will reevaluate these medications tomorrow. #4 GERD-patient is on a PPI #5 paroxysmal atrial fibrillation-patient is on rate control medication, according to her cardiology notes dated 12/25/2021, patient converted to sinus rhythm in March 2020 and her anticoagulant therapy was stopped. Charges/Coding Visit Charges Inpatient E&M: 63225 Subs Hosp L2
--- NOTE | 2022-04-20 12:30 | PCM.PN.HOSP ---
Subjective Subjective Patient was seen and examined today, she continues to complain of pain in her left hip, I try to get her to flex her left hip in bed but the patient was reluctant to do this, when she flexes it even a small amount, she had pain in her left hip. Patient also complained of pain in her left knee-on x-ray she has significant arthritis in the knee. Patient is scheduled to have a nuclear scan of the left hip performed tomorrow, I have elected to stop her Solu-Medrol at this time-I do not think it is providing much relief of her left hip pain. Patient's blood pressure has been controlled, she has been off lisinopril and Lasix for now, I have elected to keep her off these medications, BMP will be repeated tomorrow. Objective Data Objective Data Vital Signs: Vital Signs Temp Pulse Resp BP Pulse Ox O2 Del Method 98.2 F 78 16 134/54 H 96 Room Air 04/20/22 08:51 04/20/22 09:02 04/20/22 08:51 04/20/22 09:02 04/20/22 08:51 04/20/22 09:00 Oxygen Delivery Method Room Air Weight: 66.769 kg Body Mass Index (BMI) 26.9 Intake & Output: Intake and Output for Last 24 Hours 04/18/22 04/19/22 04/20/22 23:59 23:59 23:59 Intake Total 2281.25 / 2281.25 2505 / 2505 Output Total 600 / 700 550 / 800 250 / 250 Balance 1681.25 / 1581.25 1955 / 1705 -250 / -250 Medical Nutrition Assessment Dietitian: Malnutrition Criteria Met Start: 04/18/22 11:35 Freq: Status: Active Protocol: Document 04/18/22 11:35 AG (Rec: 04/18/22 11:35 AG [id number]) Nutrition Malnutrition Evidence of Malnutrition Exists Yes Malnutrition (severe): Chronic Evidenced By Suboptimal Energy Intake ( Severe),Weight Loss (Severe) Clinical Problem Chronic Disease or Condition Related Malnutrition Etiology severe, chronic malnutrition related to inadequate oral intake Signs/Symptoms as evidenced by pt reports of 52.8#/26% wt loss unintentional wt loss x 1 year , estimated PO intake meeting <75% of estimated energy needs x 1 year. Status Active Problem Recommendation Dietitian Recommendations/Changes will liberalize diet to regular, no added salt given evidence of malnutrition and pt refusal of oral nutrition supplements Lab / Micro Data Result Diagrams: 04/18/22 04:21 04/19/22 09:37 Radiography Diagnostic Testing: Radiology Impression Lower Extremity CT 04/19/22 10:39 IMPRESSION: Normal left hip after hemiarthroplasty. Electronically Signed: Cortez Cleveland MD at 12:41 EST , Physical Exam Const alert, oriented x3 and no apparent distress General Appearance: cooperative, well kempt and well developed Orientation / Consciousness: awake, oriented to person, oriented to place and oriented to time HEENT normocephalic and moist oral mucous membranes Eyes PERRL, EOMs intact bilaterally and conjunctivae normal Neck supple, no JVD and thyroid normal General: trachea midline Resp normal respiratory effort, no retractions, no use of accessory muscles and clear to auscultation bilaterally Auscultation: Negative for rales, rhonchi or wheezes Cardio regular rate, regular rhythm, no murmurs, no rub and no gallops GI normal to inspection, nondistended, normoactive bowel sounds, soft to palpation, non-tender and non-distended Extremity no clubbing, cyanosis or edema Extremity Narrative: Patient has pain over her left hip on palpation, there is generalized enlargement of her left knee noted in keeping with osteoarthritis. Skin no rashes or lesions noted General Skin Exam: no breakdown Neuro oriented x3, CN's II-XII intact bilaterally, moves all extremities, no focal motor deficits and no sensory deficits noted Sensorium / Orientation: awake and alert Speech: speech normal Psych affect normal Assessment & Plan Assessment/Plan (1) Acute pain of left hip: PLAN: Plan 1. Left hip pain-etiology unclear at this point, I have decided to stop her IV Solu-Medrol. Nuclear scan was ordered for the patient, again this will be done until Thursday. Patient is already been accepted at [facility], daughter states she would prefer to go to TCU, I am not sure of a bed will be available on Thursday or Thursday of this coming week for TCU. #2 acute kidney injury-BMP will be repeated tomorrow morning #3 essential hypertension-patient will remain on her present medication-patient's Lasix and lisinopril has been held at this time, patient's blood pressure appears under control, she is receiving metoprolol 25 mg twice daily #4 GERD-patient is on a PPI #5 paroxysmal atrial fibrillation-patient is on rate control medication, according to her cardiology notes dated 12/25/2021, patient converted to sinus rhythm in March 2020 and her anticoagulant therapy was stopped. Charges/Coding Visit Charges Inpatient E&M: 64239 Subs Hosp L2
[2022-04-20] MEDS: Docusate Sodium 100 MG Capsule 200 MG PO (12:43)
[2022-04-21] VITALS (27 sets, daily range): BP systolic 74–137; BP diastolic 45–108; PULSE 65–190; RESP 15–20; TEMP 36.2–37.6; O2SAT 90–98
[2022-04-21] MEDS: Acetaminophen 325 MG Tablet 650 MG PO ×3 (02:54→18:52)
[2022-04-21] MEDS: oxyCODONE 5 MG Tablet PO ×3 (02:54→13:35)
[2022-04-21 06:39] LABS: Anion Gap 5 (5-15); BUN 46 mg/dL (7-18); BUN/Creat Ratio 50.4 RATIO (10-20); Calcium,Total 8.9 mg/dL (8.5-10.1); Chloride 112 mmol/L (98-107); Creatinine, Serum 0.91 mg/dL (0.55-1.02); EST Glomerular Filtration Rate 63 mL/min (>60); Est Glom Filt Rate - Afr Amer 76 mL/min (>60); Glucose 84 mg/dL (74-106); Potassium 3.9 mmol/L (3.5-5.1); Sodium Level 140 mmol/L (136-145)
[2022-04-21] MEDS: Albuterol 2.5 MG/3 ML VIAL.NEB. INHALATION ×2 (07:37→14:06)
[2022-04-21] MEDS: Budesonide Respules 0.5 MG/2 ML AMPUL.NEB. INHALATION (07:37)
--- NOTE | 2022-04-21 08:28 | PCM.PN.HOSP ---
Subjective Subjective Feels tired with the pain meds, pain manageable as long as she is laying still. Denies chest pain or shortness of breath. Does have some swelling in her legs which she reports is better than it was at home. Appetite poor. No other complaints today Objective Data Objective Data Vital Signs: Vital Signs Temp Pulse Resp BP Pulse Ox O2 Del Method 98.1 F 68 16 128/88 H 97 Room Air 04/21/22 02:27 04/21/22 07:37 04/21/22 07:37 04/21/22 02:27 04/21/22 07:37 04/21/22 07:37 Oxygen Delivery Method Room Air Weight: 66.769 kg Body Mass Index (BMI) 26.9 Intake & Output: Intake and Output for Last 24 Hours 04/19/22 04/20/22 04/21/22 23:59 23:59 23:59 Intake Total 2505 / 2505 1000 / 1150 150 / 150 Output Total 550 / 800 1350 / 1350 500 / 500 Balance 1955 / 1705 -350 / -200 -350 / -350 Medical Nutrition Assessment Dietitian: Malnutrition Criteria Met Start: 04/18/22 11:35 Freq: Status: Active Protocol: Document 04/18/22 11:35 AG (Rec: 04/18/22 11:35 [id number]) Nutrition Malnutrition Evidence of Malnutrition Exists Yes Malnutrition (severe): Chronic Evidenced By Suboptimal Energy Intake ( Severe),Weight Loss (Severe) Clinical Problem Chronic Disease or Condition Related Malnutrition Etiology severe, chronic malnutrition related to inadequate oral intake Signs/Symptoms as evidenced by pt reports of 52.8#/26% wt loss unintentional wt loss x 1 year , estimated PO intake meeting <75% of estimated energy needs x 1 year. Status Active Problem Recommendation Dietitian Recommendations/Changes will liberalize diet to regular, no added salt given evidence of malnutrition and pt refusal of oral nutrition supplements Lab / Micro Data Result Diagrams: 04/18/22 04:21 04/21/22 05:49 Labs: Laboratory Results - last 24 hr 04/21/22 05:49: Sodium 140, Potassium 3.9, Chloride 112 H, Carbon Dioxide 23.0, Anion Gap 5, BUN 46 H, Creatinine 0.91, Estim Creat Clear Calc 37.70, Est GFR (MDRD) Af Amer 76, Est GFR (MDRD) Non-Af 63, BUN/Creatinine Ratio 50.4 H, Glucose 84, Calcium 8.9 Physical Exam Const alert and no apparent distress Constitutional Narrative: Oriented HEENT normocephalic and head/scalp atraumatic Eyes Eyes Narrative: EOM grossly intact, anicteric Neck supple Resp normal respiratory effort and clear to auscultation bilaterally Cardio regular rate and regular rhythm GI soft to palpation, non-tender and non-distended Extremity Extremity Narrative: 1+ bilateral lower extremity pitting edema Neuro moves all extremities Neuro Narrative: No overt focal deficits appreciated Psych Psych Narrative: Cooperative Assessment & Plan Assessment/Plan (1) Acute pain of left hip: PLAN: Plan #Acute left hip pain Still unclear etiology Her IV Solu-Medrol was held Nuclear bone scan scheduled for today, further dispo pending bone scan Ortho to reevaluate after results Will need placement on discharge #JONO Unclear etiology, creatinine has improved #Essential hypertension Metoprolol Blood pressure appears controlled, Lasix and lisinopril been held #GERD On PPI #Paroxysmal atrial fibrillation On rate control with metoprolol According to cardiology notes dated 12/25/2021 she converted to sinus rhythm in March 2020 and her anticoagulant therapy was stopped #DVT ppx: Heparin subcu Barbara Lott MD Charges/Coding Visit Charges Inpatient E&M: 09034 Subs Hosp L2
[2022-04-21] MEDS: Allopurinol 100 MG Tablet PO (08:50)
[2022-04-21] MEDS: Aspirin 81 MG TAB.CHEW PO (08:50)
[2022-04-21] MEDS: Docusate Sodium 100 MG Capsule 200 MG PO (10:54)
[2022-04-21] MEDS: Heparin Injection (Vial) 5,000 UNIT/ML VIAL 5000 UNIT SC (10:54)
[2022-04-21] MEDS: Metoprolol Tartrate 5 MG/5 ML Vial IV (15:30)
--- NOTE | 2022-04-21 15:32 | EKG12_ITS ---
Test Reason : AM EKG Blood Pressure : / mmHG Vent. Rate : 064 BPM Atrial Rate : 064 BPM P-R Int : 152 ms QRS Dur : 082 ms QT Int : 410 ms P-R-T Axes : 051 024 050 degrees QTc Int : 422 ms Sinus rhythm with marked sinus arrhythmia with occasional Premature ventricular complexes Otherwise normal ECG When compared with ECG of 21-APR-2022 15:26, MANUAL COMPARISON REQUIRED, DATA IS UNCONFIRMED Confirmed by PETRA CHENG, ALLI ([id number]), editor publications MIRIAM VUONG ([id number]) on 04/23/2022 1:10:12 PM Referred By: Confirmed By:ALLI LAMBERT MD
--- NOTE | 2022-04-21 15:50 | PCM.HOSP.N ---
Hospitalist Note Called about patient reporting chest pain and was found to be tachycardic with SBP of 98. Evaluated at bedside, patient reported some chest tightness and flashing colors. Heart rate 190s. Metoprolol held this morning due to blood pressure somewhat low. EKG showed A. fib with RVR. 5 of IV Lopressor given with very slight improvement in heart rate, BP 111/89 patient feeling slightly better though still having symptoms. Amnio bolus and drip ordered with transfer to PCU. On telemetry
[2022-04-21] MEDS: Amiodarone 360 MG in Dextrose 5% Viaflo Bag 192.8 ML 33.3 MG CONT INF (16:38)
--- NOTE | 2022-04-21 17:08 | PCM.PN.ORT ---
Objective Data Objective Data Vital Signs: Vital Signs Temp Pulse Resp BP Pulse Ox O2 Del Method O2 Flow Rate 97.6 F L 168 H 18 99/49 L 98 Room Air 4 04/21/22 15:57 04/21/22 16:38 04/21/22 16:01 04/21/22 16:38 04/21/22 15:57 04/21/22 16:01 04/21/22 15:37 Oxygen Flow Rate (L/min) 4 Oxygen Delivery Method Room Air Weight: 147 lb 3.207 oz Body Mass Index (BMI) 26.9 Intake & Output: Intake and Output for Last 24 Hours 04/19/22 04/20/22 04/21/22 23:59 23:59 23:59 Intake Total 2505 / 2505 1000 / 1150 1253 / 1253 Output Total 550 / 800 1350 / 1350 800 / 800 Balance 1955 / 1705 -350 / -200 453 / 453 Medical Nutrition Assessment Dietitian: Malnutrition Criteria Met Start: 04/18/22 11:35 Freq: Status: Active Protocol: Document 04/21/22 14:11 [email or web address] (Rec: 04/21/22 14:11 [facility] [id number]) Nutrition Malnutrition Evidence of Malnutrition Exists Yes Malnutrition (severe): Chronic Evidenced By Suboptimal Energy Intake ( Severe),Weight Loss (Severe) Clinical Problem Chronic Disease or Condition Related Malnutrition Etiology severe, chronic malnutrition related to inadequate oral intake Signs/Symptoms as evidenced by pt reports of 52.8#/26% wt loss unintentional wt loss x 1 year , estimated PO intake meeting <75% of estimated energy needs x 1 year. Status Active Problem Recommendation Dietitian Recommendations/Changes will continue liberalized diet of regular, no added salt given evidence of malnutrition and pt refusal of oral nutrition supplements rec consider appetite stimulant to try to encourage increased po intake at meals. Lab / Micro Data Result Diagrams: 04/18/22 04:21 04/21/22 05:49 Labs: Laboratory Results - last 24 hr 04/21/22 05:49: Sodium 140, Potassium 3.9, Chloride 112 H, Carbon Dioxide 23.0, Anion Gap 5, BUN 46 H, Creatinine 0.91, Estim Creat Clear Calc 37.70, Est GFR (MDRD) Af Amer 76, Est GFR (MDRD) Non-Af 63, BUN/Creatinine Ratio 50.4 H, Glucose 84, Calcium 8.9 Radiography Diagnostic Testing: Radiology Impression Bone Scan Nuclear Medicine 04/19/22 14:00 IMPRESSION: 1. The mild increased tracer concentration defined in the greater and lesser trochanteric and distal femoral components of the symptomatic left hip prosthesis may represent mild loosening. The specificity of this finding is facilitated in the setting of operative intervention > 2 years prior to the current presentation. If infection is a diagnostic consideration, correlation with labeled leukocyte imaging is recommended. 2. No other scintigraphic abnormalities are defined. Electronically Signed: Cortez Lee, at 16:28 EST , Physical Exam Narrative General -A&Ox3, NAD, appears stated age. Left lower extremity-no obvious deformity. No pain with logroll of the left lower extremity. Nontender throughout the left knee, tibial shaft and left foot/ankle. Brisk capillary refill. Sensation intact light touch L3-S1 dermatomes. DF, PF, EHL intact. DP, PT 2+. Pelvis is stable, nontender. Skin is intact without lacerations, abrasions. No ecchymosis noted. Well-healed posterior lateral skin incision without erythema. Patient has tenderness along her IT band in the mid femur. She is unable to perform a straight leg raise. She tolerates internal extra rotation in the flexed position of her left hip. Negative heel strike. Assessment & Plan Assessment/Plan (1) Status post hip replacement: PLAN: Bone scan reviewed. Questionable loosening. I discussed case with my partner Dr. Godinez and we will arrange for outpatient follow-up with Dr. Godinez following discharge. No urgent surgical intervention recommended. PWB with a walker as tolerated. PT/OT. Plan of care discussed with patient and family. I will sign off at this time. Please do not hesitate to call if any questions or concerns arise. Thank you for this consultation.
--- NOTE | 2022-04-21 18:01 | ECHOD_ITS ---
Reason For Study: A. Fib Procedure This was a 2D Doppler, Color Flow transthoracic echocardiogram. Exam performed portable in ICU/CCU. Left Ventricle Normal LV size. The estimated ejection fraction is 45 %. Mild global left ventricular systolic dysfunction. Stage 2 diastolic dysfunction. There is mild global hypokinesis of the left ventricle. Right Ventricle Normal RV size. Normal systolic function. Atria The left atrium is mildly enlarged. Normal right atrium. Mitral Valve Normal mitral valve. Mild (1+) eccentric mitral valve insufficiency. Tricuspid Valve Normal tricuspid valve. Mild (1+) tricuspid valve insufficiency. Pulmonary artery systolic pressure is 43 mmHg. Aortic Valve Trisinus/trileaflet aortic valve. Mild focal aortic valve calcification. Mild (1+) aortic valve insufficiency. Pulmonic Valve Normal pulmonic valve. Great Vessels Normal aortic root. The pulmonary artery is normal size. Normal inferior vena cava. Pericardium/Pleural No pericardial effusion. MMode/2D Measurements & Calculations LVIDd: 4.8 cm IVSd: 0.88 cm LVOT diam: 2.0 cm LVIDs: 3.6 cm LVPWd: 0.79 cm LVOT area: 3.1 cm2 RVDd: 3.7 cm FS: 24.6 % LAV(MOD-bp): 80.5 ml LVAd ap4: 26.0 cm2 LVAd ap2: 28.5 cm2 LAV(MOD-bp) Indexed: 46.3 ml/m2 LVLd ap4: 7.2 cm LVLd ap2: 7.4 cm LAV(MOD-sp2): 80.1 ml EDV(MOD-sp4): 76.4 ml EDV(MOD-sp2): 92.4 ml LAV(MOD-sp4): 76.7 ml EDV(sp4-el): 79.2 ml EDV(sp2-el): 93.9 ml LVAs ap4: 17.5 cm2 LVAs ap2: 18.8 cm2 LVLs ap4: 6.7 cm LVLs ap2: 6.6 cm ESV(MOD-sp4): 38.9 ml ESV(MOD-sp2): 45.3 ml ESV(sp4-el): 39.0 ml ESV(sp2-el): 45.5 ml EF(MOD-sp4): 49.1 % EF(MOD-sp2): 50.9 % EF(sp4-el): 50.8 % SV(MOD-sp4): 37.5 ml SV(MOD-sp2): 47.1 ml SV(sp4-el): 40.3 ml LA dimension(2D): 2.9 cm LA A4 area: 24.0 cm2 RA A4 area: 21.4 cm2 Time Measurements MV dec time: 0.15 sec Doppler Measurements & Calculations MV E max bryan: 86.3 cm/sec Lat Peak E' Bryan: 11.0 cm/sec Med Peak E' Bryan: 8.2 cm/sec MV A max bryan: 70.8 cm/sec E/E' lat: 7.8 E/E' med: 10.6 MV E/A: 1.2 MV dec slope: 568.2 cm/sec2 Ao V2 max: 184.8 cm/sec AI max bryan: 345.4 cm/sec Ao max P.7 mmHg AI max P.7 mmHg Ao V2 mean: 129.3 cm/sec AI dec slope: 150.5 cm/sec2 Ao mean P.6 mmHg AI P1/2t: 672.0 msec Ao V2 VTI: 45.1 cm AV (velocity ratio): 0.60 NADIA(I,D): 1.9 cm2 NADIA(V,D): 1.7 cm2 LV V1 max: 104.0 cm/sec SV(LVOT): 83.7 ml PA V2 max: 80.3 cm/sec LV V1 max P.3 mmHg LV V1 mean P.7 mmHg LV V1 mean: 76.9 cm/sec LV V1 VTI: 27.2 cm TR max bryan: 312.7 cm/sec TR max P.2 mmHg ECHO/Echo Complete Interpretation Summary Normal LV size. The estimated ejection fraction is 45 %. Mild global left ventricular systolic dysfunction. There is mild global hypokinesis of the left ventricle. The left atrium is mildly enlarged. Stage 2 diastolic dysfunction. Mild (1+) aortic valve insufficiency. Ordering Physician: Barbara Lott Referring Physician: MD Marcelo Jn Performed By: Svitlana Rodriguez RDCS
[2022-04-21] MEDS: 0.9% Saline Lock 10 ML Syringe IV (18:30)
[2022-04-21] MEDS: dilTIAZem 25 MG/5 ML Vial 20 MG IV BOLUS (18:30)
[2022-04-21 18:41] LABS: International Normalized Ratio 1.1; Prothrombin Time (Protime)PT. 14.1 SECONDS (11.7-14.9)
[2022-04-21] MEDS: HEPARIN/D5w 25,000 UNITS 25,000 UNITS/250 ML IV.SOLN. 10 UNITS CONT INF (18:53)
[2022-04-21 18:55] LABS: Partial Thromboplast Time 29.5 Seconds (24.1-36.2)
[2022-04-21] MEDS: Metoprolol Tartrate 25 MG Tablet PO (22:58)
[2022-04-21] MEDS: Amiodarone 360 MG in Dextrose 5% Viaflo Bag 192.8 ML 16.7 MG CONT INF (23:01)
[2022-04-22] VITALS (30 sets, daily range): BP systolic 86–135; BP diastolic 52–77; PULSE 64–182; RESP 14–19; TEMP 36.7–36.9; O2SAT 94–100
[2022-04-22] MEDS: Acetaminophen 325 MG Tablet 650 MG PO ×4 (01:03→22:06)
[2022-04-22 01:39] LABS: Partial Thromboplast Time 92.4 Seconds (24.1-36.2)
[2022-04-22 03:28] LABS: Absolute Lymphocyte Count 1.36 X10^3/uL (0.83-4.51); Absolute Neutrophil Count 10.5 X10^3/uL (2.0-7.7); Basophil# 0.01 X10^3/uL; Basophil% 0.1 % (0-1); Eosinophil# 0.04 X10^3/uL; Eosinophils% 0.3 % (0-5); Hematocrit 32.1 % (37-47); Lymphocyte # 1.36 X10^3/ul (0.83-4.51); Lymphocyte % 10.4 % (19-41); Mean Corp Hgb Conc 31.2 g/dL (32-36); Mean Corpuscular Hgb 29.8 pg (27.0-32.0); Mean Corpuscular Volume 95.5 fL (81-99); Mean Platelet Vol. 12.3 fl (6.2-12.0); Monocyte# 1.11 X10^3/uL; Monocyte% 8.5 % (0-10); NRBC Flagged by Analyzer 0 % (0-5); Neutrophil # 10.49 X10^3/uL (2.7-7.7); Neutrophil % 79.9 % (47-70); Platelet Count 238 K/mm3 (150-450); RBC Distribution Width CV 14.6 % (11.6-14.6); RBC Distribution Width SD 50.5 fl (35.1-43.9); Red Blood Count 3.36 M/mm3 (4.2-5.4); White Blood Count 13.1 K/mm3 (4.4-11.0)
[2022-04-22 03:35] LABS: Anion Gap 6 (5-15); BUN 45 mg/dL (7-18); BUN/Creat Ratio 44.6 RATIO (10-20); Calcium,Total 8.6 mg/dL (8.5-10.1); Chloride 107 mmol/L (98-107); Creatinine, Serum 1.01 mg/dL (0.55-1.02); EST Glomerular Filtration Rate 56 mL/min (>60); Est Glom Filt Rate - Afr Amer 67 mL/min (>60); Estimated Creatinine Clearance 33.96 ml/min; Glucose 109 mg/dL (74-106); Potassium 3.7 mmol/L (3.5-5.1); Sodium Level 137 mmol/L (136-145)
--- NOTE | 2022-04-22 06:56 | CON.PCM.CA_ITS ---
Assessment & Plan Assessment/Plan (1) PAF (paroxysmal atrial fibrillation): PLAN: Patient appears to have paroxysmal atrial fibrillation. She has a history of this already. I would recommend at this time that her beta-mulu be reinst ituted * Obtain an echocardiogram to reassess her ventricular function * Discontinue heparin * Start anticoagulation with Eliquis * Will continue amiodarone orally 200 mg twice daily for 2 weeks and then 200 mg daily * Aspirin can be discontinued (2) Essential (primary) hypertension: PLAN: Her blood pressure is under good control and we will reinstitute her antihypertensive therapy. She will continue with risk factor modification She also appears to be dehydrated and I will continue with IV fluid hydration. Thank you for allowing me to participate in the care of your patient. Please don't hesitate to call if any issues arise. HPI Consult Data Date of Consult: 04/22/22 HPI Narrative HPI Narrative: HONEY FERNANDES, is a 81 F who presented to the hospital on account of her fall. The patient was being evaluated by orthopedic surgery as well as the hospitalist service. The patient was noted to be mildly hypotensive yesterday and her blood pressure medications were omitted. She does have a history of hypertension, par oxysmal atrial fibrillation first noted in March 2020 and status post cardiac catheterization the same year demonstrating minimal coronary artery disease. She also had mild left ventricular systolic dysfunction. It appears that yesterday in the night she started complaining of mild chest heaviness and was noted to be tachycardic and was in atrial fibrillation with a rapid ventricular response rate. I was consulted to evaluate the patient on account of her low blood pressure. She was transferred to the intensive care unit she was given a bolus of intravenous diltiazem. Started on amiodarone and converted to sinus rhythm in the night. This morning she is feeling well with no complaints other than her hip. She denies any dizziness or diaphoresis no near syncope or syncope. It does not appear that any surgical intervention is contemplated. [facility] Medical History Accidental fall Allergic rhinitis Atrial fibrillation with rapid ventricular response (03/26/20) Chronic asthma Closed left hip fracture Elevated troponin (03/26/20) Essential (primary) hypertension Gout Hypomagnesemia Laceration of left elbow Missing teeth, acquired Nail dystrophy Obesity Osteoporosis Pain in toe of left foot Pain in toe of right foot Physical deconditioning Urinary frequency Vitamin D insufficiency Home Medications albuterol sulfate 90 mcg/actuation aerosol inhaler 1 - 2 puff inhalation Q6H PRN PRN Sob &/Or Wheezing 03/26/20 [History Last Taken Unknown] allopurinol 100 mg tablet 100 mg PO DAILYCM gout 03/26/20 [History Last Taken 05/30/20] fluticasone 250 mcg-salmeterol 50 mcg/dose blistr powdr for inhalation 1 ea IH BID breathing 03/26/20 [History Last Taken 05/30/20] fluticasone propionate 50 mcg/actuation nasal spray,suspension 1 spray NASAL PRN PRN Allergies 03/26/20 [History Last Taken 1 Week Ago ~05/23/20] loratadine 10 mg tablet 10 mg PO DAILY PRN Allergies 03/26/20 [History Last Taken 03/19/20] multivit with simnhuhe-vrvt-SG-lutein 8 mg iron-400 mcg-300 mcg tablet 1 ea PO QODAY supplement 03/26/20 [History Last Taken 05/28/20] metoprolol tartrate 25 mg tablet 25 mg PO BID afib 06/03/20 [History Last Taken Unknown] celecoxib 200 mg capsule 200 mg PO BID 06/18/20 [Rx Last Taken Unknown] furosemide 40 mg tablet (Lasix) 40 mg PO DAILY #90 tabs 11/15/20 [Rx Last Taken Unknown] lisinopril 20 mg tablet 20 mg PO DAILY blood pressure #90 tabs 11/15/20 [Rx Last Taken Unknown] omeprazole 20 mg tablet,delayed release 20 mg PO DAILY PRN GERD 06/18/21 [History Last Taken Unknown] aspirin 81 mg chewable tablet 81 mg PO DAILY supplement 12/25/21 [History Last Taken Unknown] ketotifen fumarate 0.025 % (0.035 %) eye drops (Zaditor) 1 drp ophthalmic (eye) BID PRN EYES 12/25/21 [History Last Taken Unknown] prednisone 50 mg tablet 50 mg PO DAILY 5 days #5 tabs 04/18/22 [Rx Last Taken Unknown] Allergy/AdvReac Type Severity Reaction Status Date / Time No Known Allergies Allergy Verified 04/17/22 22:07 Family History Mother TIA (transient ischemic attack) Surgical History History of hemiarthroplasty of left hip (05/2020) History of left heart catheterization (03/27/20) Social History Smoking Status: Never smoker alcohol intake: never substance use type: does not use caffeine: Yes Type: coffee Number of servings: 1 and tea ROS Constitutional Constitutional: Denies fever(s) or weight loss Eyes Eyes: Reports systems reviewed and no addt'l complaints, except as documented ENT HEENT: Reports systems reviewed and no addt'l complaints, except as documented Cardiovascular Cardiovascular: Reports palpitations; Denies chest pain at rest, chest pain with activity, dyspnea at rest, dyspnea on exertion, edema or paroxysmal nocturnal dyspnea Respiratory/Chest Respiratory/Chest: Denies dyspnea on exertion, productive cough, shortness of breath at rest or shortness of breath with exertion Gastrointestinal Gastrointestinal: Denies change in bowel habits, nausea, vomiting or weight changes Genitourinary Genitourinary: Denies difficulty urinating Musculoskeletal Musculoskeletal: Denies joint stiffness or muscle weakness Integumentary Integumentary: Denies lesions Neurologic Neurologic: Denies dizziness or syncope Psychiatric Psychiatric: Denies anxiety Endocrine Endocrinology: Denies excessive sweating or fatigue Hematologic/Lymphatic Hematologic/Lymphatic: Denies anemia Allergic/Immunologic Allergic/Immunologic: Denies seasonal rhinorrhea Physical Exam Const alert, oriented x3 and no apparent distress General Appearance: cooperative HEENT hearing grossly normal bilaterally Head and Scalp: atraumatic Eyes EOMs intact bilaterally Neck General: normal visual inspection Chest inspection of chest normal and palpation of chest normal Resp normal respiratory effort Auscultation: clear to auscultation bilaterally Cardio regular rate, regular rhythm, S1 normal heart sound and S2 normal heart sound Jugular Venous Distention: JVD GI normal to inspection, nondistended, normoactive bowel sounds Extremity normal capillary refill and no pedal edema Peripheral Pulses: Yes pulses 2+ throughout and femoral pulses present Skin no rashes or lesions noted Neuro oriented x3 and CN's II-XII intact bilaterally Psych Appearance: grossly normal and appropriate Risk Stratification Risk Stratification Applicable: No Objective Data Vital Signs: Vital Signs Temp Pulse Resp BP Pulse Ox O2 Del Method O2 Flow Rate 98.5 F 72 17 119/69 97 Room Air 4 04/22/22 00:00 04/22/22 05:00 04/22/22 05:00 04/22/22 05:00 04/22/22 05:00 04/22/22 05:00 04/21/22 15:37 Oxygen Flow Rate (L/min) 4 Oxygen Delivery Method Room Air Weight: 160 lb 3.2 oz Body Mass Index (BMI) 26.9 Intake & Output: Intake and Output for Last 24 Hours 04/20/22 04/21/22 04/22/22 23:59 23:59 23:59 Intake Total 1000 / 1150 2431.75 / 2448.17 168.75 / 168.75 Output Total 1350 / 1350 800 / 800 250 / 250 Balance -350 / -200 1631.75 / 1648.17 -81.25 / -81.25 Lab / Micro Data Result Diagrams: 04/22/22 03:05 04/22/22 03:05 Labs: Laboratory Results - last 24 hr 04/21/22 18:29: PT 14.1, INR 1.1, APTT 29.5 04/22/22 01:10: APTT 92.4 H* 04/22/22 03:05: WBC 13.1 H, RBC 3.36 L, Hgb 10.0 L, Hct 32.1 L, MCV 95.5, MCH 29.8, MCHC 31.2 L, RDW Std Deviation 50.5 H, RDW Coeff of Tiffani 14.6, Plt Count 238, MPV 12.3 H, Immature Gran % (Auto) 0.800, Neut % (Auto) 79.9 H, Lymph % (Auto) 10.4 L, Newberry % (Auto) 8.5, Eos % (Auto) 0.3, Baso % (Auto) 0.1, Absolute Neuts (auto) 10.5 H, Absolute Lymphs (auto) 1.36, Nucleated RBC % 0 04/22/22 03:05: Sodium 137, Potassium 3.7, Chloride 107, Carbon Dioxide 24.0, Anion Gap 6, BUN 45 H, Creatinine 1.01, Estim Creat Clear Calc 33.96, Est GFR (MDRD) Af Amer 67, Est GFR (MDRD) Non-Af 56 L, BUN/Creatinine Ratio 44.6 H, Glucose 109 H, Calcium 8.6 Cardiology Labs/Tests 04/21/22 18:29: PT 14.1, INR 1.1, APTT 29.5 04/22/22 01:10: APTT 92.4 H* 04/22/22 03:05: WBC 13.1 H, RBC 3.36 L, Hgb 10.0 L, Hct 32.1 L, MCV 95.5, MCH 29.8, MCHC 31.2 L, Plt Count 238, MPV 12.3 H, Immature Gran % (Auto) 0.800, Neut % (Auto) 79.9 H, Lymph % (Auto) 10.4 L, Newberry % (Auto) 8.5, Eos % (Auto) 0.3, Baso % (Auto) 0.1, Absolute Neuts (auto) 10.5 H, Nucleated RBC % 0 04/22/22 03:05: Sodium 137, Potassium 3.7, Chloride 107, Carbon Dioxide 24.0, Anion Gap 6, BUN 45 H, Creatinine 1.01, Est GFR (MDRD) Af Amer 67, Est GFR (MDRD) Non-Af 56 L, BUN/Creatinine Ratio 44.6 H, Glucose 109 H, Calcium 8.6 Rhythm: EKG: ECHO: Stress Test: Cardiac Cath: PCI: CT Surgery: Holter monitor: EPS: PPM: CXR: Chest CT Scan: Radiography Diagnostic Testing: Radiology Impression Bone Scan Nuclear Medicine 04/19/22 14:00 IMPRESSION: 1. The mild increased tracer concentration defined in the greater and lesser trochanteric and distal femoral components of the symptomatic left hip prosthesis may represent mild loosening. The specificity of this finding is facilitated in the setting of operative intervention > 2 years prior to the current presentation. If infection is a diagnostic consideration, correlation with labeled leukocyte imaging is recommended. 2. No other scintigraphic abnormalities are defined. Electronically Signed: Cortez Lee, at 16:28 EST ,
--- NOTE | 2022-04-22 08:08 | PCM.PN.HOSP ---
Subjective Subjective Doing better today, no further chest tightness, converted to normal sinus rhythm last night and transitioned to oral amnio this morning with continued oral beta-mulu. No further flashing lights, mild hip pain when moving but fairly comfortable while laying down. No other complaints this morning Objective Data Objective Data Vital Signs: Vital Signs Temp Pulse Resp BP Pulse Ox O2 Del Method O2 Flow Rate 98.5 F 64 18 110/52 L 94 Room Air 4 04/22/22 00:00 04/22/22 07:22 04/22/22 07:00 04/22/22 07:00 04/22/22 07:10 04/22/22 07:10 04/21/22 15:37 Oxygen Flow Rate (L/min) 4 Oxygen Delivery Method Room Air Weight: 72.665 kg Body Mass Index (BMI) 26.9 Intake & Output: Intake and Output for Last 24 Hours 04/20/22 04/21/22 04/22/22 23:59 23:59 23:59 Intake Total 1000 / 1150 2431.75 / 2448.17 202.15 / 202.15 Output Total 1350 / 1350 800 / 800 250 / 250 Balance -350 / -200 1631.75 / 1648.17 -47.85 / -47.85 Medical Nutrition Assessment Dietitian: Malnutrition Criteria Met Start: 04/18/22 11:35 Freq: Status: Active Protocol: Document 04/21/22 14:11 SRIDHAR (Rec: 04/21/22 14:11 [email or web address] [id number]) Nutrition Malnutrition Evidence of Malnutrition Exists Yes Malnutrition (severe): Chronic Evidenced By Suboptimal Energy Intake ( Severe),Weight Loss (Severe) Clinical Problem Chronic Disease or Condition Related Malnutrition Etiology severe, chronic malnutrition related to inadequate oral intake Signs/Symptoms as evidenced by pt reports of 52.8#/26% wt loss unintentional wt loss x 1 year , estimated PO intake meeting <75% of estimated energy needs x 1 year. Status Active Problem Recommendation Dietitian Recommendations/Changes will continue liberalized diet of regular, no added salt given evidence of malnutrition and pt refusal of oral nutrition supplements rec consider appetite stimulant to try to encourage increased po intake at meals. Lab / Micro Data Result Diagrams: 04/22/22 03:05 04/22/22 03:05 Labs: Laboratory Results - last 24 hr 04/21/22 18:29: PT 14.1, INR 1.1, APTT 29.5 04/22/22 01:10: APTT 92.4 H* 04/22/22 03:05: WBC 13.1 H, RBC 3.36 L, Hgb 10.0 L, Hct 32.1 L, MCV 95.5, MCH 29.8, MCHC 31.2 L, RDW Std Deviation 50.5 H, RDW Coeff of Tiffani 14.6, Plt Count 238, MPV 12.3 H, Immature Gran % (Auto) 0.800, Neut % (Auto) 79.9 H, Lymph % (Auto) 10.4 L, Hendricks % (Auto) 8.5, Eos % (Auto) 0.3, Baso % (Auto) 0.1, Absolute Neuts (auto) 10.5 H, Absolute Lymphs (auto) 1.36, Nucleated RBC % 0 04/22/22 03:05: Sodium 137, Potassium 3.7, Chloride 107, Carbon Dioxide 24.0, Anion Gap 6, BUN 45 H, Creatinine 1.01, Estim Creat Clear Calc 33.96, Est GFR (MDRD) Af Amer 67, Est GFR (MDRD) Non-Af 56 L, BUN/Creatinine Ratio 44.6 H, Glucose 109 H, Calcium 8.6 Radiography Diagnostic Testing: Radiology Impression Bone Scan Nuclear Medicine 04/19/22 14:00 IMPRESSION: 1. The mild increased tracer concentration defined in the greater and lesser trochanteric and distal femoral components of the symptomatic left hip prosthesis may represent mild loosening. The specificity of this finding is facilitated in the setting of operative intervention > 2 years prior to the current presentation. If infection is a diagnostic consideration, correlation with labeled leukocyte imaging is recommended. 2. No other scintigraphic abnormalities are defined. Electronically Signed: Cortez Lee, at 16:28 EST , Physical Exam Const alert and no apparent distress Constitutional Narrative: Oriented HEENT normocephalic and head/scalp atraumatic Eyes Eyes Narrative: EOM grossly intact, anicteric Neck supple Resp normal respiratory effort and clear to auscultation bilaterally Cardio regular rate and regular rhythm GI soft to palpation, non-tender and non-distended Extremity Extremity Narrative: 1+ bilateral lower extremity pitting edema Neuro moves all extremities Neuro Narrative: No overt focal deficits appreciated Psych Psych Narrative: Cooperative Assessment & Plan Assessment/Plan (1) Acute pain of left hip: PLAN: Plan #Atrial fibrillation Went into RVR last night converted after 1 dose of Cardizem and amiodarone drip Transition to oral amiodarone, oral beta-mulu, oral Eliquis, aspirin discontinued Echo ordered Transfer to PCU, doing well tomorrow we will DC to [place] for rehab #Acute left hip pain Still unclear etiology Her IV Solu-Medrol was held Nuclear bone scan scheduled for today, further dispo pending bone scan Ortho to reevaluate after results Will need placement on discharge 04/22: Ortho evaluated after bone scan results and feel outpatient follow-up is appropriate, PT/OT. Will go to [facility] discharge #JONO Unclear etiology, creatinine has improved #Essential hypertension Metoprolol Blood pressure appears controlled, Lasix and lisinopril been held #GERD On PPI #DVT ppx: Eevlio Lott MD Charges/Coding Visit Charges Inpatient E&M: 93833 Subs Hosp L2
[2022-04-22] MEDS: Amiodarone 200 MG Tablet PO (08:46)
[2022-04-22] MEDS: Docusate Sodium 100 MG Capsule 200 MG PO (09:27)
[2022-04-22] MEDS: APIXABAN 5 MG TABLET PO ×2 (09:28→21:08)
[2022-04-22] MEDS: Allopurinol 100 MG Tablet PO (09:48)
[2022-04-22] MEDS: Metoprolol Tartrate 25 MG Tablet PO ×2 (10:51→21:07)
[2022-04-22] MEDS: Multivitamins,Ther W-Minerals Tablet 1 TABLET PO (10:51)
--- NOTE | 2022-04-22 11:20 | EKG12_ITS ---
Test Reason : AFIB SVT Blood Pressure : / mmHG Vent. Rate : 147 BPM Atrial Rate : 214 BPM P-R Int : 000 ms QRS Dur : 082 ms QT Int : 274 ms P-R-T Axes : 000 012 252 degrees QTc Int : 428 ms Atrial fibrillation Nonspecific ST and T wave abnormality Abnormal ECG When compared with ECG of 21-APR-2022 15:26, ST less depressed in Anterior leads Nonspecific T wave abnormality has replaced inverted T waves in Inferior leads T wave inversion less evident in Anterolateral leads Confirmed by PETRA CHENG, ALLI ([id number]), publication editor MIRIAM VUONG ([id number]) on 05/02/2022 1:08:07 PM Referred By: PETRA Confirmed By:ALLI LAMBERT MD
--- NOTE | 2022-04-22 11:53 | CHAPLAIN ---
Type of Pastoral Visit ___ Initial Visit _x__ Follow-up Visit ___ On-call Visit ___ General Patient Visit ___ Spiritual Assessment ___ Family Conference ___ Bereavement ___ Rapid Response ___ Code Blue ___ Other (describe below) Pastoral Care Referral From ___ Patient _x__ Family ___ Nurse ___ Physician ___ Petroleum Laboratory Technician ___ Product Safety Technical Assistant ___ Other (describe below) Sacrament/Intervention _x__ Active listening ___ Anointing ___ Yarsani ___ Bereavement ___ Communion ___ Yuridia exploration ___ ___ Life review _x__ Prayer ___ Reconciliation ___ Sacrament of Sick _x__ Supportive presence ___ Wedding ___ Other (describe below) Pastoral Comments follow up to patient who has now been moved to ICU from [facility]; daughter is with her in the room; pt is sitting in chair; pt states that there are other developments now; pt states several times in the conversation we will just have to see which way this goes and this can go one of two ways and whichever way it goes is okay, but I would like to stay around a little longer; pt states concern is for her of 60 years who has come to rely on her for many things; prayer is welcomed by pt and daughter
[2022-04-22] MEDS: Amiodarone 360 MG in Dextrose 5% Viaflo Bag 192.8 ML 16.7 MG CONT INF ×2 (11:54→23:01)
[2022-04-22] MEDS: 0.9% Saline Lock 10 ML Syringe IV (20:08)
[2022-04-22] MEDS: oxyCODONE 5 MG Tablet PO (21:07)
[2022-04-23] VITALS (28 sets, daily range): BP systolic 103–129; BP diastolic 51–96; PULSE 56–114; RESP 13–20; TEMP 36.4–36.8; O2SAT 90–100
[2022-04-23] MEDS: oxyCODONE 5 MG Tablet PO ×5 (02:23→21:01)
[2022-04-23] MEDS: Acetaminophen 325 MG Tablet 650 MG PO ×3 (04:10→17:50)
[2022-04-23 05:16] LABS: Absolute Neutrophil Count 10.5 X10^3/uL (2.0-7.7); Basophil# 0.01 X10^3/uL; Basophil% 0.1 % (0-1); Eosinophil# 0.16 X10^3/uL; Eosinophils% 1.2 % (0-5); Hematocrit 32.4 % (37-47); Hemoglobin 10.2 g/dL (12.0-15.0); Lymphocyte % 9.3 % (19-41); Mean Corp Hgb Conc 31.5 g/dL (32-36); Mean Corpuscular Hgb 30.2 pg (27.0-32.0); Mean Corpuscular Volume 95.9 fL (81-99); Mean Platelet Vol. 11.3 fl (6.2-12.0); Monocyte# 0.91 X10^3/uL; Monocyte% 7.1 % (0-10); NRBC Flagged by Analyzer 0 % (0-5); Neutrophil # 10.48 X10^3/uL (2.7-7.7); Neutrophil % 81.7 % (47-70); Platelet Count 230 K/mm3 (150-450); RBC Distribution Width CV 14.6 % (11.6-14.6); RBC Distribution Width SD 51.5 fl (35.1-43.9); Red Blood Count 3.38 M/mm3 (4.2-5.4); White Blood Count 12.8 K/mm3 (4.4-11.0)
[2022-04-23 05:39] LABS: Anion Gap 7 (5-15); BUN 42 mg/dL (7-18); Calcium,Total 8.8 mg/dL (8.5-10.1); Chloride 108 mmol/L (98-107); Creatinine, Serum 0.93 mg/dL (0.55-1.02); EST Glomerular Filtration Rate 61 mL/min (>60); Est Glom Filt Rate - Afr Amer 74 mL/min (>60); Estimated Creatinine Clearance 36.89 ml/min; Glucose 98 mg/dL (74-106); Potassium 3.8 mmol/L (3.5-5.1); Sodium Level 136 mmol/L (136-145)
--- NOTE | 2022-04-23 05:55 | EKG12_ITS ---
Test Reason : CHEST TIGHTNESS Blood Pressure : / mmHG Vent. Rate : 186 BPM Atrial Rate : 197 BPM P-R Int : 000 ms QRS Dur : 080 ms QT Int : 252 ms P-R-T Axes : 000 053 241 degrees QTc Int : 443 ms Atrial fibrillation Marked ST abnormality, possible inferior subendocardial injury Marked ST abnormality, possible anterior subendocardial injury Abnormal ECG Confirmed by RAF CHENG, CHESTER ([id number]), legal editor MIRIAM VUONG ([id number]) on 04/23/2022 8:59:48 AM Referred By: GREG Confirmed By:CHESTER CARBONE MD
--- NOTE | 2022-04-23 07:15 | PCM.PN.CARD ---
Subjective Subjective Patient seen and evaluated. Doing better this morning. Intermittent sinus rhythm is noted. Objective Data Vital Signs: Vital Signs Temp Pulse Resp BP Pulse Ox O2 Del Method O2 Flow Rate 97.8 F 56 L 17 103/51 L 97 Room Air 4 04/23/22 04:05 04/23/22 06:00 04/23/22 06:00 04/23/22 06:00 04/23/22 06:00 04/23/22 06:00 04/21/22 15:37 Oxygen Flow Rate (L/min) 4 Oxygen Delivery Method Room Air Weight: 113 lb 12.136 oz Body Mass Index (BMI) 26.9 Intake & Output: Intake and Output for Last 24 Hours 04/21/22 04/22/22 04/23/22 23:59 23:59 23:59 Intake Total 2431.75 / 2448.17 862.52 / 862.52 116.62 / 116.62 Output Total 800 / 800 1450 / 1450 Balance 1631.75 / 1648.17 -587.48 / -587.48 116.62 / 116.62 Lab / Micro Data Result Diagrams: 04/23/22 04:58 04/23/22 04:58 Labs: Laboratory Results - last 24 hr 04/23/22 04:58: WBC 12.8 H, RBC 3.38 L, Hgb 10.2 L, Hct 32.4 L, MCV 95.9, MCH 30.2, MCHC 31.5 L, RDW Std Deviation 51.5 H, RDW Coeff of Tiffani 14.6, Plt Count 230, MPV 11.3, Immature Gran % (Auto) 0.600, Neut % (Auto) 81.7 H, Lymph % (Auto) 9.3 L, [place] % (Auto) 7.1, Eos % (Auto) 1.2, Baso % (Auto) 0.1, Absolute Neuts (auto) 10.5 H, Absolute Lymphs (auto) 1.20, Nucleated RBC % 0 04/23/22 04:58: Sodium 136, Potassium 3.8, Chloride 108 H, Carbon Dioxide 21.0, Anion Gap 7, BUN 42 H, Creatinine 0.93, Estim Creat Clear Calc 36.89, Est GFR (MDRD) Af Amer 74, Est GFR (MDRD) Non-Af 61, BUN/Creatinine Ratio 45.0 H, Glucose 98, Calcium 8.8 Cardiology Labs/Tests 04/23/22 04:58: WBC 12.8 H, RBC 3.38 L, Hgb 10.2 L, Hct 32.4 L, MCV 95.9, MCH 30.2, MCHC 31.5 L, Plt Count 230, MPV 11.3, Immature Gran % (Auto) 0.600, Neut % (Auto) 81.7 H, Lymph % (Auto) 9.3 L, [place] % (Auto) 7.1, Eos % (Auto) 1.2, Baso % (Auto) 0.1, Absolute Neuts (auto) 10.5 H, Nucleated RBC % 0 04/23/22 04:58: Sodium 136, Potassium 3.8, Chloride 108 H, Carbon Dioxide 21.0, Anion Gap 7, BUN 42 H, Creatinine 0.93, Est GFR (MDRD) Af Amer 74, Est GFR (MDRD) Non-Af 61, BUN/Creatinine Ratio 45.0 H, Glucose 98, Calcium 8.8 Rhythm: EKG: ECHO: Stress Test: Cardiac Cath: PCI: CT Surgery: Holter monitor: EPS: PPM: CXR: Chest CT Scan: Radiography Diagnostic Testing: Radiology Impression Echocardiogram 04/21/22 18:01 Interpretation Summary Normal LV size. The estimated ejection fraction is 45 %. Mild global left ventricular systolic dysfunction. There is mild global hypokinesis of the left ventricle. The left atrium is mildly enlarged. Stage 2 diastolic dysfunction. Mild (1+) aortic valve insufficiency. Ordering Physician: Barbara Lott Referring Physician: MD Marcelo Jn Performed By: Svitlana Rodriguez RDCS Physical Exam Const alert and no apparent distress Constitutional Narrative: Oriented HEENT normocephalic and head/scalp atraumatic Eyes Eyes Narrative: EOM grossly intact, anicteric Neck supple Resp normal respiratory effort and clear to auscultation bilaterally Cardio regular rate and regular rhythm GI soft to palpation, non-tender and non-distended Extremity Extremity Narrative: 1+ bilateral lower extremity pitting edema Neuro moves all extremities Neuro Narrative: No overt focal deficits appreciated Psych Psych Narrative: Cooperative Assessment & Plan Assessment/Plan (1) PAF (paroxysmal atrial fibrillation): PLAN: Patient appears to have paroxysmal atrial fibrillation. She has a history of this already. I would recommend at this time that her beta-mulu be reinstituted Echo showed mild LV dysfunction Start anticoagulation with Eliquis Will continue amiodarone orally 200 mg twice daily for 2 weeks and then 200 mg daily Aspirin can be discontinued (2) Essential (primary) hypertension: PLAN: Her blood pressure is under good control and we will reinstitute her antihypertensive therapy. She will continue with risk factor modification She also appears to be dehydrated and I will continue with IV fluid hydration. Thank you for allowing me to participate in the care of your patient. Please don't hesitate to call if any issues arise.
[2022-04-23] MEDS: APIXABAN 5 MG TABLET PO ×2 (08:11→21:00)
[2022-04-23] MEDS: Metoprolol Tartrate 50 MG Tablet PO ×2 (08:11→21:00)
[2022-04-23] MEDS: Allopurinol 100 MG Tablet PO (08:12)
[2022-04-23 08:57] LABS: Magnesium 2.3 mg/dL (1.6-2.6)
--- NOTE | 2022-04-23 10:20 | CASEMGMT ---
Discharge Principal Process Engineer This typewriter ribbon winder sent updates notes to Edith at [facility]. Florecita MUÑIZ Managed Care Provider
[2022-04-23] MEDS: Amiodarone 200 MG Tablet PO ×2 (12:00→17:50)
--- NOTE | 2022-04-23 12:11 | PCM.PN.HOSP ---
Subjective Subjective Reports feeling fair at the moment, no chest pain or shortness of breath at this time. Does have some bilateral hip joint aching which she attributes to the weather. Yesterday afternoon was back in RVR and was placed back on amiodarone drip. Since that time intermittently has short runs of tachycardia. Remains on metoprolol and the dose was increased to this a.m. by cardiology Objective Data Objective Data Vital Signs: Vital Signs Temp Pulse Resp BP Pulse Ox O2 Del Method O2 Flow Rate 98.2 F 66 13 108/56 L 99 Room Air 4 04/23/22 12:00 04/23/22 12:00 04/23/22 12:00 04/23/22 12:00 04/23/22 12:00 04/23/22 12:00 04/21/22 15:37 Oxygen Flow Rate (L/min) 4 Oxygen Delivery Method Room Air Weight: 51.6 kg Body Mass Index (BMI) 26.9 Intake & Output: Intake and Output for Last 24 Hours 04/21/22 04/22/22 04/23/22 23:59 23:59 23:59 Intake Total 2431.75 / 2448.17 862.52 / 862.52 805.00 / 805.00 Output Total 800 / 800 1450 / 1450 725 / 725 Balance 1631.75 / 1648.17 -587.48 / -587.48 80.00 / 80.00 Medical Nutrition Assessment Dietitian: Malnutrition Criteria Met Start: 04/18/22 11:35 Freq: Status: Active Protocol: Document 04/21/22 14:11 SRIDHAR (Rec: 04/21/22 14:11 SRIDHAR [id number]) Nutrition Malnutrition Evidence of Malnutrition Exists Yes Malnutrition (severe): Chronic Evidenced By Suboptimal Energy Intake ( Severe),Weight Loss (Severe) Clinical Problem Chronic Disease or Condition Related Malnutrition Etiology severe, chronic malnutrition related to inadequate oral intake Signs/Symptoms as evidenced by pt reports of 52.8#/26% wt loss unintentional wt loss x 1 year , estimated PO intake meeting <75% of estimated energy needs x 1 year. Status Active Problem Recommendation Dietitian Recommendations/Changes will continue liberalized diet of regular, no added salt given evidence of malnutrition and pt refusal of oral nutrition supplements rec consider appetite stimulant to try to encourage increased po intake at meals. Lab / Micro Data Result Diagrams: 04/23/22 04:58 04/23/22 04:58 Labs: Laboratory Results - last 24 hr 04/23/22 04:58: WBC 12.8 H, RBC 3.38 L, Hgb 10.2 L, Hct 32.4 L, MCV 95.9, MCH 30.2, MCHC 31.5 L, RDW Std Deviation 51.5 H, RDW Coeff of Tiffani 14.6, Plt Count 230, MPV 11.3, Immature Gran % (Auto) 0.600, Neut % (Auto) 81.7 H, Lymph % (Auto) 9.3 L, [place] % (Auto) 7.1, Eos % (Auto) 1.2, Baso % (Auto) 0.1, Absolute Neuts (auto) 10.5 H, Absolute Lymphs (auto) 1.20, Nucleated RBC % 0 04/23/22 04:58: Sodium 136, Potassium 3.8, Chloride 108 H, Carbon Dioxide 21.0, Anion Gap 7, BUN 42 H, Creatinine 0.93, Estim Creat Clear Calc 36.89, Est GFR (MDRD) Af Amer 74, Est GFR (MDRD) Non-Af 61, BUN/Creatinine Ratio 45.0 H, Glucose 98, Calcium 8.8 04/23/22 04:58: Magnesium 2.3 Physical Exam Const alert and no apparent distress Constitutional Narrative: Oriented HEENT normocephalic and head/scalp atraumatic Eyes Eyes Narrative: EOM grossly intact, anicteric Neck supple Resp normal respiratory effort and clear to auscultation bilaterally Cardio Cardio Narrative: Rarely a right alar GI soft to palpation, non-tender and non-distended Extremity Extremity Narrative: 1+ bilateral lower extremity pitting edema Neuro moves all extremities Neuro Narrative: No overt focal deficits appreciated Psych Psych Narrative: Cooperative Assessment & Plan Assessment/Plan (1) Acute pain of left hip: PLAN: Plan #Atrial fibrillation Went into RVR last night converted after 1 dose of Cardizem and amiodarone drip Transition to oral amiodarone, oral beta-mulu, oral Eliquis, aspirin discontinued Echo ordered Transfer to PCU 04/23/2022: Still intermittently tachycardic though significantly improved after back on amnio drip and increase metoprolol. Echo with EF 45% and mild global left ventricular systolic dysfunction. Cardiology following. #Acute left hip pain Still unclear etiology Her IV Solu-Medrol was held Nuclear bone scan scheduled for today, further dispo pending bone scan Ortho to reevaluate after results Will need placement on discharge 04/22: Ortho evaluated after bone scan results and feel outpatient follow-up is appropriate, PT/OT. Will go to [place] discharge #JONO Unclear etiology, creatinine has improved #Essential hypertension Metoprolol Blood pressure appears controlled, Lasix and lisinopril been held #GERD On PPI #DVT ppx: Evelio Lott MD Charges/Coding Visit Charges Inpatient E&M: 92972 Subs Hosp L2
[2022-04-23] MEDS: 0.9% Saline Lock 10 ML Syringe IV (12:40)
[2022-04-24] VITALS (35 sets, daily range): BP systolic 61–128; BP diastolic 47–81; PULSE 58–164; RESP 12–23; TEMP 36.5–37; O2SAT 93–100
[2022-04-24] MEDS: Acetaminophen 325 MG Tablet 650 MG PO ×3 (03:35→18:23)
[2022-04-24 06:12] LABS: Absolute Lymphocyte Count 1.26 X10^3/uL (0.83-4.51); Absolute Neutrophil Count 11.4 X10^3/uL (2.0-7.7); Basophil# 0.01 X10^3/uL; Basophil% 0.1 % (0-1); Eosinophil# 0.22 X10^3/uL; Eosinophils% 1.6 % (0-5); Hematocrit 33.5 % (37-47); Hemoglobin 10.5 g/dL (12.0-15.0); Lymphocyte # 1.26 X10^3/ul (0.83-4.51); Lymphocyte % 9.1 % (19-41); Mean Corp Hgb Conc 31.3 g/dL (32-36); Mean Corpuscular Hgb 30.1 pg (27.0-32.0); Mean Platelet Vol. 11.8 fl (6.2-12.0); Monocyte# 0.89 X10^3/uL; Monocyte% 6.4 % (0-10); NRBC Flagged by Analyzer 0 % (0-5); Neutrophil # 11.41 X10^3/uL (2.7-7.7); Neutrophil % 82.2 % (47-70); Platelet Count 258 K/mm3 (150-450); RBC Distribution Width CV 14.8 % (11.6-14.6); RBC Distribution Width SD 51.6 fl (35.1-43.9); Red Blood Count 3.49 M/mm3 (4.2-5.4); White Blood Count 13.9 K/mm3 (4.4-11.0)
[2022-04-24 06:48] LABS: Anion Gap 7 (5-15); BUN 40 mg/dL (7-18); BUN/Creat Ratio 42.1 RATIO (10-20); Calcium,Total 8.8 mg/dL (8.5-10.1); Chloride 108 mmol/L (98-107); Creatinine, Serum 0.95 mg/dL (0.55-1.02); EST Glomerular Filtration Rate 60 mL/min (>60); Est Glom Filt Rate - Afr Amer 72 mL/min (>60); Estimated Creatinine Clearance 36.11 ml/min; Glucose 81 mg/dL (74-106); Potassium 3.8 mmol/L (3.5-5.1); Sodium Level 136 mmol/L (136-145)
--- NOTE | 2022-04-24 07:14 | EKG12_ITS ---
Test Reason : Blood Pressure : / mmHG Vent. Rate : 066 BPM Atrial Rate : 066 BPM P-R Int : 138 ms QRS Dur : 090 ms QT Int : 410 ms P-R-T Axes : 032 028 042 degrees QTc Int : 429 ms Normal sinus rhythm Nonspecific T wave abnormality Abnormal ECG When compared with ECG of 24-APR-2022 07:16, MANUAL COMPARISON REQUIRED, DATA IS UNCONFIRMED Confirmed by SHANTE CHENG, DALIA ([id number]), health editor MIRIAM VOUNG ([id number]) on 04/29/2022 11:12:41 AM Referred By: PETRA Confirmed By:KOLE FREY MD
--- NOTE | 2022-04-24 07:35 | PN.CARD_ITS ---
Subjective Subjective Patient seen and evaluated. Events of this morning noted. Patient still in paroxysmal atrial fibrillation. She is hypotensive at this time. Objective Data Vital Signs: Vital Signs Temp Pulse Resp BP Pulse Ox O2 Del Method O2 Flow Rate 97.7 F L 164 H 23 H 95/64 96 Nasal Cannula 2 04/24/22 06:56 04/24/22 07:28 04/24/22 07:28 04/24/22 07:28 04/24/22 07:28 04/24/22 07:28 04/24/22 07:28 Oxygen Flow Rate (L/min) 2 Oxygen Delivery Method Nasal Cannula Weight: 154 lb 12.232 oz Body Mass Index (BMI) 26.9 Intake & Output: Intake and Output for Last 24 Hours 04/22/22 04/23/22 04/24/22 23:59 23:59 23:59 Intake Total 862.52 / 862.52 1275.00 / 1275.00 Output Total 1450 / 1450 725 / 1075 650 / 650 Balance -587.48 / -587.48 550.00 / 200.00 -650 / -650 Lab / Micro Data Result Diagrams: 04/24/22 05:21 04/24/22 05:21 Labs: Laboratory Results - last 24 hr 04/23/22 04:58: Magnesium 2.3 04/24/22 05:21: WBC 13.9 H, RBC 3.49 L, Hgb 10.5 L, Hct 33.5 L, MCV 96.0, MCH 30.1, MCHC 31.3 L, RDW Std Deviation 51.6 H, RDW Coeff of Tiffani 14.8 H, Plt Count 258, MPV 11.8, Immature Gran % (Auto) 0.600, Neut % (Auto) 82.2 H, Lymph % (Auto) 9.1 L, [place] % (Auto) 6.4, Eos % (Auto) 1.6, Baso % (Auto) 0.1, Absolute Neuts (auto) 11.4 H, Absolute Lymphs (auto) 1.26, Nucleated RBC % 0 04/24/22 05:21: Sodium 136, Potassium 3.8, Chloride 108 H, Carbon Dioxide 21.0, Anion Gap 7, BUN 40 H, Creatinine 0.95, Estim Creat Clear Calc 36.11, Est GFR (MDRD) Af Amer 72, Est GFR (MDRD) Non-Af 60, BUN/Creatinine Ratio 42.1 H, Glucose 81, Calcium 8.8 Cardiology Labs/Tests 04/23/22 04:58: Magnesium 2.3 04/24/22 05:21: WBC 13.9 H, RBC 3.49 L, Hgb 10.5 L, Hct 33.5 L, MCV 96.0, MCH 30.1, MCHC 31.3 L, Plt Count 258, MPV 11.8, Immature Gran % (Auto) 0.600, Neut % (Auto) 82.2 H, Lymph % (Auto) 9.1 L, [place] % (Auto) 6.4, Eos % (Auto) 1.6, Baso % (Auto) 0.1, Absolute Neuts (auto) 11.4 H, Nucleated RBC % 0 04/24/22 05:21: Sodium 136, Potassium 3.8, Chloride 108 H, Carbon Dioxide 21.0, Anion Gap 7, BUN 40 H, Creatinine 0.95, Est GFR (MDRD) Af Amer 72, Est GFR (MDRD) Non-Af 60, BUN/Creatinine Ratio 42.1 H, Glucose 81, Calcium 8.8 Rhythm: EKG: ECHO: Stress Test: Cardiac Cath: PCI: CT Surgery: Holter monitor: EPS: PPM: CXR: Chest CT Scan: Physical Exam Const alert and no apparent distress Constitutional Narrative: Oriented HEENT normocephalic and head/scalp atraumatic Eyes Eyes Narrative: EOM grossly intact, anicteric Neck supple Resp normal respiratory effort and clear to auscultation bilaterally Cardio Rhythm: abnormal rhythm irregularly irregular GI soft to palpation, non-tender and non-distended Extremity Extremity Narrative: 1+ bilateral lower extremity pitting edema Neuro moves all extremities Neuro Narrative: No overt focal deficits appreciated Psych Psych Narrative: Cooperative Assessment & Plan Assessment/Plan (1) PAF (paroxysmal atrial fibrillation): PLAN: Patient appears to have paroxysmal atrial fibrillation. She has a history of this already. I would recommend at this time that her beta-mulu be reinstituted * Echo showed mild LV dysfunction * Will give additional bolus of intravenous amiodarone at this time * Start anticoagulation with Eliquis * Will continue amiodarone orally 200 mg twice daily for 2 weeks and then 200 mg daily * Aspirin can be discontinued (2) Essential (primary) hypertension: PLAN: Her blood pressure is under good control and we will reinstitute her antihypertensive therapy. She will continue with risk factor modification She also appears to be dehydrated and I will continue with IV fluid hydration. Thank you for allowing me to participate in the care of your patient. Please don't hesitate to call if any issues arise.
[2022-04-24] MEDS: Amiodarone 200 MG Tablet PO (08:24)
[2022-04-24] MEDS: APIXABAN 5 MG TABLET PO ×2 (08:24→21:21)
[2022-04-24] MEDS: oxyCODONE 5 MG Tablet PO ×3 (08:24→21:21)
[2022-04-24] MEDS: Allopurinol 100 MG Tablet PO (08:24)
[2022-04-24] MEDS: Multivitamins,Ther W-Minerals Tablet 1 TABLET PO (08:26)
[2022-04-24] MEDS: 0.9% Saline Lock 10 ML Syringe IV (08:28)
--- NOTE | 2022-04-24 09:12 | NURSING ---
called and daughter just arrived updated on patient condition
[2022-04-24] MEDS: Amiodarone 360 MG in Dextrose 5% Viaflo Bag 192.8 ML 16.7 MG CONT INF ×2 (09:38→20:56)
--- NOTE | 2022-04-24 10:27 | CASEMGMT ---
SW [facility] Mansi Hooker IN STORE REPRESENTATIVE COMPLEX CARE NURSE
[2022-04-24] MEDS: Metoprolol Tartrate 50 MG Tablet PO ×2 (11:42→21:21)
--- NOTE | 2022-04-24 11:42 | EKG12_ITS ---
Test Reason : tachycardia Blood Pressure : / mmHG Vent. Rate : 153 BPM Atrial Rate : 000 BPM P-R Int : 000 ms QRS Dur : 094 ms QT Int : 254 ms P-R-T Axes : 000 035 237 degrees QTc Int : 405 ms Atrial fibrillation with rapid ventricular response ST & T wave abnormality, consider inferior ischemia ST & T wave abnormality, consider anterolateral ischemia Abnormal ECG When compared with ECG of 24-APR-2022 11:21, MANUAL COMPARISON REQUIRED, DATA IS UNCONFIRMED Confirmed by PETRA CHENG, ALLI ([id number]), medical transcription editor MIRIAM VUONG ([id number]) on 04/29/2022 11:30:19 AM Referred By: Cassandra Confirmed By:ALLI LAMBERT MD
--- NOTE | 2022-04-24 15:06 | PN.HOSP_ITS ---
Subjective Subjective Patient with recurrent atrial fibrillation this morning with rates in the 140s to 150s. Cardiology contacted and amnio bolus given. Patient remained tachycardic and drip reinitiated. Patient states she is otherwise feeling okay and ready to go to TCU once her heart rates are controlled. Objective Data Objective Data Vital Signs: Vital Signs Temp Pulse Resp BP Pulse Ox O2 Del Method O2 Flow Rate 97.9 F 65 16 117/81 H 95 Nasal Cannula 2 04/24/22 11:30 04/24/22 13:00 04/24/22 13:00 04/24/22 13:00 04/24/22 13:00 04/24/22 13:00 04/24/22 13:00 Oxygen Flow Rate (L/min) 2 Oxygen Delivery Method Nasal Cannula Weight: 70.2 kg Body Mass Index (BMI) 26.9 Intake & Output: Intake and Output for Last 24 Hours 04/22/22 04/23/22 04/24/22 23:59 23:59 23:59 Intake Total 862.52 / 862.52 1275.00 / 1275.00 1139.25 / 1139.25 Output Total 1450 / 1450 725 / 1075 650 / 650 Balance -587.48 / -587.48 550.00 / 200.00 489.25 / 489.25 Medical Nutrition Assessment Dietitian: Malnutrition Criteria Met Start: 04/18/22 11:35 Freq: Status: Active Protocol: Document 04/21/22 14:11 SRIDHAR (Rec: 04/21/22 14:11 [facility] [id number]) Nutrition Malnutrition Evidence of Malnutrition Exists Yes Malnutrition (severe): Chronic Evidenced By Suboptimal Energy Intake ( Severe),Weight Loss (Severe) Clinical Problem Chronic Disease or Condition Related Malnutrition Etiology severe, chronic malnutrition related to inadequate oral intake Signs/Symptoms as evidenced by pt reports of 52.8#/26% wt loss unintentional wt loss x 1 year , estimated PO intake meeting <75% of estimated energy needs x 1 year. Status Active Problem Recommendation Dietitian Recommendations/Changes will continue liberalized diet of regular, no added salt given evidence of malnutrition and pt refusal of oral nutrition supplements rec consider appetite stimulant to try to encourage increased po intake at meals. Lab / Micro Data Result Diagrams: 04/24/22 05:21 04/24/22 05:21 Labs: Laboratory Results - last 24 hr 04/24/22 05:21: WBC 13.9 H, RBC 3.49 L, Hgb 10.5 L, Hct 33.5 L, MCV 96.0, MCH 30.1, MCHC 31.3 L, RDW Std Deviation 51.6 H, RDW Coeff of Tiffani 14.8 H, Plt Count 258, MPV 11.8, Immature Gran % (Auto) 0.600, Neut % (Auto) 82.2 H, Lymph % (Auto) 9.1 L, [place] % (Auto) 6.4, Eos % (Auto) 1.6, Baso % (Auto) 0.1, Absolute Neuts (auto) 11.4 H, Absolute Lymphs (auto) 1.26, Nucleated RBC % 0 04/24/22 05:21: Sodium 136, Potassium 3.8, Chloride 108 H, Carbon Dioxide 21.0, Anion Gap 7, BUN 40 H, Creatinine 0.95, Estim Creat Clear Calc 36.11, Est GFR (MDRD) Af Amer 72, Est GFR (MDRD) Non-Af 60, BUN/Creatinine Ratio 42.1 H, Glucose 81, Calcium 8.8 Physical Exam Const alert, oriented x3 and no apparent distress Constitutional Narrative: Overweight, elderly white female lying in bed, daughter at bedside, appears comfortable nontoxic HEENT head/scalp atraumatic and moist oral mucous membranes HEENT Narrative: Dentition is fair, Mallampati is 2-3, no thrush Head and Scalp: normocephalic Resp normal respiratory effort, no retractions, no use of accessory muscles and clear to auscultation bilaterally Auscultation: Negative for crackles, rhonchi or wheezes Cardio S1 normal heart sound, S2 normal heart sound, no murmurs, no rub, no gallops and no clicks Cardio Narrative: Patient fluctuating between normal sinus rhythm and paroxysmal atrial fibrillation GI normal to inspection, nondistended, normoactive bowel sounds, soft to palpation and non-tender Extremity no clubbing, cyanosis or edema Extremity Narrative: 2+ pedal pulses Neuro oriented x3 and moves all extremities Speech: speech normal Psych affect normal Psych Narrative: Very pleasant and appropriately interactive Assessment & Plan Assessment/Plan (1) Acute pain of left hip: (2) Status post hip replacement: (3) PAF (paroxysmal atrial fibrillation): PLAN: Plan Paroxysmal atrial fibrillation -Patient having recurrent issues with tachycardia heart rates in the 140s to 150s -Amio bolus given today and drip reinitiated -Plan is to continue drip today with likely transition to oral amiodarone tomorrow -Metoprolol reinitiated yesterday at 50 mg p.o. twice daily -Continue Eliquis 5 mg p.o. twice daily -Echo performed on 04/21/2022 showed an EF of 45% with mild global left ventricular systolic dysfunction and hypokinesis of the LV, mild left atrial enlargement, stage II diastolic dysfunction and mild aortic valve insufficiency -Cardiology following-appreciate input Acute left hip pain -Bone scan shows possible loosening -Per orthopedic notes plan is for follow-up with Dr. Godinez as an outpatient with no urgent surgical interventions -Partial weightbearing with a walker at this time -Continue PT and OT -Plans for discharge to skilled facility once heart rate is controlled -Would avoid NSAIDs JONO -Resolved Hypertension -Continue metoprolol -Blood pressures are currently controlled on current therapy -Continue to hold home Lasix and lisinopril GERD -Continue PPI History of gout -Continue home allopurinol Asthma/allergic rhinitis -As needed albuterol -Continue home fluticasone/salmeterol -Continue home as needed fluticasone nasal spray -Continue home as needed loratadine DVT prophylaxis -Fully anticoagulated with Eliquis CODE STATUS -full code Charges/Coding Visit Charges Inpatient E&M: 92035 [facility] Hosp L2
[2022-04-25] VITALS (23 sets, daily range): BP systolic 80–126; BP diastolic 49–103; PULSE 54–156; RESP 13–22; TEMP 36.6–37.6; O2SAT 94–100
[2022-04-25] MEDS: Acetaminophen 325 MG Tablet 650 MG PO ×4 (00:36→20:19)
[2022-04-25] MEDS: oxyCODONE 5 MG Tablet PO ×3 (04:29→13:44)
[2022-04-25 07:11] LABS: Absolute Lymphocyte Count 1.41 X10^3/uL (0.83-4.51); Basophil# 0.02 X10^3/uL; Basophil% 0.1 % (0-1); Eosinophil# 0.11 X10^3/uL; Eosinophils% 0.7 % (0-5); Hematocrit 32.9 % (37-47); Hemoglobin 10.3 g/dL (12.0-15.0); Lymphocyte # 1.41 X10^3/ul (0.83-4.51); Lymphocyte % 8.9 % (19-41); Mean Corp Hgb Conc 31.3 g/dL (32-36); Mean Corpuscular Hgb 29.6 pg (27.0-32.0); Mean Corpuscular Volume 94.5 fL (81-99); Mean Platelet Vol. 11.8 fl (6.2-12.0); Monocyte# 1.22 X10^3/uL; Monocyte% 7.7 % (0-10); NRBC Flagged by Analyzer 0 % (0-5); Neutrophil % 81.8 % (47-70); Platelet Count 287 K/mm3 (150-450); RBC Distribution Width CV 14.7 % (11.6-14.6); RBC Distribution Width SD 50.1 fl (35.1-43.9); Red Blood Count 3.48 M/mm3 (4.2-5.4); White Blood Count 15.9 K/mm3 (4.4-11.0)
[2022-04-25] MEDS: APIXABAN 5 MG TABLET PO ×2 (08:44→22:11)
[2022-04-25] MEDS: Metoprolol Tartrate 50 MG Tablet PO (08:44)
[2022-04-25] MEDS: Allopurinol 100 MG Tablet PO (08:44)
--- NOTE | 2022-04-25 10:01 | CASEMGMT ---
SHANNEN notified Edith at [facility] that patient will likely be ready tomorrow. Green sheet will be on patient's chart for d/c to [facility]. Plan: [facility] pending patient being medically ready. Mansi GUPTA
--- NOTE | 2022-04-25 12:42 | PN.HOSP_ITS ---
Subjective Subjective No issues overnight. Patient complains of kind of achiness all over from being in bed so much. No specific complaints otherwise. Does not complain specifically of hip pain but currently having some coccygeal pain. Is amenable to getting out of bed into the chair. Heart rate has been in sinus rhythm and rate controlled through the night. Objective Data Objective Data Vital Signs: Vital Signs Temp Pulse Resp BP Pulse Ox O2 Del Method O2 Flow Rate 98.9 F 61 13 104/56 L 98 Room Air 2 04/25/22 08:45 04/25/22 08:45 04/25/22 08:45 04/25/22 08:45 04/25/22 08:45 04/25/22 08:45 04/24/22 16:00 Oxygen Flow Rate (L/min) 2 Oxygen Delivery Method Room Air Weight: 71.5 kg Body Mass Index (BMI) 26.9 Intake & Output: Intake and Output for Last 24 Hours 04/23/22 04/24/22 04/25/22 23:59 23:59 23:59 Intake Total 1275.00 / 1275.00 1681.25 / 1697.95 165.49 / 165.49 Output Total 725 / 1075 1250 / 1250 Balance 550.00 / 200.00 431.25 / 447.95 165.49 / 165.49 Medical Nutrition Assessment Dietitian: Malnutrition Criteria Met Start: 04/18/22 11:35 Freq: Status: Active Protocol: Document 04/21/22 14:11 [facility] (Rec: 04/21/22 14:11 [facility] [id number]) Nutrition Malnutrition Evidence of Malnutrition Exists Yes Malnutrition (severe): Chronic Evidenced By Suboptimal Energy Intake ( Severe),Weight Loss (Severe) Clinical Problem Chronic Disease or Condition Related Malnutrition Etiology severe, chronic malnutrition related to inadequate oral intake Signs/Symptoms as evidenced by pt reports of 52.8#/26% wt loss unintentional wt loss x 1 year , estimated PO intake meeting <75% of estimated energy needs x 1 year. Status Active Problem Recommendation Dietitian Recommendations/Changes will continue liberalized diet of regular, no added salt given evidence of malnutrition and pt refusal of oral nutrition supplements rec consider appetite stimulant to try to encourage increased po intake at meals. Lab / Micro Data Result Diagrams: 04/25/22 06:25 04/24/22 05:21 Labs: Laboratory Results - last 24 hr 04/25/22 06:25: WBC 15.9 H, RBC 3.48 L, Hgb 10.3 L, Hct 32.9 L, MCV 94.5, MCH 29.6, MCHC 31.3 L, RDW Std Deviation 50.1 H, RDW Coeff of [place] 14.7 H, Plt Count 287, MPV 11.8, Immature Gran % (Auto) 0.800, Neut % (Auto) 81.8 H, Lymph % (Auto) 8.9 L, [place] % (Auto) 7.7, Eos % (Auto) 0.7, Baso % (Auto) 0.1, Absolute Neuts (auto) 13.0 H, Absolute Lymphs (auto) 1.41, Nucleated RBC % 0 Physical Exam Const alert, oriented x3, no apparent distress and average body habitus Constitutional Narrative: Overweight, elderly white female lying in bed, at bedside, appears comfortable nontoxic General Appearance: cooperative, well kempt and well developed Orientation / Consciousness: awake, oriented to person, oriented to place and oriented to time HEENT normocephalic, head/scalp atraumatic and moist oral mucous membranes HEENT Narrative: No thrush, Mallampati 2 Resp normal respiratory effort, no retractions, no use of accessory muscles and clear to auscultation bilaterally Auscultation: Negative for crackles, rales, rhonchi or wheezes Cardio regular rhythm, S1 normal heart sound, S2 normal heart sound, no murmurs, no rub, no gallops and no clicks Cardio Narrative: Slight bradycardia GI normal to inspection, nondistended, normoactive bowel sounds, soft to palpation, non-tender and non-distended Extremity no clubbing, cyanosis or edema Extremity Narrative: 2+ pedal pulses Neuro oriented x3, moves all extremities and no focal motor deficits Speech: speech normal Psych affect normal Psych Narrative: Very pleasant and appropriately interactive Assessment & Plan Assessment/Plan (1) Acute pain of left hip: (2) Status post hip replacement: (3) PAF (paroxysmal atrial fibrillation): PLAN: Plan Paroxysmal atrial fibrillation -No further tachycardia -Amiodarone drip has been discontinued after discussion with Dr. Stanford by nursing -Will start amiodarone 200 mg p.o. twice daily until further input from cardiology -Initial intent per documentation was 200 mg p.o. twice daily x1 week then de-escalating to 200 mg daily -Continue metoprolol 50 mg p.o. twice daily -Continue Eliquis 5 mg p.o. twice daily -Echo performed on 04/21/2022 showed an EF of 45% with mild global left ventricular systolic dysfunction and hypokinesis of the LV, mild left atrial enlargement, stage II diastolic dysfunction and mild aortic valve insufficiency -Cardiology following-appreciate input Acute left hip pain -Bone scan shows possible loosening -Per orthopedic notes plan is for follow-up with Dr. Godinez as an outpatient with no urgent surgical interventions -Partial weightbearing with a walker at this time -Continue PT and OT -Plans for discharge to skilled facility once heart rate is controlled -Would avoid NSAIDs Leukocytosis -White count is up some however patient did receive steroids as an outpatient -Would recommend continue monitoring -No signs of infection -Patient has no significant complaints at this time -Repeat CBC in a.m. Hypertension -Continue metoprolol -Blood pressures are currently controlled on current therapy -Continue to hold home Lasix and lisinopril-> may need to discontinue at discharge GERD -Continue PPI History of gout -Continue home allopurinol Asthma/allergic rhinitis -As needed albuterol -Continue home fluticasone/salmeterol -Continue home as needed fluticasone nasal spray -Continue home as needed loratadine DVT prophylaxis -Fully anticoagulated with Eliquis CODE STATUS -full code Charges/Coding Visit Charges Inpatient E&M: 11231 Subs Hosp L2
--- NOTE | 2022-04-25 14:32 | PCM.PN.CARD ---
Subjective Subjective Denies any cardiac complaints. Patient states she is tired. Objective Data Vital Signs: Vital Signs Temp Pulse Resp BP Pulse Ox O2 Del Method O2 Flow Rate 99.7 F H 61 16 124/49 H 96 Room Air 2 04/25/22 13:51 04/25/22 13:51 04/25/22 13:51 04/25/22 13:51 04/25/22 13:51 04/25/22 13:51 04/24/22 16:00 Oxygen Flow Rate (L/min) 2 Oxygen Delivery Method Room Air Weight: 157 lb 10.088 oz Body Mass Index (BMI) 26.9 Intake & Output: Intake and Output for Last 24 Hours 04/23/22 04/24/22 04/25/22 23:59 23:59 23:59 Intake Total 1275.00 / 1275.00 1681.25 / 1697.95 165.49 / 165.49 Output Total 725 / 1075 1250 / 1250 Balance 550.00 / 200.00 431.25 / 447.95 165.49 / 165.49 Lab / Micro Data Result Diagrams: 04/25/22 06:25 04/24/22 05:21 Labs: Laboratory Results - last 24 hr 04/25/22 06:25: WBC 15.9 H, RBC 3.48 L, Hgb 10.3 L, Hct 32.9 L, MCV 94.5, MCH 29.6, MCHC 31.3 L, RDW Std Deviation 50.1 H, RDW Coeff of [place] 14.7 H, Plt Count 287, MPV 11.8, Immature Gran % (Auto) 0.800, Neut % (Auto) 81.8 H, Lymph % (Auto) 8.9 L, [place] % (Auto) 7.7, Eos % (Auto) 0.7, Baso % (Auto) 0.1, Absolute Neuts (auto) 13.0 H, Absolute Lymphs (auto) 1.41, Nucleated RBC % 0 Cardiology Labs/Tests 04/25/22 06:25: WBC 15.9 H, RBC 3.48 L, Hgb 10.3 L, Hct 32.9 L, MCV 94.5, MCH 29.6, MCHC 31.3 L, Plt Count 287, MPV 11.8, Immature Gran % (Auto) 0.800, Neut % (Auto) 81.8 H, Lymph % (Auto) 8.9 L, [place] % (Auto) 7.7, Eos % (Auto) 0.7, Baso % (Auto) 0.1, Absolute Neuts (auto) 13.0 H, Nucleated RBC % 0 Rhythm: EKG: ECHO: Stress Test: Cardiac Cath: PCI: CT Surgery: Holter monitor: EPS: PPM: CXR: Chest CT Scan: Physical Exam HEENT normocephalic Eyes no scleral icterus Neck no JVD Resp clear to auscultation bilaterally Cardio regular rate and regular rhythm Extremity no pedal edema General Extremity: edema Psych mental status grossly normal Assessment & Plan Assessment/Plan (1) PAF (paroxysmal atrial fibrillation): PLAN: Patient appears to have paroxysmal atrial fibrillation. She has a history of this already. She is currently in sinus rhythm. Will continue amiodarone orally 200 mg twice daily for 2 weeks and then 200 mg daily (2) Essential (primary) hypertension: PLAN: Plan We will sign off at this time. If we can be of any further assistance please let us know. Charges/Coding Visit Charges Inpatient E&M: 07683 Subs Hosp L2
--- NOTE | 2022-04-25 14:41 | CHAPLAIN ---
Type of Pastoral Visit ___ Initial Visit _x__ Follow-up Visit ___ On-call Visit ___ General Patient Visit ___ Spiritual Assessment ___ Family Conference ___ Bereavement ___ Rapid Response ___ Code Blue ___ Other (describe below) Pastoral Care Referral From ___ Patient _x__ Family ___ Nurse ___ Physician ___ Wagon Driller ___ Top Frame Maker ___ Other (describe below) Sacrament/Intervention _x__ Active listening ___ Anointing ___ Druze ___ Bereavement ___ Communion ___ Yuridia exploration ___ ___ Life review _x__ Prayer ___ Reconciliation ___ Sacrament of Sick ___ Supportive presence ___ Wedding ___ Other (describe below) Pastoral Comments family appreciates the follow up and prayers for patient; pt gives her perspective on what is happening; listening time and offers of support and care
--- NOTE | 2022-04-25 15:40 | RAD_ITS ---
STUDY: X-RAY CHEST REASON FOR EXAM: Female, 81 years old. leukocytosis TECHNIQUE: XR Chest 1 View COMPARISON: 05.30.20 FINDINGS: There is atherosclerotic calcification of the aortic arch with tortuosity. There are diffuse degenerative changes of the visualized thoracic spine. There is degenerative osteoarthritis of the bilateral shoulders. There is no demonstrated pleural abnormality. Normal size heart. Normal mediastinum and dimas. Normal visualized pulmonary arteries. There is no demonstrated abnormality of the visualized soft tissue structures of the upper abdomen. RAD/Chest 1 View (Portable) IMPRESSION: There are no acute findings. Electronically Signed: Aidan Moise MD at 16:24 EST ,
[2022-04-25] MEDS: Amiodarone 200 MG Tablet PO (17:06)
[2022-04-25 18:24] LABS: Mucous, Urine 0 SEEN /hpf (<or=2+); Red Blood Cells-Urine 0 SEEN /hpf (0-5); Squamous Epithelial Cells - UA 0 SEEN /hpf (5-10)
[2022-04-25 18:33] LABS: Color, Urine Yellow (Yellow); Glucose, Dipstick Normal (Normal); Ketone-Dipstick 5 mg/dl (Negative); Leukocyte Esterase-Dipstick 500 /ul (Negative); Nitrite-Dipstick Negative (Negative); Occult Blood-Urine 150 /ul (Negative); Protein-Dipstick 30 mg/dl (Negative); Specific Gravity, Urine 1.015 (1.002-1.030); Urine Bilirubin Dipstick Negative (Negative); Urine Clarity Sl. Cloudy (Clear); Urine Urobilinogen Normal (Normal)
[2022-04-25 18:47] LABS: Bacteria 2+ /hpf (None Seen); White Blood Cells 25-50 SEEN /hpf (0-5)
--- NOTE | 2022-04-25 23:27 | NURSING ---
Pt's heart rate appears irregular rapid on tele ekg ordered
--- NOTE | 2022-04-25 23:40 | EKG12_ITS ---
Test Reason : Blood Pressure : / mmHG Vent. Rate : 161 BPM Atrial Rate : 000 BPM P-R Int : 000 ms QRS Dur : 092 ms QT Int : 298 ms P-R-T Axes : 000 041 217 degrees QTc Int : 487 ms Atrial fibrillation with rapid ventricular response ST & T wave abnormality, consider inferolateral ischemia Abnormal ECG Confirmed by RAF CHENG, CHESTER ([id number]), web content editor MIRIAM VUONG ([id number]) on 04/30/2022 9:00:33 AM Referred By: VENITA Confirmed By:CHESTER CARBONE MD
[2022-04-25] MEDS: 0.9% Saline Lock 10 ML Syringe IV (23:48)
[2022-04-26] VITALS (23 sets, daily range): BP systolic 80–118; BP diastolic 44–74; PULSE 65–165; RESP 16–22; TEMP 36.6–37.2; O2SAT 93–100
--- NOTE | 2022-04-26 00:05 | NURSING ---
Dr Gomez was informed of rhythm change and ordered digoxin iv 500 mcg x1 now and 250 in 2 hrs. Also ordered 500 ml fluid bolus.
[2022-04-26] MEDS: Digoxin 250 MCG/ML Ampul 500 MCG IV (00:15)
[2022-04-26] MEDS: Ceftriaxone 1 GM/50 ML BAG IV ×2 (01:26→09:47)
--- NOTE | 2022-04-26 01:36 | NURSING ---
Antibiotic given late d/t need for urine sample to be collected prior to administration. Sample has been sent.
--- NOTE | 2022-04-26 02:00 | NURSING ---
Ekg results obtained. Sent message to Dr Trujillo. States no stemi and to inform cardiology. Paged Dr Gomez.
--- NOTE | 2022-04-26 02:02 | NURSING ---
Dr Gomez was informed of rhythm change and ordered digoxin iv 500 mcg x1 now and 250 in 2 hrs. Also ordered 500 ml fluid bolus.
[2022-04-26] MEDS: Digoxin 250 MCG/ML Ampul IV (02:16)
[2022-04-26] MEDS: 0.9% Saline Lock 10 ML Syringe IV ×2 (02:20→20:14)
[2022-04-26] MEDS: oxyCODONE 5 MG Tablet PO ×4 (02:25→20:14)
[2022-04-26] MEDS: Acetaminophen 325 MG Tablet 650 MG PO ×2 (06:20→13:55)
[2022-04-26 07:11] LABS: Absolute Lymphocyte Count 1.44 X10^3/uL (0.83-4.51); Absolute Neutrophil Count 14.6 X10^3/uL (2.0-7.7); Basophil# 0.03 X10^3/uL; Basophil% 0.2 % (0-1); Eosinophil# 0.02 X10^3/uL; Eosinophils% 0.1 % (0-5); Hematocrit 33.2 % (37-47); Hemoglobin 10.3 g/dL (12.0-15.0); Lymphocyte # 1.44 X10^3/ul (0.83-4.51); Mean Corpuscular Hgb 29.3 pg (27.0-32.0); Mean Corpuscular Volume 94.3 fL (81-99); Mean Platelet Vol. 11.9 fl (6.2-12.0); Monocyte# 1.65 X10^3/uL; Monocyte% 9.2 % (0-10); NRBC Flagged by Analyzer 0 % (0-5); Neutrophil % 81.7 % (47-70); POSITIVE DIFFERENTIAL YES; Platelet Count 279 K/mm3 (150-450); RBC Distribution Width CV 14.5 % (11.6-14.6); RBC Distribution Width SD 49.6 fl (35.1-43.9); Red Blood Count 3.52 M/mm3 (4.2-5.4); White Blood Count 17.9 K/mm3 (4.4-11.0)
[2022-04-26 07:20] LABS: Differential Indicated SCAN CRITERIA MET
[2022-04-26 07:50] LABS: Anion Gap 8 (5-15); BUN 33 mg/dL (7-18); BUN/Creat Ratio 30.6 RATIO (10-20); Calcium,Total 8.8 mg/dL (8.5-10.1); Chloride 106 mmol/L (98-107); Creatinine, Serum 1.08 mg/dL (0.55-1.02); EST Glomerular Filtration Rate 52 mL/min (>60); Est Glom Filt Rate - Afr Amer 62 mL/min (>60); Estimated Creatinine Clearance 31.76 ml/min; Glucose 102 mg/dL (74-106); Potassium 3.7 mmol/L (3.5-5.1); Sodium Level 135 mmol/L (136-145)
--- NOTE | 2022-04-26 08:29 | CASEMGMT ---
Social Work As per admitting nursing assessment, pt has LW/POA and is able to bring in the documents. Pt indicated Meme Ambrocio as POA. MARCO Cano
[2022-04-26] MEDS: Multivitamins,Ther W-Minerals Tablet 1 TABLET PO (08:47)
[2022-04-26] MEDS: APIXABAN 5 MG TABLET PO ×2 (08:47→21:48)
[2022-04-26] MEDS: Allopurinol 100 MG Tablet PO (08:47)
[2022-04-26] MEDS: Amiodarone 200 MG Tablet PO ×2 (08:48→17:15)
[2022-04-26] MEDS: Metoprolol Tartrate 50 MG Tablet PO (08:48)
--- NOTE | 2022-04-26 10:40 | PN.CARD_ITS ---
Subjective Subjective Patient denies any complaints. Overnight she went into A. fib with RVR. She was given a couple of doses of digoxin and her heart rate is better. Objective Data Vital Signs: Vital Signs Temp Pulse Resp BP Pulse Ox O2 Del Method O2 Flow Rate 99.0 F 112 H 16 116/49 L 93 Room Air 2 04/26/22 08:42 04/26/22 08:48 04/26/22 08:42 04/26/22 08:48 04/26/22 08:42 04/26/22 08:42 04/26/22 04:00 Oxygen Flow Rate (L/min) 2 Oxygen Delivery Method Room Air Weight: 163 lb 5.8 oz Body Mass Index (BMI) 26.9 Intake & Output: Intake and Output for Last 24 Hours 04/24/22 04/25/22 04/26/22 23:59 23:59 23:59 Intake Total 1681.25 / 1697.95 165.49 / 165.49 670 / 670 Output Total 1250 / 1250 500 / 750 450 / 450 Balance 431.25 / 447.95 -334.51 / -584.51 220 / 220 Lab / Micro Data Result Diagrams: 04/26/22 06:08 04/26/22 06:08 Labs: Laboratory Results - last 24 hr 04/25/22 18:15: Urine Color Yellow, Urine Clarity Sl. Cloudy, Urine pH 5.0, Ur Specific [place] 1.015, Urine Protein 30 H, Urine Glucose (UA) Normal, Urine Ketones 5 H, Urine Occult Blood 150 H, Urine Nitrite Negative, Urine Bilirubin Negative, Urine Urobilinogen Normal, Ur Leukocyte Esterase 500 H, Urine RBC 0 SEEN, Urine WBC 25-50 SEEN, Ur Squamous Epith Cells 0 SEEN, Urine Bacteria 2+, Urine Mucus 0 SEEN 04/26/22 06:08: WBC 17.9 H, RBC 3.52 L, Hgb 10.3 L, Hct 33.2 L, MCV 94.3, MCH 29.3, MCHC 31.0 L, RDW Std Deviation 49.6 H, RDW Coeff of Tiffani 14.5, Plt Count 279, MPV 11.9, Immature Gran % (Auto) 0.800, Neut % (Auto) 81.7 H, Lymph % (Auto) 8.0 L, [place] % (Auto) 9.2, Eos % (Auto) 0.1, Baso % (Auto) 0.2, Absolute Neuts (auto) 14.6 H, Absolute Lymphs (auto) 1.44, Nucleated RBC % 0, Diff Path Review September04/26/22 06:08: Sodium 135 L, Potassium 3.7, Chloride 106, Carbon Dioxide 21.0, Anion Gap 8, BUN 33 H, Creatinine 1.08 H, Estim Creat Clear Calc 31.76, Est GFR (MDRD) Af Amer 62, Est GFR (MDRD) Non-Af 52 L, BUN/Creatinine Ratio 30.6 H, Glucose 102, Calcium 8.8 Cardiology Labs/Tests 04/25/22 18:15: Urine Color Yellow, Urine Clarity Sl. Cloudy, Urine pH 5.0, Ur Specific [place] 1.015, Urine Protein 30 H, Urine Glucose (UA) Normal, Urine Ketones 5 H, Urine Occult Blood 150 H, Urine Nitrite Negative, Urine Bilirubin Negative, Urine Urobilinogen Normal, Ur Leukocyte Esterase 500 H, Urine RBC 0 SEEN, Urine WBC 25-50 SEEN 04/26/22 06:08: WBC 17.9 H, RBC 3.52 L, Hgb 10.3 L, Hct 33.2 L, MCV 94.3, MCH 29.3, MCHC 31.0 L, Plt Count 279, MPV 11.9, Immature Gran % (Auto) 0.800, Neut % (Auto) 81.7 H, Lymph % (Auto) 8.0 L, [place] % (Auto) 9.2, Eos % (Auto) 0.1, Baso % (Auto) 0.2, Absolute Neuts (auto) 14.6 H, Nucleated RBC % 0 04/26/22 06:08: Sodium 135 L, Potassium 3.7, Chloride 106, Carbon Dioxide 21.0, Anion Gap 8, BUN 33 H, Creatinine 1.08 H, Est GFR (MDRD) Af Amer 62, Est GFR (MDRD) Non-Af 52 L, BUN/Creatinine Ratio 30.6 H, Glucose 102, Calcium 8.8 Rhythm: EKG: ECHO: Stress Test: Cardiac Cath: PCI: CT Surgery: Holter monitor: EPS: PPM: CXR: Chest CT Scan: Radiography Diagnostic Testing: Radiology Impression Chest X-Ray 04/25/22 15:40 IMPRESSION: There are no acute findings. Electronically Signed: Aidan Moise MD at 16:24 EST , Physical Exam HEENT normocephalic Eyes no scleral icterus Resp normal respiratory effort Cardio Heart Sounds: S1 normal and S2 normal Psych mental status grossly normal Assessment & Plan Assessment/Plan (1) PAF (paroxysmal atrial fibrillation): PLAN: Continue amiodarone. Will increase the metoprolol. Charges/Coding Visit Charges Inpatient E&M: 11215 Subs Hosp L2
[2022-04-26] MEDS: Metoprolol Tartrate 25 MG Tablet PO (11:34)
--- NOTE | 2022-04-26 12:30 | PCM.PN.HOSP ---
Subjective Subjective Patient developed A. fib with RVR again through the night. Was given digoxin x1 dose however rates still remain refractory and in the 120s. When she has higher rates she does become hypotensive. Blood pressures currently stable. Patient reports she is overall tired and fatigued denies any dysuria, coughing, shortness of breath but does complain of some generalized aching. Objective Data Objective Data Vital Signs: Vital Signs Temp Pulse Resp BP Pulse Ox O2 Del Method O2 Flow Rate 99.0 F 123 H 16 116/49 L 93 Room Air 2 04/26/22 08:42 04/26/22 11:34 04/26/22 08:42 04/26/22 08:48 04/26/22 08:42 04/26/22 08:42 04/26/22 04:00 Oxygen Flow Rate (L/min) 2 Oxygen Delivery Method Room Air Weight: 74.1 kg Body Mass Index (BMI) 26.9 Intake & Output: Intake and Output for Last 24 Hours 04/24/22 04/25/22 04/26/22 23:59 23:59 23:59 Intake Total 1681.25 / 1697.95 165.49 / 165.49 720 / 720 Output Total 1250 / 1250 500 / 750 450 / 450 Balance 431.25 / 447.95 -334.51 / -584.51 270 / 270 Medical Nutrition Assessment Dietitian: Malnutrition Criteria Met Start: 04/18/22 11:35 Freq: Status: Active Protocol: Document 04/21/22 14:11 [facility] (Rec: 04/21/22 14:11 [facility] [id number]) Nutrition Malnutrition Evidence of Malnutrition Exists Yes Malnutrition (severe): Chronic Evidenced By Suboptimal Energy Intake ( Severe),Weight Loss (Severe) Clinical Problem Chronic Disease or Condition Related Malnutrition Etiology severe, chronic malnutrition related to inadequate oral intake Signs/Symptoms as evidenced by pt reports of 52.8#/26% wt loss unintentional wt loss x 1 year , estimated PO intake meeting <75% of estimated energy needs x 1 year. Status Active Problem Recommendation Dietitian Recommendations/Changes will continue liberalized diet of regular, no added salt given evidence of malnutrition and pt refusal of oral nutrition supplements rec consider appetite stimulant to try to encourage increased po intake at meals. Lab / Micro Data Result Diagrams: 04/26/22 06:08 04/26/22 06:08 Labs: Laboratory Results - last 24 hr 12/09/22 18:15: Urine Color Yellow, Urine Clarity Sl. Cloudy, Urine pH 5.0, Ur Specific [place] 1.015, Urine Protein 30 H, Urine Glucose (UA) Normal, Urine Ketones 5 H, Urine Occult Blood 150 H, Urine Nitrite Negative, Urine Bilirubin Negative, Urine Urobilinogen Normal, Ur Leukocyte Esterase 500 H, Urine RBC 0 SEEN, Urine WBC 25-50 SEEN, Ur Squamous Epith Cells 0 SEEN, Urine Bacteria 2+, Urine Mucus 0 SEEN 04/26/22 06:08: WBC 17.9 H, RBC 3.52 L, Hgb 10.3 L, Hct 33.2 L, MCV 94.3, MCH 29.3, MCHC 31.0 L, RDW Std Deviation 49.6 H, RDW Coeff of Tiffani 14.5, Plt Count 279, MPV 11.9, Immature Gran % (Auto) 0.800, Neut % (Auto) 81.7 H, Lymph % (Auto) 8.0 L, [place] % (Auto) 9.2, Eos % (Auto) 0.1, Baso % (Auto) 0.2, Absolute Neuts (auto) 14.6 H, Absolute Lymphs (auto) 1.44, Nucleated RBC % 0, Diff Path Review September04/26/22 06:08: Sodium 135 L, Potassium 3.7, Chloride 106, Carbon Dioxide 21.0, Anion Gap 8, BUN 33 H, Creatinine 1.08 H, Estim Creat Clear Calc 31.76, Est GFR (MDRD) Af Amer 62, Est GFR (MDRD) Non-Af 52 L, BUN/Creatinine Ratio 30.6 H, Glucose 102, Calcium 8.8 Radiography Diagnostic Testing: Radiology Impression Chest X-Ray 04/25/22 15:40 IMPRESSION: There are no acute findings. Electronically Signed: Aidan Moise MD at 16:24 EST , Physical Exam Const alert, oriented x3 and no apparent distress Constitutional Narrative: Overweight, elderly white female lying in bed, and daughter at bedside, appears comfortable but fatigued, nontoxic Orientation / Consciousness: awake, oriented to person, oriented to place and oriented to time HEENT normocephalic, head/scalp atraumatic and moist oral mucous membranes HEENT Narrative: Dentition is fair, Mallampati is 2, no thrush Resp normal respiratory effort, no retractions, no use of accessory muscles and clear to auscultation bilaterally Auscultation: Negative for crackles, rales, rhonchi or wheezes Cardio S1 normal heart sound, S2 normal heart sound, no murmurs, no rub, no gallops and no clicks Cardio Narrative: Tachycardic, irregularly irregular GI normal to inspection, nondistended, normoactive bowel sounds, soft to palpation and non-tender Extremity no clubbing, cyanosis or edema Extremity Narrative: 2+ pedal pulses Neuro oriented x3, CN's II-XII intact bilaterally, moves all extremities and no focal motor deficits Neuro Narrative: No overt focal deficits appreciated Sensorium / Orientation: awake and alert Speech: speech normal Psych affect normal Psych Narrative: Very pleasant and appropriately interactive Assessment & Plan Assessment/Plan (1) Acute pain of left hip: (2) Status post hip replacement: (3) PAF (paroxysmal atrial fibrillation): PLAN: Plan Paroxysmal atrial fibrillation -Patient redeveloped A. fib through the night -Discussed with cardiology this morning plan for now will be to keep on oral amiodarone and he will evaluate her later today -Digoxin was given twice through the evening -Dr. Gomez felt that if she continues to have refractory A. fib paroxysmal through Thursday that she may need transfer to a tertiary center for evaluation by EP and possible AV ablation with pacer placement -Did discuss this with daughter and who are at the bedside and answered all questions -Continue metoprolol 50 mg p.o. twice daily -Continue Eliquis 5 mg p.o. twice daily -Echo performed on 04/21/2022 showed an EF of 45% with mild global left ventricular systolic dysfunction and hypokinesis of the LV, mild left atrial enlargement, stage II diastolic dysfunction and mild aortic valve insufficiency -Cardiology following-appreciate input Acute left hip pain -Bone scan shows possible loosening -Per orthopedic notes plan is for follow-up with Dr. Godinez as an outpatient with no urgent surgical interventions -Partial weightbearing with a walker at this time -Continue PT and OT -Plans for discharge to skilled facility once heart rate is controlled -Would avoid NSAIDs Leukocytosis -White count continues to trend up -I did obtain a UA last evening which was somewhat suggestive of infection however patient is overall asymptomatic -Urine culture is pending -I did place her on empiric ceftriaxone for possible UTI -Blood cultures are pending -Chest x-ray is unremarkable -Her white count appears to been fluctuating throughout her hospital course but is the highest today it has been since presentation Hypertension -Continue metoprolol -Blood pressures are currently controlled on current therapy -Patient developed some hypotension when she has heart rates in the 160s -Continue to hold home Lasix and lisinopril-> may need to discontinue at discharge GERD -Continue PPI History of gout -Continue home allopurinol Asthma/allergic rhinitis -As needed albuterol -Continue home fluticasone/salmeterol -Continue home as needed fluticasone nasal spray -Continue home as needed loratadine DVT prophylaxis -Fully anticoagulated with Eliquis CODE STATUS -full code Charges/Coding Visit Charges Inpatient E&M: 98150 Subs Hosp L2
[2022-04-26] MEDS: Metoprolol Tartrate 50 MG Tablet 75 MG PO (21:47)
[2022-04-27] VITALS (17 sets, daily range): BP systolic 105–136; BP diastolic 44–73; PULSE 61–100; RESP 16–18; TEMP 36.6–36.8; O2SAT 95–100
[2022-04-27] MEDS: Acetaminophen 325 MG Tablet 650 MG PO ×2 (03:10→13:26)
[2022-04-27 06:21] LABS: Absolute Neutrophil Count 13.2 X10^3/uL (2.0-7.7); Basophil# 0.02 X10^3/uL; Basophil% 0.1 % (0-1); Eosinophil# 0.06 X10^3/uL; Eosinophils% 0.4 % (0-5); Hematocrit 31.4 % (37-47); Hemoglobin 9.7 g/dL (12.0-15.0); Lymphocyte % 8.1 % (19-41); Mean Corp Hgb Conc 30.9 g/dL (32-36); Mean Corpuscular Hgb 29.9 pg (27.0-32.0); Mean Corpuscular Volume 96.9 fL (81-99); Mean Platelet Vol. 11.2 fl (6.2-12.0); Monocyte# 1.33 X10^3/uL; Monocyte% 8.3 % (0-10); NRBC Flagged by Analyzer 0 % (0-5); Neutrophil # 13.24 X10^3/uL (2.7-7.7); Neutrophil % 82.3 % (47-70); Platelet Count 272 K/mm3 (150-450); RBC Distribution Width CV 14.5 % (11.6-14.6); RBC Distribution Width SD 51.2 fl (35.1-43.9); Red Blood Count 3.24 M/mm3 (4.2-5.4); White Blood Count 16.1 K/mm3 (4.4-11.0)
[2022-04-27 07:08] LABS: Anion Gap 9 (5-15); BUN 35 mg/dL (7-18); Calcium,Total 8.8 mg/dL (8.5-10.1); Chloride 107 mmol/L (98-107); EST Glomerular Filtration Rate 56 mL/min (>60); Est Glom Filt Rate - Afr Amer 68 mL/min (>60); Glucose 79 mg/dL (74-106); Potassium 3.8 mmol/L (3.5-5.1); Sodium Level 136 mmol/L (136-145); Thyroid Stim Hormone (TSH) 3.06 uIU/mL (0.358-3.74)
[2022-04-27] MEDS: Amiodarone 200 MG Tablet PO ×2 (08:34→16:00)
[2022-04-27] MEDS: APIXABAN 5 MG TABLET PO ×2 (08:35→20:10)
[2022-04-27] MEDS: Allopurinol 100 MG Tablet PO (08:35)
[2022-04-27] MEDS: Metoprolol Tartrate 50 MG Tablet 75 MG PO ×2 (08:35→20:10)
[2022-04-27] MEDS: oxyCODONE 5 MG Tablet PO ×3 (08:37→17:44)
[2022-04-27] MEDS: Ceftriaxone 1 GM/50 ML BAG IV (09:54)
--- NOTE | 2022-04-27 13:54 | PN.HOSP_ITS ---
Subjective Subjective Patient's she stopped well overnight. Complains that the beds are uncomfortable. No specific issues otherwise. A. fib resolved shortly after I saw her yesterday but she had bouts of A. fib periodically but nothing persistent throughout the day yesterday. Normal sinus rhythm this morning. Metoprolol was increased by cardiology. Objective Data Objective Data Vital Signs: Vital Signs Temp Pulse Resp BP Pulse Ox O2 Del Method O2 Flow Rate 98.0 F 62 18 109/44 L 95 Room Air 2 04/27/22 13:21 04/27/22 13:21 04/27/22 13:21 04/27/22 13:21 04/27/22 13:21 04/27/22 13:21 04/26/22 04:00 Oxygen Flow Rate (L/min) 2 Oxygen Delivery Method Room Air Weight: 72.6 kg Body Mass Index (BMI) 26.9 Intake & Output: Intake and Output for Last 24 Hours 04/25/22 04/26/22 04/27/22 23:59 23:59 23:59 Intake Total 165.49 / 165.49 1500 / 1500 550 / 550 Output Total 500 / 750 1100 / 1100 400 / 400 Balance -334.51 / -584.51 400 / 400 150 / 150 Medical Nutrition Assessment Dietitian: Malnutrition Criteria Met Start: 04/18/22 11:35 Freq: Status: Active Protocol: Document 04/21/22 14:11 SRIDHAR (Rec: 04/21/22 14:11 [facility] [id number]) Nutrition Malnutrition Evidence of Malnutrition Exists Yes Malnutrition (severe): Chronic Evidenced By Suboptimal Energy Intake ( Severe),Weight Loss (Severe) Clinical Problem Chronic Disease or Condition Related Malnutrition Etiology severe, chronic malnutrition related to inadequate oral intake Signs/Symptoms as evidenced by pt reports of 52.8#/26% wt loss unintentional wt loss x 1 year , estimated PO intake meeting <75% of estimated energy needs x 1 year. Status Active Problem Recommendation Dietitian Recommendations/Changes will continue liberalized diet of regular, no added salt given evidence of malnutrition and pt refusal of oral nutrition supplements rec consider appetite stimulant to try to encourage increased po intake at meals. Lab / Micro Data Result Diagrams: 04/27/22 05:40 04/27/22 05:40 Labs: Laboratory Results - last 24 hr 04/27/22 05:40: WBC 16.1 H, RBC 3.24 L, Hgb 9.7 L, Hct 31.4 L, MCV 96.9, MCH 29.9, MCHC 30.9 L, RDW Std Deviation 51.2 H, RDW Coeff of Tiffani 14.5, Plt Count 272, MPV 11.2, Immature Gran % (Auto) 0.800, Neut % (Auto) 82.3 H, Lymph % (Auto) 8.1 L, Harper % (Auto) 8.3, Eos % (Auto) 0.4, Baso % (Auto) 0.1, Absolute Neuts (auto) 13.2 H, Absolute Lymphs (auto) 1.30, Nucleated RBC % 0 04/27/22 05:40: Sodium 136, Potassium 3.8, Chloride 107, Carbon Dioxide 20.0 L, Anion Gap 9, BUN 35 H, Creatinine 1.00, Estim Creat Clear Calc 34.30, Est GFR (MDRD) Af Amer 68, Est GFR (MDRD) Non-Af 56 L, BUN/Creatinine Ratio 35.0 H, Glucose 79, Calcium 8.8, TSH 3.06 Micro: Microbiology 04/26/22 08:28 Blood Culture (Wb) - Right Hand Blood Culture - Preliminary 04/26/22 00:30 Urine, Random Urine Culture - Preliminary Staphylococcus species Physical Exam Const alert, oriented x3, no apparent distress and average body habitus Constitutional Narrative: Overweight, elderly white female lying in bed, and daughter at bedside, appears comfortable but fatigued, nontoxic HEENT normocephalic, head/scalp atraumatic and moist oral mucous membranes HEENT Narrative: Dentition is poor, Mallampati is 2, no thrush Resp normal respiratory effort, no retractions, no use of accessory muscles and clear to auscultation bilaterally Auscultation: Negative for crackles, rales, rhonchi or wheezes Cardio regular rate, regular rhythm, S1 normal heart sound, S2 normal heart sound, no murmurs, no rub, no gallops and no clicks GI normal to inspection, nondistended, normoactive bowel sounds, soft to palpation, non-tender and non-distended Extremity Extremity Narrative: 2+ pedal pulses, trace bilateral lower extremity edema that is pitting in nature Neuro oriented x3, moves all extremities and no focal motor deficits Neuro Narrative: No overt focal deficits appreciated Speech: speech normal Psych affect normal Psych Narrative: Very pleasant and appropriately interactive Assessment & Plan Assessment/Plan (1) Acute pain of left hip: (2) Status post hip replacement: (3) PAF (paroxysmal atrial fibrillation): PLAN: Plan Paroxysmal atrial fibrillation -A. fib has since resolved with periodic bouts of bursts but nothing persistent -Dr. Gomez felt that if she continues to have refractory A. fib paroxysmal through Thursday that she may need transfer to a tertiary center for evaluation by EP and possible AV ablation with pacer placement -Did discuss this with daughter and who are at the bedside and answered all questions -Continue increased dose of metoprolol 75 mg p.o. twice daily -Continue amiodarone 200 mg p.o. twice daily -Continue Eliquis 5 mg p.o. twice daily -Echo performed on 04/21/2022 showed an EF of 45% with mild global left ventricular systolic dysfunction and hypokinesis of the LV, mild left atrial enlargement, stage II diastolic dysfunction and mild aortic valve insufficiency -Cardiology following-appreciate input Acute left hip pain -Bone scan shows possible loosening -Per orthopedic notes plan is for follow-up with Dr. Godinez as an outpatient with no urgent surgical interventions -Partial weightbearing with a walker at this time -Continue PT and OT -Plans for discharge to skilled facility once heart rate is controlled -Would avoid NSAIDs Leukocytosis -Slight trend down today -Cultures does show staph species -Sinew empiric ceftriaxone -Blood cultures remain pending -Chest x-ray is unremarkable -Her white count appears to been fluctuating throughout her hospital course but is the highest today it has been since presentation Staph species UTI -Continue ceftriaxone and await sensitivities Hypertension -Continue metoprolol -Blood pressures are currently controlled on current therapy -Patient developed some hypotension when she has heart rates in the 160s -Continue to hold home Lasix and lisinopril-> may need to discontinue at discharge GERD -Continue PPI History of gout -Continue home allopurinol Asthma/allergic rhinitis -As needed albuterol -Continue home fluticasone/salmeterol -Continue home as needed fluticasone nasal spray -Continue home as needed loratadine DVT prophylaxis -Fully anticoagulated with Eliquis CODE STATUS -full code Charges/Coding Visit Charges Inpatient E&M: 92090 Subs Hosp L2
[2022-04-27] MEDS: 0.9% Saline Lock 10 ML Syringe IV (20:10)
--- NOTE | 2022-04-27 20:12 | NURSING ---
Pt falling asleep, requesting meds at this time.
[2022-04-28] VITALS (15 sets, daily range): BP systolic 98–119; BP diastolic 53–67; PULSE 63–108; RESP 16–18; TEMP 36.4–36.8; O2SAT 94–97
[2022-04-28] MEDS: Acetaminophen 325 MG Tablet 650 MG PO ×4 (04:42→23:09)
[2022-04-28 06:56] LABS: Absolute Lymphocyte Count 0.95 X10^3/uL (0.83-4.51); Absolute Neutrophil Count 10.5 X10^3/uL (2.0-7.7); Basophil# 0.02 X10^3/uL; Basophil% 0.2 % (0-1); Eosinophil# 0.11 X10^3/uL; Eosinophils% 0.9 % (0-5); Hematocrit 31.3 % (37-47); Hemoglobin 9.8 g/dL (12.0-15.0); Lymphocyte # 0.95 X10^3/ul (0.83-4.51); Lymphocyte % 7.5 % (19-41); Mean Corp Hgb Conc 31.3 g/dL (32-36); Mean Corpuscular Hgb 30.2 pg (27.0-32.0); Mean Corpuscular Volume 96.6 fL (81-99); Mean Platelet Vol. 11.4 fl (6.2-12.0); Monocyte# 1.04 X10^3/uL; Monocyte% 8.2 % (0-10); NRBC Flagged by Analyzer 0 % (0-5); Neutrophil # 10.48 X10^3/uL (2.7-7.7); Neutrophil % 82.4 % (47-70); Platelet Count 302 K/mm3 (150-450); RBC Distribution Width CV 14.4 % (11.6-14.6); RBC Distribution Width SD 50.7 fl (35.1-43.9); Red Blood Count 3.24 M/mm3 (4.2-5.4); White Blood Count 12.7 K/mm3 (4.4-11.0)
[2022-04-28 07:14] LABS: Anion Gap 8 (5-15); BUN 38 mg/dL (7-18); BUN/Creat Ratio 34.9 RATIO (10-20); Calcium,Total 8.9 mg/dL (8.5-10.1); Chloride 105 mmol/L (98-107); Creatinine, Serum 1.09 mg/dL (0.55-1.02); EST Glomerular Filtration Rate 51 mL/min (>60); Est Glom Filt Rate - Afr Amer 62 mL/min (>60); Estimated Creatinine Clearance 31.47 ml/min; Glucose 87 mg/dL (74-106); Potassium 3.9 mmol/L (3.5-5.1); Sodium Level 135 mmol/L (136-145)
[2022-04-28] MEDS: Allopurinol 100 MG Tablet PO (08:36)
[2022-04-28] MEDS: Amiodarone 200 MG Tablet PO ×3 (08:36→20:05)
[2022-04-28] MEDS: APIXABAN 5 MG TABLET PO ×2 (08:36→20:05)
[2022-04-28] MEDS: Metoprolol Tartrate 50 MG Tablet 75 MG PO ×2 (08:36→20:05)
[2022-04-28] MEDS: Multivitamins,Ther W-Minerals Tablet 1 TABLET PO (08:36)
--- NOTE | 2022-04-28 08:49 | PCM.PN.HOSP ---
Subjective Subjective Seen and examined. Patient denies acute shortness of breath or chest pain/pressure. She did not feel palpitation heart racing. No fever. Denies burning micturition. On laboratory monitor AJohn fib heart rate 112/min Objective Data Objective Data Vital Signs: Vital Signs Temp Pulse Resp BP Pulse Ox O2 Del Method O2 Flow Rate 98.0 F 104 H 18 108/63 97 Room Air 2 04/28/22 08:31 04/28/22 08:36 04/28/22 08:31 04/28/22 08:36 04/28/22 08:31 04/28/22 08:39 04/26/22 04:00 Oxygen Flow Rate (L/min) 2 Oxygen Delivery Method Room Air Weight: 158 lb 1.143 oz Body Mass Index (BMI) 26.9 Intake & Output: Intake and Output for Last 24 Hours 04/26/22 04/27/22 04/28/22 23:59 23:59 23:59 Intake Total 1500 / 1500 1060 / 1060 Output Total 1100 / 1100 1000 / 1000 500 / 500 Balance 400 / 400 60 / 60 -500 / -500 Medical Nutrition Assessment Dietitian: Malnutrition Criteria Met Start: 04/18/22 11:35 Freq: Status: Active Protocol: Document 04/21/22 14:11 SRIDHAR (Rec: 04/21/22 14:11 [facility] [id number]) Nutrition Malnutrition Evidence of Malnutrition Exists Yes Malnutrition (severe): Chronic Evidenced By Suboptimal Energy Intake ( Severe),Weight Loss (Severe) Clinical Problem Chronic Disease or Condition Related Malnutrition Etiology severe, chronic malnutrition related to inadequate oral intake Signs/Symptoms as evidenced by pt reports of 52.8#/26% wt loss unintentional wt loss x 1 year , estimated PO intake meeting <75% of estimated energy needs x 1 year. Status Active Problem Recommendation Dietitian Recommendations/Changes will continue liberalized diet of regular, no added salt given evidence of malnutrition and pt refusal of oral nutrition supplements rec consider appetite stimulant to try to encourage increased po intake at meals. Lab / Micro Data Result Diagrams: 04/28/22 05:17 04/28/22 05:17 Labs: Laboratory Results - last 24 hr 04/28/22 05:17: WBC 12.7 H, RBC 3.24 L, Hgb 9.8 L, Hct 31.3 L, MCV 96.6, MCH 30.2, MCHC 31.3 L, RDW Std Deviation 50.7 H, RDW Coeff of Tiffani 14.4, Plt Count 302, MPV 11.4, Immature Gran % (Auto) 0.800, Neut % (Auto) 82.4 H, Lymph % (Auto) 7.5 L, [place] % (Auto) 8.2, Eos % (Auto) 0.9, Baso % (Auto) 0.2, Absolute Neuts (auto) 10.5 H, Absolute Lymphs (auto) 0.95, Nucleated RBC % 0 04/28/22 05:17: Sodium 135 L, Potassium 3.9, Chloride 105, Carbon Dioxide 22.0, Anion Gap 8, BUN 38 H, Creatinine 1.09 H, Estim Creat Clear Calc 31.47, Est GFR (MDRD) Af Amer 62, Est GFR (MDRD) Non-Af 51 L, BUN/Creatinine Ratio 34.9 H, Glucose 87, Calcium 8.9 Micro: Microbiology 04/26/22 08:28 Blood Culture (Wb) - Right Hand Bacteria Detection (PCR) - Final Staphylococcus lugdunensis 04/26/22 08:28 Blood Culture (Wb) - Right Hand Blood Culture - Preliminary Staphylococcus lugdunensis 04/26/22 08:22 Blood Culture (Wb) - Anticubital Left Blood Culture - Preliminary No growth in 48 hours. 04/26/22 00:30 Urine, Random Urine Culture - Preliminary Staphylococcus species Physical Exam Narrative Physical exam General: Alert, Oriented x3, Cooperative HEENT: Atraumatic, PERRLA, EOMI, Normocephalic Oral: No Gingival or Mucosal Lesions/ Ulcerations Neck: Supple, No JVD, Negative Carotid Bruits Lungs: Air entry diminished in bilateral lungs. No crepitation/rhonchi Cardiovascular: Irregular rate and rhythm, A. fib RVR normal S1, Normal S2, Abdomen: Bowel Sounds Present, Soft, Non Tender, Non-Distended : No renal angle tenderness. No suprapubic tenderness. Extremities: Bilateral 2+ pitting below knee edema, Capillary Refill Less than 3 Seconds Skin: No rashes, No breakdown Musculoskeletal: No Tenderness to Palpation of Joints or Extremities, muscle strength 4/5 at knee and hip joints. Neurological: Cranial nerves II-XII grossly intact, DTR 2+/4 and Symmetrical, Neuro grossly intact Psych/Mental Status: Flat affect Assessment & Plan Assessment/Plan (1) Acute pain of left hip: (2) Status post hip replacement: (3) PAF (paroxysmal atrial fibrillation): PLAN: Plan This is a 81-year-old female with history of left hip replacement in May 2020 was admitted with severe/excruciating left hip pain for 24 hours prior to admission. She fell down 3 to 4 weeks ago. Paroxysmal atrial fibrillation with RVR: Patient developed A. fib with RVR that required amnio drip and Cardizem. Patient on Eliquis. Continue beta-mulu.She also had couple doses of digoxin. Metoprolol tartrate 75 mg twice daily. Amiodarone decreased to 200 mg 3 times daily. Patient was seen by drilling and production superintendent during the weekend. she may need transfer to a tertiary center for evaluation by EP and possible AV ablation with pacer placement -Echo performed on 04/21/2022 showed an EF of 45% with mild global left ventricular systolic dysfunction and hypokinesis of the LV, mild left atrial enlargement, stage II diastolic dysfunction and mild aortic valve insufficiency Acute left hip pain -Bone scan shows possible loosening -Per orthopedic notes plan is for follow-up with Dr. Godinez as an outpatient with no urgent surgical interventions -Partial weightbearing with a walker at this time -Continue PT and OT -Plans for discharge to skilled facility once heart rate is controlled -Would avoid NSAIDs Staph species UTI: -Continue ceftriaxone. Urine culture showed more than 100,000 Staphylococcus lugdunensis. 1 blood culture showed similar organism. Discussed with ID in light of leukocytosis and acute left hip pain but has left hip pain improving, leukocytosis improving and 2D echo on 04/21 did not show any vegetation therefore will recommend, total 7 days of antibiotic. Hypertension -Continue metoprolol -Blood pressures are currently controlled on current therapy. Patient had hypotension during hospital stay when heart rate in the 160s. lisinopril on hold. 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 PASP 43 mmHg, mild tricuspid regurgitation. Mild pulmonary hypertension. Lasix 20 mg IV given. Chest x-ray unremarkable GERD -Continue PPI History of gout -Continue home allopurinol Asthma/allergic rhinitis -As needed albuterol -Continue home fluticasone/salmeterol -Continue home as needed fluticasone nasal spray -Continue home as needed loratadine DVT prophylaxis -Fully anticoagulated with Eliquis CODE STATUS -full code Total time of the visit including total time spent in counseling or coordination of care, (more than 50% of the total time, spent in obtaining medical information from nurses and other ancillary care providers,explaining to the patient about labs, imaging, diagnosis and management of active complex medical conditions), discussion with ID and drilling and production superintendent, clinical update to and son near the bedside, review of labs and imaging is 40 minutes. Charges/Coding Visit Charges Inpatient E&M: 29993 Subs Hosp L3
[2022-04-28] MEDS: Ceftriaxone 1 GM/50 ML BAG IV (09:21)
--- NOTE | 2022-04-28 09:36 | CASEMGMT ---
Discharge Bacteriologist Food This assembly instructions writer sent updates to [place]. Florecita MUÑIZ Cashier Checker
[2022-04-28] MEDS: Furosemide 20 MG/2 ML VIAL IV (11:00)
[2022-04-28 15:40] LABS: Pathologist Review Reviewed
--- NOTE | 2022-04-28 20:04 | NURSING ---
Pt falling asleep. Would like meds given now.
[2022-04-29 02:50] VITALS: BP 104/68; PULSE 93; RESP 18; TEMP 36.8; O2SAT 97
[2022-04-29 03:00] VITALS: PULSE 92
[2022-04-29] MEDS: 0.9% Saline Lock 10 ML Syringe IV ×2 (04:34→08:52)
[2022-04-29] MEDS: Amiodarone 200 MG Tablet PO (04:34)
[2022-04-29] MEDS: Acetaminophen 325 MG Tablet 650 MG PO ×2 (05:38→11:08)
[2022-04-29 07:38] VITALS: PULSE 79
--- NOTE | 2022-04-29 08:25 | TREXTCAR_ITS ---
Diet Diet Order/Speech Therapy: 04/18/22 11:35 Diet: Regular - No Added Salt Is pt able to select menu?: Yes Routine Orders/Code Status Suppository Type: Dulcolax 10mg Suppository Frequency: Daily PRN Code Status: Full Code Wound(s) L forearm: Wound Type: Skin Tear BLE-minor scapes: Wound Type: Abrasion RUE: Wound Type: Skin Tear BUE: Wound Type: Abrasion Therapies Weight Bearing: Weight bearing as tolerated Extremity Affected:: Bilateral Lower Physical Therapy: Eval and Treat Occupational Therapy: Eval and Treat Speech Therapy: Eval and Treat Problem/Diagnosis (1) Acute pain of left hip: Status: Acute Code(s): M25.552 - Pain in left hip (2) Status post hip replacement: Status: Acute Code(s): Z96.649 - Presence of unspecified artificial hip joint (3) PAF (paroxysmal atrial fibrillation): Status: Chronic Code(s): I48.0 - Paroxysmal atrial fibrillation Plan This is a 81-year-old female with history of left hip replacement in May 1 was admitted with severe/excruciating left hip pain for 24 hours prior to admission. She fell down 3 to 4 weeks ago. Paroxysmal atrial fibrillation with RVR: Patient developed A. fib with RVR that required amnio drip and Cardizem. Patient on Eliquis. Continue beta- mulu.She also had couple doses of digoxin. Metoprolol tartrate 75 mg twice daily. Amiodarone decreased to 200 mg 3 times daily. Patient was seen by wildlife refuge specialist during the weekend. she may need transfer to a tertiary center for evaluation by EP and possible AV ablation with pacer placement -Echo performed on 04/21/2022 showed an EF of 45% with mild global left ventricular systolic dysfunction and hypokinesis of the LV, mild left atrial enlargement, stage II diastolic dysfunction and mild aortic valve insufficiency Acute left hip pain -Bone scan shows possible loosening -Per orthopedic notes plan is for follow-up with Dr. Godinez as an outpatient with no urgent surgical interventions -Partial weightbearing with a walker at this time -Continue PT and OT -Plans for discharge to skilled facility once heart rate is controlled -Would avoid NSAIDs Staph species UTI: -Continue ceftriaxone. Urine culture showed more than 100,000 Staphylococcus lugdunensis. 1 blood culture showed similar organism. Discussed with ID in light of leukocytosis and acute left hip pain but has left hip pain improving, leukocytosis improving and 2D echo on 04/21 did not show any vegetation therefore will recommend, total 7 days of antibiotic. Hypertension -Continue metoprolol -Blood pressures are currently controlled on current therapy. Patient had hypotension during hospital stay when heart rate in the 160s. lisinopril on hold. 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 PASP 43 mmHg, mild tricuspid regurgitation. Mild pulmonary hypertension. Lasix 20 mg IV given. Chest x-ray unremarkable GERD -Continue PPI History of gout -Continue home allopurinol Asthma/allergic rhinitis -As needed albuterol -Continue home fluticasone/salmeterol -Continue home as needed fluticasone nasal spray -Continue home as needed loratadine DVT prophylaxis -Fully anticoagulated with Eliquis CODE STATUS -full code Total time of the visit including total time spent in counseling or coordination of care, (more than 50% of the total time, spent in obtaining medical information from nurses and other ancillary care providers,explaining to the patient about labs, imaging, diagnosis and management of active complex medical conditions), discussion with ID and wildlife refuge specialist, clinical update to and son near the bedside, review of labs and imaging is 40 minutes. Allergies/Procedures Done in Hospital Allergies No Known Allergies Allergy (Verified 04/17/22 22:07) Type of Care/Length of Stay Estimated LOS: Convalescent Care Less Than 30 days Type of Care Needed: Skilled Rehab Potential: Good Prognosis: Good Additional Orders/Day of Discharge Day of Discharge: 04/29/22 Dietary and Speech Recommendations Dietitian Recommendations/Changes: Will continue liberalized diet of regular, no added salt given evidence of malnutrition and pt refusal of oral nutrition supplements Rec consider appetite stimulant to try to encourage increased po intake at meals. Discharge Plan Admission Admit Date/Time: 04/18/22 02:35 Primary Reason for Your Visit: Paroxysmal A. fib with RVR, excruciating left hip pain with loosening pros Attending Provider: Bruno Lozano Primary Care Provider: Jn Robertson Consulting Providers: Sebastián Trujillo ; Jn Aleman ; Rodrick Stanford ; Chano Brown ; Barbara Lott ; Miri Gomez ; Lashell Hernandez Instructions Patient Instructions: After Hip Replacement: Home Safety, Hip Replace Post Op Pain Discharge Orders/Prescriptions Prescriptions: New acetaminophen [Tylenol] 325 mg Tablet 650 mg PO Q6H PRN PRN (Reason: Pain 1-10 Or Fever) Qty: 0 0RF metoprolol tartrate 50 mg Tablet 75 mg PO BID Qty: 90 0RF menthol-zinc oxide [Calmoseptine] 0.44-20.6 % Ointment 1 applic topical BID Qty: 0 0RF Protocol: *Topical Application Instructions APPLICATION INSTRUCTIONS: Coccyx apixaban 5 mg Tablet 5 mg PO BID Qty: 60 0RF cephalexin 500 mg capsule 500 mg PO TID Qty: 12 0RF amiodarone 200 mg Tablet 200 mg PO TID Qty: 90 0RF Rx Instructions: 200 mg 3 times daily for 6 days until, 05/04/22 and 200 mg 2 times daily for 1 week and then 200 mg once daily to continue Continued omeprazole 20 mg tablet,delayed release (DR/EC) 20 mg PO DAILY PRN (Reason: GERD) ketotifen fumarate [Zaditor] 0.025 % (0.035 %) drops 1 drp ophthalmic (eye) BID PRN (Reason: EYES) Rx Instructions: administer at least 8 hours apart fluticasone propion-salmeterol 1 EACH blister with device 1 ea IH BID albuterol sulfate 1 INHALER inhaler 1 - 2 puff INHALATION Q6H PRN PRN (Reason: Sob &/Or Wheezing) fluticasone propionate 1 SPRAY spray,suspension 1 spray NASAL PRN PRN (Reason: Allergies) loratadine 10 MG tablet 10 mg PO DAILY PRN (Reason: Allergies) allopurinol 100 MG tablet 100 mg PO DAILYCM vehwtxlz-toh-egke-FA-lutein 1 EACH tablet 1 ea PO QODAY aspirin 81 mg tablet,chewable 81 mg PO DAILY Changed celecoxib 200 MG capsule 200 mg PO BID PRN (Reason: arthritis pain) Qty: 30 0RF furosemide [Lasix] 40 mg tablet 40 mg PO DAILY PRN (Reason: leg swelling) Qty: 90 3RF Held lisinopril 20 mg tablet 20 mg PO DAILY Qty: 90 3RF Hold Instructions: Lisinopril held due to low blood pressure if blood pressure gets high, resume at lower dose may be 5 mg daily. Discontinued metoprolol tartrate 25 MG tablet 25 mg PO BID Referrals / Follow Up: Rodrick Stanford MD [Med Staff - Active Staff] - Within 1 Month (for Afib, Heart failure) Jn Robertson MD [Primary Care Provider] - Luis Moy DO [Med Staff - Active Staff] - Disposition Disposition (needs filled in before D/C Order can be placed): [facility]
[2022-04-29 08:35] VITALS: BP 109/69; PULSE 100; RESP 16; TEMP 36.8; O2SAT 94
[2022-04-29] MEDS: Allopurinol 100 MG Tablet PO (08:45)
[2022-04-29] MEDS: APIXABAN 5 MG TABLET PO (08:45)
[2022-04-29] MEDS: Furosemide 20 MG/2 ML VIAL IV (08:45)
[2022-04-29] MEDS: Menthol/Lanolin/Calamine/Znox 113 GM Tube 1 APPLIC TOPICAL (08:45)
[2022-04-29 08:46] VITALS: BP 109/69; PULSE 100
[2022-04-29] MEDS: Metoprolol Tartrate 50 MG Tablet 75 MG PO (08:46)
[2022-04-29] MEDS: Ceftriaxone 1 GM/50 ML BAG IV (08:51)
--- NOTE | 2022-04-29 09:59 | CASEMGMT ---
Addendum entered by Mansi Hooker 04/29/22 11:20: PASRR was completed on patient in the [facility] system. Mansi GUPTA Original Note: Patient is ready for discharge to [facility] today. SW notified [facility] via [place], RN, and Employment Attorney. SHANNEN asked RN to please get a COVID test. Prachi d/c transportation planning technician will assist with discharge. Plan: d/c to [facility] under skilled level of care. Mansi GUPTA
--- NOTE | 2022-04-29 10:04 | DS.PCM_ITS ---
Providers Date of Admission: 04/18/22 Date of Discharge: 04/29/22 Primary Care Physician: Dr. Jn Robertson MD Consultations 04/19/22 11:43 Consult: Orthopedics Routine Consulting Provider: Chano Brown Reason for Consult: left hip pain EMERGENT Consult: No Notified: Yes Date Notified: 04/19/22 Time Notified: 11:44 Method of Notification: Verbal 04/21/22 18:01 Consult: Cardiology Routine Consulting Provider: Rodrick Stanford Reason for Consult: afib w/ RVR EMERGENT Consult: No Notified: Yes Date Notified: 04/21/22 Time Notified: 18:01 Method of Notification: Verbal 04/25/22 23:51 Consult: Cardiology Routine Consulting Provider: Miri Gomez Reason for Consult: A fib with RVR EMERGENT Consult: No Notified: Yes Date Notified: 04/25/22 Time Notified: 23:52 Method of Notification: Text Reason For Visit: JONO; DEBILITY Diagnosis Discharge Diagnosis (1) Acute pain of left hip: Status: Acute Code(s): M25.552 - Pain in left hip (2) Status post hip replacement: Status: Acute Code(s): Z96.649 - Presence of unspecified artificial hip joint (3) PAF (paroxysmal atrial fibrillation): Status: Chronic Code(s): I48.0 - Paroxysmal atrial fibrillation Medications at Discharge Home Medications albuterol sulfate 90 mcg/actuation aerosol inhaler 1 - 2 puff inhalation Q6H PRN PRN Sob &/Or Wheezing 03/26/20 allopurinol 100 mg tablet 100 mg PO DAILYCM gout 03/26/20 fluticasone 250 mcg-salmeterol 50 mcg/dose blistr powdr for inhalation 1 ea IH BID breathing 03/26/20 fluticasone propionate 50 mcg/actuation nasal spray,suspension 1 spray NASAL PRN PRN Allergies 03/26/20 loratadine 10 mg tablet 10 mg PO DAILY PRN Allergies 03/26/20 multivit with emfehdob-oxlz-SP-lutein 8 mg iron-400 mcg-300 mcg tablet 1 ea PO QODAY supplement 03/26/20 lisinopril 20 mg tablet 20 mg PO DAILY blood pressure #90 tabs 11/15/20 omeprazole 20 mg tablet,delayed release 20 mg PO DAILY PRN GERD 06/18/21 aspirin 81 mg chewable tablet 81 mg PO DAILY supplement 12/25/21 ketotifen fumarate 0.025 % (0.035 %) eye drops (Zaditor) 1 drp ophthalmic (eye) BID PRN EYES 12/25/21 acetaminophen 325 mg tablet (Tylenol) 650 mg PO Q6H PRN PRN Pain 1-10 Or Fever #0 tabs 04/29/22 amiodarone 200 mg tablet 200 mg PO TID #90 tabs 04/29/22 apixaban 5 mg tablet 5 mg PO BID #60 tabs 04/29/22 celecoxib 200 mg capsule 200 mg PO BID PRN arthritis pain #30 caps 04/29/22 cephalexin 500 mg capsule 500 mg PO TID #12 caps 04/29/22 furosemide 40 mg tablet (Lasix) 40 mg PO DAILY PRN leg swelling #90 tabs 04/29/22 menthol 0.44 %-zinc oxide 20.6 % topical ointment (Calmoseptine) 1 applic topical BID #0 grams 04/29/22 metoprolol tartrate 50 mg tablet 75 mg PO BID #90 tabs 04/29/22 Hospital Course Summary of Care Provided Hospital Course: This is a 81-year-old female with history of left hip replacement in May 2020 was admitted with severe/excruciating left hip pain for 24 hours prior to admission. She fell down 3 to 4 weeks ago. Paroxysmal atrial fibrillation with RVR: Patient developed A. fib with RVR that required amnio drip and Cardizem. Patient on Eliquis. Continue beta- mulu.She also had couple doses of digoxin. Metoprolol tartrate 75 mg twice daily. Amiodarone decreased to 200 mg 3 times daily. Patient was seen by extractor and wringer operator during the weekend. she may need transfer to a tertiary center for evaluation by EP and possible AV ablation with pacer placement -Echo performed on 04/21/2022 showed an EF of 45% with mild global left ventricular systolic dysfunction and hypokinesis of the LV, mild left atrial enlargement, stage II diastolic dysfunction and mild aortic valve insufficiency Acute left hip pain -Bone scan shows possible loosening -Per orthopedic notes plan is for follow-up with Dr. Godinez as an outpatient with no urgent surgical interventions -Partial weightbearing with a walker at this time -Continue PT and OT -Plans for discharge to skilled facility once heart rate is controlled -Would avoid NSAIDs Staph species UTI with bacteremia: -Continue ceftriaxone. Urine culture showed more than 100,000 Staphylococcus lugdunensis. 1 blood culture showed similar organism. Discussed with ID in light of leukocytosis and acute left hip pain but has left hip pain improving, leukocytosis improving and 2D echo on 04/21 did not show any vegetation therefore will recommend, total 8 days of antibiotic. Prescription given for Keflex to complete total of 8 days of antibiotic. Hypertension -Continue metoprolol -Blood pressures are currently controlled on current therapy. Patient had hypotension during hospital stay when heart rate in the 160s. lisinopril on hold. Patient blood pressure is low systolic low 100 therefore lisinopril discontinued. Lasix also as needed. 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 PASP 43 mmHg, mild tricuspid regurgitation. Mild pulmonary hypertension. Lasix 20 mg IV given. Chest x-ray unremarkable Patient is on Lasix 40 mg daily as needed as needed for leg swelling. GERD -Continue PPI History of gout -Continue home allopurinol Asthma/allergic rhinitis -As needed albuterol -Continue home fluticasone/salmeterol -Continue home as needed fluticasone nasal spray -Continue home as needed loratadine DVT prophylaxis -Fully anticoagulated with Eliquis CODE STATUS -full code Discharge medication reconciliation done. Discharge follow-up instructions completed. Discharge process discussed with the patient and all questions were answered to patient's satisfaction. The patient was given prescription for amiodarone tapering dose, Keflex, metoprolol and apixaban. Total time spent, exact 35 minutes on discharge meds reconciliation, examinatio n, coordination of care with nurses and ancillary staff, review of imaging and blood test and discussion with the patient on follow-up instructions. Patient was given prescription for amiodarone Physical Exam Narrative Seen and examined. Patient heart rate is controlled in 70s to 80s per minute. Afebrile on the monitor. Physical exam General: Alert, Oriented x3, Cooperative HEENT: Atraumatic, PERRLA, EOMI, Normocephalic Oral: No Gingival or Mucosal Lesions/ Ulcerations Neck: Supple, No JVD, Negative Carotid Bruits Lungs: Air entry diminished in bilateral lungs. No crepitation/rhonchi Cardiovascular: Irregular rate and rhythm, A. fib RVR normal S1, Normal S2, Abdomen: Bowel Sounds Present, Soft, Non Tender, Non-Distended : No renal angle tenderness. No suprapubic tenderness. Extremities: Bilateral 1+ pitting below knee edema, Capillary Refill Less than 3 Seconds Skin: No rashes, No breakdown Musculoskeletal: No Tenderness to Palpation of Joints or Extremities, muscle strength 4/5 at knee and hip joints. Neurological: Cranial nerves II-XII grossly intact, DTR 2+/4 and Symmetrical, Neuro grossly intact Psych/Mental Status: Flat affect Medical Records Data Medical Nutrition Assessment Dietitian: Malnutrition Criteria Met Start: 04/18/22 11:35 Freq: Status: Active Protocol: Document 04/28/22 14:52 [facility] (Rec: 04/28/22 14:52 [facility] [id number]) Nutrition Malnutrition Evidence of Malnutrition Exists Yes Malnutrition (severe): Chronic Evidenced By Suboptimal Energy Intake ( Severe),Weight Loss (Severe) Clinical Problem Chronic Disease or Condition Related Malnutrition Etiology severe, chronic malnutrition related to inadequate oral intake Signs/Symptoms as evidenced by pt reports of 52.8#/26% wt loss unintentional wt loss x 1 year , estimated PO intake meeting <75% of estimated energy needs x 1 year. Status Active Problem Recommendation Dietitian Recommendations/Changes Will continue liberalized diet of regular, no added salt given evidence of malnutrition and pt refusal of oral nutrition supplements Rec consider appetite stimulant to try to encourage increased po intake at meals. Weight / BMI Weight Weight: 157 lb 3.033 oz Body Mass Index (BMI) 26.9 ABG / Lab / Microbiology Data Result Diagrams: 04/28/22 05:17 04/28/22 05:17 Laboratory: Laboratory Results - last 24 hr 04/26/22 06:08: Diff Path Review Reviewed Microbiology: Microbiology 04/26/22 08:28 Blood Culture (Wb) - Right Hand Bacteria Detection (PCR) - Final Staphylococcus lugdunensis 04/26/22 08:28 Blood Culture (Wb) - Right Hand Blood Culture - Preliminary Staphylococcus lugdunensis 04/26/22 00:30 Urine, Random Urine Culture - Final Staphylococcus lugdunensis 04/26/22 08:22 Blood Culture (Wb) - Anticubital Left Blood Culture - Preliminary No growth in 48 hours. Meaningful Use Info Meaningful Use Diagnoses (Choose all that apply): None applicable Discharge Plan Admission Admit Date/Time: 04/18/22 02:35 Primary Reason for Your Visit: Paroxysmal A. fib with RVR, excruciating left hip pain with loosening pros Attending Provider: Bruno Lozano Primary Care Provider: Jn Robertson Consulting Providers: Sebastián Trujillo ; Jn Aleman ; Rodrick Stanford ; Chano Brown ; Barbara Lott ; Miri Gomez ; Lashell Hernandez Instructions Patient Instructions: After Hip Replacement: Home Safety, Hip Replace Post Op Pain Discharge Orders/Prescriptions Prescriptions: New acetaminophen [Tylenol] 325 mg Tablet 650 mg PO Q6H PRN PRN (Reason: Pain 1-10 Or Fever) Qty: 0 0RF metoprolol tartrate 50 mg Tablet 75 mg PO BID Qty: 90 0RF menthol-zinc oxide [Calmoseptine] 0.44-20.6 % Ointment 1 applic topical BID Qty: 0 0RF Protocol: *Topical Application Instructions APPLICATION INSTRUCTIONS: Coccyx apixaban 5 mg Tablet 5 mg PO BID Qty: 60 0RF cephalexin 500 mg capsule 500 mg PO TID Qty: 12 0RF amiodarone 200 mg Tablet 200 mg PO TID Qty: 90 0RF Rx Instructions: 200 mg 3 times daily for 6 days until, 05/04/22 and 200 mg 2 times daily for 1 week and then 200 mg once daily to continue Continued omeprazole 20 mg tablet,delayed release (DR/EC) 20 mg PO DAILY PRN (Reason: GERD) ketotifen fumarate [Zaditor] 0.025 % (0.035 %) drops 1 drp ophthalmic (eye) BID PRN (Reason: EYES) Rx Instructions: administer at least 8 hours apart fluticasone propion-salmeterol 1 EACH blister with device 1 ea IH BID albuterol sulfate 1 INHALER inhaler 1 - 2 puff INHALATION Q6H PRN PRN (Reason: Sob &/Or Wheezing) fluticasone propionate 1 SPRAY spray,suspension 1 spray NASAL PRN PRN (Reason: Allergies) loratadine 10 MG tablet 10 mg PO DAILY PRN (Reason: Allergies) allopurinol 100 MG tablet 100 mg PO DAILYCM yxvrucod-ocu-vqwk-FA-lutein 1 EACH tablet 1 ea PO QODAY aspirin 81 mg tablet,chewable 81 mg PO DAILY Changed celecoxib 200 MG capsule 200 mg PO BID PRN (Reason: arthritis pain) Qty: 30 0RF furosemide [Lasix] 40 mg tablet 40 mg PO DAILY PRN (Reason: leg swelling) Qty: 90 3RF Held lisinopril 20 mg tablet 20 mg PO DAILY Qty: 90 3RF Hold Instructions: Lisinopril held due to low blood pressure if blood pressure gets high, resume at lower dose may be 5 mg daily. Discontinued metoprolol tartrate 25 MG tablet 25 mg PO BID Referrals / Follow Up: Rodrick Stanford MD [Med Staff - Active Staff] - Within 1 Month (for Afib, Heart failure) Jn Robertson MD [Primary Care Provider] - Luis Moy DO [Med Staff - Active Staff] - Disposition Disposition (needs filled in before D/C Order can be placed): Intermediate Facility Charges/Coding Visit Charges Inpatient E&M: 16228 Disch Hosp
--- NOTE | 2022-04-29 10:21 | CASEMGMT ---
Discharge Director Of Career Resources This communications writer sent d/c orders to [facility]. Wheel chair transportation thru [facility] with a pick pack worker time of 11:00am. Nursing staff made aware. Florecita MUÑIZ [employer] Supervisor
--- NOTE | 2022-04-29 10:40 | NURSING ---
report called to [facility] nurse Devin Guevara RN
--- NOTE | 2022-04-29 10:41 | PHA.DC.MR ---
Pharmacy Service has performed discharge medication reconciliation for this patient. The patient's discharge medication list was reviewed for discrepancies and discrepancies were resolved. Home Medications albuterol sulfate 90 mcg/actuation aerosol inhaler 1 - 2 puff inhalation Q6H PRN PRN Sob &/Or Wheezing 03/26/20 allopurinol 100 mg tablet 100 mg PO DAILYCM gout 03/26/20 fluticasone 250 mcg-salmeterol 50 mcg/dose blistr powdr for inhalation 1 ea IH BID breathing 03/26/20 fluticasone propionate 50 mcg/actuation nasal spray,suspension 1 spray NASAL PRN PRN Allergies 03/26/20 loratadine 10 mg tablet 10 mg PO DAILY PRN Allergies 03/26/20 multivit with iihocggd-nlml-KS-lutein 8 mg iron-400 mcg-300 mcg tablet 1 ea PO QODAY supplement 03/26/20 lisinopril 20 mg tablet 20 mg PO DAILY blood pressure #90 tabs 11/15/20 omeprazole 20 mg tablet,delayed release 20 mg PO DAILY PRN GERD 06/18/21 aspirin 81 mg chewable tablet 81 mg PO DAILY supplement 12/25/21 ketotifen fumarate 0.025 % (0.035 %) eye drops (Zaditor) 1 drp ophthalmic (eye) BID PRN EYES 12/25/21 acetaminophen 325 mg tablet (Tylenol) 650 mg PO Q6H PRN PRN Pain 1-10 Or Fever #0 tabs 04/29/22 amiodarone 200 mg tablet 200 mg PO TID #90 tabs 04/29/22 apixaban 5 mg tablet 5 mg PO BID #60 tabs 04/29/22 celecoxib 200 mg capsule 200 mg PO BID PRN arthritis pain #30 caps 04/29/22 cephalexin 500 mg capsule 500 mg PO TID #12 caps 04/29/22 furosemide 40 mg tablet (Lasix) 40 mg PO DAILY PRN leg swelling #90 tabs 04/29/22 menthol 0.44 %-zinc oxide 20.6 % topical ointment (Calmoseptine) 1 applic topical BID #0 grams 04/29/22 metoprolol tartrate 50 mg tablet 75 mg PO BID #90 tabs 04/29/22
== END 2022-04-29 11:08 | disposition skilled nursing facility (03) | DRG 555 ==
LOC: ED 04-18 02:37 → MS3 04-18 02:46 → ICU 04-21 17:15 → PCU 04-22 18:37
PROVIDERS: Internal Medicine; Admitting Provider Hospitalist; Emergency Provider Emergency Medicine; PCP Family Medicine; Visit Provider Internal Medicine
DX: M25.552 Pain in left hip (principal); E43 Unspecified severe protein-calorie malnutrition; R78.81 Bacteremia; I13.0 Hypertensive heart and chronic kidney disease with heart failure and stage 1 through stage 4 chronic kidney disease, or unspecified chronic kidney disease; N17.9 Acute kidney failure, unspecified; I50.42 Chronic combined systolic (congestive) and diastolic (congestive) heart failure; N39.0 Urinary tract infection, site not specified; I27.20 Pulmonary hypertension, unspecified; I48.0 Paroxysmal atrial fibrillation; I08.2 Rheumatic disorders of both aortic and tricuspid valves; D64.9 Anemia, unspecified; N18.2 Chronic kidney disease, stage 2 (mild); R26.2 Difficulty in walking, not elsewhere classified; M10.9 Gout, unspecified; K21.9 Gastro-esophageal reflux disease without esophagitis; M17.12 Unilateral primary osteoarthritis, left knee; J45.909 Unspecified asthma, uncomplicated; M24.052 Loose body in left hip; Z96.642 Presence of left artificial hip joint; Z79.52 Long term (current) use of systemic steroids; Z79.82 Long term (current) use of aspirin; Z79.01 Long term (current) use of anticoagulants; B95.7 Other staphylococcus as the cause of diseases classified elsewhere; Z68.26 Body mass index [BMI] 26.0-26.9, adult
CPT/HCPCS: 36415; 71045; 73552; 73700; 78315; 80048; 81001; 83735; 84443; 85025; 85610; 85730; 87040; 87077; 87086; 87088; 87149; 87186; 87426; 93005; 93306; 94640; 97110; 97116; 97162; 97166; 97530; 97535; 97802; 97803; 99285; A9503; J7030; J7040; A4216; J1940

== ENCOUNTER → 2022-05-14 | Outpatient (REF) | payer SELFPAY ==
[2022-05-14 07:45] LABS: Absolute Lymphocyte Count 1.44 X10^3/uL (0.83-4.51); Absolute Neutrophil Count 7.3 X10^3/uL (2.0-7.7); Basophil# 0.06 X10^3/uL; Basophil% 0.6 % (0-1); Hematocrit 27.9 % (37-47); Hemoglobin 8.4 g/dL (12.0-15.0); Lymphocyte # 1.44 X10^3/ul (0.83-4.51); Lymphocyte % 14.4 % (19-41); Mean Corp Hgb Conc 30.1 g/dL (32-36); Mean Corpuscular Hgb 29.1 pg (27.0-32.0); Mean Corpuscular Volume 96.5 fL (81-99); Mean Platelet Vol. 11.1 fl (6.2-12.0); Monocyte# 0.99 X10^3/uL; Monocyte% 9.9 % (0-10); NRBC Flagged by Analyzer 0 % (0-5); Neutrophil # 7.27 X10^3/uL (2.7-7.7); Neutrophil % 72.4 % (47-70); Platelet Count 338 K/mm3 (150-450); RBC Distribution Width CV 14.6 % (11.6-14.6); RBC Distribution Width SD 51.8 fl (35.1-43.9); Red Blood Count 2.89 M/mm3 (4.2-5.4)
[2022-05-14 07:51] LABS: Anion Gap 7 (5-15); BUN 37 mg/dL (7-18); BUN/Creat Ratio 27.4 RATIO (10-20); Calcium,Total 8.5 mg/dL (8.5-10.1); Chloride 106 mmol/L (98-107); Creatinine, Serum 1.35 mg/dL (0.55-1.02); EST Glomerular Filtration Rate 40 mL/min (>60); Est Glom Filt Rate - Afr Amer 48 mL/min (>60); Ferritin 862 ng/mL (8-252); Glucose 103 mg/dL (74-106); Iron Binding Capacity,Total 174 ug/dL (250-450); Potassium 3.9 mmol/L (3.5-5.1); Sodium Level 138 mmol/L (136-145)
[2022-05-14 08:10] LABS: Vitamin B12 291 pg/mL (211-911)
== END ==
LOC: OLS.WHLTCC 05:00
PROVIDERS: PCP Family Medicine; Visit Provider Internal Medicine
DX: N17.9 Acute kidney failure, unspecified (principal); M25.552 Pain in left hip; M62.81 Muscle weakness (generalized); R26.2 Difficulty in walking, not elsewhere classified; R27.9 Unspecified lack of coordination; D64.9 Anemia, unspecified; Z74.1 Need for assistance with personal care; K62.5 Hemorrhage of anus and rectum
CPT/HCPCS: 36415; 80048; 82607; 82728; 83550; 85025

== ENCOUNTER → 2022-05-21 | Outpatient (REF) | payer MEDICARE, OTHER, SELFPAY ==
[2022-05-21 09:10] LABS: Absolute Lymphocyte Count 1.38 X10^3/uL (0.83-4.51); Absolute Neutrophil Count 6.8 X10^3/uL (2.0-7.7); Basophil# 0.05 X10^3/uL; Basophil% 0.5 % (0-1); Eosinophil# 0.31 X10^3/uL; Eosinophils% 3.3 % (0-5); Hematocrit 24.7 % (37-47); Hemoglobin 7.3 g/dL (12.0-15.0); Lymphocyte # 1.38 X10^3/ul (0.83-4.51); Lymphocyte % 14.6 % (19-41); Mean Corp Hgb Conc 29.6 g/dL (32-36); Mean Platelet Vol. 10.7 fl (6.2-12.0); Monocyte# 0.83 X10^3/uL; Monocyte% 8.8 % (0-10); NRBC Flagged by Analyzer 0 % (0-5); Neutrophil # 6.79 X10^3/uL (2.7-7.7); Platelet Count 441 K/mm3 (150-450); RBC Distribution Width SD 53.6 fl (35.1-43.9); Red Blood Count 2.52 M/mm3 (4.2-5.4); White Blood Count 9.4 K/mm3 (4.4-11.0)
[2022-05-21 09:11] LABS: Anion Gap 7 (5-15); BUN 51 mg/dL (7-18); BUN/Creat Ratio 35.4 RATIO (10-20); Calcium,Total 8.2 mg/dL (8.5-10.1); Chloride 106 mmol/L (98-107); Creatinine, Serum 1.44 mg/dL (0.55-1.02); EST Glomerular Filtration Rate 37 mL/min (>60); Est Glom Filt Rate - Afr Amer 45 mL/min (>60); Glucose 86 mg/dL (74-106); Potassium 3.5 mmol/L (3.5-5.1); Sodium Level 139 mmol/L (136-145)
== END ==
LOC: OLS.WHLTCC 05:00
PROVIDERS: PCP Family Medicine; Visit Provider Internal Medicine
DX: D64.9 Anemia, unspecified (principal); N17.9 Acute kidney failure, unspecified; M25.552 Pain in left hip; M62.81 Muscle weakness (generalized); R26.2 Difficulty in walking, not elsewhere classified; R27.8 Other lack of coordination; Z74.1 Need for assistance with personal care
CPT/HCPCS: 36415; 80048; 85025

== ENCOUNTER → 2022-05-22 | Outpatient (CLI) | payer MEDICARE, OTHER, SELFPAY ==
[2022-05-22 10:14] VITALS: BP 122/48; PULSE 72; RESP 18; TEMP 36.4; O2SAT 94
[2022-05-22] MEDS: 0.9% NaCl Peripheral Flush Adult/Peds IV (10:26)
[2022-05-22 11:06] VITALS: BP 120/47; PULSE 73; RESP 18; TEMP 36.4; O2SAT 100
[2022-05-22 12:00] VITALS: BP 125/47; PULSE 72; RESP 18; TEMP 36.6
[2022-05-22 12:55] VITALS: BP 132/49; PULSE 79; RESP 16; TEMP 36.6; O2SAT 94
== END | disposition home or self-care (01) ==
LOC: MEDOUTP 09:54
PROVIDERS: PCP Family Medicine; Referring Provider Nurse Practitioner Adult Health; Visit Provider Nurse Practitioner Adult Health
DX: D64.9 Anemia, unspecified (principal); N17.9 Acute kidney failure, unspecified; M25.552 Pain in left hip; M62.81 Muscle weakness (generalized); R26.2 Difficulty in walking, not elsewhere classified; R27.8 Other lack of coordination; Z74.1 Need for assistance with personal care
CPT/HCPCS: 36415; 36430; 86850; 86900; 86901; 86920; 86922; J7040; P9016; A4216

== ENCOUNTER 2022-06-04 11:39 | Inpatient (IN) | payer MEDICARE, OTHER, SELFPAY ==
[2022-06-04] VITALS (25 sets, daily range): BP systolic 89–164; BP diastolic 44–95; PULSE 69–165; RESP 16–29; TEMP 36.6–37.6; O2SAT 89–100; BMI 36.8; BMI 36.1
--- NOTE | 2022-06-04 11:46 | EKG12_ITS ---
Test Reason : AFIB Blood Pressure : / mmHG Vent. Rate : 153 BPM Atrial Rate : 000 BPM P-R Int : 000 ms QRS Dur : 094 ms QT Int : 282 ms P-R-T Axes : 000 056 -76 degrees QTc Int : 450 ms Atrial fibrillation with rapid ventricular response Low voltage QRS Nonspecific ST-T Changes Abnormal ECG Confirmed by SHANTE CHENG, DALIA ([id number]), business editor MIRIAM VUONG ([id number]) on 06/05/2022 1:12:58 PM Referred By: SHYAM Confirmed By:KOLE FREY MD
[2022-06-04 12:09] LABS: Absolute Lymphocyte Count 2.04 X10^3/uL (0.83-4.51); Absolute Neutrophil Count 13.4 X10^3/uL (2.0-7.7); Basophil# 0.08 X10^3/uL; Basophil% 0.5 % (0-1); Eosinophil# 0.33 X10^3/uL; Eosinophils% 1.9 % (0-5); Hematocrit 27.9 % (37-47); Hemoglobin 8.4 g/dL (12.0-15.0); Lymphocyte # 2.04 X10^3/ul (0.83-4.51); Lymphocyte % 11.9 % (19-41); Mean Corp Hgb Conc 30.1 g/dL (32-36); Mean Corpuscular Hgb 27.5 pg (27.0-32.0); Mean Corpuscular Volume 91.5 fL (81-99); Mean Platelet Vol. 9.8 fl (6.2-12.0); Monocyte# 1.08 X10^3/uL; Monocyte% 6.3 % (0-10); NRBC Flagged by Analyzer 0 % (0-5); Neutrophil # 13.38 X10^3/uL (2.7-7.7); Neutrophil % 78.2 % (47-70); Platelet Count 521 K/mm3 (150-450); RBC Distribution Width CV 15.9 % (11.6-14.6); RBC Distribution Width SD 52.9 fl (35.1-43.9); Red Blood Count 3.05 M/mm3 (4.2-5.4); White Blood Count 17.1 K/mm3 (4.4-11.0)
--- NOTE | 2022-06-04 12:11 | RAD_ITS ---
STUDY: X-RAY CHEST REASON FOR EXAM: Female, 81 years old. Cough. Fatigue. TECHNIQUE: AP and lateral views of the chest. COMPARISON: Comparison is made with prior study 04/25/2022. FINDINGS: EKG electrodes are seen. Small left pleural effusion with left basilar infiltration and/or atelectasis. There is mild cardiac enlargement. Normal mediastinum and dimas. Normal visualized pulmonary arteries. There is atherosclerotic calcification of the aortic arch with tortuosity. There are diffuse degenerative changes of the visualized thoracic spine. There is degenerative osteoarthritis of the bilateral shoulders. There is no demonstrated abnormality of the visualized soft tissue structures of the upper abdomen. RAD/Chest PA and Lateral IMPRESSION: Small left pleural effusion with left basilar atelectasis and/or infiltrate. Electronically Signed: Salvador Trevino MD at 12:43 EST ,
--- NOTE | 2022-06-04 12:13 | EX.ED.DYSGE1 ---
HPI History of Present Illness Chief Complaint: Abn Labs Informant: patient Narrative Narrative: Sent by EMS from [facility] for abnormal labs this morning. Patient has been there for last 4 weeks additional 3 weeks rehab transition over to skilled care. They have been following her anemia with blood work. Reported JONO and leukocytosis. Increasing nonproductive cough 2 days. No fevers. Denies recent vomiting states had 1 bout of diarrhea yesterday. No urinary symptoms. She is unclear her medications if she has been on any recent steroids. Reported admitted beginning of April for transient left hip pain with A. fib with RVR that was recurrent. States she was hospitalized for 12 days stating had trouble controlling heart rate. She does report worsening swelling legs over past few weeks. She states decreased urine output over the last 3 to 4 days. 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 Prior similar symptoms: No PFSH PFSH Medical History Accidental fall Acute pain of left hip Allergic rhinitis Atrial fibrillation with rapid ventricular response (03/26/20) Chronic asthma Closed left hip fracture Elevated troponin (03/26/20) Essential (primary) hypertension Gout Hypomagnesemia Laceration of left elbow Missing teeth, acquired Nail dystrophy Obesity Osteoporosis PAF (paroxysmal atrial fibrillation) Pain in toe of left foot Pain in toe of right foot Physical deconditioning Urinary frequency Vitamin D insufficiency Home Medications albuterol sulfate 90 mcg/actuation aerosol inhaler 1 - 2 puff inhalation Q6H PRN SHORTNESS OF BREATH/WHEEZING 03/26/20 [History Last Taken Unknown] allopurinol 100 mg tablet 100 mg PO DAILYCM GOUT 03/26/20 [History Last Taken 06/04/22] fluticasone 250 mcg-salmeterol 50 mcg/dose blistr powdr for inhalation 1 ea IH BID ASTHMA 03/26/20 [History Last Taken 06/04/22] fluticasone propionate 50 mcg/actuation nasal spray,suspension 1 spray NASAL BID PRN Nasal Congestion 03/26/20 [History Last Taken 1 Week Ago ~05/23/20] loratadine 10 mg tablet 10 mg PO DAILY ALLERGIES 03/26/20 [History Last Taken 06/04/22] ketotifen fumarate 0.025 % (0.035 %) eye drops (Zaditor) 1 drp ophthalmic (eye) BID PRN RED EYES 12/25/21 [History Last Taken Unknown] acetaminophen 325 mg tablet (Tylenol) 650 mg PO TID RHEUMATOID ARTHRITIS 06/04/22 [History Last Taken 06/04/22] acetaminophen 500 mg tablet 1,000 mg PO Q6H PRN RHEUMATOID ARTHRITIS 06/04/22 [History Last Taken 06/04/22] amiodarone 200 mg tablet 200 mg PO DAILY AFIB 06/04/22 [History Last Taken 06/04/22] apixaban 5 mg tablet 5 mg PO BID BLOOD THINNER 06/04/22 [History Last Taken 06/04/22] arginine (L-arginine) 500 mg capsule 500 mg PO TID ANEMIA 06/04/22 [History Last Taken 06/04/22] aspirin 81 mg tablet,delayed release 81 mg PO DAILY HEART HEALTH 06/04/22 [History Last Taken 06/04/22] diclofenac sodium 1 % topical gel (Voltaren Arthritis Pain) 1 ea topical TID PRN SHOULDER PAIN 06/04/22 [History Last Taken 06/03/22 01:08] diphenhydramine HCl 25 mg capsule (Benadryl) 25 mg PO Q4H PRN ALLERGIES 06/04/22 [History Last Taken Unknown] ferrous sulfate 325 mg (65 mg iron) tablet 325 mg PO DAILY ANEMIA 06/04/22 [History Last Taken 06/04/22] furosemide 40 mg tablet (Lasix) 40 mg PO DAILY PRN FLUID 06/04/22 [History Last Taken 06/04/22] hydrocortisone 2.5 % topical cream with perineal applicator (Anusol-HC) 1 applic OR BID PRN Hemorrhoids 06/04/22 [History Last Taken 06/04/22] metoprolol tartrate 50 mg tablet 50 mg PO BID BLOOD PRESSURE 06/04/22 [History Last Taken 06/04/22] pantoprazole 40 mg tablet,delayed release (Protonix) 40 mg PO DAILY ACID REFLUX 06/04/22 [History Last Taken 06/04/22] vitamin B complex 1 tab PO DAILY SUPPLEMENT 06/04/22 [History Last Taken 06/04/22] vitamins A,C,Z-atfk-tdmggy 2,148 mcg-113 mg-45 mg-17.4 mg tablet (Eye Multivitamin) 1 tab PO DAILY EYE HEALTH 06/04/22 [History Last Taken 06/04/22] Allergy/AdvReac Type Severity Reaction Status Date / Time No Known Allergies Allergy Verified 06/04/22 11:40 Family History Mother TIA (transient ischemic attack) Surgical History History of hemiarthroplasty of left hip (05/2020) History of left heart catheterization (03/27/20) Status post hip replacement Social History Smoking Status: Never smoker alcohol intake: never substance use type: does not use caffeine: Yes Type: coffee Number of servings: 1 and tea ROS ROS ED Constitutional Constitutional ED: Denies chills, fever(s) or sweats Eyes Eyes: Denies change in vision ENT ENT ED: Denies dysphagia or sore throat Cardiovascular Cardiovascular: Reports leg edema; Denies chest pain, palpitations or racing heartbeat Respiratory/Chest Respiratory/Chest: Denies cough, dyspnea or dyspnea on exertion Gastrointestinal Gastrointestinal: Denies abdominal pain, diarrhea, nausea or vomiting Genitourinary Genitourinary ED: Reports other Details: Decreased urine output ; Denies dysuria, hematuria or urinary frequency Musculoskeletal Musculoskeletal: Denies back pain, extremity pain or neck pain Integumentary Denies rash or wounds Neurologic Neurologic: Denies headache(s), paresthesias or weakness EXAM Physical Exam Const Vital Signs: 06/04/22 11:41 06/04/22 13:13 06/04/22 13:50 Temperature 97.8 F 98.0 F Temperature Source Oral Oral Pulse Rate 69 71 69 Respiratory Rate 18 20 H 18 Respiratory Effort Respiratory Pattern Blood Pressure 103/44 L 113/58 L Blood Pressure Mean 63 76 Pulse Ox 94 96 Oxygen Delivery Method Room Air Room Air 06/04/22 14:20 06/04/22 12:45 06/04/22 14:38 Temperature 98.0 F Temperature Source Temporal Pulse Rate 84 165 H Respiratory Rate 17 17 Respiratory Effort Normal Non-Labored Respiratory Pattern Normal Blood Pressure 119/64 99/61 Blood Pressure Mean 82 73 Pulse Ox 96 94 Oxygen Delivery Method Room Air Room Air Positive well nourished and well developed General Appearance ED: well developed and NAD HEENT Reports dry mucous membranes normocephalic and atraumatic Mouth ED: Yes dry mucous membranes Mouth: dry mucous membranes Eyes PERRL, EOMs intact bilaterally and conjunctivae normal General Eye ED: Yes normal appearance of both eyes Neck no lymphadenopathy and supple General: Negative for tenderness Chest Wall Chest: Negative for tenderness Resp normal respiratory effort and normal air movement Effort and Inspection: symmetric chest movement; Negative for respiratory distress Cardio regular rate, regular rhythm and no murmurs Peripheral Pulses: pulses 2+ throughout GI normal to inspection, nondistended, normoactive bowel sounds and non-tender Palpation: Negative for guarding or rebound tenderness present Back/Spine no CVA tenderness and no thoracic nor lumbar tenderness Extremity normal to inspection Extremity Narrative: Bilateral lower extremity edema 1-2+. General Extremety ED: Yes edema; Negative for tenderness General Extremity: edema Neuro oriented x3 and no sensory deficits noted Sensorium / Orientation: awake and alert Skin no rashes or lesions noted and no wounds MDM MDM MDM Narrative Medical decision making narrative: [facility] hyperkalemia with leukocytosis. She has chronic anemia. Differential from her JONO could be dehydration with dry mucosal membranes. Hyperkalemia from her JONO. Leukocytosis with cough symptoms has acute viral syndrome versus pneumonia. Chronic anemia history. EKG was checked with her hyperkalemia outpatient sinus rhythm no acute. Patient started on IV fluids due to clinical dehydration concerns with dry mucosal membranes. Labs were rechecked confirms JONO creatinine 4.2 BUN 112 potassium 5.7. With no EKG changes patient given aerosol treatments along with insulin and glucose. Glucose in the lab was 116. Secondary patient's cough, COVID test obtained -2 view chest x-ray interpreted myself and read by radiology left pleural effusion cannot rule out infiltrate. She had a leukocytosis 17 however reports a dry cough. I discussed with hospitalist Dr. Aleman for admission to the medical floor. Discussed her cough, not convincing for pneumonia therefore will monitor. After admission was placed, was called back to room patient was in A. fib with RVR noted on the monitor repeat EKG confirmed this. Her initial systolic blood pressure was 90s was responding to fluids. Discussed with hospitalist, would like to try Cardizem 15 mg IV was given however systolic blood pressure down to 91 with no improvement of heart rate. She is on Eliquis as confirmed, discussed with patient in family for cardioversion for which was attempted x3 with only transient improvement in sinus rhythm however back to A. fib with RVR. Blood pressure too low to start a Cardizem drip. Reviewed patient's record she was given digoxin x2 and overnight stay that helped the rhythm. She was on a Cardizem and amiodarone drip while in the hospital back in April. I spoke with on-call saxophone teacher Dr. Valdez, with patient's JONO can only give 1 dose of digoxin of loading dose of 500 mcg. He recommends starting amiodarone drip discussion she is on it 3 times a day from her discharge summary. Rediscussed with hospitalist for admission will maintain in PCU at this time. Procedure note: Direct-current cardioversion. Written consent was obtained. Patient maintained on the metallurgist process oxygen, IV fluids with pulse ox. Capnography also maintained and monitored. Timeout was performed, patient given 2 mg Versed and 50 mcg of fentanyl, synchronized cardioversion performed at 150 J, there was brief sinus rhythm before going back to atrial fibrillation lasting approximately 30 seconds. She was given additional 50 mics of fentanyl with repeat cardioversion at 150 again only brief return to normal sinus rhythm. She is give additional 2.5 mg Versed attempted cardioversion at 200 J synchronized. Only again brief sinus rhythm noted on the monitor and recorded on the rhythm strip. Patient family updated on unsuccessful sustained results. Lab Data Attestation: I reviewed the patient's lab results. Labs: Laboratory Results - last 24 hr 06/04/22 06/04/22 12:00 12:00 WBC 17.1 H RBC 3.05 L Hgb 8.4 L Hct 27.9 L MCV 91.5 MCH 27.5 MCHC 30.1 L RDW Std Deviation 52.9 H RDW Coeff of Tiffani 15.9 H Plt Count 521 H MPV 9.8 Immature Gran % (Auto) 1.200 H Neut % (Auto) 78.2 H Lymph % (Auto) 11.9 L [place] % (Auto) 6.3 Eos % (Auto) 1.9 Baso % (Auto) 0.5 Absolute Neuts (auto) 13.4 H Absolute Lymphs (auto) 2.04 Nucleated RBC % 0 Sodium 134 L Potassium 5.7 H Chloride 102 Carbon Dioxide 22.0 Anion Gap 10 BUN 112 H* Creatinine 4.29 H Estim Creat Clear Calc 8.00 Est GFR (MDRD) Af Amer 13 L Est GFR (MDRD) Non-Af 11 L BUN/Creatinine Ratio 26.1 H Glucose 116 H Calcium 8.3 L Radiography Diagnostic Testing: Clinical Impression(s) from Imaging Studies Chest X-Ray 06/04/22 12:11 IMPRESSION: Small left pleural effusion with left basilar atelectasis and/or infiltrate. Electronically Signed: Salvador Trevino MD at 12:43 EST , EKG Initial EKG: Attestation: I personally reviewed and interpreted this EKG as follows: Comments: Sinus rate of 68, no ST or T wave changes no peaked T waves or changes from hyperkalemia. Follow-up EKG: Attestation: I personally reviewed and interpreted this EKG as follows: Comments: At 1435: A. fib with RVR rate of 153 Critical Care Time Critical Care Time: Yes Critical care time (excluding procedures): 30-74 minutes, Discussing w/Patient &/or Family/Automotive Generator Repairer, Discussing w/Consultants, Arranging Admission or Transfer, Performing Direct Patient Care at Bedside and - (45minutes.) Discharge Plan Dx/Rx/DC Orders Clinical Impression: JONO (acute kidney injury), Acute hyperkalemia, Atrial fibrillation with RVR, Encounter for cardioversion procedure Disposition Disposition: [facility]
[2022-06-04 12:23] LABS: Anion Gap 10 (5-15); BUN 112 mg/dL (7-18); BUN/Creat Ratio 26.1 RATIO (10-20); Calcium,Total 8.3 mg/dL (8.5-10.1); Chloride 102 mmol/L (98-107); Creatinine, Serum 4.29 mg/dL (0.55-1.02); EST Glomerular Filtration Rate 11 mL/min (>60); Est Glom Filt Rate - Afr Amer 13 mL/min (>60); Glucose 116 mg/dL (74-106); Potassium 5.7 mmol/L (3.5-5.1); Sodium Level 134 mmol/L (136-145)
[2022-06-04] MEDS: 0.9% Normal Saline 1,000 ML 150 ML IV (12:48)
[2022-06-04] MEDS: Insulin Lispro 10 UNIT in Syringe 0 ML 6 UNIT IV (13:28)
[2022-06-04] MEDS: Dextrose 50%-Water 25 GM/50 ML DISP.SYRIN IV (13:28)
--- NOTE | 2022-06-04 13:29 | NURSING ---
MED SURG HENRI JONO, HYPERKALEMIA
--- NOTE | 2022-06-04 14:02 | HP.PCM.HOS_ITS ---
HPI - General General Date of Admission: 06/04/22 Date of Service: 06/04/22 Chief Complaint: Abnormal labs HPI Narrative HONEY FERNANDES, is a 81 F who presents to the emergency room at [facility] after being sent in from a local extended care facility at which she is undergoing skilled care due to abnormal labs which were obtained today. Labs obtained in the emergency room showed an elevated creatinine at 4.29, BUN was 11 2, potassium was 5.7, sodium was 134, CBC revealed a white blood cell count of 17.1 and hemoglobin was 8.4. Chest x-ray showed a small left pleural effusion with left basilar atelectasis and/or infiltrate. Patient is afebrile, she complains of a dry cough and thirst. Patient's pulse ox was 96% on room air. Patient will be admitted to [facility] for acute kidney injury and hyperkalemia, she was given a Proventil aerosol treatment and insulin by the emergency room physician. I do not feel the patient needs to be on telemetry at this time. [facility] Medical History Accidental fall Acute pain of left hip Allergic rhinitis Atrial fibrillation with rapid ventricular response (03/26/20) Chronic asthma Closed left hip fracture Elevated troponin (03/26/20) Essential (primary) hypertension Gout Hypomagnesemia Laceration of left elbow Missing teeth, acquired Nail dystrophy Obesity Osteoporosis PAF (paroxysmal atrial fibrillation) Pain in toe of left foot Pain in toe of right foot Physical deconditioning Urinary frequency Vitamin D insufficiency Home Medications albuterol sulfate 90 mcg/actuation aerosol inhaler 1 - 2 puff inhalation Q6H PRN SHORTNESS OF BREATH/WHEEZING 03/26/20 [History Last Taken Unknown] allopurinol 100 mg tablet 100 mg PO DAILYCM GOUT 03/26/20 [History Last Taken 06/04/22] fluticasone 250 mcg-salmeterol 50 mcg/dose blistr powdr for inhalation 1 ea IH BID ASTHMA 03/26/20 [History Last Taken 06/04/22] fluticasone propionate 50 mcg/actuation nasal spray,suspension 1 spray NASAL BID PRN Nasal Congestion 03/26/20 [History Last Taken 1 Week Ago ~05/23/20] loratadine 10 mg tablet 10 mg PO DAILY ALLERGIES 03/26/20 [History Last Taken 06/04/22] ketotifen fumarate 0.025 % (0.035 %) eye drops (Zaditor) 1 drp ophthalmic (eye) BID PRN RED EYES 12/25/21 [History Last Taken Unknown] acetaminophen 325 mg tablet (Tylenol) 650 mg PO TID RHEUMATOID ARTHRITIS 06/04/22 [History Last Taken 06/04/22] acetaminophen 500 mg tablet 1,000 mg PO Q6H PRN RHEUMATOID ARTHRITIS 06/04/22 [History Last Taken 06/04/22] amiodarone 200 mg tablet 200 mg PO DAILY AFIB 06/04/22 [History Last Taken 06/04/22] apixaban 5 mg tablet 5 mg PO BID BLOOD THINNER 06/04/22 [History Last Taken 06/04/22] arginine (L-arginine) 500 mg capsule 500 mg PO TID ANEMIA 06/04/22 [History Last Taken 06/04/22] aspirin 81 mg tablet,delayed release 81 mg PO DAILY HEART HEALTH 06/04/22 [History Last Taken 06/04/22] diclofenac sodium 1 % topical gel (Voltaren Arthritis Pain) 1 ea topical TID PRN SHOULDER PAIN 06/04/22 [History Last Taken 06/03/22 01:08] diphenhydramine HCl 25 mg capsule (Benadryl) 25 mg PO Q4H PRN ALLERGIES 06/04/22 [History Last Taken Unknown] ferrous sulfate 325 mg (65 mg iron) tablet 325 mg PO DAILY ANEMIA 06/04/22 [History Last Taken 06/04/22] furosemide 40 mg tablet (Lasix) 40 mg PO DAILY PRN FLUID 06/04/22 [History Last Taken 06/04/22] hydrocortisone 2.5 % topical cream with perineal applicator (Anusol-HC) 1 applic CA BID PRN Hemorrhoids 06/04/22 [History Last Taken 06/04/22] metoprolol tartrate 50 mg tablet 50 mg PO BID BLOOD PRESSURE 06/04/22 [History Last Taken 06/04/22] pantoprazole 40 mg tablet,delayed release (Protonix) 40 mg PO DAILY ACID REFLUX 06/04/22 [History Last Taken 06/04/22] vitamin B complex 1 tab PO DAILY SUPPLEMENT 06/04/22 [History Last Taken 06/04/22] vitamins A,C,P-nfed-oqnmoi 2,148 mcg-113 mg-45 mg-17.4 mg tablet (Eye Multivitamin) 1 tab PO DAILY EYE HEALTH 06/04/22 [History Last Taken 06/04/22] Allergy/AdvReac Type Severity Reaction Status Date / Time No Known Allergies Allergy Verified 06/04/22 11:40 Family History Mother TIA (transient ischemic attack) Surgical History History of hemiarthroplasty of left hip (05/2020) History of left heart catheterization (03/27/20) Status post hip replacement Social History Smoking Status: Never smoker alcohol intake: never substance use type: does not use caffeine: Yes Type: coffee Number of servings: 1 and tea ROS Constitutional Constitutional: Reports other Details: Patient complains of thirst ; Denies anorexia, change in weight, chills, fatigue, fever(s), malaise, night sweats or weakness Eyes Eyes: Denies blurry vision, change in vision, discharge from eye(s) or eye pain Cardiovascular Cardiovascular: Denies chest pain, claudication, edema or palpitations Respiratory/Chest Respiratory/Chest: Denies cough, hemoptysis, shortness of breath at rest or shor tness of breath with exertion Gastrointestinal Gastrointestinal: Reports diarrhea; Denies abdominal pain, constipation, hematemesis, hematochezia, melena, nausea or vomiting Genitourinary Genitourinary: Denies difficulty urinating, dysuria, hematuria, nocturia, urinary frequency, urinary hesitancy, urinary incontinence or urinary urgency Musculoskeletal Musculoskeletal: Denies back pain, joint pain, joint stiffness, joint swelling, myalgias or neck pain Neurologic Neurologic: Denies abnormal gait, abnormal speech, confusion, disequilibrium, dizziness, focal weakness, headache(s), loss of vision, numbness, other visual disturbances, paresthesias, syncope or tingling Psychiatric Psychiatric: Denies anxiety, cognitive impairment, depression, irritability, mood swings or suicidal ideation Endocrine Endocrinology: Denies change in body appearance, cold intolerance, excessive sweating, heat intolerance, polydipsia or polyuria Hematologic/Lymphatic Hematologic/Lymphatic: Denies none, anemia, easy bleeding, easy bruising or lymphadenopathy Allergic/Immunologic Allergic/Immunologic: Denies rhinitis, urticaria, eczemia or asthma Vital Signs Vital Signs Vital Signs: 06/04/22 11:41 06/04/22 13:13 Temperature 97.8 F 98.0 F Temperature Source Oral Oral Pulse Rate 69 71 Respiratory Rate 18 20 H Blood Pressure 103/44 L 113/58 L Blood Pressure Mean 63 76 Pulse Ox 94 96 Oxygen Delivery Method Room Air Room Air Weight Weight: 91.3 kg Body Mass Index (BMI) 36.8 Physical Exam Const alert, oriented x3 and no apparent distress Constitutional Narrative: Patient appears her stated age, she appears dehydrated with dry mucous membranes General Appearance: cooperative, well kempt and well developed Orientation / Consciousness: awake, oriented to person, oriented to place and oriented to time HEENT normocephalic HEENT Narrative: Dry mucous membranes Eyes PERRL, EOMs intact bilaterally and conjunctivae normal Neck supple, no JVD, thyroid normal and no carotid bruits General: trachea midline Resp normal respiratory effort, no retractions, no use of accessory muscles and clear to auscultation bilaterally Auscultation: Negative for rales, rhonchi or wheezes Cardio regular rate, regular rhythm, S1 normal heart sound, S2 normal heart sound, no murmurs, no rub and no gallops GI normal to inspection, nondistended, normoactive bowel sounds, soft to palpation, non-tender and non-distended Extremity no clubbing, cyanosis or edema Skin no rashes or lesions noted General Skin Exam: no breakdown Neuro oriented x3, CN's II-XII intact bilaterally, no focal motor deficits and no sensory deficits noted Sensorium / Orientation: awake, alert, oriented to person, oriented to place and oriented to time Speech: speech normal Psych affect normal Results Lab / Micro Data Result Diagrams: 06/04/22 12:00 06/04/22 12:00 Labs: Laboratory Results - last 24 hr 06/04/22 12:00: WBC 17.1 H, RBC 3.05 L, Hgb 8.4 L, Hct 27.9 L, MCV 91.5, MCH 27.5, MCHC 30.1 L, RDW Std Deviation 52.9 H, RDW Coeff of Tiffani 15.9 H, Plt Count 521 H, MPV 9.8, Immature Gran % (Auto) 1.200 H, Neut % (Auto) 78.2 H, Lymph % (Auto) 11.9 L, [place] % (Auto) 6.3, Eos % (Auto) 1.9, Baso % (Auto) 0.5, Absolute Neuts (auto) 13.4 H, Absolute Lymphs (auto) 2.04, Nucleated RBC % 0 06/04/22 12:00: Sodium 134 L, Potassium 5.7 H, Chloride 102, Carbon Dioxide 22.0, Anion Gap 10, BUN 112 H*, Creatinine 4.29 H, Estim Creat Clear Calc 8.00, Est GFR (MDRD) Af Amer 13 L, Est GFR (MDRD) Non-Af 11 L, BUN/Creatinine Ratio 26.1 H, Glucose 116 H, Calcium 8.3 L Micro: Microbiology 06/04/22 12:31 Nasal Secretion SARS-CoV-2 Antigen (Rapid) - Final Radiology Impression Chest X-Ray 06/04/22 12:11 IMPRESSION: Small left pleural effusion with left basilar atelectasis and/or infiltrate. Electronically Signed: Salvador Trevino MD at 12:43 EST , Assessment & Plan Assessment/Plan (1) JONO (acute kidney injury): PLAN: Plan 1. Acute kidney injury-this is probably secondary to diuretic usage with a backdrop of diarrhea-patient has been complaining of some diarrhea this morning. Patient will be admitted to [facility] and she will be placed on IV fluids, labs will be monitored. I will order an ultrasound of the kidneys to make sure there is no pathology. Her Lasix will be held. #2 Hyperkalemia-this is not severe, I do not feel the patient needs to be on telemetry, I will recheck a BMP later on this evening #3 paroxysmal A. fib-patient is in sinus rhythm at this time, she takes Eliquis and is on amiodarone. #4 leukocytosis-etiology unclear, I do not feel that the patient has a documented infection as of now, her UA is pending-I asked the emergency room physicians obtain a cath specimen if necessary. #5 iron deficiency anemia-according the patient's daughter who was present at the time of my visit in the ER, patient has a history of anemia she thinks it might be iron deficiency, there is a low iron binding capacity in the computer here, I was not able to locate a serum iron level. If she has not had one here I will order one. #6 stage IIIa chronic kidney disease-it appears the patient's renal function has been abnormal before, basis for this is unknown at this time Total clinical time spent by myself addressing the patient's medical issues, reviewing all the data, and collaborating with patient's care team: 75 minutes Charges/Coding Visit Charges Inpatient E&M: 33808 Init Hosp L3
[2022-06-04] MEDS: Albuterol *CONC* 2.5mg/0.5mL VIAL.NEB. 10 MG INHALATION (14:18)
--- NOTE | 2022-06-04 14:32 | EKG12_ITS ---
Test Reason : Blood Pressure : / mmHG Vent. Rate : 068 BPM Atrial Rate : 068 BPM P-R Int : 168 ms QRS Dur : 090 ms QT Int : 402 ms P-R-T Axes : 039 032 042 degrees QTc Int : 427 ms Normal sinus rhythm Normal ECG Confirmed by SHANTE CHENG, DALIA ([id number]), film or videotape editor MIRIAM VUONG ([id number]) on 06/05/2022 1:13:47 PM Referred By: HEIDI Confirmed By:KOLE FREY MD
[2022-06-04] MEDS: dilTIAZem 25 MG/5 ML Vial 15 MG IV BOLUS (14:56)
[2022-06-04] MEDS: fentaNYL 100 MCG/2 ML Ampul 50 MCG IV ×2 (15:28→15:32)
[2022-06-04] MEDS: Midazolam 2 MG/2 ML Syringe IV (15:28)
[2022-06-04] MEDS: Midazolam 2 MG/2 ML Syringe 2.5 MG IV (15:36)
[2022-06-04] MEDS: Digoxin 250 MCG/ML Ampul 500 MCG IV (16:25)
[2022-06-04] MEDS: Amiodarone 360 MG in Dextrose 5% Viaflo Bag 192.8 ML 33.3 MG CONT INF (16:39)
--- NOTE | 2022-06-04 18:18 | PCM.CONS.C ---
Assessment & Plan Assessment/Plan (1) Atrial fibrillation with RVR: PLAN: The patient has a history of atrial fibrillation. She underwent evaluation and care in April for this issue. She was treated medically. It appears that at the [facility] she was on medical management. Upon original presentation this day she was noted to be in sinus rhythm. She was subsequently noted to have recurrence of atrial fibrillation with RVR. She was treated with rate control therapy and underwent 3 attempts at synchronized biphasic DC cardioversion to regain sinus rhythm. This appeared to be only transiently successful. At the present time she is now in the PCU in atrial fibrillation with RVR. She has received additional rate limiting therapy with IV digitalis x1. She is currently back on IV amiodarone (no bolus). She is also going to be receiving IV fluids based upon concerns of her dehydration and her acute renal insufficiency. Hopefully with her additional IV medications and receiving IV fluids she will have slowing of her heart rate and hopefully return to sinus rhythm. If she does not have slowing of her heart rate and/or return to sinus rhythm then depending upon her blood pressure she may need additional rate limiting therapy with increased dose of her beta-mulu/metoprolol. Her anticoagulant therapy is also on hold based upon her elevated creatinine levels. While her creatinine levels are elevated she may need alternative anticoagulant therapy such as IV heparin. (2) Pleural effusion: PLAN: The patient does have a left-sided pleural effusion. She has been treated with oral diuretic therapy. As she appears to be currently dehydrated and requiring IV fluids this left-sided pleural effusion will need to be monitored for any worsening. If this presents compromised to the patient then when appropriate from an anticoagulation standpoint she may need to be considered for a thoracentesis procedure. (3) HTN (hypertension): PLAN: The patient's blood pressure has been transiently low during her evaluation as noted. As her blood pressure stabilizes her medications can be adjusted. (4) Dehydration: PLAN: The patient is thought to be dehydrated. She is going to receive IV fluids. She will need to be monitored for any worsening pulmonary process. (5) JONO (acute kidney injury): PLAN: The patient does have acute renal insufficiency with an acutely elevated creatinine level. It is thought this is related to dehydration. As she receives hydration she will need to be monitored for any adverse clinical events and have her renal function monitored as well as this does impact her medical symptoms, etc. (6) Acute hyperkalemia: PLAN: The patient was noted to be hyperkalemic. Its thought this is related to her renal insufficiency. She received medical therapy for this. Her electrolytes will need to be followed. Addt'l Comments The patient's case was discussed and reviewed with the patient, her family members, the [facility] emergency department staff, and Dr. Aleman of the [facility] staff. This note was generated using a voice recognition system and there may be incorrect words, spelling or punctuation that were not noted when reviewing the office note prior to saving. Comment: Time spent in the patient's overall evaluation, examination, review of medical records, review of chest x-ray, documentation, and discussion with the medical staff: 50 minutes. HPI Consult Data Date of Consult: 06/04/22 HPI Narrative HPI Narrative: HONEY FERNANDES, is a 81 year old white female who presents for inpatient cardiovascular consultation based upon concerns of recurrent atrial fibrillation with RVR superimposed upon a history of underlying hypertension now in the setting of chronic anemia and acute renal insufficiency with hyperkalemia. The patient was residing at the [facility]. According to her and her family she had laboratory studies performed. She was noted to have concerns of acute renal insufficiency with hyperkalemia. She was brought to the [facility] for further evaluation and care. She was subsequently treated with a combination of agents including IV fluids, aerosol treatments, IV insulin/glucose, and then was subsequently noted to have alteration in her cardiac rhythm from sinus rhythm to atrial fibrillation with rapid ventricular response. She was then treated with IV diltiazem and had the appearance of transient hypotension. She underwent synchronized biphasic DC cardioversion x3 by the emergency department staff (150 J, 150 J, and 200 J) all with transient return to sinus rhythm and then returned to atrial fibrillation with rapid ventricular response. She was subsequently treated with IV digoxin 0.5 mg x 1 and started on IV amiodarone (no bolus). She was then placed in the PCU for further evaluation and care. She states that she may not have been drinking and eating as well as she should recently. This is because her appetite was poor. She does not recall having any ongoing chest discomfort or acute shortness of breath/dyspnea. There has been no report of near syncope or syncope. There has been lower extremity peripheral pitting edema. She has been wearing Urbano wraps. There was a report of a fall at the [place] [facility]. The patient states that she felt that her knees gave out and she fell to the floor. There is been no report of any associated injury. She was evaluated recently in cardiovascular consultation on 04-22-2022. She had a transthoracic echocardiogram performed on 04-21-2022. The results are noted below. She has also undergone previous diagnostic cardiac catheterization on 03-27-2020. She had a chest x-ray performed during this evaluation. Based upon preliminary review of the chest x-ray it appears to demonstrate diminished inspiratory effort and the appearance of a left-sided pleural effusion. She has been on medical therapy at the [facility]. This included metoprolol tartrate at 50 mg p.o. twice daily, furosemide at 40 mg p.o. daily as needed, amiodarone at 200 mg taper now down to daily, and apixaban at 5 mg p.o. twice daily. [facility] Medical History Accidental fall Acute pain of left hip Allergic rhinitis Atrial fibrillation with rapid ventricular response (03/26/20) Chronic asthma Closed left hip fracture Elevated troponin (03/26/20) Essential (primary) hypertension Gout Hypomagnesemia Laceration of left elbow Missing teeth, acquired Nail dystrophy Obesity Osteoporosis PAF (paroxysmal atrial fibrillation) Pain in toe of left foot Pain in toe of right foot Physical deconditioning Urinary frequency Vitamin D insufficiency Home Medications albuterol sulfate 90 mcg/actuation aerosol inhaler 1 - 2 puff inhalation Q6H PRN SHORTNESS OF BREATH/WHEEZING 03/26/20 [History Last Taken Unknown] allopurinol 100 mg tablet 100 mg PO DAILYCM GOUT 03/26/20 [History Last Taken 06/04/22] fluticasone 250 mcg-salmeterol 50 mcg/dose blistr powdr for inhalation 1 ea IH BID ASTHMA 03/26/20 [History Last Taken 06/04/22] fluticasone propionate 50 mcg/actuation nasal spray,suspension 1 spray NASAL BID PRN Nasal Congestion 03/26/20 [History Last Taken 1 Week Ago ~05/23/20] loratadine 10 mg tablet 10 mg PO DAILY ALLERGIES 03/26/20 [History Last Taken 06/04/22] ketotifen fumarate 0.025 % (0.035 %) eye drops (Zaditor) 1 drp ophthalmic (eye) BID PRN RED EYES 12/25/21 [History Last Taken Unknown] acetaminophen 325 mg tablet (Tylenol) 650 mg PO TID RHEUMATOID ARTHRITIS 06/04/22 [History Last Taken 06/04/22] acetaminophen 500 mg tablet 1,000 mg PO Q6H PRN RHEUMATOID ARTHRITIS 06/04/22 [History Last Taken 06/04/22] amiodarone 200 mg tablet 200 mg PO DAILY AFIB 06/04/22 [History Last Taken 06/04/22] apixaban 5 mg tablet 5 mg PO BID BLOOD THINNER 06/04/22 [History Last Taken 06/04/22] arginine (L-arginine) 500 mg capsule 500 mg PO TID ANEMIA 06/04/22 [History Last Taken 06/04/22] aspirin 81 mg tablet,delayed release 81 mg PO DAILY HEART HEALTH 06/04/22 [History Last Taken 06/04/22] diclofenac sodium 1 % topical gel (Voltaren Arthritis Pain) 1 ea topical TID PRN SHOULDER PAIN 06/04/22 [History Last Taken 06/03/22 01:08] diphenhydramine HCl 25 mg capsule (Benadryl) 25 mg PO Q4H PRN ALLERGIES 06/04/22 [History Last Taken Unknown] ferrous sulfate 325 mg (65 mg iron) tablet 325 mg PO DAILY ANEMIA 06/04/22 [History Last Taken 06/04/22] furosemide 40 mg tablet (Lasix) 40 mg PO DAILY PRN FLUID 06/04/22 [History Last Taken 06/04/22] hydrocortisone 2.5 % topical cream with perineal applicator (Anusol-HC) 1 applic DE BID PRN Hemorrhoids 06/04/22 [History Last Taken 06/04/22] metoprolol tartrate 50 mg tablet 50 mg PO BID BLOOD PRESSURE 06/04/22 [History Last Taken 06/04/22] pantoprazole 40 mg tablet,delayed release (Protonix) 40 mg PO DAILY ACID REFLUX 06/04/22 [History Last Taken 06/04/22] vitamin B complex 1 tab PO DAILY SUPPLEMENT 06/04/22 [History Last Taken 06/04/22] vitamins A,C,J-tlcg-roeqpd 2,148 mcg-113 mg-45 mg-17.4 mg tablet (Eye Multivitamin) 1 tab PO DAILY EYE HEALTH 06/04/22 [History Last Taken 06/04/22] Allergy/AdvReac Type Severity Reaction Status Date / Time No Known Allergies Allergy Verified 06/04/22 11:40 Family History Mother TIA (transient ischemic attack) Surgical History History of hemiarthroplasty of left hip (05/2020) History of left heart catheterization (03/27/20) Status post hip replacement Social History Smoking Status: Never smoker alcohol intake: never substance use type: does not use caffeine: Yes Type: coffee Number of servings: 1 and tea ROS Constitutional Constitutional: Reports fatigue and poor appetite Eyes Eyes: Reports as per HPI ENT HEENT: Reports as per HPI Cardiovascular Cardiovascular: Reports edema and fatigue Respiratory/Chest Respiratory/Chest: Reports as per HPI Gastrointestinal Gastrointestinal: Reports as per HPI Genitourinary Genitourinary: Reports as per HPI Musculoskeletal Musculoskeletal: Reports as per HPI Integumentary Integumentary: Reports as per HPI Neurologic Neurologic: Reports as per HPI Physical Exam Narrative This is an 81-year-old white female who appears to be dehydrated appearing. Const alert and oriented x3 Orientation / Consciousness: awake HEENT normocephalic and head/scalp atraumatic HEENT Narrative: Hearing: Grossly impaired Eyes PERRL, EOMs intact bilaterally, conjunctivae normal and no scleral icterus Neck full ROM, no lymphadenopathy, supple and no JVD Carotids: normal carotid upstroke Resp normal respiratory effort Auscultation: breath sounds absent left and diminished lung sounds left lower Cardio Rate: tachycardic Rhythm: abnormal rhythm irregularly irregular Heart Sounds: S1 normal and S2 normal GI normal to inspection, nondistended, normoactive bowel sounds Extremity General Extremity: edema bilateral lower extremity ([place] wraps in place) Skin no rashes or lesions noted Psych mental status grossly normal Risk Stratification Risk Stratification Applicable: Yes Age >/= 65: Yes >/= 3 CAD Risk Factors (HTN, HLD, DM, family hx of CAD, or current smoker): No Aspirin Use in the Past 7 Days: No Severe Angina (>/= episodes in 24 hours): No EKG ST Changes >/= 0.5mm: No Positive Cardiac Marker: No CELIA Risk Stratification Score: 1 CELIA % Risk: 5% Risk Procedure Criteria Type of Procedure Procedure Type: Elective Elective Risks - COVID COVID Risk Discussion: The surgeon/proceduralist and patient have discussed in detail the risk of exposure to and/or potential harm posed by the COVID-19 virus with having a surgery/procedure at this time versus the risk of delaying the surgery/procedure. It is not possible to know either the risk of delaying the surgery or procedure or chance of getting an infection with perfect accuracy, but a joint decision was made between the patient and the surgeon/proceduralist to proceed at this time with the scheduled surgery/procedure as indicated on the consent form. Objective Data Vital Signs: Vital Signs Temp Pulse Resp BP Pulse Ox O2 Del Method O2 Flow Rate 99.7 F H 139 H 18 119/61 100 Nasal Cannula 3 06/04/22 17:30 06/04/22 17:30 06/04/22 17:30 06/04/22 17:30 06/04/22 17:30 06/04/22 17:30 06/04/22 17:30 Oxygen Flow Rate (L/min) [4] 3 Oxygen Flow Rate (L/min) [2] 3 Oxygen Flow Rate (L/min) [1 ( 3 Initial Baseline)] Oxygen Flow Rate (L/min) 3 Oxygen Delivery Method [4] Nasal Cannula Oxygen Delivery Method [2] Nasal Cannula Oxygen Delivery Method [1 ( Nasal Cannula Initial Baseline)] Oxygen Delivery Method Nasal Cannula Weight: 191 lb 5.78 oz Body Mass Index (BMI) 36.1 Intake & Output: Intake and Output for Last 24 Hours 06/02/22 06/03/22 06/04/22 23:59 23:59 23:59 Intake Total 755 / 755 Balance 755 / 755 Lab / Micro Data Result Diagrams: 06/04/22 12:00 06/04/22 12:00 Labs: Laboratory Results - last 24 hr 06/04/22 12:00: WBC 17.1 H, RBC 3.05 L, Hgb 8.4 L, Hct 27.9 L, MCV 91.5, MCH 27.5, MCHC 30.1 L, RDW Std Deviation 52.9 H, RDW Coeff of Tiffani 15.9 H, Plt Count 521 H, MPV 9.8, Immature Gran % (Auto) 1.200 H, Neut % (Auto) 78.2 H, Lymph % (Auto) 11.9 L, Levy % (Auto) 6.3, Eos % (Auto) 1.9, Baso % (Auto) 0.5, Absolute Neuts (auto) 13.4 H, Absolute Lymphs (auto) 2.04, Nucleated RBC % 0 06/04/22 12:00: Sodium 134 L, Potassium 5.7 H, Chloride 102, Carbon Dioxide 22.0, Anion Gap 10, BUN 112 H*, Creatinine 4.29 H, Estim Creat Clear Calc 8.00, Est GFR (MDRD) Af Amer 13 L, Est GFR (MDRD) Non-Af 11 L, BUN/Creatinine Ratio 26.1 H, Glucose 116 H, Calcium 8.3 L Micro: Microbiology 06/04/22 12:31 Nasal Secretion SARS-CoV-2 Antigen (Rapid) - Final Cardiology Labs/Tests 06/04/22 12:00: WBC 17.1 H, RBC 3.05 L, Hgb 8.4 L, Hct 27.9 L, MCV 91.5, MCH 27.5, MCHC 30.1 L, Plt Count 521 H, MPV 9.8, Immature Gran % (Auto) 1.200 H, Neut % (Auto) 78.2 H, Lymph % (Auto) 11.9 L, Levy % (Auto) 6.3, Eos % (Auto) 1.9, Baso % (Auto) 0.5, Absolute Neuts (auto) 13.4 H, Nucleated RBC % 0 06/04/22 12:00: Sodium 134 L, Potassium 5.7 H, Chloride 102, Carbon Dioxide 22.0, Anion Gap 10, BUN 112 H*, Creatinine 4.29 H, Est GFR (MDRD) Af Amer 13 L, Est GFR (MDRD) Non-Af 11 L, BUN/Creatinine Ratio 26.1 H, Glucose 116 H, Calcium 8.3 L Rhythm: Atrial fibrillation with rapid ventricular response EKG: Sinus rhythm; low voltage QRS Atrial fibrillation with rapid ventricular response; low voltage QRS; nonspecific ST/T wave abnormality ECHO: 04-22-2022 Reason For Study: A. Fib Procedure This was a 2D Doppler, Color Flow transthoracic echocardiogram. Exam performed portable in ICU/CCU. Left Ventricle Normal LV size. The estimated ejection fraction is 45 %. Mild global left ventricular systolic dysfunction. Stage 2 diastolic dysfunction. There is mild global hypokinesis of the left ventricle. Right Ventricle Normal RV size. Normal systolic function. Atria The left atrium is mildly enlarged. Normal right atrium. Mitral Valve Normal mitral valve. Mild (1+) eccentric mitral valve insufficiency. Tricuspid Valve Normal tricuspid valve. Mild (1+) tricuspid valve insufficiency. Pulmonary artery systolic pressure is 43 mmHg. Aortic Valve Trisinus/trileaflet aortic valve. Mild focal aortic valve calcification. Mild (1+) aortic valve insufficiency. Pulmonic Valve Normal pulmonic valve. Great Vessels Normal aortic root. The pulmonary artery is normal size. Normal inferior vena cava. Pericardium/Pleural No pericardial effusion. MMode/2D Measurements & Calculations LVIDd: 4.8 cm? IVSd: 0.88 cm? LVOT diam: 2.0 cm LVIDs: 3.6 cm? LVPWd: 0.79 cm ? LVOT area: 3.1 cm2 RVDd: 3.7 cm ? FS: 24.6 % ? LAV(MOD-bp): 80.5 ml ? LVAd ap4: 26.0 cm2 ? LVAd ap2: 28.5 cm2 LAV(MOD-bp) Indexed: 46.3 ml/m2? LVLd ap4: 7.2 cm ? LVLd ap2: 7.4 cm LAV(MOD-sp2): 80.1 ml? EDV(MOD-sp4): 76.4 ml? EDV(MOD-sp2): 92.4 ml LAV(MOD-sp4): 76.7 ml? EDV(sp4-el): 79.2 ml ? EDV(sp2-el): 93.9 ml ? LVAs ap4: 17.5 cm2 ? LVAs ap2: 18.8 cm2 ? LVLs ap4: 6.7 cm ? LVLs ap2: 6.6 cm ? ESV(MOD-sp4): 38.9 ml? ESV(MOD-sp2): 45.3 ml ? ESV(sp4-el): 39.0 ml ? ESV(sp2-el): 45.5 ml ? EF(MOD-sp4): 49.1 %? EF(MOD-sp2): 50.9 % ? EF(sp4-el): 50.8 % ? SV(MOD-sp4): 37.5 ml ? SV(MOD-sp2): 47.1 ml ? SV(sp4-el): 40.3 ml ? LA dimension(2D): 2.9 cm LA A4 area: 24.0 cm2? RA A4 area: 21.4 cm2 Time Measurements MV dec time: 0.15 sec Doppler Measurements & Calculations MV E max bryan: 86.3 cm/sec? Lat Peak E' Bryan: 11.0 cm/sec? ? ? Med Peak E' Bryan: 8.2 cm/sec MV A max bryan: 70.8 cm/sec? E/E' lat: 7.8 ? E/E' med: 10.6 MV E/A: 1.2 ? MV dec slope: 568.2 cm/sec2? ? ? Ao V2 max: 184.8 cm/sec ? AI max bryan: 345.4 cm/sec ? Ao max P.7 mmHg? AI max P.7 mmHg ? Ao V2 mean: 129.3 cm/sec? AI dec slope: 150.5 cm/sec2 ? Ao mean P.6 mmHg? AI P1/2t: 672.0 msec ? Ao V2 VTI: 45.1 cm ? AV (velocity ratio): 0.60 ? NADIA(I,D): 1.9 cm2 ? NADIA(V,D): 1.7 cm2 ? LV V1 max: 104.0 cm/sec? SV(LVOT): 83.7 ml ? PA V2 max: 80.3 cm/sec LV V1 max P.3 mmHg LV V1 mean P.7 mmHg LV V1 mean: 76.9 cm/sec LV V1 VTI: 27.2 cm ? TR max bryan: 312.7 cm/sec TR max P.2 mmHg ECHO/Echo Complete Interpretation Summary Normal LV size. The estimated ejection fraction is 45 %. Mild global left ventricular systolic dysfunction. There is mild global hypokinesis of the left ventricle. The left atrium is mildly enlarged. Stage 2 diastolic dysfunction. Mild (1+) aortic valve insufficiency. ? ? Ordering Physician: Barbara Lott Referring Physician: MD Jn Robertson Performed By: Svitlana Rodriguez [facility] ? Cardiac Cath: 03-27-2020 CONCLUSIONS Mild to minimal coronary artery disease and mild left ventricular systolic dysfunction. RECOMMENDATIONS Medical therapy DESCRIPTION OF? PROCEDURE The patient arrived to the procedure lab. The risks and benefits of the procedure as well as a full description of our services here and current unavailability of surgical backup were fully explained to the patient and/or their significant other prior to the catheterization. The Timeout was completed, verifying the correct patient and procedure. The patient's procedural site was prepped and draped in the usual fashion. Local anesthetic was given subcutaneously to right radial region with Lidocaine 2%. Using a modified Seldinger technique, arterial access was obtained via the right radial artery, a 6Fr sheath was inserted.? Left Coronary Artery selective angiography was performed in multiple views using a 5 Fr. 4.0 Clayton catheter. Right Coronary Artery selective angiography was then performed in multiple views using a 5 Fr. 4.0 Clayton catheter. Left Ventriculography was performed in CAMPOS projection using a 5 Fr. Pigtail catheter. LV to AO pullback pressures were then recorded.The arterial sheath was pulled and a TR Band was applied for hemostasis CORONARY ANGIOGRAPHY DOMINANCE:? Co- Dominant LEFT HEART ASSESSMENT Left Ventricular Ejection Fraction: by LV Gram 50 % Normal LV wall motion Normal Left Ventricular systolic function LEFT MAIN: Angiographically normal LEFT ANTERIOR DESCENDING ARTERY: No significant disease noted CIRCUMFLEX ARTERY: MID CIRC: Mild luminal irregularities less than 30% RAMUS: No significant disease noted RIGHT CORONARY ARTERY: No significant disease noted Radiography Diagnostic Testing: Radiology Impression Chest X-Ray 06/04/22 12:11 IMPRESSION: Small left pleural effusion with left basilar atelectasis and/or infiltrate. Electronically Signed: Salvador Trevino MD at 12:43 EST ,
[2022-06-04] MEDS: 0.9% Normal Saline 1,000 ML 100 ML IV (19:04)
[2022-06-04] MEDS: 0.9% Saline Lock 10 ML Syringe IV ×2 (19:04→21:00)
[2022-06-04] MEDS: Acetaminophen 500 MG Tablet 1000 MG PO (20:58)
[2022-06-04] MEDS: Metoprolol Tartrate 50 MG Tablet PO (23:23)
[2022-06-04] MEDS: Amiodarone 360 MG in Dextrose 5% Viaflo Bag 192.8 ML 16.7 MG CONT INF (23:47)
[2022-06-05] VITALS (31 sets, daily range): BP systolic 75–116; BP diastolic 46–75; PULSE 79–111; RESP 16–24; TEMP 36.2–36.7; O2SAT 92–100
--- NOTE | 2022-06-05 | US_ITS ---
STUDY: RENAL ULTRASOUND - COMPLETE REASON FOR EXAM: Female, 81 years old. JONO TECHNIQUE: Ultrasound evaluation of the kidneys was performed with real-time and static chew-scale imaging. COMPARISON: None. FINDINGS: RIGHT KIDNEY: with mild renal hypertrophy. The right kidney measures 12.1x6.7 cm. There is a normal cortex of the right kidney. The renal cortex measures 1.5 cm. There is no right renal mass or cyst. There are no right renal calculi. There is severe hydronephrosis of the right kidney. DISTAL RIGHT URETER: There is non-visualization of the distal right ureter. There is no demonstrated right ureterovesical junction calculus. There is no demonstrated right ureteral jet. LEFT KIDNEY: Normal location of the left kidney, which is normal in size. The left kidney measures 11.3x6.1 cm. There is a normal cortex of the left kidney. The renal cortex measures 1.8 cm. There is no left renal mass or cyst. There are no left renal calculi. There is moderate hydronephrosis of the left kidney. DISTAL LEFT URETER: There is non-visualization of the distal left ureter. There is no demonstrated left ureterovesical junction calculus. There is no demonstrated left ureteral jet. AORTA: There is obscuration of the abdominal aorta by overlying bowel gas I.V.C.: The IVC is obscured. BLADDER: obscuration by overlying bowel gas. US/Kidney and Bladder IMPRESSION: There is severe hydronephrosis of the right kidney. There is moderate hydronephrosis of the left kidney. Electronically Signed: Aidan Moise MD at 17:32 EST ,
[2022-06-05 04:45] LABS: Absolute Lymphocyte Count 1.89 X10^3/uL (0.83-4.51); Absolute Neutrophil Count 10.3 X10^3/uL (2.0-7.7); Basophil# 0.07 X10^3/uL; Basophil% 0.5 % (0-1); Eosinophil# 0.22 X10^3/uL; Eosinophils% 1.6 % (0-5); Hematocrit 24.7 % (37-47); Hemoglobin 7.3 g/dL (12.0-15.0); Lymphocyte # 1.89 X10^3/ul (0.83-4.51); Lymphocyte % 13.8 % (19-41); Mean Corp Hgb Conc 29.6 g/dL (32-36); Mean Corpuscular Hgb 27.2 pg (27.0-32.0); Mean Corpuscular Volume 92.2 fL (81-99); Mean Platelet Vol. 10.3 fl (6.2-12.0); NRBC Flagged by Analyzer 0 % (0-5); Neutrophil # 10.26 X10^3/uL (2.7-7.7); Neutrophil % 74.7 % (47-70); Platelet Count 489 K/mm3 (150-450); RBC Distribution Width CV 15.9 % (11.6-14.6); Red Blood Count 2.68 M/mm3 (4.2-5.4); White Blood Count 13.7 K/mm3 (4.4-11.0)
[2022-06-05 05:19] LABS: Anion Gap 12 (5-15); BUN 116 mg/dL (7-18); Calcium,Total 7.7 mg/dL (8.5-10.1); Chloride 103 mmol/L (98-107); EST Glomerular Filtration Rate 11 mL/min (>60); Est Glom Filt Rate - Afr Amer 13 mL/min (>60); Estimated Creatinine Clearance 7.61 ml/min; Glucose 78 mg/dL (74-106); Potassium 5.6 mmol/L (3.5-5.1); Sodium Level 133 mmol/L (136-145)
--- NOTE | 2022-06-05 05:55 | EKG12_ITS ---
Test Reason : AM EKG Blood Pressure : / mmHG Vent. Rate : 091 BPM Atrial Rate : 000 BPM P-R Int : 000 ms QRS Dur : 096 ms QT Int : 314 ms P-R-T Axes : 000 058 253 degrees QTc Int : 386 ms Atrial fibrillation Low voltage QRS Nonspecific T wave abnormality Abnormal ECG When compared with ECG of 04-JUN-2022 14:35, MANUAL COMPARISON REQUIRED, DATA IS UNCONFIRMED Confirmed by SHANTE CHENG, DALIA ([id number]), visual effects editor MIRIMA VUONG ([id number]) on 06/05/2022 1:46:05 PM Referred By: Confirmed By:KOLE FREY MD
[2022-06-05] MEDS: Nystatin Powder 15gm Bottle 1 APPLIC TOPICAL ×3 (05:58→21:05)
[2022-06-05] MEDS: 0.9% Normal Saline 1,000 ML 100 ML IV ×2 (05:58→14:29)
[2022-06-05] MEDS: Menthol/Lanolin/Calamine/Znox 113 GM Tube 1 APPLIC TOPICAL ×3 (05:59→21:05)
[2022-06-05] MEDS: Budesonide Respules 0.5 MG/2 ML AMPUL.NEB. INHALATION ×2 (06:42→19:52)
--- NOTE | 2022-06-05 07:32 | PCM.PN.CARD ---
Subjective Subjective Patient seen and evaluated. Consult from yesterday read. Objective Data Vital Signs: Vital Signs Temp Pulse Resp BP Pulse Ox O2 Del Method O2 Flow Rate 97.1 F L 95 19 H 105/68 94 Nasal Cannula 2 06/05/22 03:00 06/05/22 06:00 06/05/22 06:00 06/05/22 06:00 06/05/22 06:00 06/05/22 06:00 06/05/22 06:00 Oxygen Flow Rate (L/min) [4] 3 Oxygen Flow Rate (L/min) [2] 3 Oxygen Flow Rate (L/min) [1 ( 3 Initial Baseline)] Oxygen Flow Rate (L/min) 2 Oxygen Delivery Method [4] Nasal Cannula Oxygen Delivery Method [2] Nasal Cannula Oxygen Delivery Method [1 ( Nasal Cannula Initial Baseline)] Oxygen Delivery Method Nasal Cannula Weight: 191 lb 5.78 oz Body Mass Index (BMI) 36.1 Intake & Output: Intake and Output for Last 24 Hours 06/03/22 06/04/22 06/05/22 23:59 23:59 23:59 Intake Total 1058.00 / 1301.62 1463.82 / 1463.82 Output Total 70 / 70 Balance 1058.00 / 1301.62 1393.82 / 1393.82 Lab / Micro Data Result Diagrams: 06/05/22 04:07 06/05/22 04:07 Labs: Laboratory Results - last 24 hr 06/04/22 12:00: WBC 17.1 H, RBC 3.05 L, Hgb 8.4 L, Hct 27.9 L, MCV 91.5, MCH 27.5, MCHC 30.1 L, RDW Std Deviation 52.9 H, RDW Coeff of Tiffani 15.9 H, Plt Count 521 H, MPV 9.8, Immature Gran % (Auto) 1.200 H, Neut % (Auto) 78.2 H, Lymph % (Auto) 11.9 L, [place] % (Auto) 6.3, Eos % (Auto) 1.9, Baso % (Auto) 0.5, Absolute Neuts (auto) 13.4 H, Absolute Lymphs (auto) 2.04, Nucleated RBC % 0 06/04/22 12:00: Sodium 134 L, Potassium 5.7 H, Chloride 102, Carbon Dioxide 22.0, Anion Gap 10, BUN 112 H*, Creatinine 4.29 H, Estim Creat Clear Calc 8.00, Est GFR (MDRD) Af Amer 13 L, Est GFR (MDRD) Non-Af 11 L, BUN/Creatinine Ratio 26.1 H, Glucose 116 H, Calcium 8.3 L 06/05/22 04:07: WBC 13.7 H, RBC 2.68 L, Hgb 7.3 L, Hct 24.7 L, MCV 92.2, MCH 27.2, MCHC 29.6 L, RDW Std Deviation 54.0 H, RDW Coeff of Tiffani 15.9 H, Plt Count 489 H, MPV 10.3, Immature Gran % (Auto) 1.400 H, Neut % (Auto) 74.7 H, Lymph % (Auto) 13.8 L, [place] % (Auto) 8.0, Eos % (Auto) 1.6, Baso % (Auto) 0.5, Absolute Neuts (auto) 10.3 H, Absolute Lymphs (auto) 1.89, Nucleated RBC % 0 06/05/22 04:07: Sodium 133 L, Potassium 5.6 H, Chloride 103, Carbon Dioxide 18.0 L, Anion Gap 12, BUN 116 H*, Creatinine 4.30 H, Estim Creat Clear Calc 7.61, Est GFR (MDRD) Af Amer 13 L, Est GFR (MDRD) Non-Af 11 L, BUN/Creatinine Ratio 27.0 H, Glucose 78, Calcium 7.7 L Micro: Microbiology 06/04/22 12:31 Nasal Secretion SARS-CoV-2 Antigen (Rapid) - Final Cardiology Labs/Tests 06/04/22 12:00: WBC 17.1 H, RBC 3.05 L, Hgb 8.4 L, Hct 27.9 L, MCV 91.5, MCH 27.5, MCHC 30.1 L, Plt Count 521 H, MPV 9.8, Immature Gran % (Auto) 1.200 H, Neut % (Auto) 78.2 H, Lymph % (Auto) 11.9 L, [place] % (Auto) 6.3, Eos % (Auto) 1.9, Baso % (Auto) 0.5, Absolute Neuts (auto) 13.4 H, Nucleated RBC % 0 06/04/22 12:00: Sodium 134 L, Potassium 5.7 H, Chloride 102, Carbon Dioxide 22.0, Anion Gap 10, BUN 112 H*, Creatinine 4.29 H, Est GFR (MDRD) Af Amer 13 L, Est GFR (MDRD) Non-Af 11 L, BUN/Creatinine Ratio 26.1 H, Glucose 116 H, Calcium 8.3 L 06/05/22 04:07: WBC 13.7 H, RBC 2.68 L, Hgb 7.3 L, Hct 24.7 L, MCV 92.2, MCH 27.2, MCHC 29.6 L, Plt Count 489 H, MPV 10.3, Immature Gran % (Auto) 1.400 H, Neut % (Auto) 74.7 H, Lymph % (Auto) 13.8 L, [place] % (Auto) 8.0, Eos % (Auto) 1.6, Baso % (Auto) 0.5, Absolute Neuts (auto) 10.3 H, Nucleated RBC % 0 06/05/22 04:07: Sodium 133 L, Potassium 5.6 H, Chloride 103, Carbon Dioxide 18.0 L, Anion Gap 12, BUN 116 H*, Creatinine 4.30 H, Est GFR (MDRD) Af Amer 13 L, Est GFR (MDRD) Non-Af 11 L, BUN/Creatinine Ratio 27.0 H, Glucose 78, Calcium 7.7 L Rhythm: EKG: ECHO: Stress Test: Cardiac Cath: PCI: CT Surgery: Holter monitor: EPS: PPM: CXR: Chest CT Scan: Radiography Diagnostic Testing: Radiology Impression Chest X-Ray 06/04/22 12:11 IMPRESSION: Small left pleural effusion with left basilar atelectasis and/or infiltrate. Electronically Signed: Salvador Trevino MD at 12:43 EST , Physical Exam Narrative This is an 81-year-old white female who appears to be dehydrated appearing. Const alert and oriented x3 Orientation / Consciousness: awake HEENT normocephalic and head/scalp atraumatic HEENT Narrative: Hearing: Grossly impaired Eyes PERRL, EOMs intact bilaterally, conjunctivae normal and no scleral icterus Neck full ROM, no lymphadenopathy, supple and no JVD Carotids: normal carotid upstroke Resp normal respiratory effort Auscultation: breath sounds absent left and diminished lung sounds left lower Cardio Rate: tachycardic Rhythm: abnormal rhythm irregularly irregular Heart Sounds: S1 normal and S2 normal GI normal to inspection, nondistended, normoactive bowel sounds Extremity General Extremity: edema bilateral lower extremity ([place] wraps in place) Skin no rashes or lesions noted Psych mental status grossly normal Assessment & Plan Assessment/Plan (1) Atrial fibrillation with RVR: PLAN: The patient has a history of atrial fibrillation. She will continue medical therapy for the above. It is unlikely that she will convert to sinus rhythm. We will continue her on the IV amiodarone and later switched to oral amiodarone. She is rather anemic and with her elevated creatinine we will hold off on anticoagulation at this time. (2) Pleural effusion: PLAN: The patient does have a left-sided pleural effusion. We will hold off on diuretic therapy at this time as she is dehydrated. (3) HTN (hypertension): PLAN: The patient's blood pressure has been stable for now. (4) Dehydration: PLAN: The patient is dehydrated and IV fluids should continue with assessment of her pulmonary as well as renal condition.
[2022-06-05] MEDS: Ferrous Sulfate 325 MG Tablet PO (07:58)
[2022-06-05] MEDS: Acetaminophen 500 MG Tablet 1000 MG PO ×2 (07:58→21:05)
[2022-06-05] MEDS: Pantoprazole Sodium 40 MG Tablet PO (07:58)
[2022-06-05] MEDS: Aspirin E.C. 81 MG Tablet PO (07:58)
--- NOTE | 2022-06-05 08:17 | PN.HOSP_ITS ---
Subjective Subjective No new issues. Objective Data Objective Data Vital Signs: Vital Signs Temp Pulse Resp BP Pulse Ox O2 Del Method O2 Flow Rate 36.2 C L 95 23 H 102/55 L 95 Nasal Cannula 2 06/05/22 03:00 06/05/22 07:00 06/05/22 07:00 06/05/22 07:00 06/05/22 07:00 06/05/22 07:00 06/05/22 07:00 Oxygen Flow Rate (L/min) [4] 3 Oxygen Flow Rate (L/min) [2] 3 Oxygen Flow Rate (L/min) [1 ( 3 Initial Baseline)] Oxygen Flow Rate (L/min) 2 Oxygen Delivery Method [4] Nasal Cannula Oxygen Delivery Method [2] Nasal Cannula Oxygen Delivery Method [1 ( Nasal Cannula Initial Baseline)] Oxygen Delivery Method Nasal Cannula Weight: 86.8 kg Body Mass Index (BMI) 36.1 Intake & Output: Intake and Output for Last 24 Hours 06/03/22 06/04/22 06/05/22 23:59 23:59 23:59 Intake Total 1058.00 / 1301.62 1480.52 / 1480.52 Output Total 70 / 70 Balance 1058.00 / 1301.62 1410.52 / 1410.52 Lab / Micro Data Result Diagrams: 06/05/22 04:07 06/05/22 12:30 Labs: Laboratory Results - last 24 hr 06/04/22 12:00: WBC 17.1 H, RBC 3.05 L, Hgb 8.4 L, Hct 27.9 L, MCV 91.5, MCH 27.5, MCHC 30.1 L, RDW Std Deviation 52.9 H, RDW Coeff of Tiffani 15.9 H, Plt Count 521 H, MPV 9.8, Immature Gran % (Auto) 1.200 H, Neut % (Auto) 78.2 H, Lymph % (Auto) 11.9 L, [place] % (Auto) 6.3, Eos % (Auto) 1.9, Baso % (Auto) 0.5, Absolute Neuts (auto) 13.4 H, Absolute Lymphs (auto) 2.04, Nucleated RBC % 0 06/04/22 12:00: Sodium 134 L, Potassium 5.7 H, Chloride 102, Carbon Dioxide 22.0, Anion Gap 10, BUN 112 H*, Creatinine 4.29 H, Estim Creat Clear Calc 8.00, Est GFR (MDRD) Af Amer 13 L, Est GFR (MDRD) Non-Af 11 L, BUN/Creatinine Ratio 26.1 H, Glucose 116 H, Calcium 8.3 L 06/05/22 04:07: WBC 13.7 H, RBC 2.68 L, Hgb 7.3 L, Hct 24.7 L, MCV 92.2, MCH 27.2, MCHC 29.6 L, RDW Std Deviation 54.0 H, RDW Coeff of Tiffani 15.9 H, Plt Count 489 H, MPV 10.3, Immature Gran % (Auto) 1.400 H, Neut % (Auto) 74.7 H, Lymph % (Auto) 13.8 L, [place] % (Auto) 8.0, Eos % (Auto) 1.6, Baso % (Auto) 0.5, Absolute Neuts (auto) 10.3 H, Absolute Lymphs (auto) 1.89, Nucleated RBC % 0 06/05/22 04:07: Sodium 133 L, Potassium 5.6 H, Chloride 103, Carbon Dioxide 18.0 L, Anion Gap 12, BUN 116 H*, Creatinine 4.30 H, Estim Creat Clear Calc 7.61, Est GFR (MDRD) Af Amer 13 L, Est GFR (MDRD) Non-Af 11 L, BUN/Creatinine Ratio 27.0 H , Glucose 78, Calcium 7.7 L Micro: Microbiology 06/04/22 12:31 Nasal Secretion SARS-CoV-2 Antigen (Rapid) - Final Radiography Diagnostic Testing: Radiology Impression Chest X-Ray 06/04/22 12:11 IMPRESSION: Small left pleural effusion with left basilar atelectasis and/or infiltrate. Electronically Signed: Salvador Trevino MD at 12:43 EST , Physical Exam Const alert and no apparent distress HEENT head/scalp atraumatic and moist oral mucous membranes Resp normal respiratory effort, no retractions, no use of accessory muscles and clear to auscultation bilaterally Cardio regular rate and regular rhythm GI normal to inspection, nondistended, normoactive bowel sounds Extremity no clubbing, cyanosis or edema Assessment & Plan Assessment/Plan (1) JONO (acute kidney injury): PLAN: Ongoing Continue IVF and hold diuretics FEUrea 36.63% Suspect due to prerenal azotemia and ATN. Check US (2) Acute hyperkalemia: PLAN: 2/2 JONO Kayexalate recheck (3) HFrEF (heart failure with reduced ejection fraction): PLAN: EF 45% from echo on 04/21/23 Pt already has left pleural effusion caution with IVF. (4) Anemia: PLAN: normocytic ferritin has been elevated in past, so unlikely iron-deficient. TSH has been normal and B12. monitor (5) Leukocytosis: PLAN: unclear etiology no s/s infection continue to monitor. PLAN: Plan Chronic conditions: * paroxysmal A. fib-patient is in sinus rhythm at this time, she takes Eliquis and is on amiodarone. * stage IIIa chronic kidney disease-it appears the patient's renal function has been abnormal before, basis for this is unknown at this time VTE prophylaxis: already on anticoagulation. Charges/Coding Visit Charges Inpatient E&M: 49656 Subs Hosp L2
[2022-06-05] MEDS: Sodium Polystyrene Sulfonate 15 GM/60 ML UDC PO (09:54)
[2022-06-05 10:42] LABS: Bacteria 0 SEEN /hpf (None Seen); Mucous, Urine 0 SEEN /hpf (<or=2+)
[2022-06-05 10:55] LABS: Color, Urine Red (Yellow); Glucose, Dipstick Normal (Normal); Ketone-Dipstick 5 mg/dl (Negative); Leukocyte Esterase-Dipstick 500 /ul (Negative); Nitrite-Dipstick Negative (Negative); Occult Blood-Urine 250 /ul (Negative); Protein-Dipstick 500 mg/dl (Negative); Urine Bilirubin Dipstick Negative (Negative); Urine Clarity Turbid (Clear); Urine Urobilinogen Normal (Normal)
--- NOTE | 2022-06-05 11:08 | CASEMGMT ---
SHANNEN met with patient and her daughter Bettie. SHANNEN asked if the plan was to return to [facility] at discharge or would they like a list of other facilities. Bettie said plan for now is to return to [facility]. SHANNEN sent updates to [facility] via [facility]. Mansi Hooker MANAGER QUALITY CANDY
[2022-06-05 11:10] LABS: Urea Nitrogen, Urine 168 mg/dL (NO RANGE EST.)
--- NOTE | 2022-06-05 11:18 | CASEMGMT ---
Per Edith at [facility] patient was intermediate level of care as of 05-31-22. However, patient has skilled days left should she need skilled at discharge. Mansi Hooker PAPER CUP MACHINE OPERATOR CANDY
[2022-06-05 11:32] LABS: Red Blood Cells-Urine > 100 SEEN /hpf (0-5); Squamous Epithelial Cells - UA 10-25 SEEN /hpf (5-10); White Blood Cells >100 SEEN /hpf (0-5)
[2022-06-05 11:33] LABS: Transitional Epithelial - Ur 10-25 SEEN /hpf (0-5)
[2022-06-05] MEDS: Amiodarone 360 MG in Dextrose 5% Viaflo Bag 192.8 ML 16.7 MG CONT INF (11:53)
[2022-06-05 13:33] LABS: Anion Gap 14 (5-15); BUN 113 mg/dL (7-18); BUN/Creat Ratio 24.9 RATIO (10-20); Calcium,Total 8.1 mg/dL (8.5-10.1); Chloride 102 mmol/L (98-107); Creatinine, Serum 4.53 mg/dL (0.55-1.02); EST Glomerular Filtration Rate 10 mL/min (>60); Est Glom Filt Rate - Afr Amer 12 mL/min (>60); Estimated Creatinine Clearance 7.23 ml/min; Glucose 84 mg/dL (74-106); Potassium 5.6 mmol/L (3.5-5.1); Sodium Level 132 mmol/L (136-145)
--- NOTE | 2022-06-05 14:10 | CHAPLAIN ---
Type of Pastoral Visit _x__ Initial Visit ___ Follow-up Visit ___ On-call Visit ___ General Patient Visit ___ Spiritual Assessment ___ Family Conference ___ Bereavement ___ Rapid Response ___ Code Blue ___ Other (describe below) Pastoral Care Referral From ___ Patient _x__ Family ___ Nurse ___ Physician ___ Bander And Cellophaner Machine ___ Director Integrated ___ Other (describe below) Sacrament/Intervention _x__ Active listening ___ Anointing ___ Jehovah'S Witness ___ Bereavement ___ Communion ___ Yuridia exploration ___ ___ Life review _x__ Prayer ___ Reconciliation ___ Sacrament of Sick _x__ Supportive presence ___ Wedding ___ Other (describe below) Pastoral Comments patient has been seen before in previous admission and is known as an acquaintance of this residential counselor through her family; pt states that she had a minor fall but that is what caused this; pt states she is seeing tiny improvements at the [facility]; daughter questioning of pt statements; pt is able to answer questions but does not engage in a conversation; pt states she is okay; pt acknowledges that being away from her spouse has been hard; pt accepts prayer support
[2022-06-05] MEDS: Ceftriaxone 1 GM/50 ML BAG IV (14:27)
[2022-06-05] MEDS: Metoprolol Tartrate 50 MG Tablet PO (21:06)
[2022-06-06] VITALS (30 sets, daily range): BP systolic 77–117; BP diastolic 48–72; PULSE 94–111; RESP 14–27; TEMP 36.4–36.8; O2SAT 92–100
[2022-06-06] MEDS: Amiodarone 360 MG in Dextrose 5% Viaflo Bag 192.8 ML 16.7 MG CONT INF ×2 (00:22→14:57)
[2022-06-06 04:38] LABS: Absolute Lymphocyte Count 1.91 X10^3/uL (0.83-4.51); Absolute Neutrophil Count 12.6 X10^3/uL (2.0-7.7); Basophil# 0.09 X10^3/uL; Basophil% 0.6 % (0-1); Eosinophil# 0.34 X10^3/uL; Eosinophils% 2.1 % (0-5); Hemoglobin 8.1 g/dL (12.0-15.0); Lymphocyte # 1.91 X10^3/ul (0.83-4.51); Lymphocyte % 11.8 % (19-41); Mean Corpuscular Hgb 27.9 pg (27.0-32.0); Mean Corpuscular Volume 93.1 fL (81-99); Mean Platelet Vol. 10.2 fl (6.2-12.0); Monocyte# 0.99 X10^3/uL; Monocyte% 6.1 % (0-10); NRBC Flagged by Analyzer 0 % (0-5); Neutrophil # 12.64 X10^3/uL (2.7-7.7); Neutrophil % 78.3 % (47-70); Platelet Count 527 K/mm3 (150-450); RBC Distribution Width CV 16.1 % (11.6-14.6); RBC Distribution Width SD 54.8 fl (35.1-43.9); White Blood Count 16.1 K/mm3 (4.4-11.0)
[2022-06-06 05:09] LABS: ALB/GLOB Ratio 0.3 RATIO (0.9-2.4); AST(SGOT) 8 U/L (15-37); Alanine Aminotransfer ALT/SGPT 7 U/L (13-56); Albumin, Serum 1.3 g/dL (3.2-5.0); Alkaline Phosphatase 97 U/L (45-117); Anion Gap 13 (5-15); BUN 122 mg/dL (7-18); BUN/Creat Ratio 25.5 RATIO (10-20); Calcium,Total 7.5 mg/dL (8.5-10.1); Chloride 103 mmol/L (98-107); Creatinine, Serum 4.79 mg/dL (0.55-1.02); EST Glomerular Filtration Rate 9 mL/min (>60); Est Glom Filt Rate - Afr Amer 11 mL/min (>60); Estimated Creatinine Clearance 6.83 ml/min; Globulin 3.8 g/dL (2.2-4.2); Glucose 89 mg/dL (74-106); Potassium 5.1 mmol/L (3.5-5.1); Protein, Total 5.1 g/dL (6.4-8.2); Sodium Level 133 mmol/L (136-145)
[2022-06-06] MEDS: Menthol/Lanolin/Calamine/Znox 113 GM Tube 1 APPLIC TOPICAL ×3 (06:21→21:14)
--- NOTE | 2022-06-06 06:36 | NURSING ---
Patient found on room air at 88% applied oxygen 2L 98%.
[2022-06-06] MEDS: Budesonide Respules 0.5 MG/2 ML AMPUL.NEB. INHALATION ×2 (06:49→19:49)
[2022-06-06] MEDS: Ferrous Sulfate 325 MG Tablet PO (07:33)
[2022-06-06] MEDS: Pantoprazole Sodium 40 MG Tablet PO (07:33)
[2022-06-06] MEDS: Nystatin Powder 15gm Bottle 1 APPLIC TOPICAL ×2 (07:33→21:13)
[2022-06-06] MEDS: Aspirin E.C. 81 MG Tablet PO (07:33)
--- NOTE | 2022-06-06 07:45 | PN.CARD_ITS ---
Subjective Subjective Patient seen and evaluated. Stable. Appears to be dehydrated. Still in atrial fibrillation. Objective Data Vital Signs: Vital Signs Temp Pulse Resp BP Pulse Ox O2 Del Method O2 Flow Rate 98.0 F 105 H 22 H 103/72 97 Room Air 2 06/06/22 03:24 06/06/22 07:00 06/06/22 07:00 06/06/22 07:00 06/06/22 07:00 06/06/22 07:38 06/06/22 02:00 Oxygen Flow Rate (L/min) [4] 3 Oxygen Flow Rate (L/min) [2] 3 Oxygen Flow Rate (L/min) [1 ( 3 Initial Baseline)] Oxygen Flow Rate (L/min) 2 Oxygen Delivery Method [4] Nasal Cannula Oxygen Delivery Method [2] Nasal Cannula Oxygen Delivery Method [1 ( Nasal Cannula Initial Baseline)] Oxygen Delivery Method Room Air Weight: 191 lb 5.78 oz Body Mass Index (BMI) 36.1 Intake & Output: Intake and Output for Last 24 Hours 06/04/22 06/05/22 06/06/22 23:59 23:59 23:59 Intake Total 1058.00 / 1301.62 3490.62 / 3521.67 141.83 / 141.83 Output Total 120 / 150 30 / 30 Balance 1058.00 / 1301.62 3370.62 / 3371.67 111.83 / 111.83 Lab / Micro Data Result Diagrams: 06/06/22 03:57 06/06/22 03:57 Labs: Laboratory Results - last 24 hr 06/05/22 10:30: Urine Color Red, Urine Clarity Turbid, Urine pH 7.0, Ur Specific [place] 1.010, Urine Protein 500 H, Urine Glucose (UA) Normal, Urine Ketones 5 H , Urine Occult Blood 250 H, Urine Nitrite Negative, Urine Bilirubin Negative, Urine Urobilinogen Normal, Ur Leukocyte Esterase 500 H, Urine RBC > 100 SEEN, Urine WBC >100 SEEN, Ur Squamous Epith Cells 10-25 SEEN, Ur Transition Epith Cell 10-25 SEEN, Urine Bacteria 0 SEEN, Urine Mucus 0 SEEN 06/05/22 10:30: Urine Creatinine 17.10, Urine Urea Nitrogen 168 06/05/22 12:30: Sodium 132 L, Potassium 5.6 H, Chloride 102, Carbon Dioxide 16.0 L, Anion Gap 14, BUN 113 H*, Creatinine 4.53 H, Estim Creat Clear Calc 7.23, Est GFR (MDRD) Af Amer 12 L, Est GFR (MDRD) Non-Af 10 L, BUN/Creatinine Ratio 24.9 H , Glucose 84, Calcium 8.1 L 06/06/22 03:57: WBC 16.1 H, RBC 2.90 L, Hgb 8.1 L, Hct 27.0 L, MCV 93.1, MCH 27.9, MCHC 30.0 L, RDW Std Deviation 54.8 H, RDW Coeff of Tiffani 16.1 H, Plt Count 527 H, MPV 10.2, Immature Gran % (Auto) 1.100 H, Neut % (Auto) 78.3 H, Lymph % (Auto) 11.8 L, [place] % (Auto) 6.1, Eos % (Auto) 2.1, Baso % (Auto) 0.6, Absolute Neuts (auto) 12.6 H, Absolute Lymphs (auto) 1.91, Nucleated RBC % 0 06/06/22 03:57: Sodium 133 L, Potassium 5.1, Chloride 103, Carbon Dioxide 17.0 L , Anion Gap 13, BUN 122 H*, Creatinine 4.79 H, Estim Creat Clear Calc 6.83, Est GFR (MDRD) Af Amer 11 L, Est GFR (MDRD) Non-Af 9 L, BUN/Creatinine Ratio 25.5 H, Glucose 89, Calcium 7.5 L, Total Bilirubin 0.40, AST 8 L, ALT 7 L, Alkaline Phosphatase 97, Total Protein 5.1 L, Albumin 1.3 L, Globulin 3.8, Albumin/Globulin Ratio 0.3 L Cardiology Labs/Tests 06/05/22 10:30: Urine Color Red, Urine Clarity Turbid, Urine pH 7.0, Ur Specific [place] 1.010, Urine Protein 500 H, Urine Glucose (UA) Normal, Urine Ketones 5 H , Urine Occult Blood 250 H, Urine Nitrite Negative, Urine Bilirubin Negative, Urine Urobilinogen Normal, Ur Leukocyte Esterase 500 H, Urine RBC > 100 SEEN, Urine WBC >100 SEEN 06/05/22 12:30: Sodium 132 L, Potassium 5.6 H, Chloride 102, Carbon Dioxide 16.0 L, Anion Gap 14, BUN 113 H*, Creatinine 4.53 H, Est GFR (MDRD) Af Amer 12 L, Est GFR (MDRD) Non-Af 10 L, BUN/Creatinine Ratio 24.9 H, Glucose 84, Calcium 8.1 L 06/06/22 03:57: WBC 16.1 H, RBC 2.90 L, Hgb 8.1 L, Hct 27.0 L, MCV 93.1, MCH 27.9, MCHC 30.0 L, Plt Count 527 H, MPV 10.2, Immature Gran % (Auto) 1.100 H, Neut % (Auto) 78.3 H, Lymph % (Auto) 11.8 L, [place] % (Auto) 6.1, Eos % (Auto) 2.1, Baso % (Auto) 0.6, Absolute Neuts (auto) 12.6 H, Nucleated RBC % 0 06/06/22 03:57: Sodium 133 L, Potassium 5.1, Chloride 103, Carbon Dioxide 17.0 L , Anion Gap 13, BUN 122 H*, Creatinine 4.79 H, Est GFR (MDRD) Af Amer 11 L, Est GFR (MDRD) Non-Af 9 L, BUN/Creatinine Ratio 25.5 H, Glucose 89, Calcium 7.5 L, Total Bilirubin 0.40 Rhythm: EKG: ECHO: Stress Test: Cardiac Cath: PCI: CT Surgery: Holter monitor: EPS: PPM: CXR: Chest CT Scan: Radiography Diagnostic Testing: Radiology Impression Renal Ultrasound 06/05/22 00:00 IMPRESSION: There is severe hydronephrosis of the right kidney. There is moderate hydronephrosis of the left kidney. Electronically Signed: Aidan Moise MD at 17:32 EST Reading Location ID and State: [facility] / [place] , Service support , Physical Exam Const alert and no apparent distress HEENT head/scalp atraumatic and moist oral mucous membranes Resp normal respiratory effort, no retractions, no use of accessory muscles and clear to auscultation bilaterally Cardio regular rate and regular rhythm GI normal to inspection, nondistended, normoactive bowel sounds Extremity no clubbing, cyanosis or edema Assessment & Plan Assessment/Plan (1) Atrial fibrillation with RVR: PLAN: The patient has a history of atrial fibrillation. She will continue medical therapy for the above. It is unlikely that she will convert to sinus rhythm. We will continue her on the IV amiodarone and later switched to oral amiodarone. * She has global left ventricular systolic dysfunction estimated EF 45%. * She is rather anemic and with her elevated creatinine we will hold off on anticoagulation at this time. (2) Pleural effusion: PLAN: The patient does have a left-sided pleural effusion. We will hold off on diuretic therapy at this time as she is dehydrated. (3) HTN (hypertension): PLAN: The patient's blood pressure has been stable for now. (4) Dehydration: PLAN: The patient is dehydrated and IV fluids should continue with assessment of her pulmonary as well as renal condition.
[2022-06-06] MEDS: Ceftriaxone 1 GM/50 ML BAG IV (08:31)
[2022-06-06] MEDS: Acetaminophen 500 MG Tablet 1000 MG PO (08:32)
--- NOTE | 2022-06-06 08:45 | PCM.PN.HOSP ---
Subjective Subjective Scant urine output. Still edematous. Denies any current complaints. Objective Data Objective Data Vital Signs: Vital Signs Temp Pulse Resp BP Pulse Ox O2 Del Method O2 Flow Rate 36.7 C 105 H 22 H 103/72 97 Room Air 2 06/06/22 03:24 06/06/22 07:00 06/06/22 07:00 06/06/22 07:00 06/06/22 07:00 06/06/22 07:38 06/06/22 06:49 Oxygen Flow Rate (L/min) [4] 3 Oxygen Flow Rate (L/min) [2] 3 Oxygen Flow Rate (L/min) [1 ( 3 Initial Baseline)] Oxygen Flow Rate (L/min) 2 Oxygen Delivery Method [4] Nasal Cannula Oxygen Delivery Method [2] Nasal Cannula Oxygen Delivery Method [1 ( Nasal Cannula Initial Baseline)] Oxygen Delivery Method Room Air Weight: 86.8 kg Body Mass Index (BMI) 36.1 Intake & Output: Intake and Output for Last 24 Hours 06/04/22 06/05/22 06/06/22 23:59 23:59 23:59 Intake Total 1058.00 / 1301.62 3490.62 / 3521.67 141.83 / 141.83 Output Total 120 / 150 30 / 30 Balance 1058.00 / 1301.62 3370.62 / 3371.67 111.83 / 111.83 Lab / Micro Data Result Diagrams: 06/06/22 03:57 06/06/22 03:57 Labs: Laboratory Results - last 24 hr 06/05/22 10:30: Urine Color Red, Urine Clarity Turbid, Urine pH 7.0, Ur Specific [place] 1.010, Urine Protein 500 H, Urine Glucose (UA) Normal, Urine Ketones 5 H, Urine Occult Blood 250 H, Urine Nitrite Negative, Urine Bilirubin Negative, Urine Urobilinogen Normal, Ur Leukocyte Esterase 500 H, Urine RBC > 100 SEEN, Urine WBC >100 SEEN, Ur Squamous Epith Cells 10-25 SEEN, Ur Transition Epith Cell 10-25 SEEN, Urine Bacteria 0 SEEN, Urine Mucus 0 SEEN 06/05/22 10:30: Urine Creatinine 17.10, Urine Urea Nitrogen 168 06/05/22 12:30: Sodium 132 L, Potassium 5.6 H, Chloride 102, Carbon Dioxide 16.0 L, Anion Gap 14, BUN 113 H*, Creatinine 4.53 H, Estim Creat Clear Calc 7.23, Est GFR (MDRD) Af Amer 12 L, Est GFR (MDRD) Non-Af 10 L, BUN/Creatinine Ratio 24.9 H, Glucose 84, Calcium 8.1 L 06/06/22 03:57: WBC 16.1 H, RBC 2.90 L, Hgb 8.1 L, Hct 27.0 L, MCV 93.1, MCH 27.9, MCHC 30.0 L, RDW Std Deviation 54.8 H, RDW Coeff of Tiffani 16.1 H, Plt Count 527 H, MPV 10.2, Immature Gran % (Auto) 1.100 H, Neut % (Auto) 78.3 H, Lymph % (Auto) 11.8 L, [place] % (Auto) 6.1, Eos % (Auto) 2.1, Baso % (Auto) 0.6, Absolute Neuts (auto) 12.6 H, Absolute Lymphs (auto) 1.91, Nucleated RBC % 0 06/06/22 03:57: Sodium 133 L, Potassium 5.1, Chloride 103, Carbon Dioxide 17.0 L, Anion Gap 13, BUN 122 H*, Creatinine 4.79 H, Estim Creat Clear Calc 6.83, Est GFR (MDRD) Af Amer 11 L, Est GFR (MDRD) Non-Af 9 L, BUN/Creatinine Ratio 25.5 H, Glucose 89, Calcium 7.5 L, Total Bilirubin 0.40, AST 8 L, ALT 7 L, Alkaline Phosphatase 97, Total Protein 5.1 L, Albumin 1.3 L, Globulin 3.8, Albumin/Globulin Ratio 0.3 L Micro: Microbiology 06/04/22 12:31 Nasal Secretion SARS-CoV-2 Antigen (Rapid) - Final Radiography Diagnostic Testing: Radiology Impression Renal Ultrasound 06/05/22 00:00 IMPRESSION: There is severe hydronephrosis of the right kidney. There is moderate hydronephrosis of the left kidney. Electronically Signed: Aidan Moise MD at 17:32 EST , Physical Exam Const alert and no apparent distress Constitutional Narrative: Hard of hearing. HEENT head/scalp atraumatic Resp normal respiratory effort and no retractions Resp Narrative: Coarse breath sounds bilaterally. Diminished in right lower lobe. Cardio regular rate, regular rhythm, S1 normal heart sound and S2 normal heart sound GI normal to inspection, nondistended, normoactive bowel sounds and soft to palpation Extremity Extremity Narrative: Diffuse 3+ upper and lower extremity edema Skin Skin Narrative: stasis dermatitis Neuro Sensorium / Orientation: awake and alert Psych affect normal Assessment & Plan Assessment/Plan (1) JONO (acute kidney injury): PLAN: Ongoing Continue IVF and hold diuretics FEUrea 36.63% worsening scant urine outpt. Stict Is/Os. 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 Discussed with Dr. Parker. (2) Acute hyperkalemia: PLAN: 2/ JONO Kayexalate Resolved (3) HFrEF (heart failure with reduced ejection fraction): PLAN: EF 45% from echo on 04/21/23 Pt already has left pleural effusion Pt diffusely edematous. IVF dc'd 06/05 (4) Anemia: PLAN: normocytic ferritin has been elevated in past, so unlikely iron-deficient. TSH has been normal and B12. monitor (5) Leukocytosis: PLAN: unclear etiology no s/s infection continue to monitor. (6) Hydronephrosis: PLAN: US shows severe on right and moderate on left likely etiology of JONO consult Mccall in place but still has scant urine output. (7) Atrial fibrillation with RVR: PLAN: on Amio gtt and metoprpol tartrate cardiology following (8) UTI (urinary tract infection): PLAN: Urine is positive for staph species with the exception of this being staph saprophyticus, rather unusual organism for urinary tract infection. Patient did have bacteremia last month with staph ludunensis and had a positive urine culture for that organism at that time as well. I suspect this is due to bacteremia Recheck blood cultures Start vancomycin Check echocardiogram It was noted on the bone scan from the April 19 that there is mild increased tracer concentration in the left hip prosthesis may represent mild loosening. Consult infectious disease PLAN: Plan VTE prophylaxis: already on anticoagulation. Charges/Coding Visit Charges Inpatient E&M: 25723 Subs Hosp L3
[2022-06-06] MEDS: Metoprolol Tartrate 50 MG Tablet PO (09:08)
--- NOTE | 2022-06-06 09:45 | CON.PCM.RE_ITS ---
Assessment & Plan Assessment/Plan (1) JONO (acute kidney injury): (2) Acute hyperkalemia: (3) HFrEF (heart failure with reduced ejection fraction): (4) Atrial fibrillation with RVR: (5) Hydronephrosis: PLAN: Plan This is a pleasant 81-year-old female with past medical history significant with atrial fibrillation with RVR, hypertension, heart failure reduced EF with last known EF 45% April 2022 who was admitted to hospital June 04 due to abnormal lab work, elevated creatinine of 4.22 mg/dL. We were consulted for acute kidney injury. In reviewing past creatinine trends, baseline creatinine seems to be ranging around 1.1 to 1.4 mg/dL. Patient had lab work on May 28, her creatinine was 1.37 mg/dL. On hospital admission, June 04 creatinine 4.2 mg/dL. Patient was started on IV fluids, Lasix on hold and today her creatinine is 4.79 mg/dL. Patient is off IV fluids today. She is on amiodarone drip. Patient did have renal ultrasound with findings of severe hydronephrosis of right kidney and moderate hydronephrosis of left kidney; therefore this could be contributing to JONO. Urology has been consulted. Patient also has a history of heart failure reduced EF, last known EF 45%, stage II diastolic dysfunction and history of atrial fibrillation therefore cardiorenal syndrome may be contributing to JONO. Renal function did not improve with IV fluids. Patient is significantly edematous, would trial IV Lasix however will hold off at this time due to low blood pressures. Patient was on IV antibiotics over a month ago, will check complements. She did have a UA which was positive for blood but this was obtained after Mccall inserted. At this time there is no emergent need for COMPUTER OPERATOR, potassium and acid-base acceptable, no significant hypervolemia (CXR showed small pleural effusion) and she is on room air however patient possibly could be heading towards needing COMPUTER OPERATOR. Patient was mildly hyperkalemic on admission however potassium improved with Kayexalate. We will add low potassium diet restrictions. Potassium is 5.1 today. No further need for SPS at this time. Urine output is low, she does have Mccall in place. We will check urine indices. It was explained to patient and her son should renal function worsen patient may need COMPUTER OPERATOR. Patient is in agreement with COMPUTER OPERATOR if needed. Questions were answered. We will obtain labs again tomorrow. Further orders forthcoming as hospitalization evolves. Thank you for allowing us to participate in the care of Ms. Galeana. HPI Consult Data Date of Consult: 06/06/22 HPI Narrative HPI Narrative: HONEY GALEANA, is a 81 F who was brought to the emergency room on June 04 for abnormal labs. Patient had been residing at an extended care facility for therapy. Patient had been in the hospital early April 2022 when she was admitted for left hip pain after a fall. She had also developed A. fib with RVR. Patient was also treated for UTI. She was then discharged to an extended care facility. Patient had lab work on June 04 and found to have a creatinine of 4.22 mg/dL, BUN 115 and potassium 5.5. Because of these abnormal labs patient was sent to the emergency room for evaluation and subsequently mated for further evaluation and treatment. We were consulted for evaluation of acute kidney injury. Patient reports she has not been evaluated by blending supervisor in the past. 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 Today her creatinine is up to 4.79, BUN 122 and potassium is 5.1. Patient reports about a day or so prior to hospital mission she did have some diarrhea. She reports appetite has been poor at the retirement. Patient reports she had been voiding without any difficulty at the retirement. Denies noting any hematuria at [facility] Medical History (Updated 06/06/22 @ 08:[address] Cb Salguero, ) Accidental fall Acute pain of left hip Allergic rhinitis Anemia Atrial fibrillation with rapid ventricular response (03/26/20) Chronic asthma Closed left hip fracture Elevated troponin (03/26/20) Essential (primary) hypertension Gout HFrEF (heart failure with reduced ejection fraction) Hypomagnesemia Laceration of left elbow Missing teeth, acquired Nail dystrophy Obesity Osteoporosis PAF (paroxysmal atrial fibrillation) Pain in toe of left foot Pain in toe of right foot Physical deconditioning Urinary frequency Vitamin D insufficiency Home Medications albuterol sulfate 90 mcg/actuation aerosol inhaler 1 - 2 puff inhalation Q6H PRN SHORTNESS OF BREATH/WHEEZING 03/26/20 [History Last Taken Unknown] allopurinol 100 mg tablet 100 mg PO DAILYCM GOUT 03/26/20 [History Last Taken 06/04/22] fluticasone 250 mcg-salmeterol 50 mcg/dose blistr powdr for inhalation 1 ea IH BID ASTHMA 03/26/20 [History Last Taken 06/04/22] fluticasone propionate 50 mcg/actuation nasal spray,suspension 1 spray NASAL BID PRN Nasal Congestion 03/26/20 [History Last Taken 1 Week Ago ~05/23/20] loratadine 10 mg tablet 10 mg PO DAILY ALLERGIES 03/26/20 [History Last Taken 06/04/22] ketotifen fumarate 0.025 % (0.035 %) eye drops (Zaditor) 1 drp ophthalmic (eye) BID PRN RED EYES 12/25/21 [History Last Taken Unknown] acetaminophen 325 mg tablet (Tylenol) 650 mg PO TID RHEUMATOID ARTHRITIS 06/04/22 [History Last Taken 06/04/22] acetaminophen 500 mg tablet 1,000 mg PO Q6H PRN RHEUMATOID ARTHRITIS 06/04/22 [History Last Taken 06/04/22] amiodarone 200 mg tablet 200 mg PO DAILY AFIB 06/04/22 [History Last Taken 06/04/22] apixaban 5 mg tablet 5 mg PO BID BLOOD THINNER 06/04/22 [History Last Taken 06/04/22] arginine (L-arginine) 500 mg capsule 500 mg PO TID ANEMIA 06/04/22 [History Last Taken 06/04/22] aspirin 81 mg tablet,delayed release 81 mg PO DAILY HEART HEALTH 06/04/22 [History Last Taken 06/04/22] diclofenac sodium 1 % topical gel (Voltaren Arthritis Pain) 1 ea topical TID PRN SHOULDER PAIN 06/04/22 [History Last Taken 06/03/22 01:08] diphenhydramine HCl 25 mg capsule (Benadryl) 25 mg PO Q4H PRN ALLERGIES 06/04/22 [History Last Taken Unknown] ferrous sulfate 325 mg (65 mg iron) tablet 325 mg PO DAILY ANEMIA 06/04/22 [History Last Taken 06/04/22] furosemide 40 mg tablet (Lasix) 40 mg PO DAILY PRN FLUID 06/04/22 [History Last Taken 06/04/22] hydrocortisone 2.5 % topical cream with perineal applicator (Anusol-HC) 1 applic [place] BID PRN Hemorrhoids 06/04/22 [History Last Taken 06/04/22] metoprolol tartrate 50 mg tablet 50 mg PO BID BLOOD PRESSURE 06/04/22 [History Last Taken 06/04/22] pantoprazole 40 mg tablet,delayed release (Protonix) 40 mg PO DAILY ACID REFLUX 06/04/22 [History Last Taken 06/04/22] vitamin B complex 1 tab PO DAILY SUPPLEMENT 06/04/22 [History Last Taken 06/04/22] vitamins A,C,G-uhja-mqfgbt 2,148 mcg-113 mg-45 mg-17.4 mg tablet (Eye Multivitamin) 1 tab PO DAILY EYE HEALTH 06/04/22 [History Last Taken 06/04/22] Allergy/AdvReac Type Severity Reaction Status Date / Time No Known Allergies Allergy Verified 06/04/22 11:40 Family History Mother TIA (transient ischemic attack) Surgical History History of hemiarthroplasty of left hip (05/2020) History of left heart catheterization (03/27/20) Status post hip replacement Social History Smoking Status: Never smoker alcohol intake: never substance use type: does not use caffeine: Yes Type: coffee Number of servings: 1 and tea ROS ROS Narrative As in HPI and past medical history Physical Exam Narrative Const: Alert and oriented x3, no apparent distress Cardio: S1, S2, rhythm irregular, rate controlled Respiratory: Lung sounds clear anteriorly, diminished breath sounds posterior bases. No wheezes, rhonchi or rales noted. On room air Abdomen: soft, nontender, positive bowel sounds Extremities: 2-3+ pitting edema bilateral lower legs extending up into thighs. Indwelling Mccall with scant straw-yellow urine noted in tubing. Bright red/moya colored urine noted in bag Lab / Micro Data Result Diagrams: 06/06/22 03:57 06/06/22 03:57 Labs: Laboratory Results - last 24 hr 06/05/22 10:30: Urine Color Red, Urine Clarity Turbid, Urine pH 7.0, Ur Specific [place] 1.010, Urine Protein 500 H, Urine Glucose (UA) Normal, Urine Ketones 5 H , Urine Occult Blood 250 H, Urine Nitrite Negative, Urine Bilirubin Negative, Ur ine Urobilinogen Normal, Ur Leukocyte Esterase 500 H, Urine RBC > 100 SEEN, U rine WBC >100 SEEN, Ur Squamous Epith Cells 10-25 SEEN, Ur Transition Epith Cell 10-25 SEEN, Urine Bacteria 0 SEEN, Urine Mucus 0 SEEN 06/05/22 10:30: Urine Creatinine 17.10, Urine Urea Nitrogen 168 06/05/22 12:30: Sodium 132 L, Potassium 5.6 H, Chloride 102, Carbon Dioxide 16.0 L, Anion Gap 14, BUN 113 H*, Creatinine 4.53 H, Estim Creat Clear Calc 7.23, Est GFR (MDRD) Af Amer 12 L, Est GFR (MDRD) Non-Af 10 L, BUN/Creatinine Ratio 24.9 H , Glucose 84, Calcium 8.1 L 06/06/22 03:57: WBC 16.1 H, RBC 2.90 L, Hgb 8.1 L, Hct 27.0 L, MCV 93.1, MCH 27.9, MCHC 30.0 L, RDW Std Deviation 54.8 H, RDW Coeff of Tiffani 16.1 H, Plt Count 527 H, MPV 10.2, Immature Gran % (Auto) 1.100 H, Neut % (Auto) 78.3 H, Lymph % (Auto) 11.8 L, [place] % (Auto) 6.1, Eos % (Auto) 2.1, Baso % (Auto) 0.6, Absolute Neuts (auto) 12.6 H, Absolute Lymphs (auto) 1.91, Nucleated RBC % 0 06/06/22 03:57: Sodium 133 L, Potassium 5.1, Chloride 103, Carbon Dioxide 17.0 L , Anion Gap 13, BUN 122 H*, Creatinine 4.79 H, Estim Creat Clear Calc 6.83, Est GFR (MDRD) Af Amer 11 L, Est GFR (MDRD) Non-Af 9 L, BUN/Creatinine Ratio 25.5 H, Glucose 89, Calcium 7.5 L, Total Bilirubin 0.40, AST 8 L, ALT 7 L, Alkaline Phosphatase 97, Total Protein 5.1 L, Albumin 1.3 L, Globulin 3.8, A lbumin/Globulin Ratio 0.3 L Radiology Impression Renal Ultrasound 06/05/22 00:00 IMPRESSION: There is severe hydronephrosis of the right kidney. There is moderate hydronephrosis of the left kidney. Electronically Signed: Aidan Moise MD at 17:32 EST ,
[2022-06-06 11:13] LABS: Creatinine, Urine (random) < 13.00 mg/dL (NO RANGE EST.); Protein, Urine (Random) 713.1 mg/dL (<11.9); Urine Chloride 131 mmol/L (Not Establ.); Urine Sodium 132 mmol/L (Not Establ.)
--- NOTE | 2022-06-06 12:25 | CT_ITS ---
STUDY: CT ABDOMEN AND PELVIS WITHOUT CONTRAST REASON FOR EXAM: Female, 81 years old. Hydronephrosis. Acute kidney failure. RADIATION DOSAGE (If Supplied By Facility): CTDIvol = ( 20.49 ) mGy, DLP = ( 1050.41 ) mGycm TECHNIQUE: Transaxial images were obtained from the dome of the diaphragm to the symphysis pubis without oral contrast, and without intravenous contrast. Sagittal and coronal images were reconstructed. Individualized dose optimization techniques were used for this CT. COMPARISON: None. FINDINGS: Small bilateral pleural effusions left greater than right with bibasilar atelectasis worse on the left lung base. Coronary artery calcification. Normal liver. Findings suggestive of sludge or tiny gallstones in the gallbladder lumen. Normal spleen. Normal pancreas. Normal bilateral adrenal glands. Severe right hydronephrosis and hydroureter down to the level of the urinary bladder. Moderate degree of left hydronephrosis and hydroureter. Nonspecific bilateral perinephric stranding. Normal visualized stomach. Normal small intestine. Normal colon. The appendix is visualized and appears normal. There is diffuse atherosclerotic calcification of the abdominal aorta, without a demonstrated aneurysm. Normal inferior vena cava. Normal retroperitoneum. The urinary bladder is not well distended. Diffuse thickening of the urinary bladder. Amorphous calcifications are seen in the left hemipelvis. This is difficult to ascertain if these are calcified fibroids versus calculi at the base of the bladder on the left side. Diffuse subcutaneous edema of the abdominal wall bilaterally. There are diffuse degenerative changes of the visualized lumbar spine. CT/Abdomen/Pelvis without Cont IMPRESSION: Bilateral pleural effusions and underlying infiltration and/or atelectasis more prominent on the left side. Possible gallstones or sludge in the gallbladder lumen. Bilateral hydronephrosis and hydroureter worse on the right side with nonspecific bilateral perinephric stranding. Diffuse wall thickening of the urinary bladder. Calcification seen in the pelvis most likely representing calcified fibroid uterus although calculi in the urinary bladder cannot be excluded. Diffuse subcutaneous edema of the abdominal wall. Electronically Signed: Salvador Trevino MD at 14:58 EST ,
--- NOTE | 2022-06-06 12:46 | CASEMGMT ---
Social Work As per nursing assessment, pt has LW/POA, Ender Galeana is medical POA, and the documents will be brought in to the hospital. MARCO Cano
--- NOTE | 2022-06-06 16:05 | PCM.RX.CS ---
Consult Pharmacy has been consulted to manage selected antiobiotic: Vancomycin Type of Consult: New start Labs: Sodium 133 mmol/L (136-145) L 06/06/22 03:57 Potassium 5.1 mmol/L (3.5-5.1) 06/06/22 03:57 Chloride 103 mmol/L (98-107) 06/06/22 03:57 Carbon Dioxide 17.0 mmol/L (21.0-32.0) L 06/06/22 03:57 Anion Gap 13 (5-15) 06/06/22 03:57 BUN 122 mg/dL (7-18) H* 06/06/22 03:57 Creatinine 4.79 mg/dL (0.55-1.02) H 06/06/22 03:57 Est GFR (MDRD) Af Amer 11 mL/min (>60) L 06/06/22 03:57 Est GFR (MDRD) Non-Af 9 mL/min (>60) L 06/06/22 03:57 BUN/Creatinine Ratio 25.5 RATIO (10-20) H 06/06/22 03:57 Glucose 89 mg/dL (74-106) 06/06/22 03:57 Microbiology: Microbiology 06/05/22 10:30 Urine Catheter - Mccall Urine Culture - Preliminary Staphylococcus species 06/04/22 12:31 Nasal Secretion SARS-CoV-2 Antigen (Rapid) - Final Weight used for dosin kg Estimated Creatinine Clearance: < 20 Goal Trough: 15-20 mcg/mL Pharmacy Plan for Drug Dosing: Load with 2000mg IV x1, crcl < 20 mL/min and patient not on dialysis so will order random level with 06/08 labs. Pharmacy Service will continue to monitor and adjust dosing as required. Follow-Up Labs: Trough Vancomycin - 06/08 0600 Random
--- NOTE | 2022-06-06 16:22 | CON.PCM.UR_ITS ---
Assessment & Plan Assessment/Plan (1) Hydronephrosis: PLAN: Bilateral hydronephrosis plan for intervention with cystoscopy bilateral stent placement n.p.o. at midnight patient signed the consent form as well as her power of district attorney which is her daughter. (2) Leukocytosis: (3) UTI (urinary tract infection): HPI Consult Data Date of Consult: 06/06/22 HPI Narrative Reason for Consultation: Renal failure and bilateral hydronephrosis and gross hematuria HPI Narrative: HONEY FERNANDES, is a 81 F who presents with renal failure and gross hematuria CT scan was done today demonstrated bilateral hydronephrosis she is in a fairly frail and critically ill condition creatinine is high and she has blood in the urine with very low urine output. Spoke to the patient and to her daughter today offered her intervention with a cystoscopy and bilateral stent placement hopefully this will allow her kidneys to recover and her creatinine to come down and her kidney function to improve. Also discussed possible diagnostic findings with gross hematuria as well as possibility of malignancy and other findings which we could explore at the time of cystoscopy. The daughter is agreeable with proceeding with intervention and so was the patient's over was consented today for cystoscopy and bilateral stent placement n.p.o. at midnight and will plan for stent placement first thing tomorrow morning. [facility] Medical History (Updated 06/06/22 @ 15:[address] Cb Salguero, ) Accidental fall Acute pain of left hip Allergic rhinitis Anemia Atrial fibrillation with rapid ventricular response (03/26/20) Chronic asthma Closed left hip fracture Elevated troponin (03/26/20) Essential (primary) hypertension Gout HFrEF (heart failure with reduced ejection fraction) Hypomagnesemia Laceration of left elbow Missing teeth, acquired Nail dystrophy Obesity Osteoporosis PAF (paroxysmal atrial fibrillation) Pain in toe of left foot Pain in toe of right foot Physical deconditioning Urinary frequency Vitamin D insufficiency Home Medications albuterol sulfate 90 mcg/actuation aerosol inhaler 1 - 2 puff inhalation Q6H PRN SHORTNESS OF BREATH/WHEEZING 03/26/20 [History Last Taken Unknown] allopurinol 100 mg tablet 100 mg PO DAILYCM GOUT 03/26/20 [History Last Taken 06/04/22] fluticasone 250 mcg-salmeterol 50 mcg/dose blistr powdr for inhalation 1 ea IH BID ASTHMA 03/26/20 [History Last Taken 06/04/22] fluticasone propionate 50 mcg/actuation nasal spray,suspension 1 spray NASAL BID PRN Nasal Congestion 03/26/20 [History Last Taken 1 Week Ago ~05/23/20] loratadine 10 mg tablet 10 mg PO DAILY ALLERGIES 03/26/20 [History Last Taken 06/04/22] ketotifen fumarate 0.025 % (0.035 %) eye drops (Zaditor) 1 drp ophthalmic (eye) BID PRN RED EYES 12/25/21 [History Last Taken Unknown] acetaminophen 325 mg tablet (Tylenol) 650 mg PO TID RHEUMATOID ARTHRITIS 06/04/22 [History Last Taken 06/04/22] acetaminophen 500 mg tablet 1,000 mg PO Q6H PRN RHEUMATOID ARTHRITIS 06/04/22 [History Last Taken 06/04/22] amiodarone 200 mg tablet 200 mg PO DAILY AFIB 06/04/22 [History Last Taken ] apixaban 5 mg tablet 5 mg PO BID BLOOD THINNER 06/04/22 [History Last Taken 06/04/22] arginine (L-arginine) 500 mg capsule 500 mg PO TID ANEMIA 06/04/22 [History Last Taken 06/04/22] aspirin 81 mg tablet,delayed release 81 mg PO DAILY HEART HEALTH 06/04/22 [History Last Taken 06/04/22] diclofenac sodium 1 % topical gel (Voltaren Arthritis Pain) 1 ea topical TID PRN SHOULDER PAIN 06/04/22 [History Last Taken 06/03/22 01:08] diphenhydramine HCl 25 mg capsule (Benadryl) 25 mg PO Q4H PRN ALLERGIES 06/04/22 [History Last Taken Unknown] ferrous sulfate 325 mg (65 mg iron) tablet 325 mg PO DAILY ANEMIA 06/04/22 [History Last Taken 06/04/22] furosemide 40 mg tablet (Lasix) 40 mg PO DAILY PRN FLUID 06/04/22 [History Last Taken 06/04/22] hydrocortisone 2.5 % topical cream with perineal applicator (Anusol-HC) 1 applic [place] BID PRN Hemorrhoids 06/04/22 [History Last Taken 06/04/22] metoprolol tartrate 50 mg tablet 50 mg PO BID BLOOD PRESSURE 06/04/22 [History Last Taken 06/04/22] pantoprazole 40 mg tablet,delayed release (Protonix) 40 mg PO DAILY ACID REFLUX 06/04/22 [History Last Taken 06/04/22] vitamin B complex 1 tab PO DAILY SUPPLEMENT 06/04/22 [History Last Taken 06/04/22] vitamins A,C,F-wcsl-swjacq 2,148 mcg-113 mg-45 mg-17.4 mg tablet (Eye Multivitamin) 1 tab PO DAILY EYE HEALTH 06/04/22 [History Last Taken 06/04/22] Allergy/AdvReac Type Severity Reaction Status Date / Time No Known Allergies Allergy Verified 06/04/22 11:40 Family History Mother TIA (transient ischemic attack) Surgical History History of hemiarthroplasty of left hip (05/2020) History of left heart catheterization (03/27/20) Status post hip replacement Social History Smoking Status: Never smoker alcohol intake: never substance use type: does not use caffeine: Yes Type: coffee Number of servings: 1 and tea Lab / Micro Data Result Diagrams: 06/06/22 03:57 06/06/22 03:57 Labs: Laboratory Results - last 24 hr 06/06/22 03:57: WBC 16.1 H, RBC 2.90 L, Hgb 8.1 L, Hct 27.0 L, MCV 93.1, MCH 2 7.9, MCHC 30.0 L, RDW Std Deviation 54.8 H, RDW Coeff of Tiffani 16.1 H, Plt Count 527 H, MPV 10.2, Immature Gran % (Auto) 1.100 H, Neut % (Auto) 78.3 H, Lymph % (Auto) 11.8 L, [place] % (Auto) 6.1, Eos % (Auto) 2.1, Baso % (Auto) 0.6, Absolute Neuts (auto) 12.6 H, Absolute Lymphs (auto) 1.91, Nucleated RBC % 0 06/06/22 03:57: Sodium 133 L, Potassium 5.1, Chloride 103, Carbon Dioxide 17.0 L , Anion Gap 13, BUN 122 H*, Creatinine 4.79 H, Estim Creat Clear Calc 6.83, Est GFR (MDRD) Af Amer 11 L, Est GFR (MDRD) Non-Af 9 L, BUN/Creatinine Ratio 25.5 H, Glucose 89, Calcium 7.5 L, Total Bilirubin 0.40, AST 8 L, ALT 7 L, Alkaline Phosphatase 97, Total Protein 5.1 L, Albumin 1.3 L, Globulin 3.8, Albumin/Globulin Ratio 0.3 L 06/06/22 10:45: U Random Total Protein 713.1 H, Ur Random Sodium 132, Urine Creatinine < 13.00, Protein/Creatinin Ratio TNP, Urine Potassium 5.0, Urine Chloride 131 Micro: Microbiology 06/05/22 10:30 Urine Catheter - Mccall Urine Culture - Preliminary Staphylococcus species Radiology Impression Renal Ultrasound 06/05/22 00:00 IMPRESSION: There is severe hydronephrosis of the right kidney. There is moderate hydronephrosis of the left kidney. Electronically Signed: Aidan Moise MD at 17:32 EST , Abdomen/Pelvis CT 06/06/22 12:25 IMPRESSION: Bilateral pleural effusions and underlying infiltration and/or atelectasis more prominent on the left side. Possible gallstones or sludge in the gallbladder lumen. Bilateral hydronephrosis and hydroureter worse on the right side with nonspecific bilateral perinephric stranding. Diffuse wall thickening of the urinary bladder. Calcification seen in the pelvis most likely representing calcified fibroid uterus although calculi in the urinary bladder cannot be excluded. Diffuse subcutaneous edema of the abdominal wall. Electronically Signed: Salvador Trevino MD at 14:58 EST ,
[2022-06-07] VITALS (49 sets, daily range): BP systolic 62–145; BP diastolic 21–85; PULSE 75–136; RESP 15–28; TEMP 36.2–37.6; O2SAT 85–100; BMI 36.1
[2022-06-07] MEDS: Amiodarone 360 MG in Dextrose 5% Viaflo Bag 192.8 ML 16.7 MG CONT INF ×2 (00:55→16:28)
[2022-06-07 04:50] LABS: Absolute Lymphocyte Count 1.93 X10^3/uL (0.83-4.51); Basophil# 0.09 X10^3/uL; Basophil% 0.5 % (0-1); Eosinophil# 0.46 X10^3/uL; Eosinophils% 2.3 % (0-5); Hematocrit 27.8 % (37-47); Hemoglobin 8.5 g/dL (12.0-15.0); Lymphocyte # 1.93 X10^3/ul (0.83-4.51); Lymphocyte % 9.8 % (19-41); Mean Corp Hgb Conc 30.6 g/dL (32-36); Mean Corpuscular Hgb 27.5 pg (27.0-32.0); Mean Platelet Vol. 10.1 fl (6.2-12.0); Monocyte# 0.83 X10^3/uL; Monocyte% 4.2 % (0-10); NRBC Flagged by Analyzer 0 % (0-5); Neutrophil # 16.01 X10^3/uL (2.7-7.7); Neutrophil % 81.6 % (47-70); Platelet Count 577 K/mm3 (150-450); RBC Distribution Width CV 16.1 % (11.6-14.6); RBC Distribution Width SD 52.3 fl (35.1-43.9); Red Blood Count 3.09 M/mm3 (4.2-5.4); White Blood Count 19.6 K/mm3 (4.4-11.0)
[2022-06-07 05:18] LABS: ALB/GLOB Ratio 0.3 RATIO (0.9-2.4); AST(SGOT) 9 U/L (15-37); Alanine Aminotransfer ALT/SGPT 7 U/L (13-56); Albumin, Serum 1.3 g/dL (3.2-5.0); Alkaline Phosphatase 100 U/L (45-117); Anion Gap 13 (5-15); BUN 139 mg/dL (7-18); BUN/Creat Ratio 25.8 RATIO (10-20); Calcium,Total 7.9 mg/dL (8.5-10.1); Chloride 102 mmol/L (98-107); Creatinine, Serum 5.38 mg/dL (0.55-1.02); EST Glomerular Filtration Rate 8 mL/min (>60); Est Glom Filt Rate - Afr Amer 10 mL/min (>60); Estimated Creatinine Clearance 6.08 ml/min; Globulin 3.9 g/dL (2.2-4.2); Glucose 86 mg/dL (74-106); Potassium 5.6 mmol/L (3.5-5.1); Protein, Total 5.2 g/dL (6.4-8.2); Sodium Level 131 mmol/L (136-145)
[2022-06-07 05:53] LABS: International Normalized Ratio 2.1; Prothrombin Time (Protime)PT. 23.4 SECONDS (11.7-14.9)
[2022-06-07 05:54] LABS: Partial Thromboplast Time 45.9 Seconds (24.1-36.2)
--- NOTE | 2022-06-07 05:55 | EKG12_ITS ---
Test Reason : RHYTHM CHANGE Blood Pressure : / mmHG Vent. Rate : 112 BPM Atrial Rate : 112 BPM P-R Int : 192 ms QRS Dur : 084 ms QT Int : 358 ms P-R-T Axes : 007 060 142 degrees QTc Int : 488 ms Sinus tachycardia ; Wide QRS Low voltage QRS Lateral injury pattern Abnormal ECG When compared with ECG of 07-JUN-2022 03:07, MANUAL COMPARISON REQUIRED, DATA IS UNCONFIRMED Confirmed by PETRA CHENG, ALLI ([id number]), editor producer MIRIAM VUONG ([id number]) on 06/10/2022 11:37:12 AM Referred By: KIMI MATA Confirmed By:ALLI LAMBERT MD
[2022-06-07] MEDS: Menthol/Lanolin/Calamine/Znox 113 GM Tube 1 APPLIC TOPICAL ×3 (06:10→22:18)
--- NOTE | 2022-06-07 06:10 | NURSING ---
Report called to sericulturistrio portillo at this time.
[2022-06-07] MEDS: 0.9% Normal Saline 1,000 ML 999 ML IV (06:15)
--- NOTE | 2022-06-07 07:17 | PN_ITS ---
Progress Note Patient hypotensive with systolic blood pressure in the 40s to 60s. Patient was examined at the bedside. Patient with edema in the lower legs. Lungs clear. Normal saline bolus ordered. Heart rate was lower 100s. Amiodarone drip was stopped at that time. Patient transferred to the unit. Tai-Synephrine stick given. Levo started. Resume amiodarone. Discussed with cardiology, workers compensation claims examiner, urology and attending hospitalist.
--- NOTE | 2022-06-07 07:17 | PCM.PN.BLA ---
Progress Note Central Venous Catheter Indication: Hypotension Consent was obtained orally from patient. A time-out was completed verifying correct patient, procedure, site, positioning, and special equipment if applicable. The patient was placed in a dependent position appropriate for central line placement based on the vein to be cannulated. The patient's right IJ was prepped and draped in a sterile fashion. 1% lidocaine was used to anesthetize the surrounding skin area. A triple-lumen catheter was introduced into the right IJ using the Seldinger technique and under ultrasound guidance. The catheter was threaded smoothly over the guidewire and appropriate blood return was obtained. Each lumen of the catheter was evacuated of air and flushed with sterile saline. The catheter was then sutured in place to the skin and a sterile dressing applied. Chest x-ray to confirm appropriate positioning is pending. ULTRASOUND GUIDANCE STATEMENT (Vascular Access): I performed ultrasound image acquisition and interpretation for needle placement during the procedure. The vessel was identified and found to be free of thrombosis by compression technique. A safe point of entry was marked at the skin in an angle for axis was determined. The needle was guided by obtaining free-flowing fluid and by real-time visualization. Procedures Hospitalists Procedures: [id number] Insert Non-tunnel CV Cath
[2022-06-07] MEDS: Phenylephrine 10 MG/ML Vial IV (07:22)
[2022-06-07 07:25] LABS: Vancomycin, Random Level 18.2 ug/mL (0.0-15.0)
--- NOTE | 2022-06-07 07:27 | PCM.CONS.B ---
Consult Date of Consult: 06/07/22 Reason for Consult Planning to place stents this morning as pateint had agreed to procedure but overnight became unstable and not in ICU. will have to wait to place stents once clinically stable, other option would be nephrostomy tube placement by Radiology. Will follow.
--- NOTE | 2022-06-07 07:30 | RAD_ITS ---
EXAM: XR CHEST, 1 VIEW CLINICAL INDICATION: line placement TECHNIQUE: Frontal view of the chest. This report was created using [employer] report generation technology. COMPARISON: XR Chest dated 06/04/2022 FINDINGS: LUNGS AND PLEURAL SPACES: Persistent left pleural effusion with underlying pneumonia/compression atelectasis of the left lung. No pneumothorax. HEART: Stable top normal heart size. MEDIASTINUM: No mediastinal or hilar mass. BONES/JOINTS: Advanced arthritic changes of both shoulders. SOFT TISSUES: Normal. TUBES, LINES AND DEVICES: Tip of the right IJ central venous catheter extends to the cavoatrial junction. RAD/CXR for Line Placement IMPRESSION: 1. Left pleural effusion with pneumonia/atelectasis of the left lung. 2. Satisfactory central line placement. Electronically Signed: Ender Perkins MD at 8:25 EST ,
[2022-06-07] MEDS: TITRATION PARAMETER CHANGE 1 EACH IV (07:44)
--- NOTE | 2022-06-07 07:47 | PCM.PN.HOSP ---
Subjective Subjective complains of right hip pain. began yesterday. Objective Data Objective Data Vital Signs: Vital Signs Temp Pulse Resp BP Pulse Ox O2 Del Method O2 Flow Rate 36.6 C 124 H 24 H 118/78 96 Room Air 2 06/07/22 06:00 06/07/22 07:00 06/07/22 07:00 06/07/22 07:00 06/07/22 07:00 06/07/22 07:00 06/06/22 06:49 Oxygen Flow Rate (L/min) [4] 3 Oxygen Flow Rate (L/min) [2] 3 Oxygen Flow Rate (L/min) [1 ( 3 Initial Baseline)] Oxygen Flow Rate (L/min) 2 Oxygen Delivery Method [4] Nasal Cannula Oxygen Delivery Method [2] Nasal Cannula Oxygen Delivery Method [1 ( Nasal Cannula Initial Baseline)] Oxygen Delivery Method Room Air Weight: 86.8 kg Body Mass Index (BMI) 36.1 Intake & Output: Intake and Output for Last 24 Hours 06/05/22 06/06/22 06/07/22 23:59 23:59 23:59 Intake Total 3490.62 / 3521.67 1285.50 / 1302.20 1105.89 / 1105.89 Output Total 120 / 150 50 / 50 Balance 3370.62 / 3371.67 1235.50 / 1252.20 1085.89 / 1085.89 Lab / Micro Data Result Diagrams: 06/07/22 04:40 06/07/22 04:40 Labs: Laboratory Results - last 24 hr 06/06/22 10:45: U Random Total Protein 713.1 H, Ur Random Sodium 132, Urine Creatinine < 13.00, Protein/Creatinin Ratio TNP, Urine Potassium 5.0, Urine Chloride 131 06/07/22 04:40: Sodium 131 L, Potassium 5.6 H, Chloride 102, Carbon Dioxide 16.0 L, Anion Gap 13, BUN 139 H*, Creatinine 5.38 H, Estim Creat Clear Calc 6.08, Est GFR (MDRD) Af Amer 10 L, Est GFR (MDRD) Non-Af 8 L, BUN/Creatinine Ratio 25.8 H, Glucose 86, Calcium 7.9 L, Total Bilirubin 0.30, AST 9 L, ALT 7 L, Alkaline Phosphatase 100, Total Protein 5.2 L, Albumin 1.3 L, Globulin 3.9, Albumin/Globulin Ratio 0.3 L 06/07/22 04:40: WBC 19.6 H, RBC 3.09 L, Hgb 8.5 L, Hct 27.8 L, MCV 90.0, MCH 27.5, MCHC 30.6 L, RDW Std Deviation 52.3 H, RDW Coeff of Tiffani 16.1 H, Plt Count 577 H, MPV 10.1, Immature Gran % (Auto) 1.600 H, Neut % (Auto) 81.6 H, Lymph % (Auto) 9.8 L, [place] % (Auto) 4.2, Eos % (Auto) 2.3, Baso % (Auto) 0.5, Absolute Neuts (auto) 16.0 H, Absolute Lymphs (auto) 1.93, Nucleated RBC % 0 06/07/22 04:40: PT 23.4 H, INR 2.1, APTT 45.9 H 06/07/22 05:38: Random Vancomycin 18.2 H Micro: Microbiology 06/05/22 10:30 Urine Catheter - Mccall Urine Culture - Preliminary Staphylococcus species 06/04/22 12:31 Nasal Secretion SARS-CoV-2 Antigen (Rapid) - Final Radiography Diagnostic Testing: Radiology Impression Abdomen/Pelvis CT 06/06/22 12:25 IMPRESSION: Bilateral pleural effusions and underlying infiltration and/or atelectasis more prominent on the left side. Possible gallstones or sludge in the gallbladder lumen. Bilateral hydronephrosis and hydroureter worse on the right side with nonspecific bilateral perinephric stranding. Diffuse wall thickening of the urinary bladder. Calcification seen in the pelvis most likely representing calcified fibroid uterus although calculi in the urinary bladder cannot be excluded. Diffuse subcutaneous edema of the abdominal wall. Electronically Signed: Salvador Trevino MD at 14:58 EST , Physical Exam Const alert and no apparent distress Constitutional Narrative: tachypneic HEENT head/scalp atraumatic and moist oral mucous membranes Resp normal respiratory effort, no retractions and no use of accessory muscles Cardio regular rate, regular rhythm and S1 normal heart sound GI normal to inspection, nondistended, normoactive bowel sounds Extremity Extremity Narrative: 3+ edema throughout. Assessment & Plan Assessment/Plan (1) Septic shock: PLAN: Developed 06/07 Suspected Currently, pt has Staph species in urine, but had Staph lugdunensis in blood and urine last month, possibly from an infected hip prosthetic. Follow up cultures On norepinephrine. RIJ TLC placed 06/07. abx w pip/tazo and vanc (2) JONO (acute kidney injury): PLAN: Ongoing Anuric FEUrea 36.63% worsening scant urine outpt. Stict Is/Os. Nephrology following (3) Acute hyperkalemia: PLAN: 2/ JONO Kayexalate Resolved (4) HFrEF (heart failure with reduced ejection fraction): PLAN: acute on chronic. complicated by JONO EF 45% from echo on 04/21/23 Pt already has left pleural effusion Pt diffusely edematous. IVF dc'd 06/05 (5) Anemia: PLAN: normocytic ferritin has been elevated in past, so unlikely iron-deficient. TSH has been normal and B12. monitor (6) Leukocytosis: PLAN: 2/2 to infection. Clear breadth of infection TBD, but suspect bacteremia (again). (7) Hydronephrosis: PLAN: US shows severe on right and moderate on left likely etiology of JONO following. Cystoscopy cancelled given decline overnight. May need to consider nephrostomy tubes. (8) Atrial fibrillation with RVR: PLAN: Amio gtt and metoprpol tartrate dc'd due to septic shock cardiology following (9) UTI (urinary tract infection): PLAN: Urine is positive for staph species with the exception of this being staph saprophyticus, rather unusual organism for urinary tract infection. Patient did have bacteremia last month with staph ludunensis and had a positive urine culture for that organism at that time as well. I suspect this is due to bacteremia Recheck blood cultures Start vancomycin Check echocardiogram It was noted on the bone scan from the April 19 that there is mild increased tracer concentration in the left hip prosthesis may represent mild loosening. Consult infectious disease (10) Right hip pain: PLAN: has been present yesterday. opposite from hip prosthesis pain control: scheduled acetaminophen, lidoderm patch, hydromorphone PO and IV fentanyl PLAN: Plan VTE prophylaxis: already on anticoagulation. DW patient's dtrs and at bedside. Charges/Coding Visit Charges Inpatient E&M: 99167 Subs Hosp L3
[2022-06-07] MEDS: fentaNYL 100 MCG/2 ML Ampul 50 MCG IV (08:14)
--- NOTE | 2022-06-07 09:29 | NURSING ---
Skull Splitter at bedside at this time to insert Temporary Dialysis catheter. 09:32 Site prepped at this time 09:36 Lidocaine injected to site 09:40 Unable to pass catheter through [facility] will attempt in the Right Femoral 09:45 site prepped 09:55 site reprepped at this time and revisualizing with the ultrasound 10:06 Catheter successfully inserted.
--- NOTE | 2022-06-07 10:22 | PCM.OP.PRO ---
Procedure Report Placement of right femoral vein temporary dialysis catheter Description of the procedure: After informed consent was obtained from the patient's daughter due to the patient's encephalopathy, the right femoral vein was interrogated with ultrasound.? Right femoral vein was demonstrated to be patent and collapsible. Of note, we attempted to place a left internal jugular vein dialysis catheter initially. However, I was unable to pass the wire beyond 10 cm. Therefore, right femoral vein was chosen as a secondary site. Her right internal jugular vein was already occupied with central venous catheter. The skin overlying the right internal jugular vein was then cleaned with ChloraPrep.? The patient was then draped in the usual fashion.? Under direct ultrasound guidance, the right femoral vein was cannulated with 18-gauge needle.? A 0.035 inch wire was then inserted through the needle which was then removed.? The venotomy site was dilated using tissue dilator.? A 20 cm, 12 Turk[place] temporary dialysis catheter was then inserted over the guidewire.? The guidewire was then removed.? Good blood flow was demonstrated from each port of the catheter.? The catheter was flushed with saline and locked with 1:1000 heparin in both ports. The patient tolerated the procedure well. Impression: Successful placement of right femoral vein temporary dialysis catheter.
--- NOTE | 2022-06-07 10:27 | PCM.PN.REN ---
Subjective Subjective Following for JONO. The patient was moved to the ICU early this morning because of hypotension and altered mental status. She is awake during my visit. However, she is confused. She complains of diffuse pain, particularly involving her back. She denies chest pain but has dyspnea. Objective Data Objective Data Vital Signs: Vital Signs Temp Pulse Resp BP Pulse Ox O2 Del Method O2 Flow Rate 97.9 F 136 H 28 H 145/72 H 96 Room Air 2 06/07/22 06:00 06/07/22 09:00 06/07/22 09:00 06/07/22 09:00 06/07/22 09:00 06/07/22 09:00 06/06/22 06:49 Oxygen Flow Rate (L/min) [4] 3 Oxygen Flow Rate (L/min) [2] 3 Oxygen Flow Rate (L/min) [1 ( 3 Initial Baseline)] Oxygen Flow Rate (L/min) 2 Oxygen Delivery Method [4] Nasal Cannula Oxygen Delivery Method [2] Nasal Cannula Oxygen Delivery Method [1 ( Nasal Cannula Initial Baseline)] Oxygen Delivery Method Room Air Weight: 86.8 kg Body Mass Index (BMI) 36.1 Intake & Output: Intake and Output for Last 24 Hours 06/05/22 06/06/22 06/07/22 23:59 23:59 23:59 Intake Total 3490.62 / 3521.67 1285.50 / 1302.20 1124.69 / 1124.69 Output Total 120 / 150 50 / 50 Balance 3370.62 / 3371.67 1235.50 / 1252.20 1104.69 / 1104.69 Lab / Micro Data Result Diagrams: 06/07/22 04:40 06/07/22 04:40 Labs: Laboratory Results - last 24 hr 06/06/22 10:45: U Random Total Protein 713.1 H, Ur Random Sodium 132, Urine Creatinine < 13.00, Protein/Creatinin Ratio TNP, Urine Potassium 5.0, Urine Chloride 131 06/07/22 04:40: Sodium 131 L, Potassium 5.6 H, Chloride 102, Carbon Dioxide 16.0 L, Anion Gap 13, BUN 139 H*, Creatinine 5.38 H, Estim Creat Clear Calc 6.08, Est GFR (MDRD) Af Amer 10 L, Est GFR (MDRD) Non-Af 8 L, BUN/Creatinine Ratio 25.8 H, Glucose 86, Calcium 7.9 L, Total Bilirubin 0.30, AST 9 L, ALT 7 L, Alkaline Phosphatase 100, Total Protein 5.2 L, Albumin 1.3 L, Globulin 3.9, Albumin/Globulin Ratio 0.3 L 06/07/22 04:40: WBC 19.6 H, RBC 3.09 L, Hgb 8.5 L, Hct 27.8 L, MCV 90.0, MCH 27.5, MCHC 30.6 L, RDW Std Deviation 52.3 H, RDW Coeff of Tiffani 16.1 H, Plt Count 577 H, MPV 10.1, Immature Gran % (Auto) 1.600 H, Neut % (Auto) 81.6 H, Lymph % (Auto) 9.8 L, [place] % (Auto) 4.2, Eos % (Auto) 2.3, Baso % (Auto) 0.5, Absolute Neuts (auto) 16.0 H, Absolute Lymphs (auto) 1.93, Nucleated RBC % 0 06/07/22 04:40: PT 23.4 H, INR 2.1, APTT 45.9 H 06/07/22 05:38: Random Vancomycin 18.2 H Micro: Microbiology 06/05/22 10:30 Urine Catheter - Mccall Urine Culture - Final Staphylococcus lugdunensis 06/04/22 12:31 Nasal Secretion SARS-CoV-2 Antigen (Rapid) - Final Radiography Diagnostic Testing: Radiology Impression Abdomen/Pelvis CT 06/06/22 12:25 IMPRESSION: Bilateral pleural effusions and underlying infiltration and/or atelectasis more prominent on the left side. Possible gallstones or sludge in the gallbladder lumen. Bilateral hydronephrosis and hydroureter worse on the right side with nonspecific bilateral perinephric stranding. Diffuse wall thickening of the urinary bladder. Calcification seen in the pelvis most likely representing calcified fibroid uterus although calculi in the urinary bladder cannot be excluded. Diffuse subcutaneous edema of the abdominal wall. Electronically Signed: Salvador Trevino MD at 14:58 EST , Chest X-Ray 06/07/22 07:30 IMPRESSION: 1. Left pleural effusion with pneumonia/atelectasis of the left lung. 2. Satisfactory central line placement. Electronically Signed: Ender Perkins MD at 8:25 EST , Physical Exam Narrative Const: Alert and oriented x1, in some distress with back pain Cardio: S1, S2, rhythm irregular, rate controlled Respiratory: Lung sounds clear anteriorly, diminished breath sounds posterior bases. No wheezes, rhonchi or rales noted. On room air Abdomen: soft, nontender, positive bowel sounds Extremities: 4+ pitting edema bilateral lower legs extending up into thighs. Indwelling Mccall with scant straw-yellow urine noted in tubing. Assessment & Plan Assessment/Plan (1) JONO (acute kidney injury): (2) Acute hyperkalemia: (3) Metabolic acidosis: (4) HFrEF (heart failure with reduced ejection fraction): (5) Atrial fibrillation with RVR: (6) Hydronephrosis: PLAN: Plan This is a pleasant 81-year-old female with past medical history significant with atrial fibrillation with RVR, hypertension, heart failure reduced EF with last known EF 45% April 2022 who was admitted to hospital June 04 due to abnormal lab work, elevated creatinine of 4.22 mg/dL. We were consulted for acute kidney injury. Acute kidney injury. In reviewing past creatinine trends, baseline creatinine seems to be ranging around 1.1 to 1.2 mg/dL as recently as April 2022. Patient had lab work on May 28, her creatinine was 1.37 mg/dL. Serum creatinine increased to 4.2 mg/dL on admission to the hospital on 06/04/2022. The patient did have renal ultrasound and CT of the abdomen with findings of severe hydronephrosis and hydroureter of right kidney and moderate hydronephrosis and hydroureter of left kidney. The patient has also been hypotensive despite volume expansion with IV fluid. Suspect JONO is due to multifactorial ATN along with probable obstructive JONO. Urology consultation reviewed. The patient is too unstable from urology standpoint for ureteral stent placement. Because of worsening renal function, hyperkalemia and acidosis, I will proceed with hemodialysis today. Improvement in acidosis may also help to improve her hemodynamics. Medication to be adjusted for IHD. Therefore, I will increase the frequency piperacillin/tazobactam to every 8 hours. Hyperkalemia due to JONO and metabolic acidosis. Potassium level is higher again today at 5.6 mmol/L. Serum bicarbonate level has also decreased in the last 24 hours to 16 mmol/L. The patient is oliguric. Therefore, I expect potassium and acidosis to worsen over the next 24 hours. Therefore, we will start hemodialysis. High anion gap metabolic acidosis due to JONO and severe sepsis. Serum bicarbonate level is 16 mmol/L. The patient is already volume overloaded, so there is not much more room for further volume expansion using sodium bicarbonate infusion. I expect acidosis to worsen with the patient requiring vasopressor now. I will, therefore, proceed with hemodialysis. Hopefully, improvement in acidosis with hemodialysis will help improve her hemodynamics as well. Nephrology plan discussed with Dr. Salguero and Dr. Marti. Nephrology plan also discussed with the patient's daughter, Bettie, who is the healthcare POA.
--- NOTE | 2022-06-07 11:11 | EX.PCM.CONCC ---
Assessment & Plan Assessment/Plan (1) Septic shock: (2) UTI (urinary tract infection): (3) Hydronephrosis: (4) HFrEF (heart failure with reduced ejection fraction): (5) Atrial fibrillation with RVR: PLAN: Plan RECOMMENDATIONS: 1. Continue empiric antibiotics 2. Management of hydronephrosis per urology 3. Wean pressors as tolerated 4. Hemodialysis per nephrology 5. Continue with delirium protocol 6. Monitor for respiratory complications given CHF IMPRESSIONS: 1. Septic shock secondary to UTI with hydronephrosis Patient has grown staph aliciaunensis out of the urine and has had an ultrasound showing hydronephrosis. Patient currently is on pressor therapy. We will continue with antibiotics. Patient will ultimately require release of obstruction to control infection. Defer to urology. Nephrostomy tubes are not available over the weekend. Patient appears to be responding to therapy well. However, given low urine output and CHF, use fluid boluses cautiously. 2. Acute kidney injury Clinical suspicion for prerenal (problem #1) and post renal etiology with renal colliculi. Patient with significant worsening in creatinine and is now showing confusion, which may be secondary to uremia. Patient is diffusely edematous, but is saturating well at this time. Nephrology is following and planning for dialysis today. Cannot exclude eventual need for CVVH. 3. Acute on chronic systolic CHF/A. fib with RVR Patient with some findings of overload including lower extremity edema and pleural effusion. Systolic heart failure will be complicated by significant tachycardia. Unfortunately, rate control options are marginal at this time given patient's blood pressure concerns. Amiodarone IV would be a consideration moving forward. Patient has had a cardioversion in the past. Patient may benefit from additional rate control. 4. Advanced age/debility/hypertension/obesity/metabolic encephalopathy Complicates care, management, recovery and prognosis. Baseline antihypertensives will be held at this time. We will need to monitor patient for possible obstructive sleep apnea. Delirium protocol. Clinical suspicion for an element of delirium secondary to elevated BUN. Patient is to have dialysis today. TIME: 35 minutes critical care time spent addressing patient septic shock, acute kidney injury, CHF, review of all data and collaboration with care team HPI Consult Data Date of Consult: 06/07/22 HPI Narrative Reason for Consultation: Septic shock HPI Narrative: HONEY FERNANDES is an 81 F, with past medical history listed below, who presented to [facility] on 06/04/2022 from [facility] secondary to abnormal labs. Patient reportedly had been in rehab for 3 weeks with transition over to skilled care. Patient was noted to have anemia on her blood work along with acute kidney injury and leukocytosis. Patient reportedly had complained of a nonproductive cough for 2 days prior. Patient did have 1 bout of diarrhea prior to presentation, but no recent nausea or vomiting. Patient does have a known history of A. fib with RVR. Patient reportedly had had decreased urine output over the previous 3 to 4 days, but does not routinely follow with a critical care physician assistant. Patient subsequently was admitted to the hospital with a diagnosis of acute kidney injury with hyperkalemia and complications of A. fib with RVR. Nephrology and cardiology were consulted. Patient did have an ultrasound showing severe and moderate hydronephrosis on the right and left ureter respectively. Urology was consulted. Patient tentatively was to have definitive stents placed versus nephrostomy tube. Earlier this morning, patient was noted to be in A. fib with RVR with hypotension and was transferred to the intensive care unit for further management. Patient was initiated on Levophed after central line was placed by the hospitalist. Given patient's worsening renal function, nephrology also placed a femoral hemodialysis catheter. Patient is not able to provide much additional information to me at this time. Patient is having significant right-sided abdominal pain and tends to moan. [facility] Medical History Accidental fall Acute pain of left hip Allergic rhinitis Anemia Atrial fibrillation with rapid ventricular response (03/26/20) Chronic asthma Closed left hip fracture Elevated troponin (03/26/20) Essential (primary) hypertension Gout HFrEF (heart failure with reduced ejection fraction) Hypomagnesemia Laceration of left elbow Missing teeth, acquired Nail dystrophy Obesity Osteoporosis PAF (paroxysmal atrial fibrillation) Pain in toe of left foot Pain in toe of right foot Physical deconditioning Urinary frequency Vitamin D insufficiency Home Medications albuterol sulfate 90 mcg/actuation aerosol inhaler 1 - 2 puff inhalation Q6H PRN SHORTNESS OF BREATH/WHEEZING 03/26/20 [History Last Taken Unknown] allopurinol 100 mg tablet 100 mg PO DAILYCM GOUT 03/26/20 [History Last Taken 06/04/22] fluticasone 250 mcg-salmeterol 50 mcg/dose blistr powdr for inhalation 1 ea IH BID ASTHMA 03/26/20 [History Last Taken 06/04/22] fluticasone propionate 50 mcg/actuation nasal spray,suspension 1 spray NASAL BID PRN Nasal Congestion 03/26/20 [History Last Taken 1 Week Ago ~05/23/20] loratadine 10 mg tablet 10 mg PO DAILY ALLERGIES 03/26/20 [History Last Taken 06/04/22] ketotifen fumarate 0.025 % (0.035 %) eye drops (Zaditor) 1 drp ophthalmic (eye) BID PRN RED EYES 12/25/21 [History Last Taken Unknown] acetaminophen 325 mg tablet (Tylenol) 650 mg PO TID RHEUMATOID ARTHRITIS 06/04/22 [History Last Taken 06/04/22] acetaminophen 500 mg tablet 1,000 mg PO Q6H PRN RHEUMATOID ARTHRITIS 06/04/22 [History Last Taken 06/04/22] amiodarone 200 mg tablet 200 mg PO DAILY AFIB 06/04/22 [History Last Taken 06/04/22] apixaban 5 mg tablet 5 mg PO BID BLOOD THINNER 06/04/22 [History Last Taken 06/04/22] arginine (L-arginine) 500 mg capsule 500 mg PO TID ANEMIA 06/04/22 [History Last Taken 06/04/22] aspirin 81 mg tablet,delayed release 81 mg PO DAILY HEART HEALTH 06/04/22 [History Last Taken 06/04/22] diclofenac sodium 1 % topical gel (Voltaren Arthritis Pain) 1 ea topical TID PRN SHOULDER PAIN 06/04/22 [History Last Taken 06/03/22 01:08] diphenhydramine HCl 25 mg capsule (Benadryl) 25 mg PO Q4H PRN ALLERGIES 06/04/22 [History Last Taken Unknown] ferrous sulfate 325 mg (65 mg iron) tablet 325 mg PO DAILY ANEMIA 06/04/22 [History Last Taken 06/04/22] furosemide 40 mg tablet (Lasix) 40 mg PO DAILY PRN FLUID 06/04/22 [History Last Taken 06/04/22] hydrocortisone 2.5 % topical cream with perineal applicator (Anusol-HC) 1 applic [place] BID PRN Hemorrhoids 06/04/22 [History Last Taken 06/04/22] metoprolol tartrate 50 mg tablet 50 mg PO BID BLOOD PRESSURE 06/04/22 [History Last Taken 06/04/22] pantoprazole 40 mg tablet,delayed release (Protonix) 40 mg PO DAILY ACID REFLUX 06/04/22 [History Last Taken 06/04/22] vitamin B complex 1 tab PO DAILY SUPPLEMENT 06/04/22 [History Last Taken 06/04/22] vitamins A,C,I-gdde-hoffvd 2,148 mcg-113 mg-45 mg-17.4 mg tablet (Eye Multivitamin) 1 tab PO DAILY EYE HEALTH 06/04/22 [History Last Taken 06/04/22] Allergy/AdvReac Type Severity Reaction Status Date / Time No Known Allergies Allergy Verified 06/04/22 11:40 Family History Mother TIA (transient ischemic attack) Surgical History History of hemiarthroplasty of left hip (05/2020) History of left heart catheterization (03/27/20) Status post hip replacement Social History Smoking Status: Never smoker alcohol intake: never substance use type: does not use caffeine: Yes Type: coffee Number of servings: 1 and tea ROS ROS Narrative Unable to obtain secondary to mental status and acute distress. Physical Exam Const alert Constitutional Narrative: Hard of hearing. Appears ill. Oriented to self General Appearance: in distress Positive for moderate HEENT head/scalp atraumatic Eyes PERRL, EOMs intact bilaterally and conjunctivae normal Neck full ROM and no lymphadenopathy Resp normal respiratory effort and no retractions Auscultation: rales and diminished lung sounds right lower; Negative for rhonchi or wheezes Cardio regular rate, regular rhythm, S1 normal heart sound, S2 normal heart sound, no murmurs, no rub and no gallops GI normal to inspection, nondistended, normoactive bowel sounds and soft to palpation Extremity Extremity Narrative: Diffuse 3+ upper and lower extremity edema General Extremity: Negative for clubbing Skin General Skin Exam: dermatitis Neuro no focal motor deficits Neuro Narrative: Patient moaning about abdominal pain and unable to cooperate with testing. Psych affect normal Medical Records Data Attestation: I reviewed the patient's medical records Lab / Micro Data Attestation: I reviewed the patient's lab results. Result Diagrams: 06/07/22 04:40 06/07/22 04:40 Labs: Laboratory Results - last 24 hr 06/06/22 10:45: U Random Total Protein 713.1 H, Ur Random Sodium 132, Urine Creatinine < 13.00, Protein/Creatinin Ratio TNP, Urine Potassium 5.0, Urine Chloride 131 06/07/22 04:40: Sodium 131 L, Potassium 5.6 H, Chloride 102, Carbon Dioxide 16.0 L, Anion Gap 13, BUN 139 H*, Creatinine 5.38 H, Estim Creat Clear Calc 6.08, Est GFR (MDRD) Af Amer 10 L, Est GFR (MDRD) Non-Af 8 L, BUN/Creatinine Ratio 25.8 H, Glucose 86, Calcium 7.9 L, Total Bilirubin 0.30, AST 9 L, ALT 7 L, Alkaline Phosphatase 100, Total Protein 5.2 L, Albumin 1.3 L, Globulin 3.9, Albumin/Globulin Ratio 0.3 L 06/07/22 04:40: WBC 19.6 H, RBC 3.09 L, Hgb 8.5 L, Hct 27.8 L, MCV 90.0, MCH 27.5, MCHC 30.6 L, RDW Std Deviation 52.3 H, RDW Coeff of [place]iffani 16.1 H, Plt Count 577 H, MPV 10.1, Immature Gran % (Auto) 1.600 H, Neut % (Auto) 81.6 H, Lymph % (Auto) 9.8 L, [place] % (Auto) 4.2, Eos % (Auto) 2.3, Baso % (Auto) 0.5, Absolute Neuts (auto) 16.0 H, Absolute Lymphs (auto) 1.93, Nucleated RBC % 0 06/07/22 04:40: PT 23.4 H, INR 2.1, APTT 45.9 H 06/07/22 05:38: Random Vancomycin 18.2 H Micro: Microbiology 06/05/22 10:30 Urine Catheter - Mccall Urine Culture - Final Staphylococcus lugdunensis Radiology Impression Abdomen/Pelvis CT 06/06/22 12:25 IMPRESSION: Bilateral pleural effusions and underlying infiltration and/or atelectasis more prominent on the left side. Possible gallstones or sludge in the gallbladder lumen. Bilateral hydronephrosis and hydroureter worse on the right side with nonspecific bilateral perinephric stranding. Diffuse wall thickening of the urinary bladder. Calcification seen in the pelvis most likely representing calcified fibroid uterus although calculi in the urinary bladder cannot be excluded. Diffuse subcutaneous edema of the abdominal wall. Electronically Signed: Salvador Trevino MD at 14:58 EST , Chest X-Ray 06/07/22 07:30 IMPRESSION: 1. Left pleural effusion with pneumonia/atelectasis of the left lung. 2. Satisfactory central line placement. Electronically Signed: Ender Perkins MD at 8:25 EST , Charges/Coding Procedures Hospitalists Procedures: [id number] [facility] 1st Hr
[2022-06-07] MEDS: Budesonide Respules 0.5 MG/2 ML AMPUL.NEB. INHALATION ×2 (11:34→19:15)
--- NOTE | 2022-06-07 11:50 | PN.CARD_ITS ---
Subjective Subjective Patient seen and evaluated. Events of yesterday noted. Dialysis catheter being placed today. Objective Data Vital Signs: Vital Signs Temp Pulse Resp BP Pulse Ox O2 Del Method O2 Flow Rate 97.9 F 128 H 19 H 111/63 94 Room Air 2 06/07/22 06:00 06/07/22 11:35 06/07/22 11:35 06/07/22 11:00 06/07/22 11:00 06/07/22 11:00 06/06/22 06:49 Oxygen Flow Rate (L/min) [4] 3 Oxygen Flow Rate (L/min) [2] 3 Oxygen Flow Rate (L/min) [1 ( 3 Initial Baseline)] Oxygen Flow Rate (L/min) 2 Oxygen Delivery Method [4] Nasal Cannula Oxygen Delivery Method [2] Nasal Cannula Oxygen Delivery Method [1 ( Nasal Cannula Initial Baseline)] Oxygen Delivery Method Room Air Weight: 191 lb 5.78 oz Body Mass Index (BMI) 36.1 Intake & Output: Intake and Output for Last 24 Hours 06/05/22 06/06/22 06/07/22 23:59 23:59 23:59 Intake Total 3490.62 / 3521.67 1285.50 / 1302.20 1143.49 / 1143.49 Output Total 120 / 150 50 / 50 / Balance 3370.62 / 3371.67 1235.50 / 1252.20 1123.49 / 1123.49 Lab / Micro Data Result Diagrams: 06/07/22 04:40 06/07/22 04:40 Labs: Laboratory Results - last 24 hr 06/07/22 04:40: Sodium 131 L, Potassium 5.6 H, Chloride 102, Carbon Dioxide 16.0 L, Anion Gap 13, BUN 139 H*, Creatinine 5.38 H, Estim Creat Clear Calc 6.08, Est GFR (MDRD) Af Amer 10 L, Est GFR (MDRD) Non-Af 8 L, BUN/Creatinine Ratio 25.8 H, Glucose 86, Calcium 7.9 L, Total Bilirubin 0.30, AST 9 L, ALT 7 L, Alkaline Phosphatase 100, Total Protein 5.2 L, Albumin 1.3 L, Globulin 3.9, A lbumin/Globulin Ratio 0.3 L 06/07/22 04:40: WBC 19.6 H, RBC 3.09 L, Hgb 8.5 L, Hct 27.8 L, MCV 90.0, MCH 27.5, MCHC 30.6 L, RDW Std Deviation 52.3 H, RDW Coeff of Tiffani 16.1 H, Plt Count 577 H, MPV 10.1, Immature Gran % (Auto) 1.600 H, Neut % (Auto) 81.6 H, Lymph % (Auto) 9.8 L, [place] % (Auto) 4.2, Eos % (Auto) 2.3, Baso % (Auto) 0.5, Absolute Neuts (auto) 16.0 H, Absolute Lymphs (auto) 1.93, Nucleated RBC % 0 06/07/22 04:40: PT 23.4 H, INR 2.1, APTT 45.9 H 06/07/22 05:38: Random Vancomycin 18.2 H Micro: Microbiology 06/05/22 10:30 Urine Catheter - Mccall Urine Culture - Final Staphylococcus lugdunensis Cardiology Labs/Tests 06/07/22 04:40: Sodium 131 L, Potassium 5.6 H, Chloride 102, Carbon Dioxide 16.0 L, Anion Gap 13, BUN 139 H*, Creatinine 5.38 H, Est GFR (MDRD) Af Amer 10 L, Est GFR (MDRD) Non-Af 8 L, BUN/Creatinine Ratio 25.8 H, Glucose 86, Calcium 7.9 L, Total Bilirubin 0.30 06/07/22 04:40: WBC 19.6 H, RBC 3.09 L, Hgb 8.5 L, Hct 27.8 L, MCV 90.0, MCH 27.5, MCHC 30.6 L, Plt Count 577 H, MPV 10.1, Immature Gran % (Auto) 1.600 H, Neut % (Auto) 81.6 H, Lymph % (Auto) 9.8 L, [place] % (Auto) 4.2, Eos % (Auto) 2.3, Baso % (Auto) 0.5, Absolute Neuts (auto) 16.0 H, Nucleated RBC % 0 06/07/22 04:40: PT 23.4 H, INR 2.1, APTT 45.9 H Rhythm: EKG: ECHO: Stress Test: Cardiac Cath: PCI: CT Surgery: Holter monitor: EPS: PPM: CXR: Chest CT Scan: Radiography Diagnostic Testing: Radiology Impression Abdomen/Pelvis CT 06/06/22 12:25 IMPRESSION: Bilateral pleural effusions and underlying infiltration and/or atelectasis more prominent on the left side. Possible gallstones or sludge in the gallbladder lumen. Bilateral hydronephrosis and hydroureter worse on the right side with nonspecific bilateral perinephric stranding. Diffuse wall thickening of the urinary bladder. Calcification seen in the pelvis most likely representing calcified fibroid uterus although calculi in the urinary bladder cannot be excluded. Diffuse subcutaneous edema of the abdominal wall. Electronically Signed: Salvador Trevino MD at 14:58 EST , Chest X-Ray 06/07/22 07:30 IMPRESSION: 1. Left pleural effusion with pneumonia/atelectasis of the left lung. 2. Satisfactory central line placement. Electronically Signed: Ender Perkins MD at 8:25 EST , Physical Exam Const alert Constitutional Narrative: Hard of hearing. Appears ill. Oriented to self General Appearance: in distress Positive for moderate HEENT head/scalp atraumatic Eyes PERRL, EOMs intact bilaterally and conjunctivae normal Neck full ROM and no lymphadenopathy Resp normal respiratory effort and no retractions Auscultation: rales and diminished lung sounds right lower; Negative for rhonchi or wheezes Cardio regular rate, regular rhythm, S1 normal heart sound, S2 normal heart sound, no murmurs, no rub and no gallops GI normal to inspection, nondistended, normoactive bowel sounds and soft to palpation Extremity Extremity Narrative: Diffuse 3+ upper and lower extremity edema General Extremity: Negative for clubbing Skin General Skin Exam: dermatitis Neuro no focal motor deficits Neuro Narrative: Patient moaning about abdominal pain and unable to cooperate with testing. Psych affect normal Assessment & Plan Assessment/Plan (1) Atrial fibrillation with RVR: PLAN: The patient has a history of atrial fibrillation. She will continue medical therapy for the above. It is unlikely that she will convert to sinus rhythm. We will continue her on the IV amiodarone and later switched to oral amiodarone. * She has global left ventricular systolic dysfunction estimated EF 45%. * She is rather anemic and with her elevated creatinine we will hold off on anticoagulation at this time. * For now we will continue her current medical therapy until her renal functional issues further sorted out. (2) Pleural effusion: PLAN: The patient does have a left-sided pleural effusion. We will hold off on diuretic therapy at this time as she is dehydrated. (3) HTN (hypertension): PLAN: The patient's blood pressure has been stable for now. (4) Dehydration: PLAN: The patient is dehydrated and IV fluids should continue with assessment of her pulmonary as well as renal condition.
[2022-06-07] MEDS: HYDROmorphone 2 MG TABLET PO (14:35)
[2022-06-07] MEDS: Heparin 10,000 UNITS/10 ML Vial 10000 UNITS IV (14:38)
--- NOTE | 2022-06-07 20:33 | DIALYSIS ---
first hemodialysis tx completed x 2 hrs. Access via right groin HD cath. Net UF 0. pt was anxious throughout tx. some hallucinations noted. See HD flowsheet on chart.
[2022-06-07] MEDS: LORazepam 2 MG/ML Syringe IV (22:05)
[2022-06-07] MEDS: 0.9% Saline Lock 10 ML Syringe IV (22:17)
[2022-06-07] MEDS: Heparin 10,000 UNITS/10 ML Vial 2800 UNITS IV (22:19)
[2022-06-07 22:20] LABS: Hepatitis B Surface Antigen Non-Reactive (Nonreactive)
[2022-06-07] MEDS: Nystatin Powder 15gm Bottle 1 APPLIC TOPICAL (22:33)
[2022-06-08] VITALS (8 sets, daily range): BP systolic 43–122; BP diastolic 20–88; PULSE 104–112; RESP 29–30; TEMP 36.5; O2SAT 90–92
--- NOTE | 2022-06-08 00:28 | EKG12_ITS ---
Test Reason : PRE OP Blood Pressure : / mmHG Vent. Rate : 106 BPM Atrial Rate : 000 BPM P-R Int : 000 ms QRS Dur : 096 ms QT Int : 316 ms P-R-T Axes : 000 036 204 degrees QTc Int : 419 ms Atrial fibrillation with rapid ventricular response Low voltage QRS Nonspecific T wave abnormality Abnormal ECG When compared with ECG of 05-JUN-2022 04:59, No significant change was found Confirmed by PETRA CHENG, ALLI ([id number]), index editor MIRIAM VUONG ([id number]) on 06/10/2022 11:33:33 AM Referred By: PALAK Confirmed By:ALLI LAMBERT MD
--- NOTE | 2022-06-08 00:29 | PCM.PN.BLA ---
Progress Note STEMI alert called by nursing staff. EKG interpreted as cardiology as no stemi. stemi alert cancelled. EKG per cardialogy interventionalist as intraventricular delay. Give rectal aspirin as patient as is not alert enough to swallow. Patient with anemia and not candidate for anticoagulation. Add vasopression to regimen. Add hydrocortisone to regimen. Family was contacted by nursing staff. Per nursing staff family will not want any intervention if it was a stemi
[2022-06-08 01:09] LABS: ALB/GLOB Ratio 0.3 RATIO (0.9-2.4); AST(SGOT) 17 U/L (15-37); Alanine Aminotransfer ALT/SGPT 8 U/L (13-56); Albumin, Serum 1.4 g/dL (3.2-5.0); Alkaline Phosphatase 122 U/L (45-117); Anion Gap 16 (5-15); BUN 105 mg/dL (7-18); BUN/Creat Ratio 22.6 RATIO (10-20); Calcium,Total 7.9 mg/dL (8.5-10.1); Chloride 101 mmol/L (98-107); Creatinine, Serum 4.65 mg/dL (0.55-1.02); EST Glomerular Filtration Rate 10 mL/min (>60); Est Glom Filt Rate - Afr Amer 12 mL/min (>60); Estimated Creatinine Clearance 7.04 ml/min; Globulin 4.4 g/dL (2.2-4.2); Glucose 122 mg/dL (74-106); Potassium 5.6 mmol/L (3.5-5.1); Protein, Total 5.8 g/dL (6.4-8.2); Sodium Level 132 mmol/L (136-145)
[2022-06-08] MEDS: fentaNYL 100 MCG/2 ML Ampul 50 MCG IV (01:49)
--- NOTE | 2022-06-08 02:06 | NURSING ---
0153- Patient monitor alarmed asystole. This RN and Miguel Angel Jade RN entered patient's room to access patient. We both auscultated for an apical pulse for 1 minute and no heart beat or breath sounds were heard. Both pupils were dilated and fixed. No carotid pulse was felt. Dr. Trujillo and nursing hotel service supervisor were notified of time of of 0153.
--- NOTE | 2022-06-08 02:15 | PCM.PN.BLA ---
Progress Note Notified by nursing staff that patient was asystole on monitor and she on 06/08/2022 at 0153.
--- NOTE | 2022-06-08 02:26 | PCM.DEATH ---
Preliminary Cause of Preliminary Cause of Preliminary Cause of : Septic shock secondary to UTI with hydronephrosis Date of Admission: 06/04/22 Date of : 06/08/22 Principle Diagnosis Septic shock secondary to UTI with hydronephrosis. Problem List: Active and Suspected Problems (Updated 06/07/22 @ 13:[address] Cb Salguero, DO) Right hip pain (Acute) Metabolic acidosis (Acute) Septic shock (Acute) UTI (urinary tract infection) (Acute) Hydronephrosis (Acute) Leukocytosis (Acute) Anemia (Acute) HFrEF (heart failure with reduced ejection fraction) (Acute) Pleural effusion (Acute) Dehydration (Acute) Acute hyperkalemia (Acute) Atrial fibrillation with RVR (Acute) Encounter for cardioversion procedure (Acute) JONO (acute kidney injury) (Acute) Hospital Course hpi: HONEY FERNANDES, is a 81 F who presents to the emergency room at [facility] after being sent in from a local extended care facility at which she is undergoing skilled care due to abnormal labs which were obtained on the same day of presentation.? Labs obtained in the emergency room showed an elevated creatinine at 4.29, BUN was 112, potassium was 5.7, sodium was 134, CBC revealed a white blood cell count of 17.1 and hemoglobin was 8.4. Chest x-ray showed a small left pleural effusion with left basilar atelectasis and/or infiltrate. Patient was afebrile, she complained of a dry cough and thirst.? Patient's pulse ox was 96% on room air. Patient was admitted to [facility] for acute kidney injury and hyperkalemia, she was given a Proventil aerosol treatment and insulin by the emergency room physician.? Hospital course: At the emergency department patient was in A. fib with RVR. Cardioversion was attempted multiple times at the ED. Cardioversion was only temporarily successful. Cardiology was consulted. Digoxin bolus was given. Patient was. Placed on amiodarone drip and admitted to the hospital. At the hospital patient continued to be on amiodarone drip. Ultrasound showed bilateral hydronephrosis. A follow-up CT scan confirmed hydronephrosis. Urology followed patient. Because of hypotension patient was transferred to the intensive care unit. Because of a concern for sepsis patient was placed on broad-spectrum antibiotics of vancomycin and Zosyn. Patient received IV fluids for fluid resuscitation. Patient also received escalated dose of pressors and hydrocortisone for resuscitation. There was plan to do cystoscopy with stents. However with hypotension and that was placed on hold onto patient stabilized. Urine culture returned positive for staph lugdunensis. Nephrology was consulted and helped manage patient's fluid status. Dialysis catheter was placed by nephrology and patient received hemodialysis. Unfortunately patient continued to decompensate. Family requested via nursing the patient be made DNR CC Comfort Care arrest only. Patient was asystole on monitor. On 06/08/2022 at 0153 patient was to nurses. Date of : 06/08/2022. Time of : 0 153 Immediate cause of (final disease of condition resulting in ): Septic shock duration: Days/month/years: Days Listed conditions leading to cause of (due to or as a consequence of) : Urinary tract infection Day/month/years: Days Hydronephrosis: Days Acute kidney injury: Days A. fib RVR: Days Listed other significant conditions contributing to but not resulting in the underlying cause of : Heart failure with reduced ejection fraction; hypertension; chronic A. fib Did tobacco contribute to : No. Patient was never smoker.
--- NOTE | 2022-06-08 02:29 | NURSING ---
0008 ECG changes noted on monitor. 12 lead EKG obtained which showed a STEMI. 0010 STEMI alert called. Attempted to call pt's Amilcar and pt's daughter Bettie, no answer. Pt's son Jn called unit back, Henrietta RN informed Jn of pt's situation and asked if he would like us to take her to cardiac laborer [facility] for intervention, considering her code status of DNR-CCA. Jn declined cardiac intervention and said to make pt comfortable. Notified Dr. Trujillo and Dr. Che that pt's family does not want cardiac intervention. Pt's Amilcar came to bedside from TCU. This RN discussed pt's status and plan of care in detail with Amilcar who agreed that pt wouldn't want any extraordinary measures done. Amilcar called in daughter Bettie and son Blake, who came to pt's bedside along with Bettie's . This RN again explained in detail pt's situation and all the measures that we had taken. This RN also discussed the option of trying to add more vasopressors to keep pt alive. Family, in agreement with each other, declined further intervention and to keep pt comfortable. Emotional support provided. Dr. Trujillo notified. 0153 Pt alarmed asystole on the monitor. Two RNs verified pt's time of by auscultation, family notified at bedside.
[2022-06-09 13:07] LABS: Cytoplasmic Ab (C-ANCA) <1:20 titer (Neg:<1:20)
[2022-06-09 18:41] LABS: Complement C3 120 mg/dL (82-167); Perinuclear Ab (P-ANCA) <1:20 titer (Neg:<1:20)
== END 2022-06-08 04:00 | DRG 682 ==
LOC: ED 13:23 → PCU 16:37 → ICU 06-07 06:33
PROVIDERS: Anesthesiology; Internal Medicine Cardiovascular Disease; Internal Medicine Nephrology; Nurse Practitioner Adult Health; Admitting Provider Internal Medicine; Emergency Provider Emergency Medicine; PCP Family Medicine
DX: N17.0 Acute kidney failure with tubular necrosis (principal); A41.1 Sepsis due to other specified staphylococcus; R65.21 Severe sepsis with septic shock; I50.21 Acute systolic (congestive) heart failure; G93.41 Metabolic encephalopathy; I13.0 Hypertensive heart and chronic kidney disease with heart failure and stage 1 through stage 4 chronic kidney disease, or unspecified chronic kidney disease; I95.9 Hypotension, unspecified; E86.0 Dehydration; I48.0 Paroxysmal atrial fibrillation; N18.31 Chronic kidney disease, stage 3a; E87.5 Hyperkalemia; D50.9 Iron deficiency anemia, unspecified; M25.551 Pain in right hip; R26.2 Difficulty in walking, not elsewhere classified; R27.8 Other lack of coordination; N13.6 Pyonephrosis; R31.0 Gross hematuria; E66.9 Obesity, unspecified; Z74.1 Need for assistance with personal care; Z66 Do not resuscitate; Z68.36 Body mass index [BMI] 36.0-36.9, adult; Z79.01 Long term (current) use of anticoagulants; Z79.82 Long term (current) use of aspirin; Z79.899 Other long term (current) drug therapy
CPT/HCPCS: 36415; 71045; 71046; 74176; 76770; 80048; 80053; 80202; 81001; 82436; 82570; 84133; 84156; 84300; 84540; 85025; 85610; 85730; 86160; 86256; 87040; 87077; 87086; 87088; 87186; 87340; 87426; 90937; 92960; 93005; 94640; 97110; 97116; 97162; 97166; 97530; 97802; 97803; 99152; 99285; J7030; J7040; J7050; A4216; C1752; G0257; J3490

== ENCOUNTER → 2022-06-04 | Outpatient (REF) | payer MEDICARE, OTHER, SELFPAY ==
[2022-06-04 09:04] LABS: Absolute Lymphocyte Count 2.38 X10^3/uL (0.83-4.51); Absolute Neutrophil Count 13.8 X10^3/uL (2.0-7.7); Basophil# 0.08 X10^3/uL; Basophil% 0.4 % (0-1); Eosinophil# 0.53 X10^3/uL; Eosinophils% 2.9 % (0-5); Hematocrit 26.7 % (37-47); Hemoglobin 8.1 g/dL (12.0-15.0); Lymphocyte # 2.38 X10^3/ul (0.83-4.51); Lymphocyte % 13.1 % (19-41); Mean Corp Hgb Conc 30.3 g/dL (32-36); Mean Corpuscular Hgb 27.6 pg (27.0-32.0); Mean Corpuscular Volume 91.1 fL (81-99); Mean Platelet Vol. 10.7 fl (6.2-12.0); Monocyte# 1.17 X10^3/uL; Monocyte% 6.4 % (0-10); NRBC Flagged by Analyzer 0 % (0-5); Platelet Count 523 K/mm3 (150-450); RBC Distribution Width CV 15.9 % (11.6-14.6); Red Blood Count 2.93 M/mm3 (4.2-5.4); White Blood Count 18.2 K/mm3 (4.4-11.0)
[2022-06-04 09:20] LABS: Anion Gap 14 (5-15); BUN 115 mg/dL (7-18); BUN/Creat Ratio 27.3 RATIO (10-20); Calcium,Total 8.1 mg/dL (8.5-10.1); Chloride 103 mmol/L (98-107); Creatinine, Serum 4.22 mg/dL (0.55-1.02); EST Glomerular Filtration Rate 11 mL/min (>60); Est Glom Filt Rate - Afr Amer 13 mL/min (>60); Glucose 67 mg/dL (74-106); Potassium 5.5 mmol/L (3.5-5.1); Sodium Level 135 mmol/L (136-145)
== END ==
LOC: OLS.WHLEAS 05:40
PROVIDERS: PCP Family Medicine; Visit Provider Internal Medicine
DX: D64.9 Anemia, unspecified (principal); N17.9 Acute kidney failure, unspecified; M25.552 Pain in left hip; R26.2 Difficulty in walking, not elsewhere classified; R27.8 Other lack of coordination; Z74.1 Need for assistance with personal care
CPT/HCPCS: 36415; 80048; 85025